=== PATIENT | female | born 1960 | race Caucasian/White ===

== ENCOUNTER 2017-02-18 14:20 | Observation (INO) | payer OTHER, MEDICARE ==
[~2017-02-18] VITALS: Ht 170.2 cm; Wt 98.9 kg
[~2017-02-18 14:20] MED LIST: CALCIUM 600 MG1 EAC4 PO; IMODIUM2 M1 GT; LIPITOR20 MG PO; MACROBID 100 M100 MG PO; PRENATAL FORMU1 EAC5 PO; THERA-M CAPLET1 EACH PO; XARELTO20 MG PO; Z CLEOCIN IV; Z.0.ASACOL400 MG PO; Z.0.CELEXA20 MG PO; Z.0.CELLCEPT500 MG PO; Z.0.COUMADIN3 MG PO; Z.0.COUMADIN4 MG PO; Z.0.DEXILANT60 MG PO; Z.0.GLUMETZA500 MG PO; Z.0.KLOR-CON 1010 ME PO; Z.0.LASIX40 MG PO; Z.0.LISINOPRIL10 MG PO; Z.0.SYNTHROID25 MCG PO; Z.0.VITAMIN D1000 UN PO; [UNRECOGNIZED DRUG - MIXTURE] IV; [UNRECOGNIZED DRUG - OTHER] IV; [UNRECOGNIZED DRUG - OTHER] PO
[2017-02-18] MEDS ORDERED: SODIUM CHLORIDE 0.9% 500ML 500 ML IV STA (14:29)
[2017-02-18] MEDS ORDERED: ONDANSETRON HCL INJ 2 MG/ML VIAL IV STA (14:29)
[2017-02-18 15:50] LABS: BASOPHILS # (AUTO) 0.1 (0.0-0.1); BASOPHILS % 0.8 % (0.0-1.0); EOSINOPHILS # (AUTO) 0.8 (0.0-0.4); EOSINOPHILS % 5.7 % (0.0-6.0); HEMATOCRIT 25.9 % (34.2-44.1); INR 1.45; LYMPHOCYTES # (AUTO) 2.5 (1.0-3.2); LYMPHOCYTES % 17.8 % (18.0-39.1); MEAN CORPUSCULAR HEMOGLOBIN 29.4 pg (28-32); MEAN CORPUSCULAR HGB CONC 29.7 g/dL (31-35); MEAN CORPUSCULAR VOLUME 98.9 fL (81-99); MONOCYTES # (AUTO) 1.5 (0.2-0.8); MONOCYTES % 10.7 % (4.4-11.3); NEUTROPHILS # (AUTO) 8.6 (2.1-6.9); NEUTROPHILS % 61.4 % (38.7-80.0); PLATELET COUNT 569 x10e3/uL (140-360); PROTHROMBIN TIME 18.4 seconds (11.9-14.5); RED BLOOD COUNT 2.62 x10e6/uL (3.6-5.1); RED CELL DISTRIBUTION WIDTH 19.2 % (11.7-14.4)
[2017-02-18 15:51] LABS: PARTIAL THROMBOPLASTIN TIME 37.3 seconds (23.8-35.5)
[2017-02-18 15:54] LABS: HEMOGLOBIN 7.7 g/dL (12.0-16.0)
[2017-02-18 16:00] LABS: ALANINE AMINOTRANSFERASE 13 IU/L (0-55); ALBUMIN 3.4 g/dL (3.5-5.0); ALBUMIN/GLOBULIN RATIO 1.2 (0.8-2.0); ALKALINE PHOSPHATASE 60 IU/L (40-150); ANION GAP 14.5 mmol/L (8-16); BLOOD UREA NITROGEN 22 mg/dL (7-26); BUN/CREATININE RATIO 25 (6-25); CARBON DIOXIDE 22 mmol/L (22-29); CHLORIDE 106 mmol/L (98-107); CREATINE KINASE 40 IU/L (29-168); CREATININE, SERUM 0.87 mg/dL (0.57-1.11); EST GLOMERULAR FILTRATION RATE > 60 ML/MIN (60-); GLUCOSE 150 mg/dL (74-118); LIPASE 16 U/L (8-78); POTASSIUM 4.5 mmol/L (3.5-5.1); SODIUM 138 mmol/L (136-145)
[2017-02-18 16:16] LABS: B-TYPE NATRIURETIC PEPTIDE2 13.8 pg/mL (0-100)
[2017-02-18 16:20] LABS: TROPONIN I 0.004 ng/mL (0-0.300)
[2017-02-18] MEDS ORDERED: PANTOPRAZOLE 40 MG 10ML VIAL IV STA (16:30)
--- NOTE | 2017-02-18 16:41 | Diagnostic Imaging Report ---
PROCEDURE: A single AP view of the chest. COMPARISON: Patients [facility], , CHEST 2 VIEWS, 09/17/2011, 21:13. Patients [facility], , CHEST SINGLE (PORTABLE), 12/03/2016, 18:44. INDICATIONS: CHEST PAIN FINDINGS: Lines/tubes: None. Lungs: The lungs are well inflated and clear. There is no evidence of pneumonia or pulmonary edema. Pleura: There is no pleural effusion or pneumothorax. Stable elevation of the right hemidiaphragm. Heart and mediastinum: The heart and the mediastinum are unremarkable. Bones: No acute bony abnormality. IMPRESSION: 1. No acute cardiopulmonary abnormalities. Carmelo Gerber M.D. Dictated by: Carmelo Gerber M.D. on 02/18/2017 at 16:48 Electronically approved by: Carmelo Gerber M.D. on 02/18/2017 at 16:48
[2017-02-18] MEDS: OSELTAMIVIR PHOSPHATE 75 MG CAP PO SCH (17:28)
[2017-02-18] MEDS: SODIUM CHLORIDE 0.9% 1000ML 1,000 ML IV SCH ×2 (17:28→23:19)
[2017-02-18] MEDS: PANTOPRAZOLE 40 MG 10ML VIAL IV SCH (17:28)
[2017-02-18 17:42] LABS: BILIRUBIN,URINE NEGATIVE (NEGATIVE); CLARITY,URINE CLEAR (CLEAR); COLOR,URINE YELLOW (YELLOW); KETONES,URINE NEGATIVE (NEGATIVE); LEUKOCYTE ESTERASE ,URINE 1+ (NEGATIVE); NITRITE,URINE NEGATIVE (NEGATIVE); PROTEIN,URINE DIPSTICK NEGATIVE (NEGATIVE); URINE UROBILINOGEN 0.2 mg/dL (0.2 - 1)
[2017-02-18 18:36] LABS: BACTERIA,URINE MODERATE /HPF; EPITHELIAL CELLS,URINE FEW /LPF; WBC,URINE (MAN) >50 /HPF (0-5)
[2017-02-18 18:37] LABS: HYALINE CASTS 0-1 (0-1); MUCUS,URINE FEW (RARE)
--- NOTE | 2017-02-18 19:51 | History and Physical ---
This is a 57-year-old lady who comes in with tachycardia and unsteady gait. HISTORY OF PRESENT ILLNESS: This is a 57-year-old female with a history of hypertension, history of diabetes mellitus, and anemia, who was in her usual state of health until the morning when she woke up and went over to make some toast. She could not stand long enough to make the toast. She felt shaky and had a tachycardic episode. The patient came into the emergency room and was found to have symptomatic anemia and influenza B. 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 MEDICATIONS: That she takes at home are: 1. Atorvastatin 20 mg. 2. Vitamin D. 3. Citalopram 20 mg. 4. Dexilant 60 mg. 5. Lasix 40 mg. 6. Levothyroxine 25 mg. 7. Lisinopril 10 mg. 8. Mesalamine 400 mg for her ulcerative colitis. 9. Metformin 500 mg. 10. Multivitamin. 11. Macrobid. 12. Potassium chloride 10 mEq. 13. vitamins. 14. Atelvia for osteoporosis. 15. Xarelto for history of frequent CVAs. SURGICAL HISTORY: She had extensive work done on her right ankle and lower extremities for necrotizing fasciitis, cholecystectomy, and surgeries on her right foot multiple times. SOCIAL HISTORY: No ETOH. No IV drug abuse. Lives with her . REVIEW OF SYSTEMS: Negative for chest pain. Positive for shortness of breath on exertion. No nausea, vomiting or diarrhea. No constipation. Positive for some dysphagia. No headaches. No blurry vision. Positive for myalgia, which is very diffuse at this point in time. PHYSICAL EXAMINATION VITALS: 97.9, pulse 119, blood pressure 102/57. HEENT: Normocephalic and atraumatic. Pupils are reactive to light and accommodation. CV: S1 and S2. Tachy about 120. No murmurs. Regular rate and rhythm. LUNGS: Clear to auscultation bilaterally. ABDOMEN: Tender in the epigastrium, otherwise normal. EXTREMITIES: No clubbing. No cyanosis. No edema. The right side is wrapped up because of the superficial thrombophlebitis. LABORATORY VALUES: Initial white count was 14,000, hemoglobin 7.7, hematocrit 25.9. Chemistry: Sodium 138, potassium 4.5, glucose 150. Coags: PT of 18 and INR is 1.45. Urine rbcs 11-20, white cells 50. Serology showed positive flu B. ASSESSMENT 1. Anemia, symptomatic: Will go ahead and transfuse 1 unit. 2. Flu: Start on Tamiflu. 3. Will continue home medications. 4. The patient does have some bleeding diathesis. Will go ahead and have Dr. Vu probably scope with endoscopy, and see if there is any bleeding with questionable arteriovenous malformation. Will continue to monitor the patient. Fluids will be administered. Will continue giving Tamiflu. Further recommendations per clinical course. Job#: [id number] GREGG
--- NOTE | 2017-02-18 21:46 | Consultation ---
DATE OF CONSULTATION: February 18, 2017 This is a 57-year-old who has history of hypertension, history of diabetes, and history of anemia. Apparently, he had an EGD and colonoscopy on January 30 which showed evidence of AVMs in the stomach as well as in the colon and also colon polyp. She presented to the hospital because of problems with racing heart rate and also feeling dizzy. The patient was found to have anemia with hemoglobin down to 7.7. She apparently had some kind of black stool. He denies any abdominal pain along with this problem. Her PT was elevated to 18.4 with INR of 1.45. Her other medical problems are significant for history of anemia, history of hypertension, history of diabetes, history of thrombophlebitis, history of diabetes, history of AVMs. MEDICATION ON ADMISSION: 1. Atorvastatin 20 mg. 2. Vitamin D. 3. Citalopram 20 mg. 4. Dexilant 60 mg. 5. Lasix 40 mg. 6. Levothyroxine 25 mg. 7. Lisinopril 10 mg. 8. Mesalamine 400 mg for her ulcerative colitis. 9. Metformin 500 mg. 10. Multivitamin. 11. Macrobid. 12. Potassium chloride 10 mEq. 13. vitamins. 14. Atelvia for osteoporosis. 15. Xarelto for history of frequent CVAs. SOCIAL HISTORY: No alcohol use. FAMILY HISTORY: Noncontributory. REVIEW OF SYSTEMS: Denies any chest pain. Denies any shortness of breath. Denies any dysphagia or odynophagia. Denies any dysuria or hematuria. She has feeling of being somewhat dizzy. Denies any syncopal episodes. PHYSICAL EXAMINATION GENERAL: The patient is awake, alert, appears to be stable and not in any acute distress. VITAL SIGNS: Afebrile currently. HEENT: Normocephalic, atraumatic. Sclerae anicteric. NECK: Supple. HEART: Sounds regular. LUNGS: Clear. ABDOMEN: Soft. There is no distention at this point. Nontender. EXTREMITIES: No clubbing. LABORATORY DATA: Significant for PT of 18.4, INR 1.45, PTT 37.3. BUN of 22, creatinine 0.87. Hemoglobin 7.7. IMPRESSION 1. Gastrointestinal bleed with black stool. The patient has history of AVMs and currently is on anticoagulation. 2. History of anemia, less than before. 3. History of hypertension. 4. History of diabetes. RECOMMENDATIONS: Transfuse with packed red blood cells at this point. I will obtain nuclear medicine bleeding scan. Continue proton pump inhibitor at this point. Follow labs and clinically. Very likely bleeding has to do with AVMs and there is bleeding because the patient is on Xarelto. Job#: [id number] cc:MAXI AMAYA MD
[2017-02-18 23:18] LABS: EOSINOPHILS % (MANUAL) 5 % (0-7); LYMPHOCYTES % (MANUAL) 25 % (19-48); METAMYELOCYTES % (MANUAL) 2 % (0-0); MONOCYTES % (MANUAL) 8 % (3.4-9.0); NEUTROPHILS % (MANUAL) 60 % (40-74)
[2017-02-18 23:20] LABS: HYPOCHROMASIA SLIGHT; PLATELET ESTIMATE SLIGHTLY INCREASED; PLATELET MORPHOLOGY COMMENT FEW LARGE; RBC MORPHOLOGY COMMENT ABNORMAL
[2017-02-18 23:21] LABS: ANISOCYTOSIS MODERATE; POIKILOCYTOSIS SLIGHT
[2017-02-18 23:30] VITALS: BP 116/57
[2017-02-19] VITALS (7 sets, daily range): BP systolic 97–135; BP diastolic 52–75
[2017-02-19] MEDS ORDERED: SODIUM CHLORIDE 0.9% 250ML 250 ML ONE ×2 (00:51→08:11)
--- NOTE | 2017-02-19 02:02 | Discharge Summary ---
KWABENA BAILON (00:02) MAXI AMAYA MD Job#: [id number] CQ
[2017-02-19 07:13] LABS: HEMATOCRIT 19.5 % (34.2-44.1); HEMOGLOBIN 5.8 g/dL (12.0-16.0)
[2017-02-19 07:18] LABS: INR 1.06; PROTHROMBIN TIME 14.3 seconds (11.9-14.5)
[2017-02-19] MEDS: SODIUM CHLORIDE 0.9% 1000ML 1,000 ML IV SCH ×3 (08:23→22:38)
[2017-02-19] MEDS: OSELTAMIVIR PHOSPHATE 75 MG CAP PO SCH ×2 (09:00→17:22)
[2017-02-19] MEDS: PANTOPRAZOLE 40 MG 10ML VIAL IV SCH (09:00)
[2017-02-19] MEDS ORDERED: SODIUM CHLORIDE 0.9% 250ML 250 ML IV ONE (10:45)
--- NOTE | 2017-02-19 18:08 | Diagnostic Imaging Report ---
Tagged-RBC GI Bleed Study Clinical information: 57-year-old female with anemia and dark stools. Discussion: The patient's own red blood cells were labeled with 27 mCi of technetium-99m pertechnetate using the in vitro method (UltraTag). Dynamic images of the abdomen were obtained through 60 minutes. Distribution of tracer activity appears physiologic throughout the abdomen. No abnormal accumulation of tracer is seen within the gastrointestinal lumen. Impression: No scan evidence of active gastrointestinal bleeding at this time. Signed by: Dr. Chayito Thomas M.D. on 02/19/2017 6:04 PM
[2017-02-19 21:20] LABS: HEMATOCRIT 29.2 % (34.2-44.1); HEMOGLOBIN 9.1 g/dL (12.0-16.0)
[2017-02-19] MEDS ORDERED: TEMAZEPAM 15 MG CAP PO ONE (22:15)
[2017-02-20] VITALS: BP 131/60
--- NOTE | 2017-02-20 02:14 | Consultation ---
DATE OF CONSULTATION: February 19, 2017 HEMATOLOGY CONSULT This lady is well known to me. She was initially referred to me by Dr. Paez because of anemia. Multiple workup showed that there is no clear etiology of anemia, except perhaps GI bleeding. Patient was now admitted to [facility] at [facility] in [place]. She was scoped there, and I was not aware of the results. I asked the patient to see me in my office today, but she was admitted to [facility] here at [facility]. Hematology consult was requested again kindly by Dr. Paez. Patient appears to be comfortable, and blood is infusing. She had some lightheadedness. She had tachycardia earlier today. Dr. Vu of GI services has been consulted. She may have another EGD in the morning. PAST MEDICAL AND SURGICAL HISTORY: As per history and physical by Dr. Paez. PHYSICAL EXAMINATION GENERAL: Revealed a middle-aged, obese white woman in no acute distress. VITAL SIGNS: Stable. HEENT: Unremarkable. NECK: Supple. CHEST: Clear. ABDOMEN: Soft. EXTREMITIES: No cyanosis, clubbing or edema. ASSESSMENT AND PLAN: Recurrent anemia without clear etiology. I was planning to repeat bone marrow and send for cytogenetics. Will watch her for now, and when the patient is stabilized to be discharged, I will make arrangements to get the bone marrow and cytogenetics done. Thank you very much, Dr. Paez, for asking me to see Mrs. Zaidi. I will follow her with you. Job#: [id number] GREGG HART
[2017-02-20 04:00] VITALS: BP 114/57
[2017-02-20 06:55] LABS: BASOPHILS # (AUTO) 0.2 (0.0-0.1); BASOPHILS % 1.5 % (0.0-1.0); EOSINOPHILS # (AUTO) 1.1 (0.0-0.4); EOSINOPHILS % 11.4 % (0.0-6.0); HEMATOCRIT 28.8 % (34.2-44.1); HEMOGLOBIN 8.8 g/dL (12.0-16.0); LYMPHOCYTES # (AUTO) 2.1 (1.0-3.2); LYMPHOCYTES % 21.5 % (18.0-39.1); MEAN CORPUSCULAR HEMOGLOBIN 29.2 pg (28-32); MEAN CORPUSCULAR HGB CONC 30.6 g/dL (31-35); MEAN CORPUSCULAR VOLUME 95.7 fL (81-99); MONOCYTES # (AUTO) 1.3 (0.2-0.8); MONOCYTES % 13.3 % (4.4-11.3); NEUTROPHILS # (AUTO) 4.8 (2.1-6.9); NEUTROPHILS % 48.1 % (38.7-80.0); PLATELET COUNT 427 x10e3/uL (140-360); RED BLOOD COUNT 3.01 x10e6/uL (3.6-5.1); RED CELL DISTRIBUTION WIDTH 17.8 % (11.7-14.4)
[2017-02-20 07:43] VITALS: BP 122/59
[2017-02-20] MEDS: OSELTAMIVIR PHOSPHATE 75 MG CAP PO SCH ×2 (09:00→17:10)
[2017-02-20] MEDS: SODIUM CHLORIDE 0.9% 1000ML 1,000 ML IV SCH (09:14)
[2017-02-20] MEDS: PANTOPRAZOLE 40 MG 10ML VIAL IV SCH (09:14)
[2017-02-20 09:47] LABS: EOSINOPHILS % (MANUAL) 10 % (0-7); LYMPHOCYTES % (MANUAL) 24 % (19-48); METAMYELOCYTES % (MANUAL) 1 % (0-0); MONOCYTES % (MANUAL) 15 % (3.4-9.0); MYELOCYTES % (MANUAL) 1 % (0-0); NEUTROPHILS % (MANUAL) 47 % (40-74); NUCLEATED RED BLOOD CELLS 2
[2017-02-20 09:50] LABS: ANISOCYTOSIS SLIGHT; PLATELET ESTIMATE ADEQUATE; PLATELET MORPHOLOGY COMMENT NORMAL; POIKILOCYTOSIS SLIGHT; RBC MORPHOLOGY COMMENT NORMAL
[2017-02-20] MEDS ORDERED: MIDAZOLAM HCL 2 MG/2 ML VIAL ONE (11:15)
[2017-02-20] MEDS ORDERED: FENTANYL CITRATE/PF 100MCG/2 ML INJ ONE (11:15)
[2017-02-20 11:33] VITALS: BP 120/61
[2017-02-20 12:35] LABS: HEMATOCRIT 31.9 % (34.2-44.1); HEMOGLOBIN 9.7 g/dL (12.0-16.0)
[2017-02-20 15:45] VITALS: BP 132/67
[2017-02-20 18:54] LABS: HEMOGLOBIN 9.5 g/dL (12.0-16.0)
[2017-02-20 20:00] VITALS: BP 121/58
[2017-02-21] VITALS: BP 140/70
[2017-02-21 00:32] LABS: HEMATOCRIT 29.2 % (34.2-44.1); HEMOGLOBIN 8.9 g/dL (12.0-16.0)
[2017-02-21 04:00] VITALS: BP 136/65
[2017-02-21 07:06] LABS: BASOPHILS # (AUTO) 0.1 (0.0-0.1); BASOPHILS % 0.9 % (0.0-1.0); EOSINOPHILS # (AUTO) 1.2 (0.0-0.4); EOSINOPHILS % 9.9 % (0.0-6.0); HEMATOCRIT 29.6 % (34.2-44.1); HEMOGLOBIN 8.9 g/dL (12.0-16.0); LYMPHOCYTES # (AUTO) 1.9 (1.0-3.2); LYMPHOCYTES % 16.3 % (18.0-39.1); MEAN CORPUSCULAR HGB CONC 30.1 g/dL (31-35); MEAN CORPUSCULAR VOLUME 96.4 fL (81-99); MONOCYTES # (AUTO) 1.5 (0.2-0.8); MONOCYTES % 12.7 % (4.4-11.3); NEUTROPHILS # (AUTO) 6.7 (2.1-6.9); NEUTROPHILS % 57.9 % (38.7-80.0); PLATELET COUNT 420 x10e3/uL (140-360); RED BLOOD COUNT 3.07 x10e6/uL (3.6-5.1); RED CELL DISTRIBUTION WIDTH 18.2 % (11.7-14.4)
[2017-02-21 07:18] LABS: ANION GAP 12.8 mmol/L (8-16); BLOOD UREA NITROGEN 5 mg/dL (7-26); BUN/CREATININE RATIO 8 (6-25); CALCIUM 8.7 mg/dL (8.4-10.2); CARBON DIOXIDE 23 mmol/L (22-29); CHLORIDE 108 mmol/L (98-107); CREATININE, SERUM 0.63 mg/dL (0.57-1.11); EST GLOMERULAR FILTRATION RATE > 60 ML/MIN (60-); GLUCOSE 179 mg/dL (74-118); POTASSIUM 3.8 mmol/L (3.5-5.1); SODIUM 140 mmol/L (136-145)
[2017-02-21 07:58] VITALS: BP 119/57
[2017-02-21] MEDS: OSELTAMIVIR PHOSPHATE 75 MG CAP PO SCH (08:40)
[2017-02-21] MEDS: PANTOPRAZOLE 40 MG 10ML VIAL IV SCH (08:40)
[2017-02-21 10:32] LABS: ANISOCYTOSIS SLIGHT; EOSINOPHILS % (MANUAL) 16 % (0-7); LYMPHOCYTES % (MANUAL) 11 % (19-48); MONOCYTES % (MANUAL) 13 % (3.4-9.0); NEUTROPHILS % (MANUAL) 60 % (40-74)
[2017-02-21 10:33] LABS: HYPOCHROMASIA SLIGHT; PLATELET ESTIMATE SLIGHTLY INCREASED; PLATELET MORPHOLOGY COMMENT NORMAL; POIKILOCYTOSIS SLIGHT; RBC MORPHOLOGY COMMENT NORMAL
[2017-02-21] MEDS ORDERED: PROPOFOL IV EMULSION 10 MG/ML 20 ML VIAL ONE (19:00)
== END 2017-02-21 09:06 | disposition home or self-care (01) ==
LOC: ER 14:20 → ERHOLD 18:47 → IMCU 21:32
PROVIDERS: ADMIT Family Medicine; ATTEND Family Medicine
DX: K55.21 Angiodysplasia of colon with hemorrhage (principal); J09.X2 Influenza due to identified novel influenza A virus with other respiratory manifestations; I10 Essential (primary) hypertension; E11.9 Type 2 diabetes mellitus without complications; Z79.01 Long term (current) use of anticoagulants; K44.9 Diaphragmatic hernia without obstruction or gangrene; D50.0 Iron deficiency anemia secondary to blood loss (chronic); G44.1 Vascular headache, not elsewhere classified; K31.811 Angiodysplasia of stomach and duodenum with bleeding
CPT/HCPCS: 36430; 44366; P9016; P9017; 36415; 43270; 71010; 78278; 80048; 80053; 81001; 82550; 82553; 82948; 83605; 83690; 83880; 84443; 84484; 85014; 85018; 85025; 85610; 85730; 86850; 86870; 86880; 86900; 86905; 86920; 86922; 87086; 87400; 93005; 99001; 99284; A9512; G0378; J2250; J2405; J7030; J7040; J7050

== ENCOUNTER 2017-04-21 19:46 | Emergency (ER) | payer OTHER, MEDICARE ==
--- OUTSIDE RECORDS SUMMARY | 2017-04-21 19:49 | XMS REPORT | Clinical Summary ---
Author Author [facility] Organization [facility] Address Unknown Phone Unavailable Care Team Providers Care Speed Runner Name Role Phone Kumar Paez MD PCP Allergies No Known Allergies Current Medications Prescription Sig. Disp. Refills Start End Date Status Date aspirin (ECOTRIN) 81 MG Take 81 mg by mouth daily 01/23/20 Active enteric coated tablet with lunch. 17 atorvastatin (LIPITOR) 40 Take 40 mg by mouth 0 11/16/19 Active MG tablet nightly. 17 citalopram (CeleXA) 20 MG Take 20 mg by mouth daily 1 01/07/20 Active tablet with lunch. 17 cyanocobalamin 1,000 Inject 1,000 mcg into the 0 01/09/20 Active mcg/mL injection shoulder, thigh, or 17 buttocks once a week. esomeprazole (NexIUM) 40 Take 40 mg by mouth 2 01/19/20 Active MG capsule (two) times a day. Before 17 breakfast and bedtime. gemfibrozil (LOPID) 600 Take 600 mg by mouth 2 0 12/20/19 Active MG tablet (two) times a day. 17 glimepiride (AMARYL) 1 MG Take 1 mg by mouth daily 0 12/10/19 Active tablet with lunch. 17 TRESIBA FLEXTOUCH U-200 Inject 10 Units under the 0 12/17/19 Active 200 unit/mL (3 mL) skin nightly. 17 insulin pen metFORMIN XR Take 1,000 mg by mouth 0 01/14/20 Active (GLUCOPHAGE-XR) 500 mg 24 daily with dinner. 17 hr tablet levothyroxine (SYNTHROID, Take 50 mcg by mouth 0 12/15/19 Active LEVOXYL) 50 mcg tablet daily before breakfast. 17 lisinopril Take 10 mg by mouth daily 0 01/07/20 Active (PRINIVIL,ZESTRIL) 10 mg with lunch. 17 tablet metoclopramide (REGLAN) 5 Take 5 mg by mouth 3 01/23/20 Active MG tablet (three) times a day. 17 metoprolol succinate XL Take 25 mg by mouth 2 0 01/07/20 Active (TOPROL-XL) 25 mg 24 hr (two) times a day. 17 tablet risedronate 35 mg Take 35 mg by mouth once 01/16/20 Active tablet,delayed release a week. Every Friday 17 (DR/EC) MORNING XARELTO 20 mg tablet Take 20 mg by mouth daily 1 01/07/20 Active with dinner. 17 ONGLYZA 5 mg tablet Take 5 mg by mouth daily 0 12/17/19 Active with lunch. 17 liraglutide (VICTOZA) 0.6 Inject 0.6 mg under the Active mg/0.1 mL (18 mg/3 mL) skin every evening. pen injector sucralfate (CARAFATE) 100 Take 10 mL (1 g total) by 1200 mL 0 03/01/20 mg/mL suspension mouth 4 (four) times a 17 17 day before meals and nightly for 30 days. Active Problems Problem Noted Date Lower GI bleed 01/29/2017 Anemia 01/28/2017 Encounters Date Type Specialty Care Team Description 01/30/2017 Documentation General Internal Medicine Mary Jane Leigh MD 01/30/2017 Anesthesia Gastroenterology Bobo Pacheco Event 01/30/2017 Procedure Pass Gastroenterology 01/30/2017 Surgery Gastroenterology Tim Smith MD COLONOSCOPY 01/29/2017 [facility] General Surgery Elver Winston MD Lower GI bleed ( Primary - Encounter William Hairston, Dx); 01/30/2017 Anemia, unspecified type; Weakness 01/29/2017 Infusion Oncology Mary Jane Leigh MD No Show 01/29/2017 Orders Only General Internal Medicine Mary Jane Leigh MD 01/28/2017 Pre-Admit Pre-Admission Testing Mary Jane Leihg MD Anemia, unspecified type Testing (Primary Dx) Appointment after 04/20/2016 Social History Tobacco Use Types Packs/Day Years Used Date Former Smoker Cigarettes 0.5 10 Quit: 01/29/1987 Smokeless Tobacco: Never Used Alcohol Use Drinks/Week oz/Week Comments Yes rarely Sex Assigned at Date Recorded Not on file Last Filed Vital Signs Vital Sign Reading Time Taken Blood Pressure 117/59 01/30/2017 3:46 PM SUPPLY ANALYST Pulse 88 01/30/2017 3:46 PM SUPPLY ANALYST Temperature 36.4 C (97.6 F) 01/30/2017 3:46 PM SUPPLY ANALYST Respiratory Rate 16 01/30/2017 3:46 PM SUPPLY ANALYST Oxygen Saturation 95% 01/30/2017 3:46 PM SUPPLY ANALYST Inhaled Oxygen - - Concentration Weight 81.6 kg (180 lb) 01/29/2017 9:15 AM SUPPLY ANALYST Height 170.2 cm (5' 7") 01/29/2017 9:15 AM SUPPLY ANALYST Body Mass Index 28.19 01/29/2017 9:15 AM SUPPLY ANALYST Plan of Treatment Health Maintenance Due Date Last Done Comments PAP SMEAR 1983 COLONOSCOPY 01/14/2012 MAMMOGRAM 01/14/2012 INFLUENZA VACCINE 10/01/2016 Procedures Procedure Name Priority Date/Time Associated Diagnosis Comments ESOPHAGOGASTRODUODENOSCOP 01/30/2017 GI BLEED Y (EGD) 1:30 PM SUPPLY ANALYST COLONOSCOPY 01/30/2017 GI BLEED 1:30 PM SUPPLY ANALYST VT CRITICAL CARE, E/M Routine 01/29/2017 Results for this 30-74 MINUTES 1:51 PM SUPPLY ANALYST procedure are in the results section. after 04/20/2016 Results * Total iron binding capacity (01/30/2017 3:47 PM) Component Value Ref Range Iron level 71 37 - 145 ug/dL Iron binding capacity 335 200 - 400 ug/dL % Saturation 21.2 15.0 - 38.0 % Specimen Performing Laboratory Plasma specimen [facility] DEPARTMENT OF PATHOLOGY AND GENOMIC MEDICINE [address] [place] [address] * Vitamin B12 level (01/30/2017 3:47 PM) Component Value Ref Range Vitamin B12 1,033 (H) 211 - 946 pg/mL Comment: Significant overlap exists between normal and deficiency states. However, most patients with deficiencies will have Serum B12 <200 pg/mL. Specimen Performing Laboratory Serum [facility] DEPARTMENT OF PATHOLOGY AND GENOMIC MEDICINE [address] [place] [id number] * Surgical pathology request (01/30/2017 1:27 PM) Component Value Ref Range Surgical pathology report See link below for PDF Lab Report Result status This is Final Report to [id number] Specimen Performing Laboratory [facility] DEPARTMENT OF PATHOLOGY AND GENOMIC MEDICINE [address] [place] [address] [place] [id number] * Smear review (01/30/2017 12:51 PM) Only the most recent of 2 results within the time period is included. Component Value Ref Range Platelet slide review Violet adequate Anisocytosis Moderate Polychromasia FootnoteComment: occassional Specimen Performing Laboratory [facility] PATHOLOGY AND [address] [place] [id number] * CBC with platelet and differential (01/30/2017 12:51 PM) Only the most recent of 2 results within the time period is included. Component Value Ref Range WBC 10.19Comment: WBC was corrected for NRBCs 4.50 - 11.00 k/uL RBC 2.87 (L) 4.20 - 5.50 m/uL HGB 9.1 (L) 12.0 - 16.0 g/dL HCT 29.7 (L) 37.0 - 47.0 % MCV 103.5 (H) 82.0 - 100.0 fL MCH 31.7 27.0 - 34.0 pg MCHC 30.6 (L) 31.0 - 37.0 g/dL RDW - SD 94.6 (H) 37.0 - 55.0 fL MPV 9.2 8.8 - 13.2 fL Platelet count 389 150 - 400 k/uL Nucleated RBC 1.00 /100 WBC Neutrophils 57.3 39.0 - 69.0 % Lymphocytes 21.0 (L) 25.0 - 45.0 % Monocytes 14.6 (H) 0.0 - 10.0 % Eosinophils 1.4 0.0 - 5.0 % Basophils 0.8 0.0 - 1.0 % Immature granulocytes 4.9 (H)Comment: "Immature granulocytes" 0.0 - 1.0 % (promyelocytes, myelocytes, metamyelocytes) Specimen Performing Laboratory Blood [facility] DEPARTMENT OF PATHOLOGY AND GENOMIC [address] [place] [address] * POC glucose (01/30/2017 11:43 AM) Only the most recent of 4 results within the time period is included. Component Value Ref Range POC glucose 120 (H) 65 - 99 mg/dL Comment: Meter ID: [id number] [employer] Supervisor: Oriana Roth Specimen Performing Laboratory [facility] DEPARTMENT OF PATHOLOGY AND GENOMIC MEDICINE [address] [place] [address] [place] [id number] * Hemoglobin & hematocrit (01/30/2017 5:30 AM) Component Value Ref Range HGB 8.7 (L) 12.0 - 16.0 g/dL HCT 28.2 (L) 37.0 - 47.0 % Specimen Performing Laboratory Blood [facility] PATHOLOGY AND [address] [place] [address] * Transfuse RBC (01/29/2017 3:51 PM) Only the most recent of 3 results within the time period is included. * CRITICAL CARE (01/29/2017 1:51 PM) Narrative Elver Winston MD 01/29/20171:51 PM Critical Care Performed by: ELVER WINSTON Authorized by: ELVER WINSTON Critical care provider statement: Critical care time (minutes):33 Critical care time was exclusive of:Separately billable procedures and treating other patients Critical care was necessary to treat or prevent imminent or life-threatening deterioration of the following conditions:Shock (severe blood loss) Critical care was time spent personally by me on the following activities:Development of treatment plan with patient or surrogate, discussions with primary provider, evaluation of patient's response to treatment, examination of patient, obtaining history from patient or surrogate, re-evaluation of patient's condition, pulse oximetry, ordering and review of radiographic studies, ordering and review of laboratory studies, ordering and performing treatments and interventions, review of old charts and discussions with consultants Yazan 'yes' if you are taking over critical care for this patient from another provider.: no * Troponin (01/29/2017 1:46 PM) Only the most recent of 2 results within the time period is included. Component Value Ref Range Troponin <0.300 0.000 - 0.300 ng/mL Comment: 0.30 - 1.49 ng/ml May indicate increased risk of acute coronary syndrome. >=1.5 ng/ml Consistent with acute myocardial infarction. The diagnostic value of a single normal or non-diagnostic result is questionable. Serial samples at 2-6 hour intervals are required to rule out acute myocardial injury. Specimen Performing Laboratory Plasma specimen [facility] OF PATHOLOGY AND GENOMIC [address] [place] [address] * Estimated GFR (01/29/2017 9:45 AM) Component Value Ref Range GFR Non Af Amer 74 mL/min/1.73 m2 GFR Af Amer >90 mL/min/1.73 m2 Comment: Chronic kidney disease: <60 mL/min/1.73m2 Kidney failure: <15 mL/min/1.73m2 The estimated GFR is calculated from the IDMS-traceable Modification of Diet in Renal Disease Equation. The accuracy of the calculation is poor when the creatinine is normal. Calculated values >90 mL/min/1.73m2 are not reported. This equation has not been validated in children (<18 years), women, the elderly (>70 years), or ethnic groups other than Caucasians and Americans. Specimen Performing Laboratory Plasma specimen [facility] DEPARTMENT OF PATHOLOGY AND [place] [address] [place] [address] * Partial thromboplastin time, activated (01/29/2017 9:45 AM) Component Value Ref Range PTT 24.2 23.0 - 36.0 sec Comment: PTT therapeutic range for unfractionated heparin is 61.0-112.0 seconds which corresponds to Anti-Xa 0.3-0.7 U/ml. Specimen Performing Laboratory Blood [facility] DEPARTMENT OF PATHOLOGY AND [place] [facility] [address] [place] [address] [place] [address] * Prothrombin time with INR (01/29/2017 9:45 AM) Component Value Ref Range Prothrombin time 14.7 12.0 - 15.0 sec INR 1.1 Comment: The International Normalized Ratio (INR) is a therapeutic monitoring tool for patients who are stable on oral anticoagulant therapy. An INR of 2.0-3.0 is suggested for deep vein thrombosis/pulmonary embolism. Specimen Performing Laboratory Blood [facility] DEPARTMENT OF PATHOLOGY AND [place] [facility] [address] [place] [address] [place] [address] * B natriuretic peptide (01/29/2017 9:45 AM) Component Value Ref Range BNP 40 0 - 100 pg/mL Specimen Performing Laboratory Blood [facility] DEPARTMENT OF PATHOLOGY AND [place] [address] [place] [address] * Hepatic function panel (01/29/2017 9:45 AM) Component Value Ref Range Albumin 4.0 3.5 - 5.0 g/dL Total bilirubin 0.2 0.0 - 1.2 mg/dL Bilirubin direct <0.1 0.0 - 0.3 mg/dL Alkaline phosphatase 59 35 - 104 U/L Protein 6.3 6.3 - 8.3 g/dL Comment: [place] 4.6-7.0 g/dL 1 week 4.4-7.6 g/dL 7 months-1year 5.1-7.3 g/dL 1-2 years 5.6-7.5 g/dL >3 years 6.0-8.0 g/dL 18-150 6.3-8.3 g/dL ALT 14 5 - 50 U/L AST 18 10 - 35 U/L Specimen Performing Laboratory Plasma specimen [facility] DEPARTMENT OF PATHOLOGY AND [facility] MEDICINE [address] [place] [address] * Basic metabolic panel (01/29/2017 9:45 AM) Component Value Ref Range Sodium 136 135 - 148 mEq/L Potassium 4.1 3.5 - 5.0 mEq/L Chloride 101 98 - 112 mEq/L CO2 22 (L) 24 - 31 mEq/L Anion gap 13 7 - 15 mEq/L Comment: Starting from June , anion gap calculation no longer incorporates potassium. Please note the change. BUN 14 6 - 20 mg/dL Creatinine 0.8 0.5 - 0.9 mg/dL Glucose 183 (H) 65 - 99 mg/dL Calcium 9.1 8.3 - 10.2 mg/dL Specimen Performing Laboratory Plasma specimen [facility] PATHOLOGY AND [facility] [address] [place] [address] [place] [address] * ECG 12 lead (01/29/2017 9:26 AM) Component Value Ref Range Ventricular rate 96 Atrial rate 96 VT interval 136 QRSD interval 74 QT interval 330 QTC interval 416 P axis 1 261 QRS axis 1 38 T wave axis 78 EKG impression Unusual P axis and short VT, probable junctional tachycardia-Cannot rule out Anterior infarct , age undetermined-Abnormal ECG-In automated comparison with ECG of 11-SEP-2013 22:37,-Junctional rhythm has replaced Sinus rhythm- Specimen Performing Laboratory [facility] [address] [place] [address] * Donnelly antigen patient typing (01/28/2017 10:14 AM) Only the most recent of 2 results within the time period is included. Component Value Ref Range Sophia Antigen Patient NEGComment: UNIT ANTIGEN TESTING Typing Specimen Performing Laboratory [facility] DEPARTMENT OF PATHOLOGY AND GENOMIC MEDICINE [address] [place] [address] [place] [id number] * E antigen patient typing (01/28/2017 10:14 AM) Only the most recent of 2 results within the time period is included. Component Value Ref Range E Antigen Patient Typing NEGComment: UNIT ANTIGEN TESTING Specimen Performing Laboratory [facility] DEPARTMENT OF PATHOLOGY AND GENOMIC MEDICINE [address] [place] [address] [place] [id number] * Prepare RBC, 2 Units (01/28/2017 10:14 AM) Component Value Ref Range Product name Apheresis Red Cell AS3 #1 LR Unit number [id number] Product code [id number] Dispense status Transfused Blood expiration date 20170220 Blood type code 9500 Blood type O NEGATIVE Product name Red Blood Cells -1, Leukored Unit number [id number] Product code [id number] Dispense status Transfused Blood expiration date 20170216 Blood type code 9500 Blood type O NEGATIVE Specimen Performing Laboratory [facility] DEPARTMENT OF PATHOLOGY AND GENOMIC MEDICINE [address] [place] [address] [place] [id number] * Type and screen (01/28/2017 10:14 AM) Component Value Ref Range ABO grouping O Rh type NEG Antibody screen NEG Specimen Performing Laboratory Blood [facility] DEPARTMENT OF PATHOLOGY AND GENOMIC [address] [place] [id number] after 04/20/2016 Insurance Payer Benefit Subscriber ID Type Phone Address Plan / Group ASHLYN GOLDBERG xxxxxxxxxxx HMO HMO/POS
--- OUTSIDE RECORDS SUMMARY | 2017-04-21 19:49 | XMS REPORT ---
Author Author [facility] Address Unknown Phone Unavailable Care Team Providers Care Campground Caretaker Name Role Phone MAXI AMAYA Unavailable Unavailable Problems This patient has no known problems. Allergies, Adverse Reactions, Alerts This patient has no known allergies or adverse reactions. Medications This patient has no known medications. Results Test Description Test Time Test Comments Text Results Atomic Results Result Comments G I BLEED [place] [address] Patient Name: JOSE CARLOS DIXON MR #: [id number] : 1960 Age/Sex: 57/F Req #: [id number] Adm Physician: MAXI AMAYA MD Ordered by: SANDRA MAGALLON MD Report #: [id number] Location: [facility] Room/Bed: [place] [address] _ Procedure: [id number] NM/G I BLEED Exam Date: 02/19/17 Exam Time: 1400 REPORT STATUS: Signed Tagged-RBC GI Bleed Study Clinical information: 57-year-old female with anemia and dark stools. Discussion: The patient's own red blood cells were labeled with 27 mCi of technetium-99m pertechnetate using the in vitro method (UltraTag). Dynamic images of the abdomen were obtained through 60 minutes. Distribution of tracer activity appears physiologic throughout the abdomen. No abnormal accumulation of tracer is seen within the gastrointestinal lumen. Impression: No scan evidence of active gastrointestinal bleeding at this time. Signed by: Dr. Kennedi Thomas M.D. on 02/19/2017 6:04 PM Dictated By: KENNEDI THOMAS MD 03 COPY TO: SANDRA MAGALLON MD CHEST SINGLE (PORTABLE) [place] [address] Patient Name: JOSE CARLOS DIXON MR #: [id number] : 1960 Age/Sex: 57/F Req #: [id number] Adm Physician: MAXI AMAYA MD Ordered by: RENAE GOULD DIRECTOR UTILIZATION MANAGEMENT Report #: [id number] Location: [facility] Room/Bed: [place] [address] Procedure: [id number] DX/CHEST SINGLE (PORTABLE) Exam Date: 02/18/17 Exam Time: 1545 REPORT STATUS: Signed PROCEDURE: A single AP view of the chest. COMPARISON: [facility], , CHEST 2 VIEWS, 09/17/2011, 21:13. [facility], , CHEST SINGLE (PORTABLE), 12/03/2016, 18:44. INDICATIONS: CHEST PAIN FINDINGS: Lines/tubes: None. Lungs : The lungs are well inflated and clear. There is no evidence of pneumonia or pulmonary edema. Pleura: There is no pleural effusion or pneumothorax. Stable elevation of the right hemidiaphragm. Heart and mediastinum: The heart and the mediastinum are unremarkable. Bones: No acute bony abnormality. IMPRESSION: 1. No acute cardiopulmonary abnormalities. Car Gerber M.D. Dictated by: Car Gerber M.D. on 02/18/2017 at 16:48 Electronically approved by: Car Gerber M.D. on 02/18/2017 at 16:48 Dictated By: CAR GERBER MD 47 Transcribed By: WILBUR on 02/18/171647 COPY TO: RENAE GOULD NP SHARRI COMPLETE [place] [address] Patient Name : JOSE CARLOS DIXON MR #: [id number] : 1960 Age/Sex: 57/F Adm Physician : MAXI AMAYA MD Admit Date : 12/03/16 Location : [facility] Room/Bed : [place] [address] ____ REPORT: Cardiology Report DATE OF STUDY: December 06, 2016 TRANSESOPHAGEAL ECHOCARDIOGRAM DESCRIPTION OF PROCEDURE: After informed consent, patient was brought to the endoscopy suite. Her throat was sprayed with Cetacaine spray. She was anesthetized by the anesthesiologist. Transesophageal probe was passed without any difficulty and images were obtained in the usual fashion. Patient tolerated the procedure without any complications. REPORT: 1. Left ventricle; normal size and systolic function. 2. The overall estimated ejection fraction is about 60% to 65%. 3. Left atrium; normal size. 4. No spontaneous echo contrast or thrombus seen in the left atrium or left atrial appendage. 5. Right atrium; is of normal size. 6. Right ventricle; normal size. 7. Mitral valve; structurally normal intact valve excursion. Trivial mitral regurgitation is noted. No vegetation seen on mitral valve leaflets. 8. Aortic valve; thickened with adequate valvular excursion. No vegetation is seen on the aortic valve leaflets. No significant aortic regurgitation is noted. 9. Tricuspid valve; structurally normal, intact valve excursion. No vegetation in tricuspid valve leaflets. Trivial tricuspid regurgitation is noted. 10. Pulmonic valve; the view as seen appears to be normal intact valvular excursion. No vegetation is seen in the pulmonic valve leaflets. No significant pulmonic regurgitation is noted. 11. Aorta; no significant atherosclerotic plaquing at the aorta is noted. 12. No left or right shunt is seen on color flow and no right or left shunt is seen on contrast injection across the interatrial septum. 13. No pericardial effusion is noted. CONCLUSIONS: 1. Left ventricle normal size and systolic function. 2. The overall estimated ejection fraction is 60% to 65%. 3. No significant valvular regurgitant or stenotic lesions are noted. 4. No intracardiac thrombi or vegetation noted. 5. No left or right shunt is noted. Job#: [id number] Signature Date Dictated By: YAMILETH COURTNEY MD Transcribed By: SMEDS on 01/08/17 <Electronically signed by YAMILETH COURTNEY MD><<Signature on File>>01/14/17 0716 COPY TO: MRI BRAIN WO [place] [address] Patient Name: JOSE CARLOS DIXON MR #: [id number] : 1960 Age/Sex: 56/F Req #: [id number] Adm Physician: MAXI AMAYA MD Ordered by: DEVON IRWIN MD Report #: [id number] Location: [facility] Room/Bed: [place] [address] Procedure: [id number] MRI/MRI BRAIN WO Exam Date: 12/04/16 Exam Time: 1505 REPORT STATUS: Signed History: Dysphagia Comparison studies: Head CT and brain MRI on 12/10/2015, head CT on 12/03/2016 Technique: Sagittal T2; axial DWI, FLAIR, MPGR, T1, Coronal FLAIR. Intravenous contrast: None Findings: Scalp: Normal in signal . No masses . Bone marrow: Normal in signal intensity. Extra- axial: No masses or fluid collections. Brain sulci: Appropriate for age. Ventricles: Normal in size . No hydrocephalus . Parenchyma: A single T2 FLAIR hyperintense focus in the anterior vermis is nonspecific No masses, hemorrhage, acute or chronic cortical ischemic insults. Suprasellar region : No abnormalities. Craniocervical junction: No abnormalities. Patent foramen magnum. No Chiari one malformation. Vessels: Normal flow-voids in the arteries and sinuses. IMPRESSION: No intracranial abnormalities. No changes when compared to the previous studies which date back to 1915. Signed by: Dr. Ronen Macias M.D. on 12/04/2016 5:44 PM Dictated By: RONEN MACIAS MD, MD 43 Transcribed By: ESTELLE on 12/04/161743 COPY TO: DEVON IRWIN MD MRI BRAIN WO [place] [address] Patient Name: JOSE CARLOS DIXON MR #: [id number] : 1960 Age/Sex: 56/F Req #: [id number] Adm Physician: MAXI AMAYA MD Ordered by: DEVON IRWIN MD Report #: [id number] Location: [facility] Room/Bed: [place] [address] Procedure: [id number] MRI/MRI BRAIN WO Exam Date: Exam Time: REPORT STATUS: Signed History: Transient ischemic attack Comparison studies: CT head 12/03/2016 and MRI brain 2015 Technique: Sagittal T2; axial DWI, FLAIR, MPGR, T1, Coronal FLAIR. Intravenous contrast: None Findings: Scalp: Normal in signal . No masses . Bone marrow: Normal in signal intensity. Extra-axial: No masses, no fluid collections. Brain sulci: Appropriate for age. Ventricles: Normal in size . No hydrocephalus . Parenchyma: No abnormal signal intensities. No masses, hemorrhage, acute or chronic vascular insults. Suprasellar region: No abnormalities. Craniocervical junction: No abnormalities. Patent foramen magnum. No Chiari one malformation. Vessels : Loss of flow-void of the right sigmoid sinus. Normal flow-voids in the arteries and remaining sinuses. Mucosal thickening at the left mastoid air cells. IMPRESSION: 1. Loss of flow-void of the left sigmoid sinus, this could be related to slow flow or no flow, this finding was present in the previous MR of the brain, recommend further evaluation with contrast MRV. Associated inflammatory changes of the left mastoid air cells, new finding. 2. No acute infarct or intracranial hemorrhage Signed by: DR Dutch Verde M.D. on 12/05/2016 4:11 PM Dictated By: DUTCH ARMENDARIZ MD 10 Transcribed By: ESTELLE on 12/05/161610 COPY TO: DEVON IRWIN MD [facility] [place] [address] Patient Name: JOSE CARLOS DIXON MR #: [id number] : 1960 Age/Sex: 56/F Req #: [id number] Adm Physician: Ordered by: ANU KAPLAN MD Report #: [id number] Location: Room/Bed: Procedure: [id number] DX/CHEST SINGLE (PORTABLE) Exam Date: 12/03/16 Exam Time: 1850 REPORT STATUS: Signed PROCEDURE: A single AP view of the chest. COMPARISON: [facility], DX, CHEST SINGLE (PORTABLE), 12/30/2015, 10:30. INDICATIONS: POSSIBLE STROKE, AMS FINDINGS: Lines/tubes: None. Lungs: The lungs are well inflated and clear. There is no evidence of pneumonia or pulmonary edema. Pleura: There is no pleural effusion or pneumothorax. Heart and mediastinum: The heart and the mediastinum are unremarkable. Bones: No acute bony abnormality. IMPRESSION: 1. No acute cardiopulmonary abnormalities. Car Gerber M.D. Dictated by : Car Gerber M.D. on 12/03/2016 at 19:09 Electronically approved by: Car Gerebr M.D. on 12/03/2016 at 19:09 Dictated By: CAR GERBER MD 08 Transcribed By: WILBUR on 12/03/161908 COPY TO: ANU KAPLAN MD CT BRAIN WO [place] [address] Patient Name: JOSE CARLOS DIXON MR #: [id number] : 1960 Age/Sex: 56/F Req #: [id number] Adm Physician: Ordered by: ANU KAPLAN MD Report #: [id number] Location: ER Room/Bed: Procedure: [id number] CT/CT BRAIN WO Exam Date: 12/03/16 Exam Time: 1838 REPORT STATUS: Signed History: Aphasia. Comparison studies: MRI brain 12/30/2015 Technique: Axial images were obtained from the skull base to the vertex. Coronal and sagittal reconstructions obtained from the axial data. Findings: Scalp/skull: No abnormalities. No fractures, blastic or lytic lesions. Extra-axial spaces: No masses. No fluid collections. Brain sulci: Mildly prominent. Ventricles: Normal in size and configuration. No hydrocephalus. Parenchyma: No abnormal densities. No masses, hemorrhage, acute or chronic cortical vascular insults. Sellar/suprasellar region: No abnormalities Craniocervical junction: Patent foramen magnum. No Chiari one malformation. IMPRESSION: No acute abnormalities . Mild volume loss, more than expected for patient's age Signed by: DR Dutch Verde M.D. on 12/03/2016 7:03 PM Dictated By: DUTCH ARMENDARIZ MD 02 Transcribed By: ESTELLE on 12/03/161902 COPY TO: ANU KAPLAN MD
== END 2017-04-21 19:53 | disposition short-term general hospital (02) ==
LOC: ER 19:46
DX: R53.1 Weakness (principal)

== ENCOUNTER 2017-10-01 16:37 | Emergency (ER) | payer OTHER, MEDICARE ==
[~2017-10-01] VITALS: Ht 170.2 cm; Wt 98.9 kg
== END 2017-10-01 17:43 | disposition left against medical advice (07) ==
LOC: ER 16:37
DX: G62.9 Polyneuropathy, unspecified (principal)

== ENCOUNTER 2018-02-02 08:30 | Emergency (ER) | payer OTHER, MEDICARE ==
[~2018-02-02] VITALS: Ht 170.2 cm; Wt 81.6 kg
--- OUTSIDE RECORDS SUMMARY | 2018-02-02 08:33 | XMS REPORT | Clinical Summary ---
Author Author [facility] [employer] Organization [facility] Address Unknown Phone Unavailable Care Team Providers Care Pharmacy Operations Specialist Name Role Phone Kumar Paez MD PCP Allergies No Known Allergies Medications End Date Status Medication Sig Dispensed Refills Start Date Active aspirin (ECOTRIN) 81 MG Take 81 mg by 0 enteric coated tablet mouth daily 7 with lunch. Active atorvastatin (LIPITOR) 40 Take 40 mg by 0 MG tablet mouth 7 nightly. Active citalopram (CeleXA) 20 MG Take 20 mg by 1 tablet mouth daily 7 with lunch. Active cyanocobalamin 1,000 Inject 1,000 0 mcg/mL injection mcg into the 7 shoulder, thigh, or buttocks once a week. Active esomeprazole (NexIUM) 40 Take 40 mg by 0 MG capsule mouth 2 (two) 7 times a day. Before breakfast and bedtime. Active gemfibrozil (LOPID) 600 Take 600 mg 0 MG tablet by mouth 2 7 (two) times a day. Active glimepiride (AMARYL) 1 MG Take 1 mg by 0 tablet mouth daily 7 with lunch. Active TRESIBA FLEXTOUCH U-200 Inject 10 0 200 unit/mL (3 mL) Units under 7 insulin pen the skin nightly. Active metFORMIN XR Take 1,000 mg 0 (GLUCOPHAGE-XR) 500 mg 24 by mouth 7 hr tablet daily with dinner. Active levothyroxine (SYNTHROID, Take 50 mcg 0 LEVOXYL) 50 mcg tablet by mouth 7 daily before breakfast. Active lisinopril Take 10 mg by 0 (PRINIVIL,ZESTRIL) 10 mg mouth daily 7 tablet with lunch. Active metoclopramide (REGLAN) 5 Take 5 mg by 0 MG tablet mouth 3 7 (three) times a day. Active metoprolol succinate XL Take 25 mg by 0 (TOPROL-XL) 25 mg 24 hr mouth 2 (two) 7 tablet times a day. Active risedronate 35 mg Take 35 mg by 0 tablet,delayed release mouth once a 7 (DR/EC) week. Every Friday MORNING Active XARELTO 20 mg tablet Take 20 mg by 1 mouth daily 7 with dinner. Active ONGLYZA 5 mg tablet Take 5 mg by 0 mouth daily 7 with lunch. Active liraglutide (VICTOZA) 0.6 Inject 0.6 mg 0 mg/0.1 mL (18 mg/3 mL) under the pen injector skin every evening. 03/01/2017 sucralfate (CARAFATE) 100 Take 10 mL (1 1200 mL 0 mg/mL suspension g total) by 7 mouth 4 (four) times a day before meals and nightly for 30 days. Active Problems Problem Noted Date Lower GI bleed 01/29/2017 Anemia 01/28/2017 Social History Date Tobacco Use Types Packs/Day Years Used Quit: 01/29/1987 Former Smoker Cigarettes 0.5 10 Smokeless Tobacco: Never Used Alcohol Use Drinks/Week oz/Week Comments Yes rarely Sex Assigned at Date Recorded Not on file Industry Job Start Date Occupation Not on file Not on file Not on file Travel End Travel History Travel Start No recent travel history available. Last Filed Vital Signs Not on file Plan of Treatment Health Maintenance Due Date Last Done Comments MMR VACCINES (1 of - 1961 Standard series) VARICELLA VACCINES (1 of 1975 2 - 2-dose adolescent series) CERVICAL CANCER SCREENING 1983 BREAST CANCER SCREENING 01/14/2012 COLON CANCER SCREENING 01/14/2012 SHINGRIX VACCINE (1 of 2) 01/14/2012 INFLUENZA VACCINE 10/01/2017 HEPATITIS B VACCINES Aged Out No longer eligible based on patient's age to complete this topic IPV VACCINES Aged Out No longer eligible based on patient's age to complete this topic MENINGOCOCCAL VACCINE Aged Out No longer eligible based on patient's age to complete this topic Results Not on fileafter 02/01/2017 Insurance Payer Benefit Subscriber ID Type Phone Address Plan / Group ASHLYN GOLDBERG xxxxxxxxxxx HMO HMO/POS Advance Directives Patient has advance care planning documents, and code status on file. For more i nformation, please contact: Delio Fox [address] [place] [address] Date Inactivated Comments Code Status Date Activated 01/30/2017 8:36 PM Full Code 01/29/2017 5:41 PM Code Status decision reached by: Patient
--- OUTSIDE RECORDS SUMMARY | 2018-02-02 08:39 | XMS REPORT | Clinical Summary ---
Author Author [facility] Organization [facility] Address Unknown Phone Unavailable Care Team Providers Care Operations Manager Assistant Name Role Phone Kumar Paez MD PCP [...] more i nformation, please contact: Delio Fox [address] [place] [address] Date Inactivated Comments Code Status Date Activated 01/30/2017 8:36 PM Full Code 01/29/2017 5:41 PM Code Status decision reached by: Patient
[2018-02-02 09:15] LABS: BASOPHILS # (AUTO) 0.1 (0.0-0.1); BASOPHILS % 0.8 % (0.0-1.0); EOSINOPHILS # (AUTO) 0.3 (0.0-0.4); HEMATOCRIT 40.9 % (34.2-44.1); HEMOGLOBIN 12.1 g/dL (12.0-16.0); LYMPHOCYTES # (AUTO) 1.7 (1.0-3.2); MEAN CORPUSCULAR HEMOGLOBIN 26.3 pg (28-32); MEAN CORPUSCULAR HGB CONC 29.6 g/dL (31-35); MEAN CORPUSCULAR VOLUME 88.9 fL (81-99); MONOCYTES # (AUTO) 2.2 (0.2-0.8); MONOCYTES % 20.4 % (4.4-11.3); NEUTROPHILS # (AUTO) 6.3 (2.1-6.9); NEUTROPHILS % 58.6 % (38.7-80.0); PLATELET COUNT 455 x10e3/uL (140-360); RED CELL DISTRIBUTION WIDTH 18.3 % (11.7-14.4)
[2018-02-02 09:21] LABS: CLARITY,URINE SL CLOUDY (CLEAR); KETONES,URINE NEGATIVE (NEGATIVE); LEUKOCYTE ESTERASE ,URINE TRACE (NEGATIVE); NITRITE,URINE NEGATIVE (NEGATIVE); PROTEIN,URINE DIPSTICK 2+ (NEGATIVE); URINE UROBILINOGEN 0.2 mg/dL (0.2 - 1)
[2018-02-02 09:22] LABS: BILIRUBIN,URINE 1+ (NEGATIVE); COLOR,URINE AMBER (YELLOW)
[2018-02-02 09:28] LABS: EPITHELIAL CELLS,URINE FEW /LPF
[2018-02-02] MEDS ORDERED: METOCLOPRAMIDE HCL 10 MG/2ML VIAL IV ONE (09:30)
[2018-02-02] MEDS ORDERED: SODIUM CHLORIDE 0.9% 1000ML 1,000 ML IV SCH (09:30)
[2018-02-02 09:33] LABS: ALANINE AMINOTRANSFERASE 19 IU/L (0-55); ALBUMIN 3.4 g/dL (3.5-5.0); ALKALINE PHOSPHATASE 98 IU/L (40-150); AMYLASE 46 U/L (25-125); ANION GAP 15.6 mmol/L (8-16); BLOOD UREA NITROGEN 10 mg/dL (7-26); BUN/CREATININE RATIO 14 (6-25); CALCIUM 9.5 mg/dL (8.4-10.2); CARBON DIOXIDE 20 mmol/L (22-29); CHLORIDE 105 mmol/L (98-107); CREATINE KINASE 61 IU/L (29-168); CREATININE, SERUM 0.73 mg/dL (0.57-1.11); EST GLOMERULAR FILTRATION RATE > 60 ML/MIN (60-); GLUCOSE 172 mg/dL (74-118); LIPASE 180 U/L (8-78); POTASSIUM 3.6 mmol/L (3.5-5.1); SODIUM 137 mmol/L (136-145)
[2018-02-02 11:15] LABS: BAND NEUTROPHILS % (MANUAL) 1 %; EOSINOPHILS % (MANUAL) 6 % (0-7); HOWELL-JOLLY BODIES FEW; LYMPHOCYTES % (MANUAL) 14 % (19-48); MONOCYTES % (MANUAL) 19 % (3.4-9.0); NEUTROPHILS % (MANUAL) 58 % (40-74)
[2018-02-02 11:16] LABS: ANISOCYTOSIS SLIGHT; PLATELET ESTIMATE ADEQUATE; PLATELET MORPHOLOGY COMMENT NORMAL; RBC MORPHOLOGY COMMENT NORMAL
[2018-02-02 13:25] LABS: WBC,FECAL (FECAL LACTOFERRIN) POSITIVE (NEGATIVE)
[2018-02-02 14:18] LABS: C DIFFICILE TOXIN A&B AMP PROB **POSITIVE** (NEGATIVE)
[2018-02-02] MEDS: SODIUM CHLORIDE 0.9% 1000ML 1,000 ML IV SCH ×2 (16:04→16:05)
[2018-02-02] MEDS ORDERED: METRONIDAZOLE 500MG/NS 100ML 100 ML IV ONE (16:30)
[2018-02-02] MEDS ORDERED: METRONIDAZOLE 500 MG TAB PO ONE (17:00)
[2018-02-02 17:59] VITALS: BP 135/71
== END 2018-02-02 18:07 | disposition home or self-care (01) ==
LOC: ER 08:36
DX: A04.72 Enterocolitis due to Clostridium difficile, not specified as recurrent (principal); I10 Essential (primary) hypertension; E78.5 Hyperlipidemia, unspecified; E11.9 Type 2 diabetes mellitus without complications; Z79.84 Long term (current) use of oral hypoglycemic drugs; E03.9 Hypothyroidism, unspecified; K21.9 Gastro-esophageal reflux disease without esophagitis; Z86.73 Personal history of transient ischemic attack (TIA), and cerebral infarction without residual deficits
CPT/HCPCS: 36415; 80053; 81001; 82150; 82550; 82553; 83630; 83690; 84484; 85025; 87177; 87328; 87493; 93005; 99284; J2765; J7030

== ENCOUNTER 2018-07-27 18:45 | Inpatient (IN) | payer OTHER, MEDICARE ==
[~2018-07-27] VITALS: Ht 170.2 cm; Wt 83.9 kg
[~2018-07-27 18:45] MED LIST changes: -IMODIUM2 M1 GT; +IMODIUM2 M1 PO
--- OUTSIDE RECORDS SUMMARY | 2018-07-27 18:47 | XMS REPORT | Clinical Summary ---
Author Author [facility] Organization [facility] Address Unknown Phone Unavailable Care Team Providers Care Drupal Web Developer Name Role Phone Kumar Paez MD PCP [...] under the pen injector skin every evening. Active Problems Problem Noted Date Lower GI [...] Health Maintenance Due Date Last Done Comments BREAST CANCER SCREENING 01/14/2012 COLON CANCER SCREENING 01/14/2012 SHINGLES VACCINES (#1) 01/14/2012 INFLUENZA VACCINE 10/01/2018 Results Not on fileafter 07/26/2017 Insurance Type Payer Benefit Subscriber ID Effective Phone Address Plan / Dates Group HMO CIGNA CIGNA xxxxxxxxxxx [id number] HMO/POS resent Advance Directives Patient has advance care planning documents, and code status on file. For more i nformation, please contact: Delio Fox [address] [place] [address] Date Inactivated Comments Code Status Date Activated 01/30/2017 8:36 PM Full Code 01/29/2017 5:41 PM Code Status decision reached by: Patient
[2018-07-27] MEDS ORDERED: DEXTROSE 50% SYRINGE 50 ML IV STA (19:02)
[2018-07-27] MEDS: DEXTROSE 5%/0.45% SOD CHL 1,000 ML IV SCH (19:29)
[2018-07-27 19:39] LABS: BASOPHILS # (AUTO) 0.1 (0.0-0.1); EOSINOPHILS # (AUTO) 0.2 (0.0-0.4); EOSINOPHILS % 1.8 % (0.0-6.0); HEMATOCRIT 40.4 % (34.2-44.1); HEMOGLOBIN 12.5 g/dL (12.0-16.0); LYMPHOCYTES # (AUTO) 1.4 (1.0-3.2); LYMPHOCYTES % 17.2 % (18.0-39.1); MEAN CORPUSCULAR HEMOGLOBIN 28.5 pg (28-32); MEAN CORPUSCULAR HGB CONC 30.9 g/dL (31-35); MEAN CORPUSCULAR VOLUME 92.2 fL (81-99); MONOCYTES # (AUTO) 0.6 (0.2-0.8); MONOCYTES % 7.6 % (4.4-11.3); NEUTROPHILS # (AUTO) 5.8 (2.1-6.9); NEUTROPHILS % 71.4 % (38.7-80.0); PLATELET COUNT 382 x10e3/uL (140-360); RED BLOOD COUNT 4.38 x10e6/uL (3.6-5.1)
[2018-07-27 19:43] LABS: INR 1.09; PROTHROMBIN TIME 14.6 seconds (11.9-14.5)
[2018-07-27 19:44] LABS: PARTIAL THROMBOPLASTIN TIME 32.4 seconds (23.8-35.5)
[2018-07-27 19:53] LABS: ALANINE AMINOTRANSFERASE 20 IU/L (0-55); ALBUMIN 3.6 g/dL (3.5-5.0); ALBUMIN/GLOBULIN RATIO 1.2 (0.8-2.0); ALKALINE PHOSPHATASE 74 IU/L (40-150); ANION GAP 15.1 mmol/L (8-16); BLOOD UREA NITROGEN 10 mg/dL (7-26); BUN/CREATININE RATIO 12 (6-25); CALCIUM 9.4 mg/dL (8.4-10.2); CARBON DIOXIDE 19 mmol/L (22-29); CHLORIDE 105 mmol/L (98-107); CREATINE KINASE 53 IU/L (29-168); CREATININE, SERUM 0.83 mg/dL (0.57-1.11); EST GLOMERULAR FILTRATION RATE > 60 ML/MIN (60-); GLUCOSE 305 mg/dL (74-118); POTASSIUM 4.1 mmol/L (3.5-5.1); SODIUM 135 mmol/L (136-145)
--- NOTE | 2018-07-27 19:57 | Diagnostic Imaging Report ---
EXAMINATION: CHEST SINGLE (PORTABLE) COMPARISON: None available INDICATION: Hypotension, hypoglycemia, chest pain ^CHEST PAIN ^[id number] ^1927 ^Y DISCUSSION: Frontal view of the chest obtained at 1934 hours. HEART AND MEDIASTINUM: The heart is top normal in size LINES: None. LUNGS: Low lung volumes with prominence of pulmonary vasculature. Patchy right basilar airspace opacity. No interstitial edema. PLEURA: Blunting of the right lateral costophrenic angle. Left costophrenic and sharp. No pneumothorax BONES AND SOFT TISSUES: No focal osseous lesion. The soft tissues are normal. IMPRESSION: Low lung volumes with prominence of the pulmonary vasculature. Trace right pleural effusion and overlying airspace opacity suggestive of atelectasis. Please correlate for signs/symptoms of infection. Signed by: Dr. Oswaldo Strange MD on 07/27/2018 7:54 PM
[2018-07-27 20:16] LABS: BILIRUBIN,URINE NEGATIVE (NEGATIVE); CLARITY,URINE CLEAR (CLEAR); COLOR,URINE YELLOW (YELLOW); KETONES,URINE NEGATIVE (NEGATIVE); LEUKOCYTE ESTERASE ,URINE NEGATIVE (NEGATIVE); NITRITE,URINE NEGATIVE (NEGATIVE); PROTEIN,URINE DIPSTICK NEGATIVE (NEGATIVE); URINE UROBILINOGEN 0.2 mg/dL (0.2 - 1)
[2018-07-27 20:38] LABS: BACTERIA,URINE FEW /HPF; EPITHELIAL CELLS,URINE RARE /LPF; RENAL EPITHELIAL CELLS,URINE FEW
--- NOTE | 2018-07-27 21:18 | Diagnostic Imaging Report ---
CT chest pulmonary embolism protocol CPT code: 36546 INDICATION: Hypoxia, shortness of breath ^pe protocol ^[id number] ^2054 ^Y TECHNIQUE: Thin collimation axial images obtained through the level of the pulmonary arteries with additional imaging through the chest following the uneventful administration of 100 cc of low osmolar, nonionic intravenous contrast. Images reconstructed into coronal and sagittal MIPs for complete evaluation of the tortuous and overlapping pulmonary vascular structures and to reduce patient radiation dose. RADIATION DOSE: Total DLP: 521.4 mGy*cm Estimated effective dose: (DLP x 0.015 x size factor) mSv CTDIvol has been reviewed. It is below the limits set by the Radiation Protocol Committee (RPC). Dose reduction techniques used: Automated exposure control, adjustment of the mAs and/or kVp according to patient size, standardized low-dose protocol, and/or iterative reconstruction technique. COMPARISON: Chest x-ray 1934 hours. FINDINGS: Pulmonary artery: No filling defects are appreciated within the main, left, right, lobar or visualized segmental pulmonary arteries to suggest embolism. The main pulmonary artery measures 3.6 cm in diameter Aorta: The thoracic aorta is not aneurysmal. No evidence for dissection. Lymph nodes: No enlarged axillary, supraclavicular lymph nodes. Right paratracheal lymph node measures 8 mm. Subcarinal lymph node measures 11 mm in short axis. No enlarged hilar lymph nodes. Thyroid: Normal in size without mass in the visualized parenchyma. Mediastinum: Circumferential pericardial effusion measures 15 mm. The mid esophagus is patulous with dependently layering fluid. No hiatal hernia. Lungs: Right Lung: Subsegmental atelectasis in the anterior upper lobe and base of the middle and lower lobes. No discrete mass or infiltrate. Left Lung: No discrete mass or infiltrate. Airways: Unremarkable. Pleura: Posterior layering pleural effusions, measuring 2.4 cm on the right and 1.3 cm on the left. No pleural based mass. Mild eventration of the right diaphragm is stable. Abdomen: The gallbladder is absent. Small amount of perihepatic ascites. The liver appears prominent with several scattered low attenuating lesions, too small to characterize. The spleen is normal in size. There is diffuse fatty atrophy of the pancreas. There are calcifications in the adrenal glands. Visualized portions of the kidneys due to straight no hydronephrosis. A low attenuating lesion in the left kidney measures 10 mm and is suggestive of a cyst. Bones: No lytic or blastic lesions. Soft tissues: Unremarkable. IMPRESSION: 1. No evidence of pulmonary embolus. Enlarged pulmonary artery consistent with pulmonary artery hypertension. 2. Pericardial effusion and bilateral pleural effusions. 3. Patulous esophagus of uncertain etiology or significance. Please correlate with history of connective tissue disorder. 4. Prominent liver suggestive of hepatomegaly. Cirrhosis cannot be excluded. Signed by: Dr. Oswaldo Strange MD on 07/27/2018 9:15 PM
[2018-07-27] MEDS ORDERED: DEXTROSE 50% SYRINGE 50 ML IV PRN (21:45)
[2018-07-27] MEDS ORDERED: ONDANSETRON HCL INJ 2MG/ML 2ML 2 MG/ML VIAL IV PRN (21:45)
[2018-07-27] MEDS ORDERED: SODIUM CHLORIDE 0.9% 50ML 50 ML ONE (21:46)
[2018-07-27] MEDS ORDERED: IOPAMIDOL 370 MG/ML 200 ML INFUS..BTL INJ ONE (21:46)
--- OUTSIDE RECORDS SUMMARY | 2018-07-27 21:55 | XMS REPORT | Clinical Summary ---
Author Author [facility] Organization [facility] Address Unknown Phone Unavailable Care Team Providers Care Clutch Operator Name Role Phone Kumar Paez MD PCP [...] more i nformation, please contact: Delio Fox [address] [place] [address] Date Inactivated Comments Code Status Date Activated 01/30/2017 8:36 PM Full Code 01/29/2017 5:41 PM Code Status decision reached by: Patient
[2018-07-27] MEDS ORDERED: METOPROLOL SUCC25 MG PO (22:02)
[2018-07-27] MEDS ORDERED: METFORMIN HCL500 M1 PO (22:03)
[2018-07-27] MEDS ORDERED: TRESIBA SQ (22:06)
[2018-07-27] MEDS ORDERED: GLIMEPIRIDE2 MG PO (22:06)
[2018-07-27] MEDS ORDERED: PANTOPRAZOLE SO40 MG PO (22:06)
[2018-07-27] MEDS ORDERED: PLAVIX75 MG PO (22:06)
[2018-07-27] MEDS ORDERED: LOPID600 MG PO (22:10)
[2018-07-27] MEDS ORDERED: COLESTIPOL HCL1 G1 PO (22:10)
[2018-07-27 22:42] VITALS: BP 131/66
[2018-07-27 23:30] VITALS: BP 131/66
[2018-07-28 04:01] LABS: BASOPHILS # (AUTO) 0.1 (0.0-0.1); BASOPHILS % 0.6 % (0.0-1.0); EOSINOPHILS # (AUTO) 0.3 (0.0-0.4); EOSINOPHILS % 2.8 % (0.0-6.0); HEMATOCRIT 34.1 % (34.2-44.1); HEMOGLOBIN 10.8 g/dL (12.0-16.0); LYMPHOCYTES # (AUTO) 1.9 (1.0-3.2); LYMPHOCYTES % 18.9 % (18.0-39.1); MEAN CORPUSCULAR HGB CONC 31.7 g/dL (31-35); MEAN CORPUSCULAR VOLUME 91.4 fL (81-99); MONOCYTES # (AUTO) 1.1 (0.2-0.8); MONOCYTES % 10.6 % (4.4-11.3); NEUTROPHILS # (AUTO) 6.8 (2.1-6.9); NEUTROPHILS % 66.5 % (38.7-80.0); PLATELET COUNT 364 x10e3/uL (140-360); RED BLOOD COUNT 3.73 x10e6/uL (3.6-5.1); RED CELL DISTRIBUTION WIDTH 15.8 % (11.7-14.4)
[2018-07-28 04:23] LABS: ALANINE AMINOTRANSFERASE 17 IU/L (0-55); ALBUMIN 3.4 g/dL (3.5-5.0); ALBUMIN/GLOBULIN RATIO 1.4 (0.8-2.0); ALKALINE PHOSPHATASE 62 IU/L (40-150); ANION GAP 9.7 mmol/L (8-16); BLOOD UREA NITROGEN 10 mg/dL (7-26); BUN/CREATININE RATIO 13 (6-25); CALCIUM 9.6 mg/dL (8.4-10.2); CARBON DIOXIDE 26 mmol/L (22-29); CHLORIDE 106 mmol/L (98-107); CREATININE, SERUM 0.75 mg/dL (0.57-1.11); EST GLOMERULAR FILTRATION RATE > 60 ML/MIN (60-); GLUCOSE 79 mg/dL (74-118); POTASSIUM 3.7 mmol/L (3.5-5.1); SODIUM 138 mmol/L (136-145)
[2018-07-28 04:30] LABS: CREATINE KINASE MB 1.6 ng/mL (0-5.0)
[2018-07-28] MEDS: DEXTROSE 5%/0.45% SOD CHL 1,000 ML IV SCH ×2 (05:15→15:15)
--- NOTE | 2018-07-28 06:10 | NUR ---
DR. AMAYA DOING ROUNDS. NEW ORDER RCV FOR LABS AND TO CONTINUE HOME MEDS EXCEPT FOR TRESIBA, METFORMIN AND GLIMEPIRIDE.
[2018-07-28] MEDS ORDERED: FUROSEMIDE 40 MG TAB PO SCH (06:15)
[2018-07-28] MEDS ORDERED: FUROSEMIDE 40 MG TAB PO PRN ×2 (06:45→11:45)
[2018-07-28] MEDS: LEVOTHYROXINE SODIUM 25 MCG TABLET PO SCH (07:30)
[2018-07-28] MEDS: INSULIN REGULAR, HUMAN 100 UNIT/1 ML 3ML VIAL SQ SCH ×4 (07:30→21:16)
[2018-07-28 07:46] VITALS: BP 113/65
--- NOTE | 2018-07-28 07:58 | NUR ---
Received patient this morning, a/ox3, in bed, using O2 at 2 L, c/o some SOB with exertion, BNP elevated d/t pericardial effusion, BLE edema +2, necrotizing fascitis to right foot and leg, denies any pains, D-dimers elevated but chest CT negative for PE. Call light within reach and will monitor.
[2018-07-28] MEDS: COLESTIPOL HCL 1 G TAB PO SCH (09:00)
[2018-07-28] MEDS: LOPERAMIDE HCL 2 MG CAP PO SCH (09:00)
[2018-07-28] MEDS ORDERED: ATORVASTATIN 20 MG TAB PO SCH (09:00)
[2018-07-28] MEDS: CLOPIDOGREL BISULFATE 75 MG TAB PO SCH (09:13)
[2018-07-28] MEDS: CITALOPRAM HYDROBROMIDE 20 MG TAB PO SCH (09:13)
[2018-07-28] MEDS: PANTOPRAZOLE SOD 40 MG TABEC PO SCH (09:14)
[2018-07-28] MEDS: CHOLECALCIFEROL 1,000 UNIT TAB PO SCH (09:14)
[2018-07-28] MEDS: METOPROLOL SUCCINATE 25 MG TAB XL PO SCH (09:14)
[2018-07-28] MEDS: GEMFIBROZIL 600 MG TAB PO SCH (09:15)
--- NOTE | 2018-07-28 11:20 | NUR ---
Another call to Dr. Teixeira's office for consult related to pericardial effusion that was entered yesterday and will send consult out again per customs and border protection officer.
--- NOTE | 2018-07-28 11:22 | NUR ---
Called Dr. Fragoso's office to make sure consult yesterday was received and spoke with resident medical officer. Consult was for dyspnea. Dr. Jacob is covering today
--- NOTE | 2018-07-28 11:22 | History and Physical ---
REASON FOR ADMISSION: The patient is a 58-year-old female, who comes in with shortness of breath and also worsening blood sugars. HISTORY OF PRESENT ILLNESS: Ms. Esperanza Zaidi was seen in the office about 2 weeks ago with shortness of breath. Chest x-ray at that time was normal. The patient continued to have shortness of breath and later on a CT scan was ordered, which was denied by the insurance. The patient then went on continuing shortness of breath. Yesterday, the patient's blood sugar dropped. She was feeling sick and increased shortness of breath. The patient was brought to the emergency room, was found to have a pericardial effusion and dyspnea on exertion continues. PAST MEDICAL HISTORY: History of hyperlipidemia, history of chronic TIAs, history of hypertension, history of hyperlipidemia, history of hypothyroidism, history of diabetes mellitus, history of recent reflux esophagitis, history of necrotizing fasciitis in the past. PAST SURGICAL HISTORY: The patient also had a surgical history of cholecystectomy and bone marrow biopsy by Dr. Alaniz. The patient also has a history of anemia of chronic disease and also iron deficiency with recurrent iron infusions. MEDICATIONS: She takes at home: 1. Atorvastatin 80 mg daily. 2. Cholecalciferol 1000 International Units daily. 3. Citalopram 20 mg daily. 4. Clopidogrel 75 mg daily. 5. Colestipol 1 g daily. 6. Lasix 40 mg p.r.n. 7. Gemfibrozil 600 mg daily. 8. Glimepiride 2 mg daily. 9. Levothyroxine 25 mcg daily. 10. Metformin 500 mg daily. 11. Pantoprazole 40 mg daily. 12. Tresiba 60 units subcutaneously. REVIEW OF SYSTEMS: Negative for chest pain. Positive for shortness of breath and on exertion. The patient also has palpitations. Positive for diaphoresis yesterday with hyperglycemia. No diplopia. No blurry vision. Positive for generalized weakness and also positive for history of chronic fatigue. ALLERGIES: NO KNOWN ALLERGIES. SOCIAL HISTORY: No EtOH. No IV drug abuse and no history of smoking either. FAMILY HISTORY: Positive for diabetes in father and positive for hypertension in mother. PHYSICAL EXAMINATION: VITAL SIGNS: Temperature is 97.8, pulse of 92, respirations of 18, blood pressure is 131/66, pulse oximetry of 99% on 2 L of nasal cannula. HEENT: Normocephalic, atraumatic. Pupils are reactive to light and accommodation. CVS: S1, S2, distant. Regular rate and rhythm. ABDOMEN: Nontender, nondistended. EXTREMITIES: Positive for left lower extremity swelling. INTEGUMENTARY: Increased erythema noted throughout the skin. The patient also has multiple small petechiae is present. LABORATORY VALUES: White count is 8.16, hemoglobin of 12.5, hematocrit of 40.4, platelet count is 382. Coags; PT 14.6, INR 1.09. Chemistry shows sodium of 138, potassium of 4.1, BUN of 10, creatinine 0.83, glucose of 379. ALT, AST within normal limits. Troponins have been trended negative. BNP was 389. IMAGING STUDIES: Chest x-ray shows low lung volumes with prominence of pulmonary vasculature. Trace right pleural effusion and overlying airspace opacities suggestive of atelectasis. The patient's CT of the chest shows no evidence of pulmonary embolism, enlarged pulmonary artery consistent with pulmonary artery hypertension, pericardial effusion and bilateral pleural effusions. Patulous esophagus of uncertain etiology and prominent liver suggestive of hepatomegaly. ASSESSMENT: 1. Acute dyspnea. 2. Acute on chronic respiratory failure, the patient is on oxygen. 3. Pericardial effusion, etiology unknown at this time. Probably, depending on the echo, we will need a pericardial window and/or steroids. 4. History of diabetes mellitus, hyperglycemia. Hold back on insulin, glimepiride. The patient is on D50. We can discontinue that. 5. Hyperlipidemia. 6. History of chronic transient ischemic attacks. Continue on Plavix. PLAN: 1. Do a complete echocardiogram. 2. Possible pericardial window. 3. We will go and check her inflammatory panels including sedimentation rate, CRP, rheumatoid panel, and also lupus anticoagulant. 4. The patient has thrombocytosis 382. We will continue to monitor the patient's values. A consult with Dr. Jerod Fragoso, her Pulmonology will be done and also a consult with Dr. Shields her diesel dinkey engineer will be done. Further recommendation per course. 5. Pleural fusion probably secondary to pericardial effusion. We will continue monitoring her. We will continue with labs as mentioned above. Kumar Paez MD ASJ/MODL /[id number]
[2018-07-28 11:57] VITALS: BP 130/61
--- NOTE | 2018-07-28 11:58 | NUR ---
Rounds by Dr. Cholo Denton and orders in place
[2018-07-28] MEDS ORDERED: ONDANSETRON HCL 4 MG ORAL DISINTEGRATING TAB PO PRN (12:00)
[2018-07-28 12:49] LABS: CREATINE KINASE MB 2.7 ng/mL (0-5.0)
--- NOTE | 2018-07-28 13:39 | Consultation ---
DATE OF CONSULTATION: Cardiology Consultation REASON FOR CONSULTATION: Shortness of breath. HISTORY OF PRESENT ILLNESS: This is a 58-year-old woman with a history of transient ischemic attack, obesity, hyperlipidemia, psoriasis, diabetes, who presented to the emergency department with shortness of breath. She states that over the last couple of days to weeks she has developed dyspnea on exertion, however, it can occur also at rest, associated with some lower extremity swelling. She denies any chest pain or typical angina. She specifically denies cough, wheezing, congestion, or sputum production. She did have a little mild body aches. No fever, chills. Upon arrival here, she was noted to have pleural effusion on chest x-ray and a CT of the chest showed pleural and pericardial effusions. REVIEW OF SYSTEMS: A 12-point review of system was conducted, is negative otherwise above in the HPI. PAST MEDICAL HISTORY: As stated above in the HPI. PAST SURGICAL HISTORY: Necrotizing fasciitis debridement FAMILY HISTORY: No premature coronary artery disease or sudden cardiac . SOCIAL HISTORY: No illicit drug, alcohol, or tobacco use. ALLERGIES: NO KNOWN DRUG ALLERGIES. MEDICATIONS: See medications reconciliation form. PHYSICAL EXAMINATION: VITAL SIGNS: Temperature is 96.8, heart rate is 84, respirations are 18, blood pressure is 115/65, ox saturation is 96% on 2 L nasal cannula. GENERAL: Well appearing, well built, no apparent distress. Alert and orient x3. HEAD: Normocephalic, atraumatic. EYES: Extraocular muscles intact. Conjunctiva is clear. NECK: No JVD. No bruits. CARDIOVASCULAR: She has regular rate and rhythm. No murmurs. LUNGS: Clear. Mildly diminished breath sounds at bases. ABDOMEN: Soft, nontender, nondistended. EXTREMITIES: Trace edema. Vascular 2+ pulses. SKIN: Warm, dry and intact. NEUROLOGIC: No focal deficits noted. Cranial nerves grossly intact. PSYCHIATRIC: Normal mood and affect. LABORATORY DATA: Echocardiogram showed a small to moderate fibrinous pericardial effusion with no evidence of cardiac tamponade and a normal left ventricular systolic function. IMPRESSION: 1. Pericardial effusion. 2. Pleural effusion. 3. Psoriasis. 4. Elevated ESR. 5. Thrombocytosis. 6. Hypertension. 7. Hyperlipidemia. 8. Diabetes mellitus. 9. Obesity. RECOMMENDATIONS: The patient's echocardiogram showed a small to moderate fibrinous pericardial effusion. This is likely inflammatory and/or infectious due to a viral illness. There is no evidence of tamponade or hemodynamic compromise. Inflammatory values have been sent and thus far has only resulted in a thrombocytosis and elevated ESR. May consider rheumatology evaluation. I will increase Lasix to 40 b.i.d. The patient likely will need to be started on nonsteroidal inflammatory drugs rather than steroids due to the fact that steroids cause recurrent pleural pericardial effusions. We will continue to monitor clinically. Cholo Denton DO BM/MODL /[id number]
[2018-07-28 13:46] VITALS: BP 130/61
--- NOTE | 2018-07-28 14:25 | NUR ---
Visit made by the Spiritual Care Department Pastoral Visitor, Yari Cline. PV provided pastoral presence, prayer, hospitality, and supportive listening. Pastoral Visitor informed pt/family of the scope of Lesson Instructor Services and availability. BORIS COVINGTON [employer] Spiritual Care Department O: [phone] Pager: [phone] ([phone] number calling from)
--- NOTE | 2018-07-28 16:26 | NUR ---
Patient alert and responsive, VSS, remains with steady blood sugars, no hypoglycemic event noted. VSS and continuous on O2 2L NC, some SOB on exertion, will monitor.
[2018-07-28 16:52] VITALS: BP 130/63
--- NOTE | 2018-07-28 19:04 | NUR ---
DR. JASON HUBBARD DOING ROUNDS COVERING FOR DR. FARRELL. NEW ORDER RCV TO CHANGE LASIX PRN TO SCHEDULED.
--- NOTE | 2018-07-28 19:05 | NUR ---
Rounds by Dr. Jacob, pulmonology and saw patient. Orders for Lasix 40 mg BID IV.
[2018-07-28 20:27] VITALS: BP 141/75
[2018-07-28] MEDS: ATORVASTATIN 40 MG TAB PO SCH (21:00)
[2018-07-28] MEDS: FUROSEMIDE 40 MG TAB PO SCH (21:00)
[2018-07-29] VITALS (8 sets, daily range): BP systolic 101–129; BP diastolic 56–68
[2018-07-29] MEDS: DEXTROSE 5%/0.45% SOD CHL 1,000 ML IV SCH (01:15)
--- NOTE | 2018-07-29 03:26 | Consultation ---
DATE OF CONSULTATION: Inpatient Consultation Note REASON FOR CONSULTATION: Acute shortness of breath. HISTORY OF PRESENT ILLNESS: The patient is a very pleasant 58-year-old, morbidly obese female, who follows up with my colleague, Dr. Jerod Fragoso in the office. She has been having shortness of breath that has been ongoing for 2-4 weeks. At that point, she was seen by Dr. Fragoso. The CT was ordered but that was denied. She states that her appetite has been decreasing and actually presented to the ER with hypoglycemia, was found to have pericardial effusion. She does have psoriatic arthritis, for which she follows with Rheumatology. She denies any fevers or chills. She recently took a trip to [place] in a car, has no history of DVT; however, ultrasound done here demonstrated evidence of a DVT. PAST MEDICAL HISTORY: History of TIAs, hypertension, hyperlipidemia, hypothyroidism, diabetes mellitus, history of esophagitis, necrotizing fasciitis, DVT, psoriatic arthritis. PAST SURGICAL HISTORY: She has cholecystectomy and has a bone marrow biopsy done. HOME MEDICATIONS: 1. Atorvastatin. 2. Cholecalciferol. 3. Citalopram. 4. Clopidogrel. 5. Lasix 40 mg p.r.n. 6. Gemfibrozil. 7. Levothyroxine. 8. Metformin. REVIEW OF SYSTEMS: Positive for shortness of breath, negative for chest pain, negative for chest tightness, negative for syncope, positive for hypoxemia. ALLERGIES: NO KNOWN ALLERGIES. SOCIAL HISTORY: No alcohol use. No IV drug abuse. FAMILY HISTORY: Positive for diabetes mellitus in father and hypertension in mother. PHYSICAL EXAMINATION: VITAL SIGNS: Temperature 97.8, pulse is 92, respirations 18, blood pressure 130/66, pulse ox is 99%. GENERAL: Morbidly obese, middle-aged female in bed. Does not appear in significant distress. HEENT: Anicteric sclerae. Oral mucosa is moist. NECK: Supple. CVS: S1 and S2 heard. RESPIRATORY: Symmetrical expansion. ABDOMEN: Soft. She is protuberant. EXTREMITIES: Has no cyanosis. No clubbing. No edema. NEURO: Alert and oriented x3. IMAGING DATA: Chest x-ray shows evidence of trace pleural effusion, overlying airspace opacities, also no evidence of PE is noted. IMPRESSION: 1. Shortness of breath, likely related to pulmonary edema. 2. Pericardial effusion. 3. Diabetes mellitus. 4. Morbid obesity. PLAN: The patient presented with hypoglycemia, I think she should rather be kept on insulin than pure oral hypoglycemic agents. She is doing much stable, not in significant distress, on home O2, plan is to proceed with diuretics. still, I would continue to follow along with suspicion for infection. I would avoid antibiotics. Thank you for involving us in the care of your patient. Dunia Gutiérrez MD MFS/MODL /[id number]
--- NOTE | 2018-07-29 05:57 | NUR ---
DR. AMAYA DOING ROUNDS. ORDERED TO DC IV FLUIDS
--- NOTE | 2018-07-29 07:00 | NUR ---
bedside rounds complete report received by overnight houseperson, no distress noted updated on poc voiced understanding, o2@ 2l nc, r ac 20g no ss of infiltration noted, no other co voiced denies pain call light in reach will continue ot monitor
--- NOTE | 2018-07-29 07:16 | Progress Note ---
DATE: SUBJECTIVE: The patient is here for acute pericardial effusion, pleural effusion, and also with history of anemia. The patient also has shortness of breath and dyspnea on exertion. Currently, continues to have symptoms. IV Lasix has been started per Cardiology. OBJECTIVE: VITAL SIGNS: Temperature is 97.6, pulse of 109, respirations of 20, blood pressure is 126/57, pulse oximetry of 94%. HEENT: Normocephalic and atraumatic. CVS: S1 and S2 distant. ABDOMEN: Nontender and nondistended. LUNGS: Positive for crackles in both lung bases. ABDOMEN: Nontender and nondistended. EXTREMITIES: Positive for edema. LABORATORY VALUES: None done today. Glucoses have been running in the 160s, 130s. Echocardiogram shows 50% to 55%. Pericardial effusion present. ASSESSMENT: 1. Acute pericardial effusion and acute pulmonary effusion. Plan is to continue with IV Lasix. In's and out's will be monitored. The patient's DVT has been negative for blood clots or venous thrombosis. 2. History of anemia. Monitor CBCs daily. Continue on Plavix. 3. History of transient ischemic attack. Continue Plavix. 4. Hypoglycemia. I will stay off the oral hypoglycemics and continue with insulin. PLAN: Plan is to continue monitoring the patient. Further recommendation per clinical course and also nonsteroidal anti-inflammatories and steroids will be avoided in view of her iron deficiency anemia and also and in view of her worsening of pericardial effusion. MD VALERIE Anand/MODL /[id number]
[2018-07-29] MEDS: LEVOTHYROXINE SODIUM 25 MCG TABLET PO SCH (07:30)
[2018-07-29] MEDS: INSULIN REGULAR, HUMAN 100 UNIT/1 ML 3ML VIAL SQ SCH ×4 (07:30→20:43)
[2018-07-29 07:42] LABS: BASOPHILS # (AUTO) 0.1 (0.0-0.1); BASOPHILS % 0.9 % (0.0-1.0); EOSINOPHILS # (AUTO) 0.4 (0.0-0.4); EOSINOPHILS % 3.8 % (0.0-6.0); HEMATOCRIT 34.8 % (34.2-44.1); LYMPHOCYTES # (AUTO) 1.6 (1.0-3.2); LYMPHOCYTES % 16.8 % (18.0-39.1); MEAN CORPUSCULAR HEMOGLOBIN 28.8 pg (28-32); MEAN CORPUSCULAR HGB CONC 31.6 g/dL (31-35); MEAN CORPUSCULAR VOLUME 91.1 fL (81-99); MONOCYTES # (AUTO) 1.2 (0.2-0.8); NEUTROPHILS % 64.6 % (38.7-80.0); PLATELET COUNT 357 x10e3/uL (140-360); RED BLOOD COUNT 3.82 x10e6/uL (3.6-5.1); RED CELL DISTRIBUTION WIDTH 15.9 % (11.7-14.4)
[2018-07-29 08:05] LABS: ANION GAP 12.6 mmol/L (8-16); BLOOD UREA NITROGEN 12 mg/dL (7-26); BUN/CREATININE RATIO 16 (6-25); CALCIUM 9.7 mg/dL (8.4-10.2); CARBON DIOXIDE 27 mmol/L (22-29); CHLORIDE 100 mmol/L (98-107); CREATININE, SERUM 0.75 mg/dL (0.57-1.11); EST GLOMERULAR FILTRATION RATE > 60 ML/MIN (60-); GLUCOSE 134 mg/dL (74-118); POTASSIUM 3.6 mmol/L (3.5-5.1); SODIUM 136 mmol/L (136-145)
[2018-07-29] MEDS: LOPERAMIDE HCL 2 MG CAP PO SCH (08:27)
[2018-07-29] MEDS: COLESTIPOL HCL 1 G TAB PO SCH (08:30)
[2018-07-29] MEDS: PANTOPRAZOLE SOD 40 MG TABEC PO SCH (08:39)
[2018-07-29] MEDS: CHOLECALCIFEROL 1,000 UNIT TAB PO SCH (08:40)
[2018-07-29] MEDS: METOPROLOL SUCCINATE 25 MG TAB XL PO SCH (08:40)
[2018-07-29] MEDS: GEMFIBROZIL 600 MG TAB PO SCH (08:40)
[2018-07-29] MEDS: CLOPIDOGREL BISULFATE 75 MG TAB PO SCH (08:40)
[2018-07-29] MEDS: FUROSEMIDE 40 MG TAB PO SCH (08:40)
[2018-07-29] MEDS: CITALOPRAM HYDROBROMIDE 20 MG TAB PO SCH (08:40)
[2018-07-29] MEDS ORDERED: FUROSEMIDE INJ 10 MG/ML 4 ML VIAL IV SCH (09:00)
--- NOTE | 2018-07-29 13:29 | Progress Note ---
DATE: Cardiology Progress Note SUBJECTIVE: The patient reports mild shortness of breath that has persisted with no improvement. No chest pain. OBJECTIVE: VITAL SIGNS: Temperature is 97.5, heart rate is 88, respirations are 16, blood pressure is 106/56, and oxygen saturation is 98% on 2 L nasal cannula. GENERAL: Well-appearing obese, in no apparent distress. CARDIOVASCULAR: Regular rate and rhythm. Normal S1 and S2. No rubs. LUNGS: Diminished breath sounds at bases. ABDOMEN: Soft, nontender, and nondistended. EXTREMITIES: No edema. CARDIOVASCULAR MEDICATIONS: Reviewed. LABORATORY DATA: Creatinine 0.75 and potassium 3.6. Hemoglobin 11. TELEMETRY: Monitoring revealed normal sinus rhythm. IMPRESSION: 1. Pericardial effusion. 2. Pleural effusion. 3. Psoriasis. 4. Thrombocytosis. 5. Elevated ESR. 6. Hypertension. 7. Hyperlipidemia. 8. Diabetes mellitus. 9. Obesity. RECOMMENDATIONS: The patient is hemodynamically stable. We will change Lasix to intravenous dosing. She has no evidence of tamponade or cardiac compromise at this point in time. Inflammatory lab work has been sent off and pending results. Given her anemia, we will elect not to give nonsteroidal medications at this point in time. We will continue to monitor clinically. Once the patient is stable for discharge, we will repeat a limited 2D echocardiogram to assess effusion size. Cholo Denton DO BM/MODL /[id number]
--- NOTE | 2018-07-29 19:00 | NUR ---
RECEIVED PATIENT IN BEDSIDE REPORT. PATIENT A&OX3. O2 ON AT 2L VIA NC. R FA AND R WRIST 20G IVS NOTED TO BE ASYMPTOMATIC. NO PAIN REPORTED. NO S&S OF DISTRESS NOTED. BED LOCKED IN LOWEST POSITION, SIDE RAILS UP X3, CALL LIGHT IN REACH.
[2018-07-29] MEDS: ATORVASTATIN 40 MG TAB PO SCH (20:42)
[2018-07-29] MEDS: FUROSEMIDE INJ 10 MG/ML 4 ML VIAL IV SCH (20:42)
--- NOTE | 2018-07-29 21:30 | NUR ---
R AC 20G IV REPORTED TO BE BURNING A LITTLE DURING FLUSH. NO REDNESS NOTED, BUT SWELLING FELT. REMOVED CATHETER, CATHETER TIP INTACT, PRESSURE DRESSING APPLIED. R WRIST 20G FLUSHED, ASYMPTOMATIC, INTACT, AND PATENT.
--- NOTE | 2018-07-29 22:15 | NUR ---
REMOVED PATIENT'S O2 AT 2029 PER MD HUBBARD. O2 SAT AT THAT TIME WAS 95%. HAS BEEN 90% AND ABOVE SINCE THEN. 91% UPON AMBULATION AT 2200. 96% AT 2215 WHILE RESTING IN BED.
--- NOTE | 2018-07-29 23:41 | Progress Note ---
DATE: Inpatient Progress Note HISTORY OF PRESENT ILLNESS: She has been on Lasix overnight and has responded very well, now getting IV Lasix, she states she feels somewhat better. She has never been on oxygen before. Her hypoglycemia is better. CURRENT MEDICATIONS: Include insulin, metoprolol, clopidogrel bisulfate, cholecalciferol, levothyroxine, loperamide, and furosemide. LABORATORY DATA: WBC is 9.9, hemoglobin is 11.0, platelets 357. Sodium 136, potassium 3.6, chloride is 100, CO2 is 27, anion gap is 12. Cultures have been unrevealing. PHYSICAL EXAMINATION: VITAL SIGNS: Temperature is 97.5, heart rate is 88, respirations 16, and blood pressure 106/56. GENERAL: Reveals middle-aged, obese-appearing female in bed. Does not appear in significant distress. HEENT: Anicteric sclerae. Oral mucosa is moist. NECK: Supple. CVS: S1 and S2 heard. RESPIRATORY: Symmetrical expansion. ABDOMEN: Soft. She is protuberant. EXTREMITIES: Has no cyanosis. No clubbing. No edema. NEURO: Alert and oriented x3. IMPRESSION: 1. Pericardial effusion, not in tamponade. 2. Pleural effusion, right-sided. 3. Psoriasis. 4. Hypertension. 5. Diabetes mellitus. 6. Obesity. PLAN: The patient is hemodynamically stable, leave on diuretics, reviewed Cardiology recommendations as there is no evidence of any tamponade. No interventions planned for her pericardial effusions, from Pulmonary standpoint, I will let them to wean her off oxygen, I agree that she need to be continued on aggressive diuresis following her renal function and this can be continued at home, disposition when she is weaned off oxygen. Thank you for involving us in the care of your patient. Dunia Gutiérrez MD MFS/MODL /[id number]
[2018-07-30] VITALS (9 sets, daily range): BP systolic 99–154; BP diastolic 52–69
--- NOTE | 2018-07-30 04:48 | Progress Note ---
DATE: 07/29/2018 SUBJECTIVE: The patient is a 58-year-old female, who comes in with pericardial effusion, shortness of breath. The patient is currently on IV Lasix 40 mg twice a day. The patient has pericardial effusion on echocardiogram, has been seen by both Pulmonary and Cardiology. IV Lasix has been ordered. The patient's echocardiogram showed DICTATION ENDS HERE MD VALERIE Anand/FERNANDO /[id number]
--- NOTE | 2018-07-30 07:00 | NUR ---
BEDSIDE ROUNDS COMPLETE NO DISTRESS NOTED, PT RECEIVED IN STABLE CONDITION,UPDATED ON POC VOICED UNDERSTANDING, DENIES PAIN AT THIS TIME,CALL LIGHT IN REACH WILL CONTINUE TO MONITOR
[2018-07-30] MEDS: INSULIN REGULAR, HUMAN 100 UNIT/1 ML 3ML VIAL SQ SCH ×4 (07:30→21:05)
[2018-07-30] MEDS: CITALOPRAM HYDROBROMIDE 20 MG TAB PO SCH (08:20)
[2018-07-30] MEDS: LEVOTHYROXINE SODIUM 25 MCG TABLET PO SCH (08:20)
[2018-07-30] MEDS: CLOPIDOGREL BISULFATE 75 MG TAB PO SCH (08:20)
[2018-07-30] MEDS: PANTOPRAZOLE SOD 40 MG TABEC PO SCH (08:20)
[2018-07-30] MEDS: METOPROLOL SUCCINATE 25 MG TAB XL PO SCH (08:20)
[2018-07-30] MEDS: GEMFIBROZIL 600 MG TAB PO SCH (08:20)
[2018-07-30] MEDS: FUROSEMIDE INJ 10 MG/ML 4 ML VIAL IV SCH ×2 (08:20→21:05)
[2018-07-30] MEDS: CHOLECALCIFEROL 1,000 UNIT TAB PO SCH (09:00)
[2018-07-30] MEDS: COLESTIPOL HCL 1 G TAB PO SCH (09:00)
[2018-07-30] MEDS: LOPERAMIDE HCL 2 MG CAP PO SCH (09:00)
--- NOTE | 2018-07-30 09:50 | NUR ---
AMBULATED PT DOWN BIRCH PER INSTRUCTED BY , SHORT OF BREATH NOTED UPON EXERTION O2 SATS 87%, HR 126, PT INFORMED NURSE SHE WAS TIRED AND WOULD LIKE TO SIT DOWN, PT ASSISTED BACK TO RM SAT IN CHAIR INSTRUCTED TO TAKE DEEP BREATHS, O2 SATS 91%, HR 98, ,SPOKE WITH DR AMAYA RE:SOB, O2 SATS, AND PTS BNP, MD INFORMED NURSE TO CONTINUE CURRENT CARE WITH IV LASIX. WILL CONTINUE TO MONITOR
--- NOTE | 2018-07-30 09:54 | Progress Note ---
DATE: SUBJECTIVE: The patient is admitted for pleural effusion, pericardial effusion, shortness of breath, and history of anemia. Currently, the patient is asymptomatic. IV Lasix is ongoing. The patient has diuresed well. Shortness of breath is better. No chest pain. No nausea or vomiting. No rectal bleeding. MEDICATIONS: The patient on insulin sliding scale, Lasix 40 mg twice a day IV, atorvastatin 80 mg, metoprolol 25 mg twice a day, gemfibrozil 600 mg twice a day, clopidogrel 75 mg daily, citalopram 40 mg, pantoprazole 40 mg daily, levothyroxine 25 mg, colestipol 1 g and the patient is also getting Zofran as needed. OBJECTIVE: VITAL SIGNS: Temperature is 97.4, pulse of 92, respirations of 18, blood pressure is 112/52, pulse oximetry of 94%. HEENT: Normocephalic, atraumatic. No pallor present. CVS: S1, S2 normal. Regular rate and rhythm. Distant heart sounds. LUNGS: Decreased air entry into lung bases. Positive some few crackles. ABDOMEN: Nontender, nondistended. EXTREMITIES: No clubbing. No cyanosis. Positive for trace edema. The patient has multiple deformities in the right lower extremity secondary to history of infection in the past. LABORATORY VALUES: Today's white count is 9.9, hemoglobin 11.0, hematocrit of 34.8, platelet count is 357. ESR was 28. Immunological panel also pending. SSA antibody, SSB antibody, cuellar, anti-dsDNA and thyroxine peroxidase and rheumatoid factor are all pending. ASSESSMENT: 1. Pleural effusion, probably secondary to rheumatological reason with a history of scleroderma, pending antibodies. 2. Pericardial effusion, same. 3. History of anemia. We will continue to monitor the patient. NSAIDs have been avoided and also steroid have been avoided at this time secondary to the pleural effusion and pericardial effusion. 4. Hypertension. Continue with antihypertensive medication. 5. Diabetes mellitus, well controlled at this time. The patient also came with hypoglycemia, which is resolved at this time. Physical therapy to walk the patient. If the patient is able to walk and has no shortness of breath and dyspnea on exertion, can be discharged home on 40 mg twice a day of Lasix. Further recommendation as an outpatient, we will follow up with her antibody screen as an outpatient. We will see the patient back in about a week and follow up with her. MD VALERIE Anand/MODL /[id number]
--- NOTE | 2018-07-30 14:15 | Progress Note ---
DATE: Cardiology Progress Note SUBJECTIVE: The patient is feeling better today. Reports improved shortness of breath. OBJECTIVE: VITAL SIGNS: Temperature is 98.1, heart rate is 88, respirations are 18, blood pressure is 124/65, oxygen saturation is 95% on room air. GENERAL: Well appearing, in no apparent distress. CARDIOVASCULAR: Regular rate and rhythm. No murmurs. No rubs. PULMONARY: Mildly decreased breath sounds at bases. ABDOMEN: Soft, nontender, nondistended. EXTREMITIES: No edema. CARDIOVASCULAR MEDICATIONS: Reviewed. LABORATORY DATA: Reviewed. IMPRESSION: 1. Pericardial effusion. 2. Pleural effusion. 3. Psoriasis. 4. Thrombocytosis. 5. Hypertension. 6. Hyperlipidemia. 7. Diabetes mellitus. 8. Obesity. RECOMMENDATIONS: The patient has remained hemodynamically stable and has diuresed well. Her symptoms have improved. Inflammatory workup has been sent off and pending results. Can switch to p.o. Lasix b.i.d. The patient is stable for discharge at this point in time and can follow up in our clinic for repeat echocardiogram. Cholo Denton DO BM/MODL /[id number]
--- NOTE | 2018-07-30 19:00 | NUR ---
RECEIVED PATIENT IN BEDSIDE REPORT. A&OX3. O2 @ 2L VIA NC. NO S&S OF DISTRESS NOTED. R WRIST 20G IV ASYMPTOMATIC, INTACT, AND PATENT. BED LOCKED IN LOWEST POSITION, SIDE RAILS UP X2, CALL LIGHT IN REACH.
[2018-07-30] MEDS: ATORVASTATIN 40 MG TAB PO SCH (21:05)
[2018-07-31 00:10] VITALS: BP 88/51
--- NOTE | 2018-07-31 04:15 | NUR ---
PATIENT'S 4AM VITALS SHOW BP OF 90/53. CHECKED BP MANUALLY, 98/58. PATIENT ASYMPTOMATIC. WILL CONTINUE TO MONITOR.
[2018-07-31 04:29] VITALS: BP 90/53
--- NOTE | 2018-07-31 07:03 | Progress Note ---
DATE: SUBJECTIVE: This is a patient who came in with pleural effusion, pericardial effusion and also shortness of breath. The patient was supposed to be sent home yesterday with BNP was elevated and the patient also felt short of breath on exertion. The patient is standing at 93% on 2 L of oxygen and continues to have hypoxia when oxygen is not available. MEDICATIONS: Atorvastatin, clopidogrel, insulin, levothyroxine, loperamide as needed, metoprolol, and pantoprazole. PHYSICAL EXAMINATION: VITAL SIGNS: Temperature is 96.2, pulse of 82, respirations of 20, blood pressure is 90/53, pulse oximetry of 93% on 2 L of oxygen. HEENT: Normocephalic, atraumatic. Pupils are reactive to light and accommodation. CVS: S1, S2 distant. Regular rate and rhythm. ABDOMEN: Nontender and nondistended. EXTREMITIES: No clubbing, no cyanosis, no edema. LABORATORY VALUES: From yesterday hemoglobin of 11 and 34.8. Chemistries are pending today. Immunology, Anca titers are negative. LETICIA was positive. Pires antibodies were negative. Anti-DISEASE CONTROL INSPECTOR and scleroderma was negative. Rheumatoid factor is 10.2. ASSESSMENT: 1. Pericardial effusion. 2. Pleural effusion. 3. History of thrombocytosis. 4. Hyperglycemic episode with history of diabetes mellitus, obesity, hypertension, hyperlipidemia, and also history of scleroderma/psoriasis. PLAN: Do a home O2 evaluation for diagnosis of acute hypoxia. The patient can be discharged home today on Lasix 40 mg twice a day and also home O2 if needed. For further recommendation, look into plan. The patient can be discharged today with home O2 if needed. MD VALERIE Anand/MODL /[id number]
--- NOTE | 2018-07-31 07:05 | NUR ---
PT RESTING IN BED AA0X3. PT IS ON RA IN NO S/S OF DISTRESS DENIES PAIN. PT LUNG SOUNDS ARE CLEAR PT HAS A RIGHT WRIST 20 G SL. PATENT AND DRY PT IS ON TELE RUNNING SR WILL CONTINUE TO MONITOR PT CLOSELY SIDE RAILX2, BED WHEELS LOCKED ,CALL LIGHT IS WITHIN EASY REACH, INSTRUCTED TO CALL FOR ASSISTANCE IF NEEDED
[2018-07-31 07:08] LABS: ANION GAP 16.3 mmol/L (8-16); BLOOD UREA NITROGEN 21 mg/dL (7-26); BUN/CREATININE RATIO 24 (6-25); CALCIUM 9.5 mg/dL (8.4-10.2); CARBON DIOXIDE 31 mmol/L (22-29); CHLORIDE 94 mmol/L (98-107); CREATININE, SERUM 0.89 mg/dL (0.57-1.11); EST GLOMERULAR FILTRATION RATE > 60 ML/MIN (60-); GLUCOSE 139 mg/dL (74-118); POTASSIUM 3.3 mmol/L (3.5-5.1); SODIUM 138 mmol/L (136-145)
[2018-07-31 08:38] VITALS: BP 105/56
[2018-07-31 08:47] VITALS: BP 105/56
[2018-07-31] MEDS: FUROSEMIDE INJ 10 MG/ML 4 ML VIAL IV SCH (08:49)
[2018-07-31] MEDS: COLESTIPOL HCL 1 G TAB PO SCH (08:49)
[2018-07-31] MEDS: LEVOTHYROXINE SODIUM 25 MCG TABLET PO SCH (08:49)
[2018-07-31] MEDS: CITALOPRAM HYDROBROMIDE 20 MG TAB PO SCH (08:49)
[2018-07-31] MEDS: INSULIN REGULAR, HUMAN 100 UNIT/1 ML 3ML VIAL SQ SCH ×2 (08:50→11:35)
[2018-07-31] MEDS: PANTOPRAZOLE SOD 40 MG TABEC PO SCH (08:50)
[2018-07-31] MEDS: CLOPIDOGREL BISULFATE 75 MG TAB PO SCH (08:50)
[2018-07-31] MEDS: LOPERAMIDE HCL 2 MG CAP PO SCH (08:50)
[2018-07-31] MEDS: CHOLECALCIFEROL 1,000 UNIT TAB PO SCH (08:50)
[2018-07-31] MEDS: METOPROLOL SUCCINATE 25 MG TAB XL PO SCH (09:00)
[2018-07-31] MEDS ORDERED: CHOLECALCIFEROL 1,000 UNIT TAB PO SCH (09:00)
[2018-07-31] MEDS ORDERED: LOPERAMIDE HCL 2 MG CAP PO PRN (09:00)
[2018-07-31] MEDS: GEMFIBROZIL 600 MG TAB PO SCH (09:03)
[2018-07-31] MEDS ORDERED: POTASSIUM CHLORIDE 20 MEQ TAB CR PO STA (09:33)
--- NOTE | 2018-07-31 10:00 | NUR ---
ORDERS TO REPLACE POTASSIUM OF 3.3 GIVEN BY MD AMAYA
--- NOTE | 2018-07-31 10:10 | NUR ---
REPORT GIVEN TO ARELIS IS MED [facility] 3. PT IS TRANSFERRING TO ROOM 287
--- NOTE | 2018-07-31 10:22 | NUR ---
RECEIVED PATIENT TO ROOM 287 IN STABLE CONDITION. NO ACUTE DISTRESS NOTED. ORIENTED TO ROOM AND POLICIES. CALL LIGHT WITHIN REACH. BED IN THE LOWEST POSITION.
[2018-07-31 11:26] VITALS: BP 122/67
--- NOTE | 2018-07-31 12:30 | NUR ---
PT TRANSFERED FROM MED [facility]G ONE TODAY HOME 02 EVAL SHOWS SATS OF 86% ON EXERTION ON ROOM AIR QUALIFIES FOR HOME 02 CHOICE LETTER SIGNED FOR [facility]O [phone] COPY OF KRISH LETTER TO PT AND ORIGINAL IN PT'S CHART CALLED AND NOTIFIED ASTRID OF REFERRAL [phone] FAXED CLINICAL TO [phone]; CONFIRMATION REC'D ASTRID HERE TO DELIVER PORTABLE TANKS TO PT FOR DISCHARGE
[2018-07-31] MEDS ORDERED: FUROSEMIDE40 MG PO (14:31)
--- NOTE | 2018-07-31 15:24 | NUR ---
RECEIVED DC ORDER FROM MD. PATIENT IS IN STABLE CONDITION. IV LINE TO RIGHT WRIST DCD WITH TIP INTACT, PRESSURE APPLIED TO SITE, NO BLEEDING NOTED. DISCHARGE TEACHING PROVIDED, PATIENT VERBALIZED UNDERSTANDING. PATIENT'S O2 SET UP BY CASE MANAGEMENT, TANKS TAKEN WITH PATIENT. PATIENT ACCOMPANIED TO PRIVATE AUTO VIA WHEELCHAIR BY STAFF.
[2018-08-01] MEDS ORDERED: LEVOTHYROXINE SODIUM 25 MCG TABLET PO SCH (06:00)
[2018-08-03] MEDS ORDERED: CHOLECALCIFEROL 1,000 UNIT TAB PO SCH (09:02)
== END 2018-07-31 15:24 | disposition home or self-care (01) | DRG 314 ==
LOC: ER 18:45 → ERHOLD 21:36 → MED/SURG 22:43 → MED/SURG3 07-31 10:15
PROVIDERS: ADMIT Family Medicine; ATTEND Family Medicine
DX: I31.3 Pericardial effusion (noninflammatory) (principal); J96.20 Acute and chronic respiratory failure, unspecified whether with hypoxia or hypercapnia; J90 Pleural effusion, not elsewhere classified; E78.5 Hyperlipidemia, unspecified; Z86.73 Personal history of transient ischemic attack (TIA), and cerebral infarction without residual deficits; Z86.718 Personal history of other venous thrombosis and embolism; Z79.01 Long term (current) use of anticoagulants; L40.50 Arthropathic psoriasis, unspecified; E66.01 Morbid (severe) obesity due to excess calories; Z68.29 Body mass index [BMI] 29.0-29.9, adult; D47.3 Essential (hemorrhagic) thrombocythemia; D64.9 Anemia, unspecified; D50.9 Iron deficiency anemia, unspecified; M34.9 Systemic sclerosis, unspecified
CPT/HCPCS: 36415; 71045; 71260; 80048; 80053; 81001; 82550; 82553; 82948; 83516; 83880; 84484; 85025; 85379; 85610; 85651; 85730; 86021; 86140; 86160; 86200; 86225; 86235; 86255; 86256; 86376; 86431; 93005; 93306; 93970; 96372; 99284; J1940; J7799; Q9967

== ENCOUNTER 2018-09-21 14:40 | Emergency (ER) | payer OTHER, MEDICARE ==
[~2018-09-21] VITALS: Ht 170.2 cm; Wt 83.9 kg
[~2018-09-21 14:40] MED LIST changes: +COLESTIPOL HCL1 G1 PO; +FUROSEMIDE40 MG PO; +GLIMEPIRIDE2 MG PO; +LOPID600 MG PO; +METFORMIN HCL500 M1 PO; +METOPROLOL SUCC25 MG PO; +PANTOPRAZOLE SO40 MG PO; +PLAVIX75 MG PO; +TRESIBA SQ
[2018-09-21] MEDS ORDERED: ASPIRIN 81 MG CHEW TAB PO ONE (15:45)
--- NOTE | 2018-09-21 16:40 | Diagnostic Imaging Report ---
EXAMINATION: CHEST SINGLE (NOT PORTABLE) INDICATION: Shortness of breath COMPARISON: Chest CT of 07/27/2018, chest radiograph of 07/27/2018 and 02/18/2017 FINDINGS: TUBES and LINES: None. LUNGS: The lungs are moderately inflated. Mild patchy opacity at the right lung base. PLEURA: Small right pleural effusion. No left pleural effusion. No pneumothorax. HEART AND MEDIASTINUM: The cardiomediastinal silhouette is normal in size and contour. Atherosclerotic calcifications of the thoracic aorta. BONES AND SOFT TISSUES: No acute fracture or dislocation. UPPER ABDOMEN: No free air under the diaphragm. IMPRESSION: Patchy opacity at the right lung base, most likely subsegmental atelectasis. Small right pleural effusion. Signed by: Toma Woods MD on 09/21/2018 4:36 PM
--- NOTE | 2018-09-21 17:44 | NUR ---
PATIENT BROUGHT BACK TO TRIAGE. EVALUATED BY DR. CHANDLER
[2018-09-21 17:48] LABS: BASOPHILS # (AUTO) 0.1 (0.0-0.1); BASOPHILS % 0.6 % (0.0-1.0); EOSINOPHILS # (AUTO) 0.3 (0.0-0.4); EOSINOPHILS % 2.2 % (0.0-6.0); HEMATOCRIT 33.7 % (34.2-44.1); HEMOGLOBIN 10.2 g/dL (12.0-16.0); LYMPHOCYTES # (AUTO) 1.9 (1.0-3.2); LYMPHOCYTES % 13.5 % (18.0-39.1); MEAN CORPUSCULAR HEMOGLOBIN 26.7 pg (28-32); MEAN CORPUSCULAR HGB CONC 30.3 g/dL (31-35); MEAN CORPUSCULAR VOLUME 88.2 fL (81-99); MONOCYTES # (AUTO) 1.3 (0.2-0.8); MONOCYTES % 9.4 % (4.4-11.3); NEUTROPHILS # (AUTO) 10.1 (2.1-6.9); NEUTROPHILS % 72.9 % (38.7-80.0); PLATELET COUNT 388 x10e3/uL (140-360); RED BLOOD COUNT 3.82 x10e6/uL (3.6-5.1); RED CELL DISTRIBUTION WIDTH 18.4 % (11.7-14.4)
[2018-09-21] MEDS ORDERED: METHYLPREDNISOLONE SOD SUCC 125 MG/2ML VIAL IV NR (18:00)
[2018-09-21] MEDS ORDERED: IPRATROPIUM BROMIDE 0.02% 2.5 ML NEB NEB NR (18:00)
[2018-09-21 18:05] LABS: ALANINE AMINOTRANSFERASE 31 IU/L (0-55); ALBUMIN 3.8 g/dL (3.5-5.0); ALBUMIN/GLOBULIN RATIO 1.2 (0.8-2.0); ALKALINE PHOSPHATASE 89 IU/L (40-150); BLOOD UREA NITROGEN 10 mg/dL (7-26); BUN/CREATININE RATIO 14 (6-25); CALCIUM 9.9 mg/dL (8.4-10.2); CARBON DIOXIDE 24 mmol/L (22-29); CHLORIDE 102 mmol/L (98-107); CREATINE KINASE 108 IU/L (29-168); CREATININE, SERUM 0.73 mg/dL (0.57-1.11); EST GLOMERULAR FILTRATION RATE > 60 ML/MIN (60-); GLUCOSE 164 mg/dL (74-118); SODIUM 139 mmol/L (136-145)
[2018-09-21] MEDS ORDERED: METHYLPREDNISOLONE SOD SUCC 125 MG/2ML VIAL ONE (21:59)
[2018-09-21] MEDS ORDERED: ALBUTEROL/IPRATROPIUM 3 ML NEB ONE (22:09)
[2018-09-21] MEDS ORDERED: ALBUTEROL/IPRATROPIUM 3 ML NEB NEB ONE (22:30)
[2018-09-21] MEDS ORDERED: PREDNISONE20 MG PO (23:46)
[2018-09-22 00:10] VITALS: BP 135/113
[2018-11-23] MEDS ORDERED: REGLAN5 MG PO (10:21)
[2018-11-23] MEDS ORDERED: ALLOPURINOL300 MG PO (10:21)
== END 2018-09-22 00:11 | disposition home or self-care (01) ==
LOC: ER 14:40
DX: R06.09 Other forms of dyspnea (principal); J44.9 Chronic obstructive pulmonary disease, unspecified; Z87.891 Personal history of nicotine dependence
CPT/HCPCS: 36415; 71045; 80053; 82550; 82553; 83880; 84484; 85025; 93005; 94640; 96374; 99284; J2930

== ENCOUNTER 2019-01-15 22:53 | Inpatient (IN) | payer OTHER, MEDICARE ==
[~2019-01-15] VITALS: Ht 170.2 cm; Wt 83.0 kg
[~2019-01-15 22:53] MED LIST changes: +ALLOPURINOL300 MG PO; +PREDNISONE20 MG PO; +REGLAN5 MG PO
[2019-01-15] MEDS ORDERED: ALBUTEROL/IPRATROPIUM 3 ML NEB NEB ONE (23:15)
[2019-01-15 23:32] LABS: BASOPHILS # (AUTO) 0.1 (0.0-0.1); BASOPHILS % 0.5 % (0.0-1.0); EOSINOPHILS # (AUTO) 0.3 (0.0-0.4); EOSINOPHILS % 2.5 % (0.0-6.0); LYMPHOCYTES # (AUTO) 1.7 (1.0-3.2); LYMPHOCYTES % 16.3 % (18.0-39.1); MEAN CORPUSCULAR HEMOGLOBIN 19.6 pg (28-32); MEAN CORPUSCULAR HGB CONC 25.8 g/dL (31-35); MEAN CORPUSCULAR VOLUME 75.9 fL (81-99); MONOCYTES # (AUTO) 1.1 (0.2-0.8); MONOCYTES % 10.5 % (4.4-11.3); NEUTROPHILS # (AUTO) 7.4 (2.1-6.9); NEUTROPHILS % 69.4 % (38.7-80.0); PLATELET COUNT 356 x10e3/uL (140-360); RED BLOOD COUNT 2.91 x10e6/uL (3.6-5.1); RED CELL DISTRIBUTION WIDTH 20.7 % (11.7-14.4)
[2019-01-15 23:33] LABS: HEMATOCRIT 22.1 % (34.2-44.1); HEMOGLOBIN 5.7 g/dL (12.0-16.0)
[2019-01-15 23:39] LABS: BILIRUBIN,URINE NEGATIVE (NEGATIVE); CLARITY,URINE CLEAR (CLEAR); COLOR,URINE YELLOW (YELLOW); KETONES,URINE NEGATIVE (NEGATIVE); LEUKOCYTE ESTERASE ,URINE SMALL (NEGATIVE); NITRITE,URINE NEGATIVE (NEGATIVE); PROTEIN,URINE DIPSTICK NEGATIVE (NEGATIVE); URINE UROBILINOGEN 0.2 mg/dL (0.2 - 1)
[2019-01-15 23:51] LABS: ALBUMIN 3.5 g/dL (3.5-5.0); ALBUMIN/GLOBULIN RATIO 1.4 (0.8-2.0); ANION GAP 16.1 mmol/L (8-16); CALCIUM 9.4 mg/dL (8.4-10.2); CREATININE, SERUM 1.14 mg/dL (0.57-1.11); POTASSIUM 4.1 mmol/L (3.5-5.1)
[2019-01-16] VITALS (9 sets, daily range): BP systolic 107–133; BP diastolic 53–72
--- NOTE | 2019-01-16 00:01 | Diagnostic Imaging Report ---
CT BRAIN WO HISTORY: Fall COMPARISON: Head CT 11/25/2018 TECHNIQUE: Noncontrast axial scans were obtained from skull base to the vertex. Coronal and sagittal reconstructions obtained from the axial data. One or more of the following dose reduction techniques were used: Automated exposure control, adjustment of the mA and/or kV according to patient size, and/or utilization of iterative reconstruction technique. DISCUSSION: Scalp/Skull: Unremarkable. Brain sulci: Mildly prominent. Ventricles: Mild compensatory dilatation. Extra-axial spaces: No masses or fluid collections. Parenchyma: Mild carotid siphon calcifications are present. No mass, hemorrhage, or large vascular territory acute infarct. Dural sinuses: No abnormal densities. Sellar/Suprasellar region: Intact. Skull base: Intact. Incidental findings: Bilateral mastoid effusions are present. There is minimal mucosal thickening in the bilateral maxillary sinuses. Trace fluid layers in the right sphenoid sinus. IMPRESSION: 1. No acute intracranial abnormalities. 2. Mild generalized cerebral volume loss. Signed by: Dr. Vahid Burkett M.D. on 01/15/2019 11:58 PM
--- NOTE | 2019-01-16 00:08 | Diagnostic Imaging Report ---
CT CERVICAL SPINE WO HISTORY: Fall COMPARISON: Concurrent head CT TECHNIQUE: CT of the cervical spine without contrast. Sagittal and coronal reformations were created. One or more of the following dose reduction techniques were used: Automated exposure control, adjustment of the mA and/or kV according to patient size, and/or utilization of iterative reconstruction technique. FINDINGS: Mild bone demineralization limits evaluation. Cervical lordosis is slightly straightened. There is no scoliosis or subluxation. No definite acute fracture or compression deformity is seen. The craniocervical junction is intact. No gross spinal canal masses are seen. The paravertebral and paraspinal soft tissues are unremarkable. Mild multilevel spondylotic changes are most prominent at C5-C6. Mild atlantoaxial arthrosis is present as well. There is at least mild to moderate canal stenosis at C4-C5 and C5-C6 due to posterior disc osteophyte complexes. Mild to moderate right and moderate left foraminal stenoses at C5-C6 are due to uncovertebral and facet arthrosis. Mild mosaic attenuation in the upper lungs is nonspecific. Mild to moderate bilateral carotid bulb calcified plaque is present. IMPRESSION: 1. No acute osseous abnormalities. 2. Mild multilevel spondylosis, most prominent at C5-C6. 3. At least mild to moderate degenerative canal stenoses at C4-C5 and C5-C6. 4. Mild to moderate right and moderate left degenerative foraminal stenoses at C5-C6. Signed by: Dr. Vahid Burkett M.D. on 01/16/2019 12:05 AM
[2019-01-16 00:10] LABS: CREATINE KINASE 33 IU/L (29-168)
[2019-01-16 00:21] LABS: BACTERIA,URINE FEW /HPF; EPITHELIAL CELLS,URINE MODERATE /LPF; RBC,URINE 0-5 /HPF (0-5); RENAL EPITHELIAL CELLS,URINE FEW; WBC,URINE (MAN) >50 /HPF (0-5)
--- NOTE | 2019-01-16 00:57 | Diagnostic Imaging Report ---
EXAMINATION: CHEST SINGLE (PORTABLE) COMPARISON: Chest x-ray 09/21/2018 INDICATION: ^SOB ^[id number] ^0030 ^Y DISCUSSION: Frontal view of the chest obtained at 0037 hours. HEART AND MEDIASTINUM: Stable cardiomegaly. LINES: Loop recorder device lies over the left ventricle. LUNGS: Mild hyperinflation is stable. Stable eventration of the right diaphragm. Mild central vascular congestion. No interstitial edema. No confluent infiltrates PLEURA: Blunting of the right lateral costophrenic angle is stable. Left lateral costophrenic angle is sharp BONES AND SOFT TISSUES: No focal osseous lesion. The soft tissues are normal. IMPRESSION: 1. Cardiomegaly and mild pulmonary vascular congestion. 2. Pulmonary hyperinflation suggestive of small airways disease. 3. Stable eventration of the right diaphragm and blunting of the right lateral costophrenic angle, either pleural effusion or pleural thickening. Signed by: Dr. Oswaldo Strange MD on 01/16/2019 12:53 AM
[2019-01-16] MEDS ORDERED: SODIUM CHLORIDE 0.9% 250ML 250 ML IV ONE (01:15)
[2019-01-16] MEDS ORDERED: DEXTROSE 50% SYRINGE 50 ML IV PRN (01:30)
[2019-01-16] MEDS ORDERED: SODIUM CHLORIDE FLUSH 10 ML SYR INJ PRN (01:30)
[2019-01-16] MEDS ORDERED: ATORVASTATIN CA10 MG PO (01:38)
[2019-01-16] MEDS ORDERED: VITAMIN D250000 UNIT PO (01:38)
[2019-01-16] MEDS ORDERED: ALLOPURINOL100 MG PO (01:38)
[2019-01-16] MEDS: ONDANSETRON HCL INJ 2MG/ML 2ML 2 MG/ML VIAL IV PRN (02:36)
[2019-01-16] MEDS: MORPHINE SULFATE 2 MG/ML SYR 1ML IV PRN ×4 (02:36→17:05)
--- NOTE | 2019-01-16 02:52 | NUR ---
PT ARRIVED ON THE UNIT VIA STRETCHER AT 0252. PT IS A&OX3. RESPIRATION IS EVEN AND UNLABORED, NO DISTRESS NOTED. PT ORIENTED TO THE ROOM, BED IN LOWEST POSITION, LOCKED, BED ALARM ON, AND CALL LIGHT WITHIN REACH. ADMISSION AND HEAD TO TOE ASSESSMENT COMPLETE. WILL CONTINUE TO MONITOR.
[2019-01-16] MEDS: ALBUTEROL/IPRATROPIUM 3 ML NEB NEB SCH ×6 (03:00→23:35)
[2019-01-16 07:20] LABS: HEMATOCRIT 23.8 % (34.2-44.1)
--- NOTE | 2019-01-16 07:20 | NUR ---
PATIENT IN BED RESTING WITH HEAD OF BED ELEVATED, NO DISTRESS NOTED. O2 IN PLACE VIA N/C. BED IN LOWER POSITION, CALL LIGHT AT REACH.
[2019-01-16 07:44] LABS: % IRON SATURATION 3 % (15-50); IRON 12 ug/dL (50-170); TOTAL IRON BINDING CAPACITY 468 ug/dL (261-478); TRANSFERRIN 334 mg/dL (180-382)
[2019-01-16] MEDS: FAMOTIDINE 20 MG TAB PO SCH ×2 (08:10→16:30)
[2019-01-16] MEDS: CITALOPRAM HYDROBROMIDE 20 MG TAB PO SCH (08:54)
[2019-01-16] MEDS: FUROSEMIDE 40 MG TAB PO SCH ×2 (08:54→17:17)
[2019-01-16] MEDS: GEMFIBROZIL 600 MG TAB PO SCH ×2 (08:54→17:17)
[2019-01-16] MEDS: ALLOPURINOL 100 MG TAB PO SCH (08:55)
[2019-01-16] MEDS: METOPROLOL SUCCINATE 25 MG TAB XL PO SCH (08:55)
[2019-01-16] MEDS: METOCLOPRAMIDE HCL 10 MG TAB PO SCH (08:55)
[2019-01-16] MEDS: LEVOTHYROXINE SODIUM 25 MCG TABLET PO SCH (08:55)
[2019-01-16] MEDS ORDERED: METOCLOPRAMIDE HCL 10 MG PO SCH ×2 (09:00)
[2019-01-16] MEDS: IRON SUCROSE 100 MG in SODIUM CHLORIDE 0.9% 100 ML 100 ML IV SCH (09:30)
--- NOTE | 2019-01-16 09:52 | NUR ---
PT DID NOT WANT TO PARTICIPATE IN DPA AT PRESENT, HEARD ASKING FOR PAIN MEDS
--- NOTE | 2019-01-16 10:50 | NUR ---
PATIENT HAS AN ORDER FOR BLOOD TRANSFUSION. CALL RECEIVED FROM LAB STATING THAT WE ARE WAITING FOR THE BLOOD BANK TO DELIVER IT.
[2019-01-16 12:15] LABS: HEMATOCRIT 25.4 % (34.2-44.1)
[2019-01-16 12:18] LABS: HEMOGLOBIN 6.3 g/dL (12.0-16.0)
--- NOTE | 2019-01-16 12:28 | NUR ---
HISTORY OF PRESENT ILLNESS: 59 yo patient with complex past medical history with recent cardiac stents on ASA and Plavix presents with fatigue, SOB and blood in the stool. The patient was found to be anemic on ER evaluation and reports history of 7-10 days of intermittent blood in stools. The patient has history of small Bowel avm's and reports she is up to date on colonoscopy but does not recall her last evaluation. Follows with Lisbeth. REVIEW OF SYSTEMS: 12 ROS completed with patient and pertinent positives PAST MEDICAL HISTORY: Hypertension, hyperlipidemia, diabetes mellitus type 2, coronary artery disease, gastroesophageal reflux disease, multiple prior transient ischemic attacks. COPD PAST SURGICAL HISTORY: Cardiac catheterization with stent placement on November, cholecystectomy in 2002, surgery for necrotizing fasciitis x2, right ankle fusion. FAMILY HISTORY: Hypertension. As mentioned in the history of present illness, Ms. Zaidi's daughter does have a history of severe headaches. SOCIAL HISTORY: Ms. Zaidi is . She is not employed. The patient does not report current or prior tobacco, alcohol, or recreational drug use. HOME MEDICATIONS: Reviewed. Please see the list of home medications available in the electronic medical record. HOSPITAL MEDICATIONS: Reviewed. Please see the list of hospital medications available in the electronic medical record. ALLERGIES: NO KNOWN DRUG ALLERGIES. PHYSICAL EXAMINATION: VITAL SIGNS: blood pressure 100/58 mmHg, pulse 101 beats per minute, respiratory rate 20 breaths per minute, and oxygen saturation 99% on 3 L by nasal cannula. GENERAL: The patient is awake and alert. Normal body habitus. HEENT: Normocephalic, atraumatic. Moist mucous membranes. NECK: Supple. No appreciable thyromegaly. No appreciable carotid bruits. CARDIOVASCULAR: S1, S2. Regular rate and rhythm. RESPIRATORY: Clear to auscultation bilaterally. No wheezes, rhonchi, or rales. ABD: Soft NT/ND + BS EXTREMITIES: The skin is warm and dry. No clubbing, cyanosis, or edema. The posterior tibial and dorsalis pedis pulses are 2+ and symmetric. SKIN: No rashes or lesions. NEUROLOGIC: Extraocular movements intact. Strength is within normal limits. LABORATORY DATA: Reviewed DIAGNOSTIC STUDIES: No relevant studies Enteroscopy in 2017 - positive for AVM's in small bowel ASSESSMENT AND PLAN: Ms. Zaidi is a 58-year-old with anemia Anemia - Suspect Gi source given history of small bowel AVM's. The patient will need enteroscopy and will tentatively plan for friday assuming that the patient has appropriate cardiac clearance. The patient had recent stent placement which will complicate treatment modalities endoscopically. No acute evidence of hemorrhage. Patient willing to proceed with procedure when cleared.
--- NOTE | 2019-01-16 12:57 | History and Physical ---
HISTORY OF PRESENT ILLNESS: The patient is a 59-year-old lady with a history of diabetes mellitus, hypertension, COPD, and hyperlipidemia, who was in usual state of health until 2 days prior to admission, the patient had a fall and hit her head on the posterior part on the [place]. The patient did not have any symptoms at that time, had lost her balance, but this morning, she woke up and had a blood sugar of 38 and headache that was intractable and crescendo in nature. The patient came in the emergency room, was found to have a hemoglobin of 5.7, and also was found to have iron deficiency anemia and also continue with hypoglycemia. The patient admitted for the same. PAST MEDICAL HISTORY: History of hypertension, history of diabetes mellitus, history of multiple TIAs, history of coronary artery disease, history of COPD, history of reflux esophagitis, history of hyperlipidemia, history of DVT in the past with pulmonary embolism, and history of necrotizing fasciitis in the past. The patient also is O2-dependent. PAST SURGICAL HISTORY: History of surgery in the right lower extremity secondary to necrotizing fasciitis, cholecystectomy, and recent history of implanted loop monitor by Dr. Teixeira. MEDICATIONS: Include allopurinol 100 mg daily, atorvastatin 10 mg daily, citalopram 20 mg daily, Clopidogrel 75 mg daily, ergocalciferol 50,000 units once a week, furosemide 40 mg twice a day, glimepiride 2 mg daily, levothyroxine 25 mcg daily, metformin 500 mg ER 2 two tablets a day, metoclopramide 10 mg daily, pantoprazole 40 mg daily, and Tresiba 70 units subcutaneously daily. The patient used to take warfarin, but at this time she does not take any. FAMILY HISTORY: Hypertension in father and mother. REVIEW OF SYSTEMS: Negative for chest pain. Positive for shortness of breath, O2-dependent. No nausea, vomiting, or diarrhea. No constipation. No rectal bleeding. No hematochezia. No hematemesis. Positive for shortness of breath on exertion. No diplopia. No blurry vision. Positive for headaches also. ALLERGIES: THE PATIENT HAS NO COATED DRUG ALLERGIES. PHYSICAL EXAMINATION: VITAL SIGNS: Temperature is 98.8, pulse of 100, respirations of 19, blood pressure is 118/72, and pulse oximetry of 100% on 4 L of oxygen. HEENT: Normocephalic and atraumatic. Pallor is noted. CVS: S1 and S2, tachy. ABDOMEN: Nontender and nondistended. EXTREMITIES: No clubbing. No cyanosis. Positive for edema. Left-sided skin changes secondary to partial surgery from necrotizing fasciitis. LABORATORY VALUES: The patient's sodium is 138, potassium 4.1, BUN of 19, and creatinine of 1.14. ALT and AST normal. Hematology; white count is 10.58, hemoglobin of 5.7, hematocrit of 22.1, and platelet count is 356. Urine essentially negative except for few epithelial cells. IMAGING STUDIES: Cervical CT shows C5-C6 cervical stenosis. CT of the brain with contrast showed no intracranial abnormalities and mild generalized cerebral volume loss. Chest x-ray shows cardiomegaly and pulmonary vascular congestion, pulmonary hyperinflation suggestive of small airway disease, stable diaphragmatic hernia. No pleural effusions noted. ASSESSMENT: 1. Ms. Esperanza Zaidi is a 59-year-old female with history of chronic obstructive pulmonary disease. 2. Iron deficiency anemia. 3. Questionable blood loss anemia. 4. Hypertension. 5. Hyperlipidemia. 6. Diabetes mellitus with hypoglycemic events. 7. Obesity. PLAN: Continue with O2 at this time. The patient is going to have 2 units of PRBCs. We will also give her Venofer for iron deficiency anemia. Check her iron levels and also monitor her thyroid profile. Continue with antihypertensives. Hold back on insulin at this time and just do a sliding scale. Further recommendation per clinical course. We will continue to monitor the patient. The patient also suffered a hematoma of the lower posterior side of the head. We will continue watching brain. No subdural hematoma was noted. Further recommendation per clinical course. We will continue to monitor the patient and do a post transfusion H and H after [address] Vu for possible GI bleed. MD VALERIE Anand/GREYSONL /[id number]
--- NOTE | 2019-01-16 16:45 | NUR ---
PATIENT ASSISTED TO THE RESTROOM AND BACK TO BED. BED IN LOWER POSITION, CALL LIGHT AT REACH. BLOOD STILL NOT READY DUE TO POSITIVE ANTIBODIES.
--- NOTE | 2019-01-16 18:10 | NUR ---
CALL RECEIVED FROM LAB STATING THAT PATIENT'S BLOOD WAS READY. UPON LAUNDRY OPERATOR FINISHING BLOOD BANK NUMBER ON THE SHEET DID NOT MATCH WITH THE ONE ON THE ARM BAND. BARREL STRAIGHTENER NOTIFIED. VERIFICATION IN PROGRESS.
--- NOTE | 2019-01-16 19:10 | NUR ---
Bed side shift report taken from morning Prakash in the bed.stable condition.
[2019-01-16 19:49] LABS: HEMATOCRIT 23.7 % (34.2-44.1)
[2019-01-16 20:43] LABS: HEMOGLOBIN 5.9 g/dL (12.0-16.0)
[2019-01-16] MEDS: ATORVASTATIN 10 MG TAB PO SCH (21:00)
--- NOTE | 2019-01-16 21:15 | NUR ---
V/s checked.stable condition.no resp.distress.First unit blood started after verified with another Rn.bed locked and in lowest position.phone and call light within reach.instructed to call for assistance as needed.keep monitor the pt.
--- NOTE | 2019-01-16 23:46 | NUR ---
Assisted to use rest room.voided.back to bed safely.blood infusing.stable condition.
[2019-01-17] VITALS (8 sets, daily range): BP systolic 109–128; BP diastolic 57–73
--- NOTE | 2019-01-17 00:10 | NUR ---
Infusing blood.so did not draw blood for H&H.
--- NOTE | 2019-01-17 00:30 | NUR ---
First unit of blood completed.tolerated well.
[2019-01-17] MEDS: FUROSEMIDE INJ 10 MG/ML 2 ML VIAL IV SCH ×2 (00:40→05:59)
--- NOTE | 2019-01-17 00:45 | NUR ---
Post transfusion medication Inj.Lasix 20 mg iv given.
[2019-01-17] MEDS: MORPHINE SULFATE 2 MG/ML SYR 1ML IV PRN ×4 (00:56→23:18)
[2019-01-17] MEDS: ONDANSETRON HCL INJ 2MG/ML 2ML 2 MG/ML VIAL IV PRN ×3 (00:56→23:17)
--- NOTE | 2019-01-17 02:30 | NUR ---
SECOND UNIT OF BLOOD STATRED AFTER VERIFY WITH ANOTHER RN.V/S STABLE.
[2019-01-17] MEDS: ALBUTEROL/IPRATROPIUM 3 ML NEB NEB SCH ×6 (03:00→23:45)
--- NOTE | 2019-01-17 05:00 | NUR ---
Receiving blood.so lab work not done.informed the lab to draw the blood after 7.30 am.
--- NOTE | 2019-01-17 05:50 | NUR ---
Blood transfusion completed.no transfusion reaction noted.v/s stable.tolerated well.Inj.lasix 20 mg iv given.keep monitor the pt.
--- NOTE | 2019-01-17 07:06 | NUR ---
Bed side shift report given to the oncoming Rn.stable condition.
[2019-01-17] MEDS: IRON SUCROSE 100 MG in SODIUM CHLORIDE 0.9% 100 ML 100 ML IV SCH (07:15)
--- NOTE | 2019-01-17 07:24 | NUR ---
Received patient this morning, a/ox3, in bed and completed 2 units of PRBC last night, consult to Dr. Vu and has been notified per outgoing nurse.
[2019-01-17] MEDS: FAMOTIDINE 20 MG TAB PO SCH ×2 (07:30→17:44)
[2019-01-17] MEDS: LEVOTHYROXINE SODIUM 25 MCG TABLET PO SCH (07:30)
[2019-01-17 07:47] LABS: BASOPHILS # (AUTO) 0.1 (0.0-0.1); BASOPHILS % 0.9 % (0.0-1.0); EOSINOPHILS # (AUTO) 0.3 (0.0-0.4); EOSINOPHILS % 2.6 % (0.0-6.0); HEMATOCRIT 32.5 % (34.2-44.1); LYMPHOCYTES # (AUTO) 1.4 (1.0-3.2); LYMPHOCYTES % 13.4 % (18.0-39.1); MEAN CORPUSCULAR HEMOGLOBIN 22.1 pg (28-32); MEAN CORPUSCULAR HGB CONC 27.7 g/dL (31-35); MEAN CORPUSCULAR VOLUME 79.7 fL (81-99); MONOCYTES # (AUTO) 1.2 (0.2-0.8); MONOCYTES % 11.4 % (4.4-11.3); NEUTROPHILS # (AUTO) 7.5 (2.1-6.9); NEUTROPHILS % 70.8 % (38.7-80.0); PLATELET COUNT 350 x10e3/uL (140-360); RED BLOOD COUNT 4.08 x10e6/uL (3.6-5.1); RED CELL DISTRIBUTION WIDTH 19.5 % (11.7-14.4)
[2019-01-17 08:03] LABS: ANION GAP 19.2 mmol/L (8-16); CALCIUM 9.7 mg/dL (8.4-10.2); CREATININE, SERUM 0.96 mg/dL (0.57-1.11); POTASSIUM 3.2 mmol/L (3.5-5.1)
[2019-01-17] MEDS: CITALOPRAM HYDROBROMIDE 20 MG TAB PO SCH (08:19)
[2019-01-17] MEDS: ALLOPURINOL 100 MG TAB PO SCH (08:19)
[2019-01-17] MEDS: GEMFIBROZIL 600 MG TAB PO SCH ×2 (08:19→17:44)
[2019-01-17] MEDS: PANTOPRAZOLE 40 MG 10ML VIAL IV SCH (08:19)
[2019-01-17] MEDS: METOCLOPRAMIDE HCL 10 MG TAB PO SCH (08:19)
[2019-01-17] MEDS: FUROSEMIDE 40 MG TAB PO SCH ×2 (08:19→17:44)
[2019-01-17] MEDS: METOPROLOL SUCCINATE 25 MG TAB XL PO SCH (08:20)
--- NOTE | 2019-01-17 09:07 | NUR ---
Orders per Dr. Paez to replace 60 KCL po
[2019-01-17] MEDS ORDERED: POTASSIUM CHLORIDE 20 MEQ TAB CR PO NR ×2 (09:15)
--- NOTE | 2019-01-17 09:36 | Progress Note ---
DATE: SUBJECTIVE: This is a 59-year-old lady who comes in with symptomatic anemia. The patient has received 2 units of PRBCs, had antibodies in there. The patient's iron was also found to be low, currently on iron replacement. The patient is feeling better. Complains of some shortness of breath. Albuterol and Atrovent have been given to the patient at this time. MEDICATIONS: The patient is currently is on Lasix 20 mg IV, status post transfusion, atorvastatin 10 mg, gemfibrozil 600 mg, furosemide 40 mg, famotidine 20 mg, metoclopramide 10 mg as needed, metoprolol 50 mg daily, levothyroxine 75 mg, allopurinol 100 mg, citalopram 40 mg, and also pantoprazole 40 mg IV. OBJECTIVE: VITAL SIGNS: Temperature is 97.6, pulse of 96, respirations of 18, blood pressure is 127/73, and pulse oximetry of 97%. She is on 3 L of O2. HEENT: Normocephalic and atraumatic. Pupils are reactive to light and accommodation. CVS: S1 and S2, tachy. ABDOMEN: Nontender, nondistended. EXTREMITIES: No clubbing, no cyanosis, no edema. Signs of surgical excision done on the right leg. LABORATORY VALUES: Posttransfusion H and H are pending. Chemistry shows sodium of 138 and potassium of 4.1. Her iron was 12, TIBC of 468%, saturation is 3, and transferrin is 334. Troponins have trended to be negative. ASSESSMENT: A 59-year-old lady with, 1. Chronic obstructive pulmonary disease exacerbation continue with steroids and also continue with albuterol treatment. 2. Iron deficiency anemia. Continue with replacement and also posttransfusion hypertension, hyperlipidemia, and diabetes. Continue with current medications. Further recommendation on clinical course. A consult with Dr. Carrillo will be done for replacement of iron as an outpatient. MD MIGUEL AnandJ/MODL /[id number]
--- NOTE | 2019-01-17 10:02 | NUR ---
Patient c/o sweating, checked BP 121/79, P94, O2Sats 99% 4L NC, blood sugar 184, no resp distress, possibly response to morphine given about 30 minutes ago, will monitor.
[2019-01-17 12:16] LABS: HEMATOCRIT 31.8 % (34.2-44.1); HEMOGLOBIN 8.9 g/dL (12.0-16.0)
--- NOTE | 2019-01-17 15:45 | NUR ---
Visit made by the Spiritual Care Department Pastoral Visitor, Wilfredo Gutierrez. PV provided pastoral presence, hospitality, and supportive listening. Pastoral Visitor informed pt/family of the scope of [employer] and availability. BORIS COVINGTON Beta Tester Spiritual Care Department O: [phone] Pager: [phone] ([phone] number calling from)
--- NOTE | 2019-01-17 16:02 | NUR ---
Patient with swelling on her cheeks, hematology and attending aware, will monitor, no airway edema, no bronchospasms, no laryngeal edema, no resp distress, continues on chronic oxygen use, pains managed, tolerated iron infusions, OOB and ambulated to bathroom, call light within reach, will monitor.
--- NOTE | 2019-01-17 19:00 | NUR ---
Bed side shift report taken from morning Areli in the bed.stable condition.
[2019-01-17 19:55] LABS: HEMATOCRIT 31.4 % (34.2-44.1); HEMOGLOBIN 8.9 g/dL (12.0-16.0)
[2019-01-17] MEDS: ATORVASTATIN 10 MG TAB PO SCH (21:18)
--- NOTE | 2019-01-17 22:40 | NUR ---
Assessment done.ambulatory with stand by assistance.voided.on o2 4l nasal cannula.bed locked and in lowest position.phone and call light within reach.instructed to call for assistance as needed.
[2019-01-17 23:50] LABS: BASOPHILS # (AUTO) 0.1 (0.0-0.1); BASOPHILS % 0.5 % (0.0-1.0); EOSINOPHILS # (AUTO) 0.5 (0.0-0.4); HEMATOCRIT 31.6 % (34.2-44.1); HEMOGLOBIN 8.7 g/dL (12.0-16.0); LYMPHOCYTES # (AUTO) 1.3 (1.0-3.2); LYMPHOCYTES % 10.3 % (18.0-39.1); MEAN CORPUSCULAR HEMOGLOBIN 21.8 pg (28-32); MEAN CORPUSCULAR HGB CONC 27.5 g/dL (31-35); MONOCYTES # (AUTO) 1.5 (0.2-0.8); MONOCYTES % 11.7 % (4.4-11.3); NEUTROPHILS # (AUTO) 9.1 (2.1-6.9); NEUTROPHILS % 72.6 % (38.7-80.0); PLATELET COUNT 388 x10e3/uL (140-360); RED CELL DISTRIBUTION WIDTH 20.2 % (11.7-14.4)
[2019-01-18] VITALS (8 sets, daily range): BP systolic 99–134; BP diastolic 64–70
--- NOTE | 2019-01-18 00:08 | NUR ---
Blood sheeba with Jam and sent to the lab.pt tolerated well.
[2019-01-18] MEDS: ALBUTEROL/IPRATROPIUM 3 ML NEB NEB SCH ×6 (03:00→23:00)
--- NOTE | 2019-01-18 04:17 | NUR ---
Confused at times.bed alarm on.keep monitor the pt.
--- NOTE | 2019-01-18 05:00 | NUR ---
REFUSED SCD AND YELLOW SOCKS.
[2019-01-18 05:47] LABS: BASOPHILS # (AUTO) 0.1 (0.0-0.1); BASOPHILS % 0.5 % (0.0-1.0); EOSINOPHILS # (AUTO) 0.5 (0.0-0.4); EOSINOPHILS % 4.3 % (0.0-6.0); HEMATOCRIT 30.2 % (34.2-44.1); HEMOGLOBIN 8.4 g/dL (12.0-16.0); LYMPHOCYTES # (AUTO) 1.3 (1.0-3.2); LYMPHOCYTES % 10.4 % (18.0-39.1); MEAN CORPUSCULAR HGB CONC 27.8 g/dL (31-35); MEAN CORPUSCULAR VOLUME 79.3 fL (81-99); MONOCYTES # (AUTO) 1.3 (0.2-0.8); MONOCYTES % 10.4 % (4.4-11.3); NEUTROPHILS # (AUTO) 8.8 (2.1-6.9); NEUTROPHILS % 73.6 % (38.7-80.0); PLATELET COUNT 349 x10e3/uL (140-360); RED BLOOD COUNT 3.81 x10e6/uL (3.6-5.1); RED CELL DISTRIBUTION WIDTH 20.8 % (11.7-14.4)
[2019-01-18] MEDS: ONDANSETRON HCL INJ 2MG/ML 2ML 2 MG/ML VIAL IV PRN (05:59)
[2019-01-18] MEDS: MORPHINE SULFATE 2 MG/ML SYR 1ML IV PRN (06:00)
[2019-01-18 06:05] LABS: ANION GAP 17.1 mmol/L (8-16); CALCIUM 9.4 mg/dL (8.4-10.2); CREATININE, SERUM 1.06 mg/dL (0.57-1.11); POTASSIUM 3.1 mmol/L (3.5-5.1)
--- NOTE | 2019-01-18 06:55 | NUR ---
Bed side shift report given to the oncoming rn.stable condition.
--- NOTE | 2019-01-18 06:56 | NUR ---
walking rounds completed with night auditor rn; pt in stable condition, will continue to monitor.
--- NOTE | 2019-01-18 07:28 | Progress Note ---
DATE: SUBJECTIVE: The patient is a 59-year-old female, who comes in with symptomatic anemia, tachycardia, and dyspnea. The patient is currently confused probably secondary to morphine, which we will discontinue. The patient also had episodes of hyperglycemia, which is under better control. Currently, no hematochezia and no hematemesis noted. The patient is here to be seen by GI. OBJECTIVE: VITAL SIGNS: Temperature is 96.9, pulse of 98, respirations of 18, blood pressure is 111/67, and pulse oximetry of 96 on O2 at 3 liters. HEENT: Normocephalic, atraumatic. Pupils are reactive to light and accommodation. CVS: S1 and S2 normal. Regular rate and rhythm. ABDOMEN: Nontender, nondistended. EXTREMITIES: No clubbing, no cyanosis, no edema. LABORATORY VALUES: White count is 12,000, hemoglobin of 8.4, hematocrit of 30.2. The patient has iron deficiency. Chemistry; sodium 139, potassium is 3.1. Urine is normal. MEDICATIONS: At this time, morphine sulfate, it should be discontinued; Zofran 4; atorvastatin 10; famotidine 20; gemfibrozil 600; furosemide 40 twice a day; metoprolol 50 twice a day; Reglan 10 mg daily; citalopram 40; allopurinol 100; pantoprazole 40; levothyroxine 75; albuterol and Atrovent treatments. ASSESSMENT: 1. Chronic obstructive pulmonary disorder with exacerbation. Continue with steroids and albuterol and Atrovent treatment. 2. Iron-deficiency anemia status post transfusion. The patient's hemoglobin is better. 3. Delirium secondary to morphine. We will discontinue that. PLAN: Continue with iron infusion, GI consult is awaiting, cut down the Solu-Medrol, and continue with O2 replenishing. The patient is O2 dependent. Further recommendation per clinical course. We will continue to monitor the patient and we will change morphine to hydrocodone and replace potassium today. MD VALERIE Anand/MODL /[id number]
[2019-01-18] MEDS ORDERED: POTASSIUM CHLORIDE 20 MEQ TAB CR PO ONE (08:00)
[2019-01-18] MEDS: IRON SUCROSE 100 MG in SODIUM CHLORIDE 0.9% 100 ML 100 ML IV SCH (09:09)
[2019-01-18] MEDS: FAMOTIDINE 20 MG TAB PO SCH ×2 (09:25→18:32)
[2019-01-18] MEDS: CITALOPRAM HYDROBROMIDE 20 MG TAB PO SCH (09:27)
[2019-01-18] MEDS: METOCLOPRAMIDE HCL 10 MG TAB PO SCH (09:28)
[2019-01-18] MEDS: GEMFIBROZIL 600 MG TAB PO SCH ×2 (09:28→18:32)
[2019-01-18] MEDS: FUROSEMIDE 40 MG TAB PO SCH ×2 (09:28→18:32)
[2019-01-18] MEDS: LEVOTHYROXINE SODIUM 25 MCG TABLET PO SCH (09:30)
[2019-01-18] MEDS: ALLOPURINOL 100 MG TAB PO SCH (09:31)
[2019-01-18] MEDS: METOPROLOL SUCCINATE 25 MG TAB XL PO SCH (09:31)
[2019-01-18] MEDS: PANTOPRAZOLE 40 MG 10ML VIAL IV SCH (09:35)
[2019-01-18] MEDS: HYDROCODONE/APAP 5MG-325MG TAB PO PRN ×2 (12:30→23:01)
--- NOTE | 2019-01-18 19:20 | NUR ---
Received patient awake in bed, with O2 support at 3L/NC, not in distress, family member at bedside. Call light within easy reach, advised to call for assistance anytime when needed. Bed alarm on, will continue to monitor
[2019-01-18] MEDS: ATORVASTATIN 10 MG TAB PO SCH (21:06)
[2019-01-19] VITALS (9 sets, daily range): BP systolic 101–112; BP diastolic 57–82
[2019-01-19] MEDS: ALBUTEROL/IPRATROPIUM 3 ML NEB NEB SCH ×6 (03:00→23:45)
[2019-01-19] MEDS: LEVOTHYROXINE SODIUM 75 MCG TAB PO SCH (05:00)
[2019-01-19 05:33] LABS: BASOPHILS # (AUTO) 0.1 (0.0-0.1); BASOPHILS % 0.5 % (0.0-1.0); EOSINOPHILS # (AUTO) 0.6 (0.0-0.4); HEMATOCRIT 31.3 % (34.2-44.1); HEMOGLOBIN 8.6 g/dL (12.0-16.0); LYMPHOCYTES # (AUTO) 1.1 (1.0-3.2); LYMPHOCYTES % 12.1 % (18.0-39.1); MEAN CORPUSCULAR HEMOGLOBIN 22.2 pg (28-32); MEAN CORPUSCULAR HGB CONC 27.5 g/dL (31-35); MEAN CORPUSCULAR VOLUME 80.7 fL (81-99); MONOCYTES # (AUTO) 1.1 (0.2-0.8); MONOCYTES % 12.2 % (4.4-11.3); NEUTROPHILS # (AUTO) 6.3 (2.1-6.9); NEUTROPHILS % 67.9 % (38.7-80.0); PLATELET COUNT 382 x10e3/uL (140-360); RED BLOOD COUNT 3.88 x10e6/uL (3.6-5.1); RED CELL DISTRIBUTION WIDTH 21.9 % (11.7-14.4)
[2019-01-19 05:54] LABS: ANION GAP 15.3 mmol/L (8-16); CALCIUM 9.1 mg/dL (8.4-10.2); CREATININE, SERUM 1.1 mg/dL (0.57-1.11); POTASSIUM 3.3 mmol/L (3.5-5.1)
--- NOTE | 2019-01-19 06:34 | NUR ---
walking rounds done with RN, call light within easy reach.
--- NOTE | 2019-01-19 06:40 | NUR ---
DR AMAYA MADE MORNING ROUNDS AND INQUIRED WHETHER DR. VARGHESE (GI) HAS SEEN THE PATIENT. INFORMED DR AMAYA THAT DR MAGALLON WAS CONSULTED ON 01/16/19 AND HE REQUESTED THAT THE CONSULT BE CHANGED TO DR. VARGHESE, ORDER WAS PUT IN
--- NOTE | 2019-01-19 06:44 | NUR ---
received am report and rounds done. pt is alert resting in bed, no s/s of distress. call light within reach and instructed pt to call nurse for help
[2019-01-19] MEDS: FUROSEMIDE 40 MG TAB PO SCH ×2 (08:14→18:13)
[2019-01-19] MEDS: CITALOPRAM HYDROBROMIDE 20 MG TAB PO SCH (08:14)
[2019-01-19] MEDS: METOPROLOL SUCCINATE 50 MG TAB XL PO SCH (08:15)
[2019-01-19] MEDS: METOCLOPRAMIDE HCL 10 MG TAB PO SCH (08:15)
[2019-01-19] MEDS: GEMFIBROZIL 600 MG TAB PO SCH ×2 (08:15→18:13)
[2019-01-19] MEDS: ALLOPURINOL 100 MG TAB PO SCH (08:16)
[2019-01-19] MEDS: FAMOTIDINE 20 MG TAB PO SCH ×2 (08:16→18:13)
--- NOTE | 2019-01-19 10:07 | Progress Note ---
DATE: SUBJECTIVE: The patient is a 59-year-old lady with history of acute bleed, status post iron infusions and transfusion. The patient has not been seen by Gastroenterology yet. The patient continues to be confused. No chest pain. No shortness of breath. She is on clear liquid diet and tolerating a clear liquid diet. OBJECTIVE: VITAL SIGNS: Temperature is 96.8, pulse of 78, respirations of 18, blood pressure is 101/58, pulse oximetry of 97%. HEENT: Normocephalic and atraumatic. Pupils are reactive to light and accommodation. CVS: S1 and S2 normal. Regular rate and rhythm. LUNGS: Decreased air entry. Positive for wheezing. ABDOMEN: Nontender, nondistended. EXTREMITIES: No clubbing, no cyanosis, no edema. LABORATORY VALUES: Hemoglobin is 8.6, hematocrit is 31.3, white count is 9.21, platelet count is 382. Chemistry shows sodium of 140, potassium of 3.8, BUN of 15, and creatinine of 1.10. Urine normal. MICROBIOLOGY: None. MEDICATIONS: She is on levothyroxine, hydrocodone as needed, atorvastatin, famotidine, gemfibrozil, furosemide, pantoprazole, allopurinol, Reglan, citalopram, and metoprolol. ASSESSMENT: 1. Chronic obstructive pulmonary disease with exacerbation. The patient will be back on the steroid. 2. GI consult on wait. 3. Iron deficiency anemia. The patient is on Venofer at this time. Continue with that. 4. Delirium secondary to the pain medication. We will discontinue pain medication and also replace potassium today. Physical therapy to evaluate the patient for rehabilitation and continue to monitor the patient. Further recommendation per clinical course. MD MIGUEL AnandJ/MODL /[id number]
--- NOTE | 2019-01-19 10:22 | Diagnostic Imaging Report ---
Chest, PA and lateral. History: COPD. Comparison: 01/16/2019, CT of the chest dated 07/27/2018. Impression: The heart is mildly enlarged. The aorta demonstrates atherosclerotic calcifications. Cardiac event recorder projects over the left chest. Bibasilar atelectasis is present. There is no focal consolidation, sizable pleural effusion, or pneumothorax. Right basilar pleural thickening is present and unchanged. No acute osseous abnormalities. Signed by: Dagoberto Khalil MD on 01/19/2019 10:19 AM
[2019-01-19] MEDS: PANTOPRAZOLE 40 MG 10ML VIAL IV SCH (10:30)
[2019-01-19] MEDS: METHYLPREDNISOLONE SOD SUCC 40 MG/ML VIAL 1ML IV SCH ×2 (10:30→20:10)
[2019-01-19] MEDS: IRON SUCROSE 100 MG in SODIUM CHLORIDE 0.9% 100 ML 100 ML IV SCH (10:30)
[2019-01-19 12:42] LABS: HYPOCHROMASIA MODERATE; RBC MORPHOLOGY COMMENT ABNORMAL
--- NOTE | 2019-01-19 12:55 | NUR ---
Nutrition Screen Note RD Recommendation for Physician: - Recommend adding 1800 ADA to diet - Replace low lytes as needed Plan of Care: RD following, monitoring for tolerance and adequacy Nutrition reason for involvement: MD Consult- DM diet education Primary Diagnose(s):contusion of the head s/p fall, anemia, dyspnea PMH: COPD, HLD, cholecystectomy, DM, HTN, CAD, TIAs, necrotizing fasciitis Ht: 67 in Wt: 183.19 lb BMI: 28.7 kg/m2 IBW: [address] Assessment: (01/19) 59 YOF admitted for contusion of the head s/p fall, anemia, and dyspnea. Pt seen today per MD consult for diet education. Pt reports good appetite and po intake. No reported wt loss or GI distress. Pt reports she tries to "avoid sweets" and checks her BG regularly at home. Pt receptive to diet education- educated on CHO sources, serving sizes, and discussed meal planning. All questions and concerns addressed at time of visit. Chart reviewed. Labs and meds reviewed. Will continue to monitor. Current Diet: GI Soft Malnutrition Evaluation (01/19/19) The patient does not meet criteria for a specified degree of malnutrition at this time. Will re-evaluate at follow-up as appropriate. Diet Education Needs Assessment: Diet education indicated, pt receptive- proved 01/19. Learner(s): pt Barriers: none Cultural/Language Modifications: none Readiness: ready Method: handouts, discussion Topics:DM2 nutrition therapy, label reading Understanding/Compliance: good Diet tolerance: tolerating po Nutrition Care Level: low Signed: Julieta Gomez RD, LD, [facility]
[2019-01-19] MEDS: HYDROCODONE/APAP 5MG-325MG TAB PO PRN (18:13)
[2019-01-19] MEDS: ATORVASTATIN 10 MG TAB PO SCH (20:10)
--- NOTE | 2019-01-19 20:10 | NUR ---
PATIENT IN STABLE CONDITION, CURRENTLY GOING THROUGH BREATHING TREATMENT. FAMILY MEMBER AT BEDSIDE AND PATIENT VOICES NO PAIN AT THIS TIME. BED IS IN LOWEST POSITION, SIDE RAILS ARE UP, CALL LIGHT WITHIN EASY REACH, WILL CONTINUE TO MONITOR.
[2019-01-19] MEDS ORDERED: INSULIN REGULAR, HUMAN 100 UNIT/1 ML 3ML VIAL SQ SCH (21:00)
--- NOTE | 2019-01-19 21:00 | NUR ---
SPOKE WITH DR. AMAYA REGARDING THE PATIENT'S ELEVATED BLOOD SUGAR. HE ORDERED TO START SLIDING SCALE AND DISCONTINUE STEROIDS.
[2019-01-19] MEDS: INSULIN REGULAR, HUMAN 100 UNIT/1 ML 3ML VIAL SQ SCH (21:30)
[2019-01-19] MEDS ORDERED: DEXTROSE 50% SYRINGE 50 ML IV PRN (21:45)
[2019-01-20] VITALS (7 sets, daily range): BP systolic 109–135; BP diastolic 57–67
--- NOTE | 2019-01-20 01:51 | Consultation ---
DATE OF CONSULTATION: Inpatient Consultation Note REASON FOR CONSULTATION: Chronic hypoxemic failure. HISTORY OF PRESENT ILLNESS: The patient is a 59-year-old with history of diabetes mellitus, hypertension, chronic hypoxemic failure, hyperlipidemia, and pulmonary hypertension. Has had a right heart catheterization performed last year was found to have elevated right-sided pressures. She was actually started on . She has been on it for a while without any significant improvement, still continues to get dyspneic on exertion, she has been presumed to have rheumatological related pulmonary hypertension. She only smoke for 7 months as diagnosis of COPD is unlikely. She tells me she has been very short of air with minimal exertion. She end up having a fall at home. By that time, she lost her balance, she was found to be hypoglycemia glucose of 38 and also was found to have a hemoglobin of 5.8. She was found to have iron deficiency anemia, was transfused with PRBC. PAST MEDICAL HISTORY: Significant for hypertension, history of diabetes of mellitus, history of multiple TIAs, coronary artery disease, chronic hypoxemic failure, esophagitis, history of DVT, pulmonary embolism, history of necrotizing fasciitis. PAST SURGICAL HISTORY: History of right lower extremity surgery and cardiac catheterization. MEDICATIONS: Allopurinol, atorvastatin, Clopidogrel, ergocalciferol, furosemide, glimepiride, levothyroxine, metformin, and pantoprazole. FAMILY HISTORY: Hypertension in mother and father. REVIEW OF SYSTEMS: Negative for chest pain. Negative for syncope. Positive for fall. Positive for chronic hypoxemia, positive for GI bleed. ALLERGIES: THE PATIENT HAS NO DRUG ALLERGIES. PHYSICAL EXAMINATION: VITAL SIGNS: Temperature is 97.5, blood pressure is 112/82, respirations of 20, blood pressure is 118/72, and SpO2 is 99%. Weight is 183. GENERAL: Morbidly obese female in bed. Does not appear in significant distress. HEENT: Anicteric sclerae. Oral mucosa is moist. NECK: Supple. She does have some cushingoid features, though she does not take chronic prednisone. CVS: S1 and S2. RESPIRATORY: Symmetrical expansion ABDOMEN: Soft. Bowel sounds present. EXTREMITIES: No cyanosis. No clubbing. No edema. NEURO: Alert and oriented x3. LABORATORY DATA: Sodium 140, chloride is 99, BUN is 15, potassium is 3.2, CO2 is 29. Hemoglobin is 8.6, hematocrit is 31. Total bilirubin is 0.4. IMPRESSION: 1. Chronic hypoxemic failure. 2. Pulmonary hypertension. 3. Acute blood loss anemia. 4. Obesity. 5. History of deep vein thrombosis. 6. Possible gastrointestinal bleed. PLAN: The patient is plan for endoscopy, EGD, as well as colonoscopy, the patient does not really have COPD. She had a very short duration of smoking it is unlikely. She has likely pulmonary hypertension, which is presumed to be from rheumatological disease either group or group 3, in this case, I was recommend minimizing sedations or both the procedures, she can tent to become more hypoxemic with this sedation and remains at moderate risk for procedures. I have explained this to her. She does understand, she has not had any further drop in hemoglobin since she presented here. Thank you for involving us in the care of your patient. MD JEN Pham/FERNANDO /[id number]
[2019-01-20] MEDS: ALBUTEROL/IPRATROPIUM 3 ML NEB NEB SCH ×5 (03:00→20:08)
[2019-01-20] MEDS: LEVOTHYROXINE SODIUM 75 MCG TAB PO SCH (06:21)
--- NOTE | 2019-01-20 07:00 | NUR ---
RECEIVED AM REPORT AND ROUNDS DONE. PT IS ALERT RESTING IN BED, NO S/S OF DISTRESS. CALL LIGHT WITHIN REACH AND INSTRUCTED PT TO CALL NURSE FOR HELP.
[2019-01-20] MEDS: INSULIN REGULAR, HUMAN 100 UNIT/1 ML 3ML VIAL SQ SCH ×4 (07:50→20:30)
[2019-01-20] MEDS: CITALOPRAM HYDROBROMIDE 20 MG TAB PO SCH (08:04)
[2019-01-20] MEDS: PANTOPRAZOLE 40 MG 10ML VIAL IV SCH (08:04)
[2019-01-20] MEDS: IRON SUCROSE 100 MG in SODIUM CHLORIDE 0.9% 100 ML 100 ML IV SCH (08:04)
[2019-01-20] MEDS: FUROSEMIDE 40 MG TAB PO SCH ×2 (08:04→17:32)
[2019-01-20] MEDS: FAMOTIDINE 20 MG TAB PO SCH ×2 (08:04→17:32)
[2019-01-20] MEDS: ALLOPURINOL 100 MG TAB PO SCH (08:05)
[2019-01-20] MEDS: METOPROLOL SUCCINATE 50 MG TAB XL PO SCH (08:05)
[2019-01-20] MEDS: GEMFIBROZIL 600 MG TAB PO SCH ×2 (08:05→17:32)
[2019-01-20] MEDS: METOCLOPRAMIDE HCL 10 MG TAB PO SCH (08:05)
--- NOTE | 2019-01-20 10:08 | Progress Note ---
DATE: SUBJECTIVE: The patient is here for COPD exacerbation, pulmonary hypertension, possible GI bleed, and history of fall with hematoma to the occiput. Currently, the patient is still short of breath, confusion is noticed. We have taken off the hydrocodone yesterday. The patient is doing better without narcotics. MEDICATIONS: She is on are: 1. Albuterol. 2. Allopurinol. 3. Atorvastatin. 4. Citalopram. 5. Famotidine. 6. Furosemide. 7. Gemfibrozil. 8. Hydrocodone 5/325 mg every 8 hours. 9. Iron sucrose. 10. Insulin. 11. Metoclopramide. 12. Pantoprazole. The patient has been seen by GI and also by Pulmonary yesterday. OBJECTIVE: VITAL SIGNS: Temperature is 96.3, pulse of 98, respirations of 22, blood pressure is 125/58, and pulse oximetry of 96% on 3 liters of oxygen. HEENT: Normocephalic and atraumatic. Pupils are reactive. CVS: S1 and S2 distant. Regular rate and rhythm. ABDOMEN: Tender in the epigastrium. LUNGS: Decreased air entry throughout all anderson. EXTREMITIES: No clubbing and no cyanosis. Positive for edema. LABORATORY VALUES: White count is 9.2, hemoglobin of 8.6, hematocrit of 31.3, neutrophil count 67.9. Chemistries; sodium 140, potassium 3.3, BUN of 15, and creatinine of 1.10. Urine is negative. IMAGING: Chest x-ray done yesterday shows: 1. Aortic calcification. 2. . No focal consolidation, pleural effusion, or pneumothorax. pleural thickening is present and unchanged. MICROBIOLOGY: No data and the patient has received 2 units of PRBCs. ASSESSMENT: A 59-year-old lady with: 1. Pulmonary hypertension. 2. Chronic obstructive pulmonary disease. 3. Gastrointestinal bleed, possibly arteriovenous malformation. 4. Diabetes mellitus. 5. Hyperlipidemia. 6. History of necrotizing fascitis. 7. History of insulin dependency and finding of aortic calcification. PLAN: We have discussed the case with Dr. Vu and Pulmonary. The patient needs an enteroscopy, but as per Pulmonology, the patient cannot be put on deep sedation. We will discuss the case with both of the consultants and decide on further recommendation. Thus, for now, continue with iron replacement and physical therapy and also ambulate the patient. Further recommendation per clinical course. GI prophylaxis and DVT prophylaxis on board. MD VALERIE Anand/MODL /[id number]
[2019-01-20] MEDS: HYDROCODONE/APAP 5MG-325MG TAB PO PRN (13:59)
[2019-01-20] MEDS ORDERED: ONDANSETRON HCL 4 MG ORAL DISINTEGRATING TAB PO PRN (17:00)
[2019-01-20] MEDS: ATORVASTATIN 10 MG TAB PO SCH (20:30)
--- NOTE | 2019-01-20 20:30 | NUR ---
PATIENT IN STABLE CONDITION, SHOWS NO SIGNS OF RESPIRATORY DISTRESS. NEW IV ACCESS ON RIGHT HAND AND PATIENT VOICES NO PAIN AT THIS TIME. BED IS IN LOWEST POSITION, SIDE RAILS ARE UP, CALL LIGHT WITHIN EASY REACH, WILL CONTINUE TO MONITOR.
--- NOTE | 2019-01-20 22:31 | Progress Note ---
DATE: SUBJECTIVE: The patient was seen and evaluated today. She is getting iron transfusion, her last hemoglobin was 9. This was done on the . She did not have any bleed, GI is following her, discussed with her primary attending. She had tadalafil in the past and this has been stopped. She also had been on Eliquis for recurrent DVTs and this was also stopped. She is REVIEW OF SYSTEMS: As noted above. No syncope, no chest pain or palpitations, negative for any active GI bleed. A 14-point review of system is otherwise negative. PHYSICAL EXAMINATION: VITAL SIGNS: Temperature is 96.0, pulse is 91, respirations 18, blood pressure is 119/58. GENERAL: Obese elderly female in bed. Does not appear in significant distress. HEENT: Anicteric sclerae. Oral mucosa is moist. NECK: Supple. CVS: S1 and S2. RESPIRATORY: Symmetrical expansion. Clear to auscultation. ABDOMEN: Soft. Bowel sounds present. EXTREMITIES: No cyanosis. No clubbing. NEURO: Alert and oriented x3. LABORATORY DATA: Mostly her labs have been reviewed. Her blood glucose is around 200 and she will be started on sliding scale. His cultures have been negative. IMPRESSION: 1. Pulmonary hypertension. 2. Morbid obesity. 3. Possible sleep apnea. 4. Obesity. 5. History of DVT. 6. Possibility of bleed. 7. Acute blood loss anemia. PLAN: The patient is getting iron transfusion. She is not having any active GI bleed. She is followed by GI and planned for enteroscopy for small bowel in lieu for workup for AVMs. I discussed the case with Dr. Paez as well as discussed with the patient. With the pulmonary hypertension this patient remains on moderate to high risk. We will continue to follow her. Thank you for involving us in the care of your patient. MD JEN Pham/MODL /[id number]
[2019-01-21] VITALS (8 sets, daily range): BP systolic 106–131; BP diastolic 56–65
[2019-01-21] MEDS: HYDROCODONE/APAP 5MG-325MG TAB PO PRN ×3 (00:25→20:15)
[2019-01-21] MEDS: ALBUTEROL/IPRATROPIUM 3 ML NEB NEB SCH ×7 (01:06→23:07)
[2019-01-21] MEDS: LEVOTHYROXINE SODIUM 75 MCG TAB PO SCH (06:50)
[2019-01-21] MEDS: INSULIN REGULAR, HUMAN 100 UNIT/1 ML 3ML VIAL SQ SCH ×4 (07:30→20:15)
[2019-01-21] MEDS: IRON SUCROSE 100 MG in SODIUM CHLORIDE 0.9% 100 ML 100 ML IV SCH (08:00)
[2019-01-21] MEDS ORDERED: IRON DEXTRAN INJ 500 MG in SODIUM CHLORIDE 0.9% 500ML 500 ML IV PRN (09:30)
[2019-01-21 09:53] LABS: BASOPHILS # (AUTO) 0.1 (0.0-0.1); BASOPHILS % 0.7 % (0.0-1.0); EOSINOPHILS # (AUTO) 0.4 (0.0-0.4); HEMATOCRIT 31.4 % (34.2-44.1); HEMOGLOBIN 8.5 g/dL (12.0-16.0); LYMPHOCYTES # (AUTO) 1.8 (1.0-3.2); LYMPHOCYTES % 19.5 % (18.0-39.1); MEAN CORPUSCULAR HEMOGLOBIN 22.7 pg (28-32); MEAN CORPUSCULAR HGB CONC 27.1 g/dL (31-35); MONOCYTES # (AUTO) 1.4 (0.2-0.8); MONOCYTES % 15.7 % (4.4-11.3); NEUTROPHILS # (AUTO) 5.3 (2.1-6.9); NEUTROPHILS % 59.1 % (38.7-80.0); PLATELET COUNT 444 x10e3/uL (140-360); RED BLOOD COUNT 3.74 x10e6/uL (3.6-5.1); RED CELL DISTRIBUTION WIDTH 24.7 % (11.7-14.4)
[2019-01-21] MEDS: METOPROLOL SUCCINATE 50 MG TAB XL PO SCH (10:00)
[2019-01-21] MEDS: PANTOPRAZOLE 40 MG 10ML VIAL IV SCH (10:00)
[2019-01-21] MEDS: FAMOTIDINE 20 MG TAB PO SCH ×2 (10:00→17:00)
[2019-01-21] MEDS: GEMFIBROZIL 600 MG TAB PO SCH ×2 (10:00→17:00)
[2019-01-21] MEDS: ALLOPURINOL 100 MG TAB PO SCH (10:00)
[2019-01-21] MEDS: METOCLOPRAMIDE HCL 10 MG TAB PO SCH (10:00)
[2019-01-21] MEDS: FUROSEMIDE 40 MG TAB PO SCH ×2 (10:00→17:00)
[2019-01-21] MEDS: CITALOPRAM HYDROBROMIDE 20 MG TAB PO SCH (10:00)
--- NOTE | 2019-01-21 10:00 | Progress Note ---
DATE: SUBJECTIVE: A 59-year-old lady with a history of TIA, anemia, and history of AVMs, admitted to the hospital for anemia, status post 2 units of PRBCs. The patient has been seen by GI and also by Pulmonary for pulmonary hypertension. The patient continues to be short of breath, O2 dependent. A possible antrostomy is entertained, but has been deemed higher risk for surgeries and/or procedures. The patient is still weak, very unstable on her gait. Physical therapy is working with her. OBJECTIVE: VITAL SIGNS: Temperature 96.1, respirations of 20, blood pressure is 122/58, and pulse oximetry of 94%. HEENT: Normocephalic and atraumatic. Pupils are reactive to light and accommodation. CVS: S1 and S2 normal. Regular rate and rhythm. LUNGS: Decreased air entry in all anderson. ABDOMEN: Tender in the epigastrium. EXTREMITIES: No clubbing. No cyanosis. Positive for trace edema. LABORATORY DATA: Laboratory values none done today. Hemoglobin has been stable at 8.6 and 31.3. Chemistries show blood sugars in 140s to 270s. Microbiology, none. The patient is O-negative blood. ASSESSMENT: A 59-year-old lady with a history of, 1. Pulmonary hypertension with hypoxia and O2 dependency. 2. Possible AVMs leading on to blood loss anemia. 3. Iron deficiency anemia. 4. Hyperkalemia. 5. Diabetes mellitus. 6. Obesity. 7. Possible sleep apnea. PLAN: Continue to monitor the patient. We will discuss with both Pulmonary and GI evaluation. Plan will be to continue to try to do antrostomy. If this is not possible, LTAC evaluation will be done because of the patient's debility and inability to walk a long distances and need of antibiotic and also need of continuous monitoring of hemoglobin and hematocrit. MD VALERIE Anand/GREYSONL /[id number]
[2019-01-21] MEDS ORDERED: DIPHENHYDRAMINE HCL INJ 25 MG in SODIUM CHLORIDE 0.9% 50ML 50 ML IV ONE (10:30)
[2019-01-21] MEDS ORDERED: FAMOTIDINE INJ 20 MG in SODIUM CHLORIDE 0.9% 50ML 50 ML IV ONE (10:30)
[2019-01-21] MEDS ORDERED: DEXAMETHASONE PHOS 10MG INJ 20 MG in SODIUM CHLORIDE 0.9% 50ML 50 ML IV ONE (11:00)
[2019-01-21] MEDS ORDERED: IRON DEXTRAN INJ 50 MG in SODIUM CHLORIDE 0.9% 100 ML IV ONE (11:30)
[2019-01-21] MEDS: ATORVASTATIN 10 MG TAB PO SCH (20:15)
--- NOTE | 2019-01-21 20:15 | NUR ---
PATIENT IN STABLE CONDITION, NO SIGNS OF RESPIRATORY DISTRESS NOTED. PATIENT VOICES PAIN AT A LEVEL OF 7 AND WAS MEDICATED ORDERED . BED IS IN LOWEST POSITION, SIDE RAILS ARE UP, CALL LIGHT WITHIN EASY REACH, WILL CONTINUE TO MONITOR.
--- NOTE | 2019-01-21 22:14 | Progress Note ---
DATE: SUBJECTIVE: The patient was seen and evaluated today. She and her are at the bedside. Her hemoglobin in the past few days has been stable at around 8. She did require transfusion initially. Again, I spoke at length with the patient and her and the is frustrated that she could not get an endoscopy done, I spoken with RN, GI has wanted to defer the endoscopy. I have explained that her hemoglobin has been stable. She had a multiple EGDs and colonoscopies in the past per the . Lab work as mentioned earlier was reviewed. REVIEW OF SYSTEMS: Negative for any kyler bleeding. Positive for shortness of breath. Negative for chest pain. Negative for chest palpitations. No nausea. No vomiting. No syncope. No diarrhea. A 14-point review of system is otherwise negative. MEDICATIONS: Reviewed per chart. OBJECTIVE: VITAL SIGNS: She is afebrile. Temperature 96.9, pulse is 79, blood pressure is 131/65, respirator rate is 18, and SPO2 is 97% on 4 L. GENERAL: Obese, elderly female, in bed. Does not appear in significant distress. HEENT: Anicteric sclerae. Oral mucosa is moist. NECK: Supple. CVS: S1 and S2. RESPIRATORY: Symmetrical expansion. Clear to auscultation. ABDOMEN: Soft. She is protuberant. EXTREMITIES: Has no cyanosis. No clubbing. No edema. NEURO: Alert and oriented x3. PSYCH: Normal mood and affect. LABORATORY DATA: Hemoglobin is 8.5, platelets 444. ALT 16, AST 15, sodium is 140, potassium is 3.3, BUN is 15, creatinine is 1.10. IMPRESSION: 1. Acute blood loss anemia. 2. Possible arteriovenous malformations related to gastrointestinal bleed. 3. Pulmonary hypertension. 4. Chronic hypoxemic failure. 5. Rule out chronic obstructive pulmonary disease. 6. Obesity. 7. Possible sleep apnea. 8. Pulmonary hypertension, idiopathic. PLAN: The patient is currently seen and evaluated today. Her respiratory status is fair. We will not do any further intervention from the respiratory standpoint. This can be worked up as an outpatient. She follows up with my colleague, Dr. Jerod Fragoso in the office. Hemodynamically she is stable. She has had no further active bleeding noted. Denies having any blood in stools. Hemoglobin is stable. GI is deferred. Endoscopy for now. She will be followed up for her iron studies and infusions if needed. From pulmonary standpoint, no aggressive interventions planned. I am okay to discharge. Dunia Gutiérrez MD MFS/MODL /[id number]
[2019-01-22] VITALS: BP 105/51
[2019-01-22] MEDS: ALBUTEROL/IPRATROPIUM 3 ML NEB NEB SCH ×2 (02:37→07:00)
[2019-01-22 04:00] VITALS: BP 99/56
[2019-01-22 05:53] LABS: BASOPHILS # (AUTO) 0.1 (0.0-0.1); BASOPHILS % 0.8 % (0.0-1.0); EOSINOPHILS # (AUTO) 0.6 (0.0-0.4); EOSINOPHILS % 6.5 % (0.0-6.0); HEMATOCRIT 34.8 % (34.2-44.1); HEMOGLOBIN 9.3 g/dL (12.0-16.0); LYMPHOCYTES # (AUTO) 1.4 (1.0-3.2); LYMPHOCYTES % 15.1 % (18.0-39.1); MEAN CORPUSCULAR HEMOGLOBIN 22.9 pg (28-32); MEAN CORPUSCULAR HGB CONC 26.7 g/dL (31-35); MEAN CORPUSCULAR VOLUME 85.7 fL (81-99); MONOCYTES # (AUTO) 1.2 (0.2-0.8); MONOCYTES % 13.7 % (4.4-11.3); NEUTROPHILS # (AUTO) 5.7 (2.1-6.9); NEUTROPHILS % 62.7 % (38.7-80.0); PLATELET COUNT 455 x10e3/uL (140-360); RED BLOOD COUNT 4.06 x10e6/uL (3.6-5.1); RED CELL DISTRIBUTION WIDTH 25.2 % (11.7-14.4)
[2019-01-22 06:16] LABS: ANION GAP 16.2 mmol/L (8-16); BLOOD UREA NITROGEN 15 mg/dL (7-26); BUN/CREATININE RATIO 18 (6-25); CALCIUM 9.3 mg/dL (8.4-10.2); CARBON DIOXIDE 35 mmol/L (22-29); CHLORIDE 96 mmol/L (98-107); CREATININE, SERUM 0.85 mg/dL (0.57-1.11); EST GLOMERULAR FILTRATION RATE > 60 ML/MIN (60-); GLUCOSE 115 mg/dL (74-118); POTASSIUM 3.2 mmol/L (3.5-5.1); SODIUM 144 mmol/L (136-145)
[2019-01-22] MEDS: LEVOTHYROXINE SODIUM 75 MCG TAB PO SCH (06:35)
[2019-01-22] MEDS: INSULIN REGULAR, HUMAN 100 UNIT/1 ML 3ML VIAL SQ SCH (07:30)
[2019-01-22 08:02] VITALS: BP 123/63
--- NOTE | 2019-01-22 08:06 | Progress Note ---
DATE: SUBJECTIVE: The patient is a 59-year-old lady, coming in with symptomatic GI bleed. The patient is known to have AVMs and has been having GI bleeds for a long time. The patient is currently stable, however, very weak and very debilitated. The patient is depressed and is asking for antidepressant. Currently, she was not able to walk long distance, will need physical therapy and rehabilitation for the patient. She will be discharged to her home. Currently afebrile. OBJECTIVE: VITAL SIGNS : Temperature 97.0, pulse of 80, respirations of 18, blood pressure is 99/56. HEENT: Normocephalic, atraumatic. Pupils are reactive. CVS: S1 and S2 normal. On nasal cannula in the nares. ABDOMEN: Nontender, nondistended. LUNGS: Decreased air entry. EXTREMITIES: No clubbing, no cyanosis, no edema. LABORATORY VALUES: Her white count is 9.01, hemoglobin has gone up to 9.3, hematocrit of 34.8. Chemistry shows sodium of 144, potassium of 3.2, BUN of 15, creatinine 0.85, glucoses have been running in the 140s. MICROBIOLOGY: None done. Status post 2 units of PRBCs. IMAGING STUDIES: No imaging done since the last one on 01/19. ASSESSMENT: A 59-year-old with: 1. Pulmonary hypertension with hypoxia and O2 dependency. 2. Possible arteriovenous malformations leading to blood loss anemia. 3. Iron deficiency anemia. 4. Chronic hypokalemia. 5. Diabetes mellitus. 6. Obesity. 7. Sleep apnea. 8. Hypertension, who currently hypotensive. PLAN: 1. We did discuss the case with Dr. Vu at this point in time with Pulmonary consult. The patient is high risk for any enterostomy, so we will hold off because anemia is stable for AVMs. 2. Continue with iron replacement. 3. Hypokalemia. We will go ahead and replace potassium in lieu of her constant Lasix intake. 4. For diabetes, continue with insulin sliding scale. 5. For the patient's debility, she will need a LTAC consult and/or a SNF consult depending on availability and need. Further recommendation per clinical course. We will continue to monitor the patient's. Medications of the patient has been reviewed. MD VALERIE Anand/MODL /[id number]
[2019-01-22] MEDS ORDERED: VENLAFAXINE HCL 37.5 MG TAB PO SCH (09:00)
[2019-01-22] MEDS: FAMOTIDINE 20 MG TAB PO SCH (09:26)
[2019-01-22] MEDS: PANTOPRAZOLE 40 MG 10ML VIAL IV SCH (09:26)
[2019-01-22] MEDS: IRON SUCROSE 100 MG in SODIUM CHLORIDE 0.9% 100 ML 100 ML IV SCH (09:26)
[2019-01-22] MEDS: CITALOPRAM HYDROBROMIDE 20 MG TAB PO SCH (09:26)
[2019-01-22] MEDS: METOCLOPRAMIDE HCL 10 MG TAB PO SCH (09:27)
[2019-01-22] MEDS: GEMFIBROZIL 600 MG TAB PO SCH (09:27)
[2019-01-22] MEDS: FUROSEMIDE 40 MG TAB PO SCH (09:27)
[2019-01-22] MEDS: METOPROLOL SUCCINATE 50 MG TAB XL PO SCH (09:27)
[2019-01-22] MEDS: ALLOPURINOL 100 MG TAB PO SCH (09:28)
[2019-01-22] MEDS ORDERED: POTASSIUM CHLORIDE 20 MEQ TAB CR PO SCH (09:30)
[2019-01-22] MEDS: HYDROCODONE/APAP 5MG-325MG TAB PO PRN (10:27)
--- NOTE | 2019-01-22 10:38 | NUR ---
CALL TO DR. AMAYA REGARDING LTAC ORDER. DISCUSSED PT NOT MEETING LTAC CRITERIA; NO ABX AND WALKING 220FT. DISCUSSED SNF ANOTHER OPTION. PT STILL DOES NOT MEET SNF CRITERIA. AGREED TO HOME W HOME HEALTH. CM MET W THE PT AT THE BEDSIDE. PT WAS UP W ASSIST TO BR. EXPLAINED CRITERIA FOR LTAC AND SNF. PT STATES SHE WOULD LIKE TO GO HOME TODAY. STATES SHE HAS BEEN READY TO RETURN HOME. DISCUSSED BENEFIT OF HOME HEALTH. STATES SHE REALLY NEEDS HELP W LEARNING MORE ABOUT HER COPD SO SHE CAN MANAGE IT BETTER. STATES SHE ALSO COULD USE SOME PT FOR STRENGTHENING. CHOICE WAS PROVIDED TO PT. STATES SHE WOULD LIKE TO USE A HH AGENCY IN NETWORK W HER INSURANCE AND COULD TEACH HER TO MANAGE HER COPD. CHOICE LETTER WAS SIGNED. PT CHOSE [facility] FIRST, THEN [facility] IF THEY DO NOT ACCEPT HER INSURANCE. PT CALLED HER DTR TO BRING HER O2 FORM HOME TO TRANSPORT HOME. NOTIFIED ANNALISA THAKUR.
--- NOTE | 2019-01-22 11:40 | NUR ---
Pt discharged home at this time. Pt and family verbalized understanding of all discharged instructions and follow up appt. 0 s/s of acute distress noted at time of discharge.
[2019-01-22 11:56] VITALS: BP 115/70
--- NOTE | 2019-01-22 12:47 | NUR ---
HOME HEALTH REFERRAL FAXED TO [facility] @ OFF: [phone] / FAX: [phone]
--- NOTE | 2019-01-22 15:46 | NUR ---
CALL RECEIVED FROM [facility] STATING THEY ARE NOT IN NETWORK W PT'S INSURANCE. REFERRAL FAXED TO [facility] @ OFF: [phone] / FAX: [phone]
--- NOTE | 2019-01-22 19:01 | Progress Note ---
DATE: SUBJECTIVE: The patient was seen and evaluated. She has had hemoglobin checked today, which was around 9.3 as I spoke with RN at bedside . She has been planned to go LTAC versus halfway facility, otherwise she is hemodynamically stable. CURRENT MEDICATIONS: Have been reviewed per chart. PHYSICAL EXAMINATION: VITAL SIGNS: Stable. Hemodynamically stable. Her oxygen requirements around 3 liters, which she uses at home. GENERAL: Reveals obese, elderly female, in bed, does not appear in significant distress. HEENT: Anicteric sclerae. Oral mucosa is moist. NECK: Supple. CVS: S1, S2. RESPIRATORY: Symmetrical expansion. Clear to auscultation. ABDOMEN: Soft. Bowel sounds present. EXTREMITIES: Has no cyanosis. No clubbing. NEURO: Alert and oriented x3. IMPRESSION: 1. Chronic hypoxemic failure. 2. Obesity. 3. Gastrointestinal bleed, possibly secondary to arteriovenous malformation. 4. Pulmonary hypertension, idiopathic. 5. Blood loss anemia, status post transfusion. PLAN: 1. The patient is being relatively stable, is back to her baseline. She was deemed a high-risk category for EGD and colonoscopy. 2. GI has deferred the procedure for now. We will follow her on a regular basis. Dunia Gutiérrez MD MFS/MODL /[id number]
== END 2019-01-22 12:26 | disposition home health service (06) | DRG 314 ==
LOC: ER 22:53 → ERHOLD 01-16 01:18 → MED/SURG3 01-16 02:59 → OBSVTOIN 01-17 07:44
PROVIDERS: ADMIT Family Medicine; ATTEND Family Medicine
PROC: 30233N1 Transfusion of Nonautologous Red Blood Cells into Peripheral Vein, Percutaneous Approach (ICD-10-PCS; principal; 2019-01-16)
DX: I27.23 Pulmonary hypertension due to lung diseases and hypoxia (principal); K55.21 Angiodysplasia of colon with hemorrhage; J96.11 Chronic respiratory failure with hypoxia; D62 Acute posthemorrhagic anemia; J44.1 Chronic obstructive pulmonary disease with (acute) exacerbation; E78.5 Hyperlipidemia, unspecified; E87.6 Hypokalemia; I10 Essential (primary) hypertension; E11.65 Type 2 diabetes mellitus with hyperglycemia; G47.30 Sleep apnea, unspecified; E11.649 Type 2 diabetes mellitus with hypoglycemia without coma; T40.2X5A Adverse effect of other opioids, initial encounter; Y92.230 Patient room in hospital as the place of occurrence of the external cause; R53.81 Other malaise; S00.93XA Contusion of unspecified part of head, initial encounter; W01.198A Fall on same level from slipping, tripping and stumbling with subsequent striking against other object, initial encounter; Y93.9 Activity, unspecified; Z99.81 Dependence on supplemental oxygen; Y92.009 Unspecified place in unspecified non-institutional (private) residence as the place of occurrence of the external cause; Z87.891 Personal history of nicotine dependence; Z82.49 Family history of ischemic heart disease and other diseases of the circulatory system; Z86.711 Personal history of pulmonary embolism; Z86.718 Personal history of other venous thrombosis and embolism; Z79.84 Long term (current) use of oral hypoglycemic drugs; Z79.02 Long term (current) use of antithrombotics/antiplatelets; Z95.5 Presence of coronary angioplasty implant and graft; Z86.73 Personal history of transient ischemic attack (TIA), and cerebral infarction without residual deficits; E66.9 Obesity, unspecified; Z68.29 Body mass index [BMI] 29.0-29.9, adult; K21.9 Gastro-esophageal reflux disease without esophagitis; E03.9 Hypothyroidism, unspecified; E77.8 Other disorders of glycoprotein metabolism; R41.0 Disorientation, unspecified; T40.2X5D Adverse effect of other opioids, subsequent encounter; D50.9 Iron deficiency anemia, unspecified
CPT/HCPCS: 36415; 70450; 71045; 71046; 72125; 80048; 80053; 81001; 82550; 82553; 82948; 83540; 84466; 84484; 85014; 85018; 85025; 86850; 86870; 86880; 86900; 86905; 86922; 93005; 94640; 99001; 99284; G0378; J1100; J1200; J1750; J1756; J1817; J1940; J2270; J2405; J2920; J7050; P9016

== ENCOUNTER 2019-08-27 17:45 | Inpatient (IN) | payer OTHER ==
[~2019-08-27] VITALS: Ht 170.2 cm; Wt 80.9 kg
[~2019-08-27 17:45] MED LIST changes: +ALLOPURINOL100 MG PO; +ATORVASTATIN CA10 MG PO; +VITAMIN D250000 UNIT PO
--- NOTE | 2019-08-27 18:16 | NUR ---
DR. WIN IN TO SEE THE PATEINT
[2019-08-27] MEDS ORDERED: SODIUM CHLORIDE 0.9% 1000ML 1,000 ML IV STA (18:20)
[2019-08-27] MEDS ORDERED: METHYLPREDNISOLONE SOD SUCC 125 MG/2ML VIAL IV ONE (18:30)
[2019-08-27] MEDS ORDERED: ALBUTEROL SULFATE HFA 8GM INHALATION AEROSOL INH PRN (18:30)
--- NOTE | 2019-08-27 18:50 | Emergency Department Note ---
History of Present Illnes History of Present Illness Chief Complaint: Respiratory History of Present Illness This is a 59 year old female here for progressively worsening shortne ss of breath over the past 3 days. states was sent to have an outpatient xray by Dr Rodriguez. Also states that she was exposed 5 d ago to someone who tested positive for COVID19 Historian: Patient Arrival Mode: Car Manager Change Required: No Onset (how long ago): week(s) (progressive x 2 weeks) Radiation: Reports non-radiation Severity: moderate Onset quality: gradual Timing of current episode: intermittent Progression: waxing and waning Chronicity: recurrent Context: Reports recent illness Relieving factors: none Exacerbating factors: movement Associated symptoms: Reports denies other symptoms Treatments prior to arrival: none (BEATRIZ WIN MD) Past Medical/Family History Physician Review I have reviewed the patient's past medical and family history. Any updates have been documented here. (BEATRIZ WIN MD) Past Medical History Recent Fever: No Clinical Suspicion of Infectio: No New/Unexplained Change in Ment: No Past Medical History: COPD Other Medical History: 3L oxygen nc home Past Surgical History: None Other Surgery: RIGHT ANKLE FUSION NECROTIZING FASCIITIS X2 CARDIAC CATH WITH HEART MONITOR LEFT CHEST (BEATRIZ WIN MD) Social History Smoking Cessation: Former smoker Counseling Performed: No Alcohol Use: None Any Illegal Drug Use: No TB Exposure/Symptoms: No Physically hurt or threatened: No (BEATRIZ WIN MD) Family History Family history of heart diseas: Yes (BEATRIZ WIN MD) Other Last Tetanus: UTD Any Pre-Existing Lines (PICC,: No (BEATRIZ WIN MD) Review of Systems Review of Systems Constitutional: Reports no symptoms EENTM: Reports no symptoms Cardiovascular: Reports no symptoms Respiratory: Reports dyspnea, Reports dyspnea on exertion; Denies cough Gastrointestinal: Reports no symptoms Genitourinary: Reports no symptoms Musculoskeletal: Reports no symptoms Integumentary: Reports no symptoms Neurological: Reports no symptoms Psychological: Reports no symptoms Endocrine: Reports no symptoms Hematological/Lymphatic: Reports no symptoms (BEATRIZ WIN MD) Physical Exam Related Data Allergies: Coded Allergies: No Known Allergies (Unverified , 09/21/18) Triage Vital Signs Vital Signs Date Time Temp Pulse Resp B/P (MAP) Pulse Ox O2 Delivery O2 Flow Rate FiO2 08/27/19 18:00 98.4 89 22 112/65 100 Vital signs reviewed: Yes (BEATRIZ WIN MD) Physical Exam CONSTITUTIONAL Constitutional: Present well-developed, Present well-nourished HENT HENT: Present normocephalic, Present atraumatic, Present oropharynx clear/ moist, Present nose normal HENT L/R: Present left ext ear normal, Present right ext ear normal EYES Eyes: Reports PERRL, Reports conjunctivae normal NECK Neck: Present ROM normal PULMONARY Pulmonary: Present other (decreased BS's throughout with mild exp wheezes); Absent respiratory distress CARDIOVASCULAR Cardiovascular: Present regular rhythm, Present heart sounds normal, Present capillary refill normal, Present normal rate GASTROINTESTINAL Abdominal: Present soft, Present nontender, Present bowel sounds normal GENITOURINARY Genitourinary: Present exam deferred SKIN Skin: Present warm, Present dry MUSCULOSKELETAL Musculoskeletal: Present ROM normal NEUROLOGICAL Neurological: Present alert, Present oriented x 3, Present no gross motor or sensory deficits PSYCHOLOGICAL Psychological: Present mood/affect normal, Present judgement normal (BEATRIZ WIN MD) Results Laboratory Lab results reviewed: Yes Laboratory comments Laboratory Tests Test 08/27/19 18:55 08/27/19 18:47 White Blood Count 13.27 x10e3/uL (4.8-10.8) Red Blood Count 4.03 x10e6/uL (3.6-5.1) Hemoglobin 10.8 g/dL (12.0-16.0) Hematocrit 37.6 % (34.2-44.1) Mean Corpuscular Volume 93.3 fL (81-99) Mean Corpuscular Hemoglobin 26.8 pg (28-32) Mean Corpuscular Hemoglobin Concent 28.7 g/dL (31-35) Red Cell Distribution Width 20.2 % (11.7-14.4) Platelet Count 328 x10e3/uL (140-360) Neutrophils (%) (Auto) 75.6 % (38.7-80.0) Lymphocytes (%) (Auto) 9.9 % (18.0-39.1) Monocytes (%) (Auto) 9.3 % (4.4-11.3) Eosinophils (%) (Auto) 2.4 % (0.0-6.0) Basophils (%) (Auto) 0.8 % (0.0-1.0) Neutrophils # (Auto) 10.0 (2.1-6.9) Lymphocytes # (Auto) 1.3 (1.0-3.2) Monocytes # (Auto) 1.2 (0.2-0.8) Eosinophils # (Auto) 0.3 (0.0-0.4) Basophils # (Auto) 0.1 (0.0-0.1) Absolute Immature Granulocyte (auto 0.27 x10e3/uL (0-0.1) Prothrombin Time 14.5 seconds (11.9-14.5) Prothromb Time International Ratio 1.06 Activated Partial Thromboplast Time 28.0 seconds (23.8-35.5) Sodium Level 141 mmol/L (136-145) Potassium Level 3.1 mmol/L (3.5-5.1) Chloride Level 100 mmol/L (98-107) Carbon Dioxide Level 27 mmol/L (22-29) Anion Gap 17.1 mmol/L (8-16) Blood Urea Nitrogen 13 mg/dL (7-26) Creatinine 0.84 mg/dL (0.57-1.11) Estimat Glomerular Filtration Rate > 60 ML/MIN (60-) BUN/Creatinine Ratio 15 (6-25) Glucose Level 179 mg/dL (74-118) Calcium Level 9.5 mg/dL (8.4-10.2) Total Bilirubin 0.7 mg/dL (0.2-1.2) Aspartate Amino Transf (AST/SGOT) 19 IU/L (5-34) Alanine Aminotransferase (ALT/SGPT) 17 IU/L (0-55) Alkaline Phosphatase 113 IU/L (40-150) Creatine Kinase 53 IU/L (29-168) Creatine Kinase MB 0.60 ng/mL (0-5.0) Troponin I 0.016 ng/mL (0-0.300) B-Type Natriuretic Peptide 204.9 pg/mL (0-100) Total Protein 6.9 g/dL (6.5-8.1) Albumin 4.0 g/dL (3.5-5.0) Globulin 2.9 g/dL (2.3-3.5) Albumin/Globulin Ratio 1.4 (0.8-2.0) (SUMAN CHANDLER, DO) Imaging Imaging results reviewed: Yes Impressions IMPRESSION: Moderate cardiomegaly and pulmonary edema. (SUMAN CHANDLER DO) Procedures 12 Lead ECG Interpretation ECG Interpretation : ECG: ECG 1 Prior ECG tracings: reviewed QRS axis: right Conduction: complete RBBB T wave inversion: aVR, V1 Clinical Impression: abnormal ECG (SUMAN CHANDLER DO) Assessment & Plan Medical Decision Making MDM check CBC, CHEM, CARDIACS, ECG, CXR, BNP, COVID SWAB - R/O PNEUMONIA, COPD EXAC, STEMI/NSTEMI, CHF, COVID19 (BEATRIZ WIN MD) MDM Sign obtained from Dr. Win to follow-up chest x-ray and reevaluate patient at bedside. 59-year-old female arrives the ED with complaints of worsening shortness of breath. Chest x-ray consistent with pulmonary edema. Patient's BMP was not markedly elevated, however, given patient's chest x-ray findings and clinical complaints of shortness of breath-Patient admitted for CHF exacerbation. Dr. Chavez informed, further consults including cardiology to be done by primary admitting team. (SUMAN CHANDLER DO) Reassessment [facility] (BEATRIZ WIN MD) Assessment & Plan Final Impression: (1) CHF exacerbation (SUMAN CHANDLER DO) Depart Disposition: ADMITTED Last Vital Signs Date Time Temp Pulse Resp B/P (MAP) Pulse Ox O2 Delivery O2 Flow Rate FiO2 08/27/19 18:21 99.0 82 98 08/27/19 18:00 22 (BEATRIZ WIN MD) Home Meds Reported Medications Diltiazem Hcl (DILT-XR) 180 Mg Cap.er.deg, 180 MG 08/27/19 Ergocalciferol (Vitamin D2) (VITAMIN D2) 50,000 Unit Capsule, 39909 UNIT PO .qweek 01/16/19 Atorvastatin Calcium (ATORVASTATIN CALCIUM) 10 Mg Tablet, 10 MG PO 2100, #30 TAB 01/16/19 Allopurinol (ALLOPURINOL) 100 Mg Tablet, 100 MG PO DAILY, #30 TAB 01/16/19 Metoclopramide Hcl (REGLAN) 5 Mg Tablet, 10 MG PO DAILY 11/23/18 Furosemide (FUROSEMIDE) 40 Mg Tablet, 40 MG PO BID, #30 TAB 07/31/18 Gemfibrozil (LOPID) 600 Mg Tablet, 600 MG PO BID, TAB 07/27/18 [Tresiba] No Conflict Check, 70 UNITS SQ DAILY 07/27/18 Pantoprazole Sodium* (PROTONIX) 40 Mg Tablet.dr, 40 MG PO DAILY, TAB 07/27/18 Glimepiride (GLIMEPIRIDE) 2 Mg Tablet, 2 MG PO DAILY, TAB 07/27/18 Metformin Hcl (METFORMIN HCL ER) 500 Mg Tab.er.24h, 500 MG PO DAILY 07/27/18 Metoprolol Succinate (METOPROLOL SUCCINATE) 25 Mg Tab.er.24h, 50 MG PO DAILY 07/27/18 Citalopram Hydrobromide (Celexa) 20 Mg Tablet, 40 MG PO DAILY 09/17/11 Levothyroxine Sodium (Synthroid) 25 Mcg Tablet, 75 MCG PO DAILY 09/17/11 Discontinued Reported Medications Clopidogrel Bisulfate* (PLAVIX) 75 Mg Tablet, 75 MG PO DAILY, #30 TAB 07/27/18 Medications in the ED Sodium Chloride 1,000 ml @ 0 mls/hr Q0M STAT IV ; Start 08/27/19 at 18:20; Stop 08/27/19 at 18:24; Status DC Albuterol 2 PUFFS RQ4H PRN INH SHORTNESS OF BREATH; Start 08/27/19 at 18:30; Stop 09/26/19 at 18:29 Methylprednisolone Sodium Succinate 125 mg ONCE ONCE IV ; Start 08/27/19 at 18:30; Stop 08/27/19 at 18:31; Status DC (BEATRIZ WIN MD) BEATRIZ WIN MD Aug 27, 2019 18:50 SUMAN CHANDLER DO Aug 27, 2019 21:08
--- NOTE | 2019-08-27 19:00 | NUR ---
3 unsuccessful attempts at iv start;monorail charger operator notiifed
[2019-08-27 19:24] LABS: BASOPHILS # (AUTO) 0.1 (0.0-0.1); BASOPHILS % 0.8 % (0.0-1.0); EOSINOPHILS # (AUTO) 0.3 (0.0-0.4); EOSINOPHILS % 2.4 % (0.0-6.0); HEMATOCRIT 37.6 % (34.2-44.1); HEMOGLOBIN 10.8 g/dL (12.0-16.0); LYMPHOCYTES # (AUTO) 1.3 (1.0-3.2); LYMPHOCYTES % 9.9 % (18.0-39.1); MEAN CORPUSCULAR HEMOGLOBIN 26.8 pg (28-32); MEAN CORPUSCULAR HGB CONC 28.7 g/dL (31-35); MEAN CORPUSCULAR VOLUME 93.3 fL (81-99); MONOCYTES # (AUTO) 1.2 (0.2-0.8); MONOCYTES % 9.3 % (4.4-11.3); NEUTROPHILS % 75.6 % (38.7-80.0); PLATELET COUNT 328 x10e3/uL (140-360); RED BLOOD COUNT 4.03 x10e6/uL (3.6-5.1); RED CELL DISTRIBUTION WIDTH 20.2 % (11.7-14.4)
[2019-08-27 19:34] LABS: INR 1.06; PROTHROMBIN TIME 14.5 seconds (11.9-14.5)
[2019-08-27 19:55] LABS: ALANINE AMINOTRANSFERASE 17 IU/L (0-55); ALBUMIN/GLOBULIN RATIO 1.4 (0.8-2.0); ALKALINE PHOSPHATASE 113 IU/L (40-150); ANION GAP 17.1 mmol/L (8-16); BLOOD UREA NITROGEN 13 mg/dL (7-26); BUN/CREATININE RATIO 15 (6-25); CALCIUM 9.5 mg/dL (8.4-10.2); CARBON DIOXIDE 27 mmol/L (22-29); CHLORIDE 100 mmol/L (98-107); CREATINE KINASE 53 IU/L (29-168); CREATININE, SERUM 0.84 mg/dL (0.57-1.11); EST GLOMERULAR FILTRATION RATE > 60 ML/MIN (60-); GLUCOSE 179 mg/dL (74-118); POTASSIUM 3.1 mmol/L (3.5-5.1); SODIUM 141 mmol/L (136-145)
--- NOTE | 2019-08-27 20:50 | Diagnostic Imaging Report ---
EXAMINATION: CHEST SINGLE (PORTABLE) INDICATION: Shortness of breath COMPARISON: Chest x-ray dated 01/19/2019 FINDINGS: AP view TUBES and LINES: Loop recorder noted. LUNGS/PLEURA: Lungs are well inflated. There are bilateral interstitial opacities, consistent with pulmonary edema.. There is no pleural effusion or pneumothorax. HEART AND MEDIASTINUM: Cardiac size is moderately enlarged, unchanged. BONES AND SOFT TISSUES: No acute osseous lesion. Soft tissues are unremarkable. UPPER ABDOMEN: No free air under the diaphragm. IMPRESSION: Moderate cardiomegaly and pulmonary edema. Signed by: Alejo Doshi MD on 08/27/2019 8:47 PM
[2019-08-27] MEDS ORDERED: POTASSIUM CHLORIDE 20 MEQ TAB CR PO STA (21:12)
[2019-08-27] MEDS ORDERED: DILT-XR180 MG (21:44)
[2019-08-27 22:18] VITALS: BP 129/58
[2019-08-28] VITALS (8 sets, daily range): BP systolic 98–131; BP diastolic 58–78
--- NOTE | 2019-08-28 05:18 | History and Physical ---
REASON FOR ADMISSION: CHF exacerbation. HISTORY OF PRESENT ILLNESS: The patient is a 59-year-old lady, who started feeling shortness of breath, cough and fluid overloaded for few days prior to admission. When she came in, she was noticed to look like CHF exacerbation, so she has been admitted for further evaluation and treatment. PAST MEDICAL HISTORY: Significant for diabetes, hypertension, hyperlipidemia, hypothyroidism. MEDICATIONS: See MAR. ALLERGIES: NONE. SOCIAL HISTORY: Nonsmoker and nondrinker. FAMILY HISTORY: Hypertension. PHYSICAL EXAMINATION: VITAL SIGNS: Temperature 98.0, pulse 82, blood pressure 131/62, saturations 94% on nasal cannula. GENERAL: She is no apparent distress, lying in bed supine with no respiratory distress. LUNGS: Clear to auscultation bilaterally. NECK: Supple. No lymphadenopathy. No JVD. CARDIOVASCULAR: Regular rate and rhythm. ABDOMEN: Good bowel sounds. Soft, nontender. EXTREMITIES: No clubbing or cyanosis. NEUROLOGIC: Nonfocal. ASSESSMENT/PLAN: 1. Congestive heart failure exacerbation. We will do some diuretics. Check an echo and consult her Cardiology. 2. Hypokalemia. We will recheck and replace if necessary. 3. Leukocytosis. Continue to monitor. 4. Diabetes. Continue with current care and monitoring. 5. Hypothyroidism. Continue with her medication. 6. Hyperlipidemia. Continue with her medication. Please see hospital chart for full details. MD DARRELL Martino/FERNANDO /[id number]
--- NOTE | 2019-08-28 06:29 | NUR ---
LEFT MESSAGE FOR DR MAK REGARDING CONSULT, DR MCKINNEY WASTE MANAGEMENT RECYCLING TECHNICIAN, AWAITING CALL BACK.
[2019-08-28 06:48] LABS: BASOPHILS % 0.3 % (0.0-1.0); EOSINOPHILS % 0.1 % (0.0-6.0); HEMATOCRIT 32.7 % (34.2-44.1); HEMOGLOBIN 9.5 g/dL (12.0-16.0); LYMPHOCYTES # (AUTO) 0.4 (1.0-3.2); LYMPHOCYTES % 5.6 % (18.0-39.1); MEAN CORPUSCULAR HEMOGLOBIN 28.4 pg (28-32); MEAN CORPUSCULAR HGB CONC 29.1 g/dL (31-35); MEAN CORPUSCULAR VOLUME 97.9 fL (81-99); MONOCYTES # (AUTO) 0.1 (0.2-0.8); NEUTROPHILS # (AUTO) 6.5 (2.1-6.9); NEUTROPHILS % 91.2 % (38.7-80.0); PLATELET COUNT 269 x10e3/uL (140-360); RED BLOOD COUNT 3.34 x10e6/uL (3.6-5.1); RED CELL DISTRIBUTION WIDTH 20.7 % (11.7-14.4)
--- NOTE | 2019-08-28 07:00 | NUR ---
BEDSIDE SHIFT REPORT RECEIVED FROM SALES REPRESENTATIVE LIVESTOCK RN. PT DENIES NEEDS AT THIS TIME.
[2019-08-28 07:10] LABS: ALBUMIN 3.4 g/dL (3.5-5.0); ALBUMIN/GLOBULIN RATIO 1.3 (0.8-2.0); ANION GAP 13.9 mmol/L (8-16); CALCIUM 8.3 mg/dL (8.4-10.2); POTASSIUM 3.9 mmol/L (3.5-5.1)
[2019-08-28] MEDS ORDERED: MAGNESIUM SULFATE 2GM/50ML 50 ML IV ONE (08:30)
[2019-08-28] MEDS ORDERED: DEXTROSE 50% SYRINGE 50 ML IV PRN (08:30)
[2019-08-28] MEDS: INSULIN LISPRO 100 UNIT/1 ML 3ML VIAL SQ SCH ×3 (09:25→20:57)
[2019-08-28] MEDS: CITALOPRAM HYDROBROMIDE 20 MG TAB PO SCH (09:33)
[2019-08-28] MEDS: METFORMIN HCL 500 MG TAB CR PO SCH (09:33)
[2019-08-28] MEDS: GLIMEPIRIDE 2 MG TAB PO SCH (09:33)
[2019-08-28] MEDS: GEMFIBROZIL 600 MG TAB PO SCH ×2 (09:33→17:01)
[2019-08-28] MEDS: ALLOPURINOL 100 MG TAB PO SCH (09:34)
[2019-08-28] MEDS: PANTOPRAZOLE SOD 40 MG TABEC PO SCH (09:34)
[2019-08-28] MEDS: METOPROLOL SUCCINATE 25 MG TAB XL PO SCH (09:34)
[2019-08-28] MEDS: LEVOTHYROXINE SODIUM 25 MCG TABLET PO SCH (09:34)
[2019-08-28] MEDS: METOCLOPRAMIDE HCL 10 MG TAB PO SCH (09:34)
--- NOTE | 2019-08-28 11:44 | Consultation ---
DATE OF CONSULTATION: Cardiology Consultation REQUESTING PHYSICIAN: Dr. Johnnie Chavez. REASON FOR CONSULTATION: CHF exacerbation. HISTORY OF PRESENT ILLNESS: Ms. Zaidi is a 59-year-old female, who is well known to our practice and was recently seen in our clinic approximately 2 weeks ago after recent heart left heart catheterization. She reports that she sought urgent medical services due to worsening shortness of breath. She reports for the last 2 weeks, she has noticed that she is unable to tolerate most activities in the house without feeling ever winded and very short of breath. She reports that she uses oxygen at home consistently and has been utilizing 3 L per nasal cannula even during this period of worsening shortness of breath. Of note, the patient had LAD stent placed in November of 2018 with recent re-evaluation of the stent, which was noted to be patent in July of 2019. Right heart catheterization in November of 2018 with pulmonary pressures 90/31 and mean gradient of 54. At the present time, the patient denies any chest pain, palpitation, fever, chills, edema, orthopnea, or PND. She does endorse shortness of breath that is worse with exertion, weakness, and fatigue. PAST MEDICAL HISTORY: Includes pulmonary hypertension, COPD, hypertension, hyperlipidemia, and hypothyroidism. PHYSICAL EXAMINATION: VITAL SIGNS: Temperature 98.1, pulse 75, respiratory rate 20, blood pressure 124/78, and oxygen saturation 93% on 3 L nasal cannula. GENERAL: Alert and oriented x3. Resting comfortably in bed. Does not appear to be in any acute distress. LUNGS: Diminished breath sounds throughout. No wheezing. No rhonchi or crackles. CARDIOVASCULAR: Regular rate and rhythm. Normal S1 and S2. ABDOMEN: Soft and nontender. EXTREMITIES: Lower extremity, no edema. CARDIOVASCULAR MEDICATIONS: Metoprolol 50 mg p.o. daily, atorvastatin 10 mg p.o. at bedtime, and Lopid 600 mg p.o. b.i.d. LABORATORY DATA: WBC 7.16, hemoglobin 9.5, hematocrit 32.7, and platelets 269. Sodium 136, potassium 3.9, BUN 16, creatinine 1.0, glucose 418, and magnesium 1.0. BNP 204. Chest x-ray from yesterday with moderate cardiomegaly and pulmonary edema. IMPRESSION: 1. Pulmonary hypertension. 2. Chronic obstructive pulmonary disease. 3. Coronary artery disease, status post LAD stent in November of 2018. 4. Hypertension. 5. Hyperlipidemia. 6. Diabetes mellitus. 7. Pulmonary edema. RECOMMENDATIONS: Repeat echocardiogram. Continue the above-listed medications. DAPT contraindicated due to the patient's history of AVMs and chronic issues with melena. Denies any bleeding at the present time. Continue home medications. Maintain on telemetry at all time. Gentle diuresis. Replace electrolytes. We will continue to monitor this patient very closely and medications will be adjusted this morning. Thank you, Dr. Chavez, for this consultation. Dictated by Shavonne Tomas NP MD TEZ MalloyV/FERNANDO /[id number]
--- NOTE | 2019-08-28 14:54 | NUR ---
Nutrition Screen Note RD Recommendation for Physician: -Continue current diet as ordered Plan of Care: RD following, monitoring for tolerance and adequacy Nutrition reason for involvement: Diagnosis - CHF Primary Diagnose(s): CHF exacerbation PMH: diabetes, HTN, HLD, hypothyroid Ht: 67 in Wt:174 lb BMI: 27.3 kg/m2 IBW:[address] Assessment: (08/28/19) Chart reviewed. Labs and meds reviewed. Pt is a 59 year old female admitted with CHF exacerbation. Pt reports she usually eats most of her meals, but only ate 3 bites of breakfast this morning since she did not like the food. No weight loss reported and pt mentioned she usually weighs 174 lbs. No N/V/D/C or chewing/swallowing issues. Will continue to monitor Current Diet: 1800 ADA/cardiac Malnutrition Evaluation (08/28/19) The patient does not meet criteria for a specified degree of malnutrition at this time. Will re-evaluate at follow-up as appropriate. Diet Education Needs Assessment: Pt declined the need for diet education at time of visit Nutrition Care Level: low Signed: Lamar Acsota, RD, LD
[2019-08-28] MEDS: LORAZEPAM INJ 2 MG/ML VIAL IV PRN ×2 (17:13→23:59)
--- NOTE | 2019-08-28 20:30 | NUR ---
Verify lipitor order with Dr. Chavez. New orders received. Patient refused bed alarm.
[2019-08-28] MEDS: ATORVASTATIN 20 MG TAB PO SCH (20:49)
[2019-08-28] MEDS ORDERED: ATORVASTATIN 10 MG TAB PO SCH ×2 (21:00)
[2019-08-29] VITALS (8 sets, daily range): BP systolic 115–144; BP diastolic 60–98
[2019-08-29 06:00] LABS: BASOPHILS % 0.2 % (0.0-1.0); HEMATOCRIT 33.3 % (34.2-44.1); HEMOGLOBIN 9.5 g/dL (12.0-16.0); LYMPHOCYTES # (AUTO) 0.9 (1.0-3.2); LYMPHOCYTES % 5.7 % (18.0-39.1); MEAN CORPUSCULAR HEMOGLOBIN 26.9 pg (28-32); MEAN CORPUSCULAR HGB CONC 28.5 g/dL (31-35); MEAN CORPUSCULAR VOLUME 94.3 fL (81-99); MONOCYTES % 6.1 % (4.4-11.3); NEUTROPHILS # (AUTO) 13.9 (2.1-6.9); NEUTROPHILS % 86.6 % (38.7-80.0); PLATELET COUNT 364 x10e3/uL (140-360); RED BLOOD COUNT 3.53 x10e6/uL (3.6-5.1); RED CELL DISTRIBUTION WIDTH 19.9 % (11.7-14.4)
[2019-08-29 06:21] LABS: ALANINE AMINOTRANSFERASE 25 IU/L (0-55); ALBUMIN 3.7 g/dL (3.5-5.0); ALBUMIN/GLOBULIN RATIO 1.3 (0.8-2.0); ALKALINE PHOSPHATASE 98 IU/L (40-150); ANION GAP 13.9 mmol/L (8-16); BLOOD UREA NITROGEN 15 mg/dL (7-26); BUN/CREATININE RATIO 18 (6-25); CALCIUM 9.2 mg/dL (8.4-10.2); CARBON DIOXIDE 26 mmol/L (22-29); CHLORIDE 102 mmol/L (98-107); CREATININE, SERUM 0.84 mg/dL (0.57-1.11); EST GLOMERULAR FILTRATION RATE > 60 ML/MIN (60-); GLUCOSE 208 mg/dL (74-118); MAGNESIUM 1.5 MG/DL (1.3-2.1); POTASSIUM 3.9 mmol/L (3.5-5.1); SODIUM 138 mmol/L (136-145)
--- NOTE | 2019-08-29 07:00 | NUR ---
BEDSIDE SHIFT REPORT RECEIVED FROM LINK TRAINER MECHANIC RN. PT DENIES NEEDS AT THIS TIME.
[2019-08-29] MEDS: INSULIN LISPRO 100 UNIT/1 ML 3ML VIAL SQ SCH ×4 (08:11→20:32)
[2019-08-29] MEDS: METFORMIN HCL 500 MG TAB CR PO SCH (08:15)
[2019-08-29] MEDS: METOCLOPRAMIDE HCL 10 MG TAB PO SCH (08:15)
[2019-08-29] MEDS: FUROSEMIDE INJ 10 MG/ML 2 ML VIAL IV SCH ×2 (08:15→16:43)
[2019-08-29] MEDS: GEMFIBROZIL 600 MG TAB PO SCH ×2 (08:15→16:43)
[2019-08-29] MEDS: CITALOPRAM HYDROBROMIDE 20 MG TAB PO SCH (08:15)
[2019-08-29] MEDS: GLIMEPIRIDE 2 MG TAB PO SCH (08:15)
[2019-08-29] MEDS: PANTOPRAZOLE SOD 40 MG TABEC PO SCH (08:15)
[2019-08-29] MEDS: MAGNESIUM OXIDE 400 MG TAB PO SCH (08:15)
[2019-08-29] MEDS: ALLOPURINOL 100 MG TAB PO SCH (08:16)
[2019-08-29] MEDS: LEVOTHYROXINE SODIUM 25 MCG TABLET PO SCH (08:16)
[2019-08-29] MEDS: METOPROLOL SUCCINATE 25 MG TAB XL PO SCH (08:16)
[2019-08-29] MEDS ORDERED: FUROSEMIDE 40 MG TAB PO SCH (09:00)
--- NOTE | 2019-08-29 10:11 | NUR ---
Day 2 obs. Requested plan. Awaiting reply.
[2019-08-29] MEDS: LORAZEPAM INJ 2 MG/ML VIAL IV PRN ×2 (11:04→21:46)
[2019-08-29] MEDS: ATORVASTATIN 20 MG TAB PO SCH (20:14)
[2019-08-30 00:48] VITALS: BP 123/68
[2019-08-30 04:00] VITALS: BP 136/89
[2019-08-30] MEDS: LEVOTHYROXINE SODIUM 75 MCG TAB PO SCH (05:34)
[2019-08-30] MEDS: INSULIN LISPRO 100 UNIT/1 ML 3ML VIAL SQ SCH ×4 (07:30→21:00)
[2019-08-30 07:35] LABS: BASOPHILS # (AUTO) 0.1 (0.0-0.1); BASOPHILS % 0.9 % (0.0-1.0); EOSINOPHILS # (AUTO) 0.1 (0.0-0.4); EOSINOPHILS % 1.1 % (0.0-6.0); HEMATOCRIT 35.8 % (34.2-44.1); HEMOGLOBIN 10.2 g/dL (12.0-16.0); LYMPHOCYTES # (AUTO) 2.2 (1.0-3.2); LYMPHOCYTES % 18.8 % (18.0-39.1); MEAN CORPUSCULAR HGB CONC 28.5 g/dL (31-35); MEAN CORPUSCULAR VOLUME 94.7 fL (81-99); MONOCYTES # (AUTO) 1.4 (0.2-0.8); MONOCYTES % 11.7 % (4.4-11.3); NEUTROPHILS # (AUTO) 7.4 (2.1-6.9); NEUTROPHILS % 63.9 % (38.7-80.0); PLATELET COUNT 323 x10e3/uL (140-360); RED BLOOD COUNT 3.78 x10e6/uL (3.6-5.1); RED CELL DISTRIBUTION WIDTH 19.7 % (11.7-14.4)
[2019-08-30 07:48] VITALS: BP 129/75
[2019-08-30] MEDS: METFORMIN HCL 500 MG TAB CR PO SCH (08:30)
--- NOTE | 2019-08-30 08:31 | Progress Note ---
DATE: SUBJECTIVE: The patient is a 59-year-old female, who came in with acute shortness of breath. The patient's echocardiogram was done which showed preserved ejection fraction. The patient has pulmonary hypertension and has been seen by Pulmonology in the past, currently have not seen her yet. An echocardiogram showed pericardial effusion, no respiratory variations, mild AI, mild TR and EF of 60% to 65% with calcified [id number] calcified aortic valves. The patient is still short of breath. OBJECTIVE: VITAL SIGNS: Temperature 98.3, pulse of 84, respirations of 18, blood pressure is 136/89, 98% pulse oximetry. HEENT: Normocephalic, atraumatic. Pupils are reactive. The patient is on O2. CVS: S1 and S2 distant. Decreased air entry into lung anderson. ABDOMEN: Nontender, nondistended. EXTREMITIES: No clubbing, no cyanosis, no edema. LABORATORY VALUES: [place] [address] yesterday, hemoglobin of 9.5, hematocrit of 33.3. Chemistries; glucose 208, sodium 138. Coags are normal. Serology coronavirus is not detected. ASSESSMENT: Ms. Esperanza Zaidi with: 1. Pulmonary hypertension. 2. Acute shortness of breath hypoxia with a history of chronic obstructive pulmonary disease. 3. History of coronary artery disease. 4. Hypertension. 5. Diabetes mellitus, uncontrolled. 6. Pulmonary edema. PLAN: Echo with preserved EF. We will continue with current treatment. The patient to continue home medication, O2 supplementation and diuresis for pericardial effusion. We will continue to monitor the patient's lung volumes. Further recommendation per clinical course. Hyperkalemia, resolved and hypothyroidism, continue on medications. For further information, look into the chart. The patient also has leukocytosis, currently on no antibiotics. We will start on a broad-spectrum antibiotics. MD MIGUEL AnandJ/MODL /[id number]
[2019-08-30 08:48] LABS: HYPOCHROMASIA SLIGHT; PLATELET ESTIMATE ADEQUATE; PLATELET MORPHOLOGY COMMENT NORMAL; RBC MORPHOLOGY COMMENT NORMAL
[2019-08-30] MEDS: PANTOPRAZOLE SOD 40 MG TABEC PO SCH (09:27)
[2019-08-30] MEDS: METOCLOPRAMIDE HCL 10 MG TAB PO SCH (09:27)
[2019-08-30] MEDS: GLIMEPIRIDE 2 MG TAB PO SCH (09:27)
[2019-08-30] MEDS: MAGNESIUM OXIDE 400 MG TAB PO SCH (09:27)
[2019-08-30] MEDS: METOPROLOL SUCCINATE 25 MG TAB XL PO SCH (09:28)
[2019-08-30] MEDS: GEMFIBROZIL 600 MG TAB PO SCH ×2 (09:28→17:07)
[2019-08-30] MEDS: ALLOPURINOL 100 MG TAB PO SCH (09:28)
[2019-08-30] MEDS: CITALOPRAM HYDROBROMIDE 20 MG TAB PO SCH (09:29)
[2019-08-30] MEDS: FUROSEMIDE INJ 10 MG/ML 2 ML VIAL IV SCH ×2 (09:30→17:06)
--- NOTE | 2019-08-30 09:57 | Progress Note ---
DATE: 08/29/2019 Cardiology Progress Note SUBJECTIVE: The patient reports shortness of breath slightly improved. She reports feeling much better after treatment of anxiety with Ativan yesterday. Denies any chest pain or palpitations. OBJECTIVE: VITAL SIGNS: Temperature 98.4, pulse 80, respiratory rate 24, blood pressure 144/87, oxygen saturation 99% on 4 L nasal cannula. GENERAL: Alert and oriented x3. Resting comfortably in bed. Does not appear to be in any acute distress. LUNGS: Diminished breath sounds throughout. No wheezing. No rhonchi or crackles. CARDIOVASCULAR: Regular rate and rhythm. Normal S1, S2. No murmurs, no gallops. ABDOMEN: Soft, nontender. LOWER EXTREMITY: No edema. CARDIOVASCULAR MEDICATIONS: Metoprolol succinate 50 mg p.o. daily, furosemide 20 mg IV b.i.d., magnesium oxide 400 mg p.o. daily, Lopid 600 mg p.o. b.i.d., atorvastatin 20 mg p.o. at bedtime. LABORATORY DATA: WBC 16.04, hemoglobin 9.5, hematocrit 33.3, and platelets 364. Sodium 138, potassium 3.9, BUN 15, creatinine 0.84, glucose 208. CARDIOVASCULAR MEDICATION: Metoprolol 25 mg p.o. b.i.d., furosemide 20 mg IV b.i.d., and aspirin 81 mg p.o. daily. ASSESSMENT: 1. Pulmonary hypertension. 2. Chronic obstructive pulmonary disease. 3. Coronary artery disease, status post LAD stent in November 2018. 4. Hypertension. 5. Hyperlipidemia. 6. Diabetes mellitus. 7. Pulmonary edema. 8. Anxiety. 9. Arteriovenous malformations with history of recurrent melena and anemia. ASSESSMENT: RECOMMENDATIONS: Continue the above listed cardiac medications. Continue IV Lasix and monitor respiratory status. Maintain on telemetry at all time. Replete electrolytes as needed. We will continue to monitor this patient very closely. I have personally reviewed telemetry which revealed normal sinus rhythm with bundle branch block. Dictated by Shavonne Tomas NP MD TEZ MalloyV/FERNANDO /[id number]
[2019-08-30 11:21] VITALS: BP 135/83
[2019-08-30] MEDS: LEVOFLOXACIN 250MG/D5W 50ML 50 ML IV SCH (11:26)
[2019-08-30] MEDS ORDERED: SODIUM CHLORIDE 0.9% 250ML 250 ML ONE ×2 (11:36→11:47)
--- NOTE | 2019-08-30 12:25 | NUR ---
Pt. expressed no spiritual or emotional concerns at this time. Packer Inspector provided hospitality and information on how to reach s3b multi sensor operator, if needed. No need to follow at this time. BORIS COVINGTON Packer Inspector Spiritual Care Department O: [phone]
[2019-08-30 15:24] VITALS: BP 109/74
[2019-08-30] MEDS: LORAZEPAM INJ 2 MG/ML VIAL IV PRN (17:15)
--- NOTE | 2019-08-30 18:55 | Progress Note ---
DATE: 08/30/2019 Cardiology Progress Note. SUBJECTIVE: The patient denies chest pain or shortness of breath. OBJECTIVE: VITAL SIGNS: Temperature 97.6 degrees, pulse 82, respiratory rate 19, blood pressure 135/82, and oxygen saturation 100% on 3 L nasal cannula. GENERAL: Awake, alert, in no acute distress. LUNGS: Clear to auscultation bilaterally. No wheeze or crackles. CARDIOVASCULAR: Normal rate. Regular rhythm. No murmur. Normal S1 and S2. ABDOMEN: Soft and nontender. EXTREMITIES: No edema. CARDIAC MEDICATIONS: 1. Furosemide 20 mg IV b.i.d. 2. Metoprolol succinate 50 mg p.o. daily. 3. Gemfibrozil 600 mg p.o. b.i.d. 4. Levothyroxine 75 mcg p.o. daily. 5. Atorvastatin 20 mg p.o. at bedtime. LABORATORY DATA: WBC 11.64, hemoglobin 10.2, hematocrit 35.8, platelets 323. TELEMETRY: Personally reviewed and interpreted, revealing sinus tachycardia. IMPRESSION: 1. Pulmonary hypertension. 2. Chronic obstructive pulmonary disease. 3. Coronary artery disease, status post LAD stent in November 2018. 4. Hypertension. 5. Hyperlipidemia. 6. Diabetes mellitus. 7. History of arteriovenous malformations. 8. with recurrent melena and anemia. 9. Anxiety. RECOMMENDATIONS: Continue current cardiac medications. Continue IV diuretics. Monitor volume status closely. Keep the patient on telemetry and replete electrolytes. Thank you for this consult. We will continue to follow. Pema Juares MD ABS/MODL /[id number]
--- NOTE | 2019-08-30 19:20 | NUR ---
BEDSIDE SHIFT REPORT GIVEN TO THE WRITING MANAGER RN. PT DENIED FURTHER NEEDS.
[2019-08-30 20:00] VITALS: BP 109/73
[2019-08-30] MEDS: ATORVASTATIN 20 MG TAB PO SCH (20:52)
[2019-08-31] VITALS (7 sets, daily range): BP systolic 99–119; BP diastolic 18–90
[2019-08-31] MEDS: LEVOTHYROXINE SODIUM 75 MCG TAB PO SCH (05:31)
[2019-08-31 05:52] LABS: BASOPHILS # (AUTO) 0.1 (0.0-0.1); BASOPHILS % 0.9 % (0.0-1.0); EOSINOPHILS # (AUTO) 0.2 (0.0-0.4); EOSINOPHILS % 1.9 % (0.0-6.0); HEMATOCRIT 36.7 % (34.2-44.1); HEMOGLOBIN 10.4 g/dL (12.0-16.0); LYMPHOCYTES # (AUTO) 1.7 (1.0-3.2); LYMPHOCYTES % 13.1 % (18.0-39.1); MEAN CORPUSCULAR HEMOGLOBIN 26.9 pg (28-32); MEAN CORPUSCULAR HGB CONC 28.3 g/dL (31-35); MEAN CORPUSCULAR VOLUME 95.1 fL (81-99); MONOCYTES # (AUTO) 1.6 (0.2-0.8); MONOCYTES % 12.9 % (4.4-11.3); NEUTROPHILS # (AUTO) 8.4 (2.1-6.9); NEUTROPHILS % 66.7 % (38.7-80.0); PLATELET COUNT 346 x10e3/uL (140-360); RED BLOOD COUNT 3.86 x10e6/uL (3.6-5.1); RED CELL DISTRIBUTION WIDTH 19.4 % (11.7-14.4)
[2019-08-31 06:23] LABS: ANION GAP 14.5 mmol/L (8-16); BLOOD UREA NITROGEN 16 mg/dL (7-26); BUN/CREATININE RATIO 20 (6-25); CALCIUM 9.3 mg/dL (8.4-10.2); CARBON DIOXIDE 28 mmol/L (22-29); CHLORIDE 99 mmol/L (98-107); CREATININE, SERUM 0.79 mg/dL (0.57-1.11); EST GLOMERULAR FILTRATION RATE > 60 ML/MIN (60-); GLUCOSE 135 mg/dL (74-118); POTASSIUM 3.5 mmol/L (3.5-5.1); SODIUM 138 mmol/L (136-145)
[2019-08-31] MEDS: INSULIN LISPRO 100 UNIT/1 ML 3ML VIAL SQ SCH ×4 (07:30→22:08)
--- NOTE | 2019-08-31 08:02 | Progress Note ---
DATE: SUBJECTIVE: The patient comes in with shortness of breath. Has a history of pulmonary hypertension. Today, the patient is feeling a little better. Continues to be on oxygen. The patient is on baseline oxygen for pulmonary hypertension and also chronic obstructive pulmonary disease. No chest pain noted. OBJECTIVE: VITAL SIGNS: Temperature is 97.9, pulse of 87, respirations of 18, blood pressure is 110/76, pulse oximetry of 100%. HEENT: Normocephalic and atraumatic. Pupils reactive to light and accommodation. CVS: S1 and S2 normal. LUNGS: Decreased air entry into all lung anderson. ABDOMEN: Nontender and nondistended. The patient has also some fluid in the lower extremities. LABORATORY VALUES: Today's white count is down to 12,000, hemoglobin 10.4, hematocrit 36.7. Chemistry; sodium 138, potassium 3.5, BUN of 16 and creatinine 0.79. ASSESSMENT: The patient with: 1. Hypoxia, O2 dependency. 2. Chronic obstructive pulmonary disease exacerbation. 3. Coronary artery disease. 4. History of hyperlipidemia. 5. History of uncontrolled diabetes mellitus. 6. History of chronic gastrointestinal bleed with arteriovenous malformations. 7. Anxiety. PLAN: Today, continue with current medication regimen. She is on levothyroxine, insulin, furosemide, Levaquin 250, pantoprazole, glimepiride, and metformin. White count is down. Leukocytosis is better. Plan physical therapy to stop the patient walking. Currently, the patient is in no DVT prophylaxis. We will add sequential compression and have physical therapy, walk the patient for noting oxygen stat. Further recommendation per clinical course. We will continue monitor the patient. MD VALERIE Anand/MODL /[id number]
[2019-08-31 08:12] LABS: ANISOCYTOSIS MODERATE; EOSINOPHILS % (MANUAL) 2 % (0-7); HYPOCHROMASIA SLIGHT; LYMPHOCYTES % (MANUAL) 16 % (19-48); MONOCYTES % (MANUAL) 12 % (3.4-9.0); MYELOCYTES % (MANUAL) 2 % (0-0); NEUTROPHILS % (MANUAL) 68 % (40-74)
[2019-08-31 08:13] LABS: POLYCHROMASIA FEW
[2019-08-31 08:14] LABS: OVALOCYTES FEW; PLATELET ESTIMATE ADEQUATE; PLATELET MORPHOLOGY COMMENT NORMAL; RBC MORPHOLOGY COMMENT ABNORMAL
[2019-08-31] MEDS: MAGNESIUM OXIDE 400 MG TAB PO SCH (08:42)
[2019-08-31] MEDS: GEMFIBROZIL 600 MG TAB PO SCH ×2 (08:42→16:32)
[2019-08-31] MEDS: GLIMEPIRIDE 2 MG TAB PO SCH (08:42)
[2019-08-31] MEDS: FUROSEMIDE INJ 10 MG/ML 2 ML VIAL IV SCH ×2 (08:42→16:32)
[2019-08-31] MEDS: CITALOPRAM HYDROBROMIDE 20 MG TAB PO SCH (08:42)
[2019-08-31] MEDS: METFORMIN HCL 500 MG TAB CR PO SCH (08:42)
[2019-08-31] MEDS: METOPROLOL SUCCINATE 25 MG TAB XL PO SCH (08:43)
[2019-08-31] MEDS: METOCLOPRAMIDE HCL 10 MG TAB PO SCH (08:43)
[2019-08-31] MEDS: PANTOPRAZOLE SOD 40 MG TABEC PO SCH (08:43)
[2019-08-31] MEDS: ALLOPURINOL 100 MG TAB PO SCH (08:43)
[2019-08-31] MEDS: LEVOFLOXACIN 250MG/D5W 50ML 50 ML IV SCH (08:47)
[2019-08-31] MEDS: LORAZEPAM INJ 2 MG/ML VIAL IV PRN ×2 (12:51→21:20)
--- NOTE | 2019-08-31 13:04 | Consultation ---
DATE OF CONSULTATION: Pulmonary consultation The patient of Dr. Chavez and Dr. Teixeira. HISTORY OF PRESENT ILLNESS: Charming, but unfortunate 59-year-old woman, has had COPD, apparently evaluated in the past by Dr. Fragoso. The patient has been ill for approximately 1-1/2 years. She smoked half a pack cigarettes for five years. She was exposed to weight loss medications in her youth, is uncertain which medicine. She has had a history of coronary artery disease, coronary stent, history of bleeding, presumably exacerbated by Plavix. ALLERGIES: NO KNOWN ALLERGIES. HOME MEDICATIONS: Have included metoprolol, vitamin D, Lasix, allopurinol, Lipitor, Lopid, Amaryl, Levoxyl, metformin, Reglan, Protonix, and diltiazem. PAST SURGICAL HISTORY: She has had gallbladder surgery. She has extensive surgery on her leg. Apparently, an ankle surgery was complicated by necrotizing fasciitis. She has been over a year in hospital with multiple flaps and grafts before she eventually recovered. SOCIAL HISTORY: She works in office. She is disabled. She is on home oxygen. Born in [place], [place]. PHYSICAL EXAMINATION: GENERAL: She is a well-developed white female, sitting on the commode, in no acute distress. HEAD: Normocephalic, atraumatic. EYES: Extraocular movements intact. LUNGS: Clear. HEART: Regular rhythm. ABDOMEN: Nontender. EXTREMITIES: There are multiple surgical scars. IMPRESSIONS: Pulmonary hypertension. Cardiac catheterization on 11/24/2013, revealed pulmonary artery pressure of 91/30 with a mean of 54, wedge of it was moderately elevated at 21, cardiac output at 3 L, cardiac index 1.6. Followup echocardiogram is pending. Would resume diltiazem if blood pressure will tolerate this, like to review the previous pulmonary function, apparently ordered by Dr. Rodriguez to evaluate the diagnosis of chronic obstructive pulmonary disease, consideration of referral to [facility], [facility]. Trial of diltiazem is indicated. The echocardiogram was done, but could not find a report at this time. Recommended V/Q lung scan to rule out micro emboli. Thank you for this kind referral. MD JACKIE Erazo/MODL /[id number]
--- NOTE | 2019-08-31 19:00 | NUR ---
RECEIVED PATIENT IN BEDSIDE SHIFT REPORT. PATIENT RESTING IN BED AT THIS TIME. NO PAIN REPORTED. NO S&S OF DISTRESS NOTED. BED LOCKED IN LOWEST POSITION, SIDE RAILS UPX2, CALL LIGHT IN REACH.
--- NOTE | 2019-08-31 19:34 | Diagnostic Imaging Report ---
Perfusion Lung Scan NOTE: Lung ventilation studies with xenon are not being performed per the recommendation of the Society of Nuclear Medicine and Molecular Imaging. It is not possible to be certain that the ventilation system is adequately disinfected. Ventilation studies with Tc-99m DTPA particles is contraindicated because the delivery by nebulization generates too many water droplets from the patient's airway. Clinical Information: 59 F with CHF/COPD exacerbation; acute onset SOB. Comparison: Chest radiograph 08/27/2019 Discussion: Ventilation images were not obtained. See note above. Perfusion images of the lungs were obtained in multiple projections following intravenous administration of approximately 6 mCi of Tc-99m MAA. Distribution of tracer is minimally irregular throughout the lungs. There are no segmental perfusion defects of any size. The cardiomediastinal silhouette is unremarkable. Impression: 1. Scan findings represent a VERY LOW probability for acute pulmonary embolic disease based on the perfusion-only PIOPED II criteria. A ventilation scan would not alter the assigned probability in this patient. 2. Scan findings are compatible with diffuse parenchymal and/or obstructive lung disease. Signed by: Dr. Chayito Thomas M.D. on 08/31/2019 7:30 PM
--- NOTE | 2019-08-31 19:50 | NUR ---
report given to oncoming nurse, walking rounds complete.
--- NOTE | 2019-08-31 21:00 | NUR ---
PREVIOUSLY INFILTRATED R FA IV REMOVED AT THIS TIME. CATHETER TIP INTACT, PRESSURE DRESSING APPLIED. L HAND 24G IV ASYMPTOMATIC, INTACT, AND PATENT.
[2019-08-31] MEDS: ATORVASTATIN 20 MG TAB PO SCH (21:20)
[2019-09-01] VITALS (7 sets, daily range): BP systolic 103–124; BP diastolic 55–81
[2019-09-01] MEDS: LEVOTHYROXINE SODIUM 75 MCG TAB PO SCH (07:11)
[2019-09-01] MEDS: CITALOPRAM HYDROBROMIDE 20 MG TAB PO SCH (08:53)
[2019-09-01] MEDS: GLIMEPIRIDE 2 MG TAB PO SCH (08:53)
[2019-09-01] MEDS: PANTOPRAZOLE SOD 40 MG TABEC PO SCH (08:53)
[2019-09-01] MEDS: MAGNESIUM OXIDE 400 MG TAB PO SCH (08:53)
[2019-09-01] MEDS: METFORMIN HCL 500 MG TAB CR PO SCH (08:53)
[2019-09-01] MEDS: METOCLOPRAMIDE HCL 10 MG TAB PO SCH (08:53)
[2019-09-01] MEDS: FUROSEMIDE INJ 10 MG/ML 2 ML VIAL IV SCH ×2 (08:53→17:00)
[2019-09-01] MEDS: ALLOPURINOL 100 MG TAB PO SCH (08:54)
[2019-09-01] MEDS: METOPROLOL SUCCINATE 25 MG TAB XL PO SCH (08:54)
[2019-09-01] MEDS ORDERED: DILTIAZEM HCL ER 120 MG CAP PO SCH (09:00)
[2019-09-01] MEDS: GEMFIBROZIL 600 MG TAB PO SCH ×2 (09:06→17:00)
--- NOTE | 2019-09-01 09:08 | Progress Note ---
DATE: SUBJECTIVE: The patient came in with acute shortness of breath. Had a history of pulmonary hypertension. Had a V/Q scan yesterday, low probability for pulmonary embolism. The patient is currently feeling a little bit better using 2 L of oxygen comfortably. OBJECTIVE: VITAL SIGNS: Temperature is 98.4, pulse of 92, respirations of 20, blood pressure is 124/72, and pulse oximetry of 100%. HEENT: Normocephalic and atraumatic. The patient is obese, O2 by nasal cannula. CVS: S1 and S2 distant. LUNGS: Decreased air entry into all lung anderson. Few inspiratory wheezes. ABDOMEN: Nontender and nondistended. EXTREMITIES: No clubbing, no cyanosis, no edema. IMAGING: V/Q scan as noted above, showed low probability and a finding of diffuse parenchymal obstructive lung disease. LABORATORY VALUES: White count is 12.64, hemoglobin of 10.4, hematocrit of 36.7, and neutrophil count is normal. Chemistries; sodium yesterday was 135, potassium 3.5, and glucose of 135. MICROBIOLOGY: Blood cultures are negative. ASSESSMENT: Ms. Dyan Mata with. 1. Pulmonary hypertension. 2. Acute on chronic hypoxia. 3. Hyperlipidemia. 4. Uncontrolled diabetes mellitus. 5. GI bleed with history of atriovenous malformation. 6. Anxiety. PLAN: Continue current regimen. Discharge planning if okay with Pulmonary. Outpatient followup and continue with all current medication. Further recommendation per clinical course. MD VALERIE Anand/MODL /[id number]
[2019-09-01] MEDS: LORAZEPAM INJ 2 MG/ML VIAL IV PRN ×2 (09:28→15:36)
[2019-09-01] MEDS: INSULIN LISPRO 100 UNIT/1 ML 3ML VIAL SQ SCH ×3 (10:28→16:30)
[2019-09-01] MEDS: LEVOFLOXACIN 250MG/D5W 50ML 50 ML IV SCH (10:38)
--- NOTE | 2019-09-01 15:26 | NUR ---
The pt's iv is again infiltrated and she requets no restart. Will call the for orders. Order received from Dr Paez to dc the pt. if okay with Dr. Chowdary.
--- NOTE | 2019-09-01 15:34 | NUR ---
Call placed to Dr. Chowdary for discharge orders and the staff will page the to me.
--- NOTE | 2019-09-01 18:22 | NUR ---
The pt. has been discharged home in stable condition and was advised to follow up with PCP and [facility] as directed. She has no prescriptions and advised to continue med list from home.
[2019-09-20] MEDS ORDERED: ASPIRIN81 MG PO (15:16)
[2019-09-20] MEDS ORDERED: CALCITONIN (15:16)
--- OUTSIDE RECORDS SUMMARY | 2019-10-01 02:04 | XMS REPORT | Clinical Summary ---
Author Author [facility] Organization [facility] Address Unknown Phone Unavailable Care Team Providers Care Yarn Wrapper Name Role Phone Kumar Paez MD PCP Allergies No Known Allergies Medications End Date Status Medication Sig Dispensed Refills Start Date Active aspirin (ECOTRIN) 81 MG Take 81 mg by 0 enteric coated tablet mouth daily 7 with lunch. Active atorvastatin (LIPITOR) 40 Take 40 mg by 0 11/01 5/201 MG tablet mouth 7 nightly. Active citalopram (CeleXA) 20 MG Take 20 mg by 1 tablet mouth daily 7 with lunch. Active cyanocobalamin 1,000 Inject 1,000 0 mcg/mL injection mcg into the 7 shoulder, thigh, or buttocks once a week. Active esomeprazole (NexIUM) 40 Take 40 mg by 0 01/18 /201 MG capsule mouth 2 (two) 7 times a day. Before breakfast and bedtime. Active gemfibrozil (LOPID) 600 Take 600 mg 0 201 MG tablet by mouth 2 7 (two) times a day. Active glimepiride (AMARYL) 1 MG Take 1 mg by 0 / tablet mouth daily 7 with lunch. Active TRESIBA FLEXTOUCH U-200 Inject 10 0 200 unit/mL (3 mL) Units under 7 insulin pen the skin nightly. Active metFORMIN XR Take 1,000 mg 0 (GLUCOPHAGE-XR) 500 mg 24 by mouth 7 hr tablet daily with dinner. Active levothyroxine (SYNTHROID, Take 50 mcg 0 12/01 LEVOXYL) 50 mcg tablet by mouth 7 daily before breakfast. Active lisinopril Take 10 mg by 0 (PRINIVIL,ZESTRIL) 10 mg mouth daily 7 tablet with lunch. Active metoclopramide (REGLAN) 5 Take 5 mg by 0 01/02 MG tablet mouth 3 7 (three) times [...] Lower GI bleed 01/29/2017 Anemia 01/28/2017 Encounters Care Team Description Date Type Specialty Erich Golden MA Chronic obstructive pulmonary disease, u nspecified COPD type (HCC) (Primary Dx); Pulmonary hypertension (HCC) 09/29/2019 Orders Only Pulmonology 09/29/2019 Travel Erich Golden MA 09/28/2019 Telephone Pulmonology after 08/26/2018 Social History Date Tobacco Use Types Packs/Day Years Used Quit: 01/29/1987 Former Smoker Cigarettes 0.5 10 Smokeless Tobacco: Never Used Drinks/Week oz/Week Comments Alcohol Use rarely Yes Sex Assigned at Date Recorded Not on file Industry Job Start Date Occupation Not on file Not on file Not on file Travel End Travel History Travel Start No recent travel history available. Date Recorded COVID-19 Exposure Response 09/29/2019 10:54 AM CDT In the last month, have you been in contact with No / Unsure someone who was confirmed or suspected to have Coronavirus / COVID-19? Last Filed Vital Signs Not on file Plan of Treatment Care Team Description Date Type Specialty Chase Carrion MD [address] [place] [id number] 10/05/2019 Telemedicine Pulmonology Health Maintenance Due Date Last Done Comments CERVICAL CANCER SCREENING 1983 BREAST CANCER SCREENING 01/14/2012 COLONOSCOPY SCREENING 01/14/2012 SHINGLES VACCINES (#1) 01/14/2012 INFLUENZA VACCINE 10/02/2019 Results Not on fileafter 08/26/2018 Insurance Type Payer Benefit Subscriber ID Effective Phone Address Plan / Dates Group HMO CIGNA CIGNA OPEN xxxxxxxxxxx 2015-P ACCESS/NET resent WORK Advance Directives For more information, please contact: [phone] Patient [employer] Explanation Type Date Recorded Advance Directives, 01/29/2017 9:51 AM 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
--- OUTSIDE RECORDS SUMMARY | 2019-10-01 02:05 | XMS REPORT | Continuity of Care Document ---
Author Author [facility] t Organization [facility] Address [address] [place] [address] Phone Unavailable Care Team Providers Care Flame Hardening Machine Setter Name Role Phone Thong AMAYA MD PCP Erich Golden MA Attphys Unavailable Ilana SINGH Attphys Unavailable Thong AMAYA Attphys Unavailable KHADAR MCKINNEY Attphys Unavailable Dori WIN Attphys Unavailable Ernesto RAZO Attphys Unavailable Thong AMAYA Admphys Unavailable KHADAR MCKINNEY Admphys Unavailable Payers Payer Name Policy Type Policy Number Effective Date Expiration Date S stephon WILLA OPEN ACCESS/NETWORKxxxxxxxxxxx2015-PresentO xxxxxxxxxxx 2015 00:00:00 Deilo Mendoza o [id number] 2015 00:00:00 [facility] Medicare A & B [id number] [facility] Medicare A Only [id number] 2007 00:00:00 [facility] Problems Condition Name Condition Details Condition Category Status Onset Date Resolution Date Last Treatment Date Treating Clinician Comments Source Lower GI bleed Lower GI bleed Disease Active 2017-01-29 00:00:00 Delio Fox Anemia Anemia Disease Active 2017-01-28 00:00:00 Kebede Scientologist Transient cerebral ischemia TIA (transient ischemic attack) Problem Active [facility] Tachycardia Tachycardia Problem Active [facility] Dyspnea Dyspnea Problem Active [facility] Hypoglycemia Hypoglycemia Problem Active [facility] Pericardial effusion Pericardial effusion Problem Active [facility] Pleural effusion Pleural effusion Problem Active [facility] Contusion of head Contusion of head Problem Active [facility] Occult blood in stools Occult blood in stools Problem Active [facility] Allergies, Adverse Reactions, Alerts Allergy Name Allergy Type Status Severity Reaction(s) Onset Date Inacti ve Date Treating Clinician Comments Source No Known Allergies DA Active U 2014-07-12 00:00:00 [facility] Social History Social Habit Start Date Stop Date Quantity Comments Source Sex Assigned At Bobbi merlos Scientologist Exposure to SARS-CoV-2 (event) Not sure Delio Fox Cigarettes smoked current (pack per day) - Reported 00:00:00 2017-01-31 00:00:00 Delio Fox Cigarette pack-years 2017-01-31 00:00:00 2017-01-31 00:00:00 Delio Fox Alcohol intake 2017-01-31 00:00:00 2017-01-31 00:00:00 Current drinker of alcohol (finding) Delio Fox Alcohol Comment 2017-01-29 00:00:00 2017-01-29 00:00:00 rarely Delio Fox History of tobacco use 1987-01-29 00:00:00 Current smoker Delio Fox Smoking Status Start Date Stop Date Source Former smoker 2017-01-31 00:00:00 2017-01-31 00:00:00 Delio Fox Medications Ordered Medication Name Filled Medication Name Start Date Stop Da te Current Medication? Ordering Clinician Indication Dosage Frequency Signature (SIG) Comments Components Source Prednisone 20 Mg Tab, 40 Mg Oral Prednisone 20 Mg Tab, 40 Mg Oral 2018-09-21 00:00:00 2018-11-23 00:00:00 No Chuy Montoya Do 40 Daily [facility] liraglutide (VICTOZA) 0.6 mg/0.1 mL (18 mg/3 mL) pen injecto r 2017-01-30 16:36:52 Yes .6mg QD Inject 0.6 mg under the skin every evening. Delio Fox aspirin (ECOTRIN) 81 MG enteric coated tablet 2017-01-22 00:00:0 0 Yes 81mg QD Take 81 mg by mouth daily with lunch. Delio Fox metoclopramide (REGLAN) 5 MG tablet 2017-01-22 00:00:00 Yes 5mg [id number] Take 5 mg by mouth 3 (three) times a day. Delio Fox esomeprazole (NexIUM) 40 MG capsule 2017-01-18 00:00:00 Yes 40mg Q.5D Take 40 mg by mouth 2 (two) times a day. Before breakfast and bedtime. Delio Fox risedronate 35 mg tablet,delayed release (DR/EC) 2017-01-15 00:00:00 Yes 35mg Q7D Take 35 mg by mouth once a week. Every Friday Otto EDWIN Delio Fox metFORMIN XR (GLUCOPHAGE-XR) 500 mg 24 hr tablet 2017 00:00:00 Yes 1000mg QD Take 1,000 mg by mouth daily with dinner. Delio Fox cyanocobalamin 1,000 mcg/mL injection 2017-01-08 00:00:00 Yes 1000ug Q7D Inject 1,000 mcg into the shoulder, thigh, or buttocks once a we ek. Delio Fox citalopram (CeleXA) 20 MG tablet 2017-01-06 00:00:00 Yes 20mg QD Take 20 mg by mouth daily with lunch. Delio lópez lisinopril (PRINIVIL,ZESTRIL) 10 mg tablet 2017-01-06 00:00:00 Yes 10mg QD Take 10 mg by mouth daily with lunch. Delio Fox metoprolol succinate XL (TOPROL-XL) 25 mg 24 hr tablet 2017-01-06 00:00:00 Yes 25mg Q.5D Take 25 mg by mouth 2 (two) times a day. Delio Fox XARELTO 20 mg tablet 2017-01-06 00:00:00 Yes 20mg QD Take 20 mg by mouth daily with dinner. Delio Fox gemfibrozil (LOPID) 600 MG tablet 2016-12-19 00:00:00 Yes 600mg Q.5D Take 600 mg by mouth 2 (two) times a day. Delio Fox TRESIBA FLEXTOUCH U-200 200 unit/mL (3 mL) insulin pen 2016-12-16 00:00:00 Yes 10U QD Inject 10 Units under the skin nightly. Delio Fox ONGLYZA 5 mg tablet 2016-12-16 00:00:00 Yes 5mg QD Take 5 mg by mouth daily with lunch. Delio Fox levothyroxine (SYNTHROID, LEVOXYL) 50 mcg tablet 2016-12-14 00:00:00 Yes 50ug QD Take 50 mcg by mouth daily before breakfast. Delio Fox glimepiride (AMARYL) 1 MG tablet 2016-12-09 00:00:00 Yes 1mg QD Take 1 mg by mouth daily with lunch. Delio lópez atorvastatin (LIPITOR) 40 MG tablet 2016-11-15 00:00:00 Yes 40mg QD Take 40 mg by mouth nightly. Delio hutchinson Allopurinol 100 Mg Tablet Allopurinol 100 Mg Tablet Yes 100 Daily [facility] Atorvastatin Calcium 10 Mg Tablet Atorvastatin Calcium 10 Mg Tablet Yes 10 Today At 9:00PM [facility] Citalopram Hydrobromide (Celexa) 20 Mg Tablet Citalopr am Hydrobromide (Celexa) 20 Mg Tablet Yes 40 Daily [facility] Clopidogrel Bisulfate (Plavix) 75 Mg Tablet Clopidogre l Bisulfate (Plavix) 75 Mg Tablet Yes 75 Daily [facility] Ergocalciferol (Vitamin D2) (Vitamin D2) 50,000 Unit C apsule Ergocalciferol (Vitamin D2) (Vitamin D2) 50,000 Unit Capsule Yes 5000 0 .qweek [facility] Furosemide 40 Mg Tablet Furosemide 40 Mg Tablet Yes 40 Twice A Day [facility] Gemfibrozil (Lopid) 600 Mg Tablet Gemfibrozil (Lopid) 600 Mg Tablet Yes 600 Twice A Day [facility] Glimepiride 2 Mg Tablet Glimepiride 2 Mg Tablet Yes 2 Daily [facility] Levothyroxine Sodium (Synthroid) 25 Mcg Tablet Levothy roxine Sodium (Synthroid) 25 Mcg Tablet Yes 75 Daily [facility] Metformin Hcl (Metformin Hcl Er) 500 Mg Tab.er.24h Met formin Hcl (Metformin Hcl Er) 500 Mg Tab.er.24h Yes 500 Daily [facility] Metoclopramide Hcl (Reglan) 5 Mg Tablet Metoclopramide Hcl ( Reglan) 5 Mg Tablet Yes 10 Daily [facility] Metoprolol Succinate 25 Mg Tab.er.24h Metoprolol Succinate 25 Mg Ta b.er.24h Yes 50 Daily [facility] Pantoprazole Sodium (Protonix) 40 Mg Tablet. Pantopr azole Sodium (Protonix) 40 Mg Tablet. Yes 40 Daily [facility] Tresiba Tresiba Yes 70 Daily [facility] Allopurinol 300 Mg Tablet, Unknown Dose Oral Allopuri nol 300 Mg Tablet, Unknown Dose Oral 2019-01-16 00:00:00 No Daily [facility] Atorvastatin Calcium (Lipitor) 20 Mg Tablet, 80 Mg Ora l Atorvastatin Calcium (Lipitor) 20 Mg Tablet, 80 Mg Oral 2019-01-16 00:00:00 No 8 0 Daily [facility] Cholecalciferol (Vitamin D) 1,000 Unit Tablet, 1000 Un it Oral Cholecalciferol (Vitamin D) 1,000 Unit Tablet, 1000 Unit Oral 2019-01-16 00:00:00 No 1000 Daily [facility] Colestipol Hcl 1 Gm Tablet, 1 Gm Oral Colestipol Hcl 1 Gm Tablet , 1 Gm Oral 2018-11-23 00:00:00 No 1 Daily [facility] Loperamide Hcl (Imodium) 2 Mg Cap, 2 Mg Oral Loperamid e Hcl (Imodium) 2 Mg Cap, 2 Mg Oral 2018-11-23 00:00:00 No 2 Daily [facility] Vits #93/Iron Fum/Fa ( Formula Tablet ) 1 Each Tablet, Mg Oral Vits #93/Iron Fum/Fa ( Formula Tablet) 1 Each Tablet, Mg Oral 2018-11-23 00:00:00 No Daily [facility] Furosemide (Lasix) 40 Mg Tablet, 40 Mg Oral Furosemide (Lasix) 40 Mg Tablet, 40 Mg Oral 2018-07-31 00:00:00 No 40 As Needed [facility] Calc/D3/Mag/Zn/Brine Plant Operator/Danny/[place] (Calcium 6 00 Mg + Vit D Tab) 1 Each Tablet, Oral Calc/D3/Mag/Zn/Brine Plant Operator/Danny/[place] (Calcium 6 00 Mg + Vit D Tab) 1 Each Tablet, Oral 2018-07-27 00:00:00 No Three Times A Day [facility] Dexlansoprazole (Dexilant) 60 Mg Cap., 60 Mg Oral Dexlansoprazole (Dexilant) 60 Mg Cap., 60 Mg Oral 2018-07-27 00:00:00 No 60 Daily [facility] Lisinopril 10 Mg Tablet, 10 Mg Oral Lisinopril 10 Mg Tablet, 10 Mg Oral 2018-07-27 00:00:00 No 10 Daily [facility] Mesalamine (Asacol) 400 Mg Tablet., 400 Mg Oral Choi lazara (Asacol) 400 Mg Tablet., 400 Mg Oral 2018-07-27 00:00:00 No 400 T wice A Day [facility] Metformin Hcl (Glumetza) 500 Mg [id number], 500 Mg Ora l Metformin Hcl (Glumetza) 500 Mg Lsfcqhu18y, 500 Mg Oral 2018-07-27 00:00:00 No 5 00 Twice A Day [facility] Multivit,Ther Iron,Ca,Fa & Min (Thera-M Caplet) 1 Each Tablet, 1 Tab Oral Multivit,Ther Iron,Ca,Fa & Min (Thera-M Caplet) 1 Each Tablet, 1 Tab Oral 2018-07-27 00:00:00 No 1 Daily [facility] Potassium Chloride (Klor-Con 10) 10 Meq Tablet.sa, 10 Meq Oral Potassium Chloride (Klor-Con 10) 10 Meq Tablet.sa, 10 Meq Oral 2018-07-27 00: 00:00 No 10 As Needed [facility] Mycophenolate Mofetil (Cellcept) 500 Mg Tablet, 500 Mg Oral Mycophenolate Mofetil (Cellcept) 500 Mg Tablet, 500 Mg Oral 2017-02-21 00:00:00 No 500 Daily [facility] Nitrofurantoin Monohyd/M-Cryst (Macrobid 100 Mg Capsule) 100 Mg Capsule, 100 Mg Oral Nitrofurantoin Monohyd/M-Cryst (Macrobid 100 Mg Capsule) 100 Mg Capsule, 100 Mg Oral 2017-02-21 00:00:00 No 100 Twice A Day [facility] Risedronate Sodium (Atelvia) 35 Mg Tablet., 35 Mg Or al Risedronate Sodium (Atelvia) 35 Mg Tablet., 35 Mg Oral 2017-02-21 00:00:00 No 35 Week [facility] Rivaroxaban (Xarelto) 20 Mg Tablet, 20 Mg Oral Rivarox aban (Xarelto) 20 Mg Tablet, 20 Mg Oral 2017-02-21 00:00:00 No 20 Daily [facility] Cefepime Hcl/D5w (Cefepime-Dextrose 1 Gm /50 Ml) 1 Gm/50 Ml Piggyback, 1 Gm Intraven Cefepime Hcl/D5w (Cefepime-Dextrose 1 Gm /50 Ml) 1 Gm/50 Ml Piggyback, 1 Gm Intraven 2015-12-30 00:00:00 No 1 Every 12 Bobbi rs [facility] Clindamycin Hcl/Dextrose (Cleocin 900 Mg -Q5z-Etojqz) 900 Mg/50 Ml Piggyback, 900 Mg Intraven Clindamycin Hcl/Dextrose (Cleocin 900 Mg -D5p-Zzsbfh) 900 Mg/50 Ml Piggyback, 900 Mg Intraven 2015-12-30 00:00:00 No 900 Every 8 Hours [facility] Vancomycin Hcl 1 Gm Vial, 1 Gm Intraven Vancomycin Hcl 1 Gm Vial, 1 Gm Intraven 2015-12-30 00:00:00 No 1 Daily [facility] Warfarin Sodium (Coumadin) 3 Mg Tablet, 3 Mg Oral Warf siria Sodium (Coumadin) 3 Mg Tablet, 3 Mg Oral 2015-12-30 00:00:00 No 3 Fri Thru Friday [facility] Warfarin Sodium (Coumadin) 4 Mg Tablet, 4 Mg Oral Warf siria Sodium (Coumadin) 4 Mg Tablet, 4 Mg Oral 2015-12-30 00:00:00 No 4 Sat And Friday [facility] Procedures Procedure Date / Time Performed Performing Clinician [facility] e X-ray of chest, two views 2019-01-19 00:00:00 MAXI AAMYA CH I [facility] Computed tomography of brain without radiopaque contrast 201 11-11-14 00:00:00 DEVON IRWIN [facility] Computed tomography of cervical spine without contrast 01-15 00:00:00 DEVON IRWIN [facility] Computed tomography of brain without radiopaque contrast 201 11-09-24 00:00:00 GORDO BOSE [facility] X-ray of chest, single view 2018-09-21 00:00:00 BEATRIZ WIN [facility] Computed tomography of chest with contrast 2018-07-27 00:00: 00 DEVON IRWIN [facility] Plan of Care Planned Activity Planned Date Details Comments Source Future Scheduled Test 2019-10-02 00:00:00 INFLUENZA VACCINE [code = INFLUENZA VACCINE] [facility] Scheduled Test 2012-01-14 00:00:00 BREAST CANCER SCRE ENING [code = BREAST CANCER SCREENING] [facility] Future Scheduled Test 2012-01-14 00:00:00 COLONOSCOPY SCREEN ING [code = COLONOSCOPY SCREENING] [facility] Scheduled Test 2012-01-14 00:00:00 SHINGLES VACCINES (#1) [code = SHINGLES VACCINES (#1)] [facility] Scheduled Test 1983 00:00:00 Screening for giovanny gnant neoplasm of cervix (procedure) [code = 611308756] [facility] Encounters Start Date/Time End Date/Time Encounter Type Admission Type Attendi [facility] Care Department Encounter ID Source 2019-01-17 07:44:00 2019-01-22 12:26:00 Discharged Inpatient 1 MAXI AMAYA [facility] [id number] [facility] 2018-11-24 17:01:00 2018-11-26 10:29:00 Discharged Inpatient (obs) 3 KHADAR MCKINNEY [facility] [id number] [facility] 2018-09-21 14:40:00 2018-09-22 00:11:00 Departed Emergency Room 1 BEATRIZ WIN [facility] [id number] [facility] 2018-07-27 21:36:00 2018-07-31 15:24:00 Discharged Inpatient 1 MATHEW RAZO [facility] [id number] [facility] 2018-02-02 08:36:00 2018-02-02 18:07:00 Departed Emergency Room [facility] [id number] [facility] 2017-10-01 16:37:00 2017-10-01 17:43:00 Departed Emergency Room [facility] [id number] [facility] 2017-04-21 19:46:00 2017-04-21 19:53:00 Departed Emergency Room [facility] [id number] [facility] 2017-02-18 18:47:00 2017-02-21 09:06:00 Discharged Inpatient (obs) ER CINDY AMAYAAHAM [facility] [id number] [facility] 2016-12-03 20:19:00 2016-12-06 18:50:00 [facility] ([facility] [id number] [facility] Results Test Description Test Time Test Comments Results Result Comments Source CHEST 2 VIEWS 2019-09-22 14:51:00 [place] [address] Patient Name: JOSE CARLOS DIXON MR #: [id number] : 1960 Age/Sex: 59/F Req #: [id number] Adm Physician: Ordered by: MAGY SINGH MD Report #: [id number] Location: OR Room/Bed: Procedure: [id number] DX/CHEST 2 VIEWS Exam Date: 09/22/19 Exam Time: 1400 REPORT STATUS: Signed EXAMINATION: CHEST 2 VIEWS INDICATION: Pre-operative COMPARISON: Chest radiograph of 08/27/2019 FINDINGS: LINES/TUBES:Left chest loop recorder device. LUNGS:The lungs are well-inflated. No focal consolidation or pulmonary edema. P LEURA:No pleural effusion or pneumothorax. MEDIASTINUM:The cardiomediastinal silhouette appears normal in size and shape. Atherosclerotic calcifications of the thoracic aorta. BONES/SOFT TISSUES:No acute osseous injury. ABDOMEN:No free air under the diaphragm. IMPRESSION: No focal pneumonia or pulmonary edema. Signed by: Germán Cramer MD on 09/22/2019 2:52 PM Dictated By: GERMÁN CRAMER MD 51 Transcribed By: ESTELLE on 09/22/191451 COPY TO: MAGY SINGH MD VQ SCAN PERFUSION ONLY 2019-08-31 19:26:00 [place] [address] Patient Name: JOSE CARLOS DIXON MR #: [id number] : 1960 Age/Sex: 59/F Req #: [id number] Adm Physician: MAXI AMAYA MD Ordered by: MAXI AMAYA MD Report #: [id number] Location: MED/SURG2 Room/Bed: [facility] Procedure: [id number] NM/VQ SCAN PERFUSION ONLY Exam Date: Exam Time: REPORT STATUS: Signed Perfusion Lung Scan NOTE: Lung ventilation studies with xenon are not being performed per the recommendation of the Society of Nuclear Medicine and Molecular Imaging. It is not possible to be certain that the ventilation system is adequately disinfected. Ventila tion studies with Tc-99m DTPA particles is contraindicated because the delivery by nebulization generates too many water droplets from the patient's airway. Clinical Information: 59 F with CHF/COPD exacerbation; acute onset SOB. Comparison: Chest radiograph 08/27/2019 Discussion: Ventilation images were not obtained. See note above. Perfusion images of the lungs were obtained in multiple projections following intravenous administration of approximately 6 mCi of Tc-99m MAA. Distribution of tracer is minimally irregular throughout the lungs. There are no segmental perfusion defects of any size. The cardiomediastinal silhouette is unremarkable. Impression: 1. Scan findings represent a VERY LOW probability for acute pulmonary embolic disease based on the perfusion-only PIOPED II criteria. A ventilation scan would not alter the assigned probability in this patient. 2. Scan findings are compatible with diffuse parenchymal and/or obstructive lung disease. Signed by: Dr. Chayito Thomas M.D. on 08/31/2019 7:30 PM Dictated By: CHAYITO THOMAS MD 29 Transcribed By: ESTELLE on 08/31/191929 COPY TO: MAXI AMAYA MD CHEST SINGLE (PORTABLE) 2019-08-27 20:46:00 [place] [address] Patient Name: JOSE CARLOS DIXON MR #: [id number] : 1960 Age/Sex: 59/F Req #: [id number] Adm Physician: Ordered by: BEATRIZ WIN MD Report #: [id number] Location: ER Room/Bed: Procedure: [id number] DX/CHEST SINGLE (PORTABLE) Exam Date: 08/27/19 Exam Time: 1944 REPORT STATUS: Signed EXAMINATION: CHEST SINGLE (PORTABLE) INDICATION: Shortness of breath COMPARISON: Chest x-ray dated 01/19/2019 FINDINGS: AP view TUBES and LINES: Loop recorder noted. LUNGS/PLEURA: Lungs are well inflate d. There are bilateral interstitial opacities, consistent with pulmonary edema.. There is no pleural effusion or pneumothorax. HEART AND MEDIASTINUM: Cardiac size is moderately enlarged, unchanged. BONES AND SOFT TISSUES: No acute osseous lesion. Soft tissues are unremarkable. UPPER ABDOMEN: No free air under the diaphragm. IMPRESSION: Moderate cardiomegaly and pulmonary edema. Signed by: Alejo Hammond MD on 08/27/2019 8:47 PM Dictated By: ALEJO HAMMOND MD 46 Transcribed By: ESTELLE on 08/27/192046 COPY TO: BEATRIZ WIN MD [facility] 2019-07-16 16:42:00 RUN DATE: 07/16/19 [facility] PAGE 1 RUN TIME: 1642 Specimen Inquiry RUN USER: INTERFACE PATIENT: JOSE CARLOS DIXON LOC: [facility] U #: [id number] AGE/SX: 59/F ROOM: RE07/14/19REG DR: Darron Bob MD : [birth year] BED: DIS: STATUS: [facility] TLOC: SPEC #: [id number] RECD: 07/14/19 STATUS: NOA RE #: [id number] CORIN: 07/14/19- [facility] DR: Darron Bob MD ENTERED: 07/14/19 SP TYPE: STOMACH OTHR DR: Self Referred Maxi Amaya MDORDERED: GROSS COPIES TO: Self Referred Darron Bob MD [address] [facility] [place] [address] Maxi Amaya MD [address] [facility] [address] [place] [address] PROCEDURES: GROSS (07/15/19-1146) TISSUES: 1. DUODENUM, NOS - BX 2. ANTRUM - BX CLINICAL HISTORY COLLECTION DATE: 07/14/19 ANEMIA, GI BLEED, CHRONIC MELENA, REQUEST FOR HELICOBACTER PYLORI ON ANTRUM BIOPSY FINAL DIAGNOSIS Antrum, biopsy: REACTIVE GASTROPATHY NO INTESTINAL METAPLASIA SEEN NEGATIVE FOR MALIGNANCY Duodenum, biopsy: SMALL INTESTINAL MUCOSA, NO PATHOLOGIC ALTERATION DMW/sm D [id number] CONTINUED ON NEXT PAGE RUN DATE: 07/16/19 [place] [employer] [facility] PAGE 2 RUN TIME: 1642 Specimen Inquiry RUN USER: INTERFACE SPEC #: [id number] PATIENT: JOSE CARLOS DIXON #[id number] (Continued) MACROSCOPIC The first specimen is received in formalin, labeled with the patient's name, and identified as "antrum", and consists of light pink biopsy tissue measuring 0.25 cm, submitted as (1). The second specimen is received in formalin, labeled with the patient's name, and identified as "duodenum", and consists of pink biopsy tissue measuring 0.25 cm, submitted as (2). GROSS PERFORMED AT [facility] [address] [place] [address] (p)[phone] MICROSCOPIC All of the stains, including any controls performed, stain appropriately. MICROSCOPIC PERFORMED AT [facility] [address] [place] [address] (p)[phone] PERFORMING SITE Diagnosis performed at: [facility], [address] [place] [address] Signed SIGNATURE ON FILE Leonrada Zhang MD 07/16/19 1642 END OF REPORT GLUBED 2019-07-14 09:30:00 Test Item GLUBED (test code = GLUBED) 71 mg/dL 74-106 L Performed by certified low pressure boiler operator at [facility] Novel Coronavirus 2019 [id number] 16:00:00* Test Item Value Reference Range Interpretation Comments Novel Coronavirus 2019 Inhouse (test code = COVNONPUI) Negative Negative Testing Criteria: Preprocedure ScreeningComments: 07/14/19Novel Coronavirus 2019 [id number] 15:59:00* Test Item Value Reference Range Interpretation Comments Novel Coronavirus 2019 Inhouse (test code = COVNONPUI) Negative Negative Testing Criteria: Preprocedure ScreeningComments: 07/14/19CBC W/AUTO DIFF 2019-07-09 18:19:00* Test Item Value Reference Range Interpretation Comments WHITE BLOOD CELL (test code = WBC) 11.0 K/mm3 4.5-12.5 N RED BLOOD CELL (test code = RBC) 3.55 mill/mm3 3.7-5.2 L HEMOGLOBIN (test code = HGB) 9.8 gram/dL 11.5-15.5 L HEMATOCRIT (test code = HCT) 35.4 % 36.0-46.0 L MEAN CELL VOLUME (test code = MCV) 99.7 fL 80-98 H MEAN CELL HGB (test code = MCH) 27.6 picogram 27.0-33.0 N MEAN CELL HGB CONCETRATION (test code = MCHC) 27.7 gram/dL 33.0-36. 0 L RED CELL DISTRIBUTION WIDTH (test code = RDW) 20.6 % 11.6-16. 2 H RED CELL DISTRIBUTION WIDTH SD (test code = RDW-SD) 74.4 fL 37 .0-51.0 H PLATELET COUNT (test code = PLT) 338 K/mm3 150-450 N MEAN PLATELET VOLUME (test code = MPV) 10.3 fL 6.7-11.0 N NEUTROPHIL % (test code = NT%) 71.9 % 39.0-69.0 H IMMATURE GRANULOCYTE % (test code = IG%) 1.9 % 0.0-5.0 N LYMPHOCYTE % (test code = LY%) 13.2 % 25.0-55.0 L MONOCYTE % (test code = MO%) 10.6 % 0.0-10.0 H EOSINOPHIL % (test code = EO%) 1.9 % 0.0-5.0 N BASOPHIL % (test code = BA%) 0.5 % 0.0-1.0 N NUCLEATED RBC % (test code = NRBC%) 0.0 % 0-0 N NEUTROPHIL # (test code = NT#) 7.91 K/mm3 1.8-7.7 H IMMATURE GRANULOCYTE # (test code = IG#) 0.21 x10 3/uL 0-0.03 H LYMPHOCYTE # (test code = LY#) 1.45 K/mm3 1.0-5.0 N MONOCYTE # (test code = MO#) 1.17 K/mm3 0-0.8 H EOSINOPHIL # (test code = EO#) 0.21 K/mm3 0.0-0.5 N BASOPHIL # (test code = BA#) 0.06 K/mm3 0.0-0.2 N NUCLEATED RBC # (test code = NRBC#) 0.00 K/mm3 0.0-0.1 N MANUAL DIFF REQUIRED (test code = MDIFF) NO, ONLY SCAN NEEDED DIFFERENTIAL [id number] 18:19:00* Test Item Value Reference Range Interpretation Comments STAIN ACCEPTABILITY (test code = STN ACCEPTABLE) STAIN ACCEPTABLE POLYCHROMASIA (test code = POLC) 2+ ANISOCYTOSIS (test code = ANISO) 1+ MACROCYTOSIS (test code = MACR) 1+ PLATELET ESTIMATE (test code = PLTEST) ADEQUATE PLATELET MORPHOLOGY (test code = PLTMORPH) NORMAL CBC W/AUTO [id number] 17:33:00* Test Item Value Reference Range Interpretation Comments WHITE BLOOD CELL (test code = WBC) 11.0 K/mm3 4.5-12.5 N RED BLOOD CELL (test code = RBC) 3.55 mill/mm3 3.7-5.2 L HEMOGLOBIN (test code = HGB) 9.8 gram/dL 11.5-15.5 L HEMATOCRIT (test code = HCT) 35.4 % 36.0-46.0 L MEAN CELL VOLUME (test code = MCV) 99.7 fL 80-98 H MEAN CELL HGB (test code = MCH) 27.6 picogram 27.0-33.0 N MEAN CELL HGB CONCETRATION (test code = MCHC) 27.7 gram/dL 33.0-36. 0 L RED CELL DISTRIBUTION WIDTH (test code = RDW) 20.6 % 11.6-16. 2 H RED CELL DISTRIBUTION WIDTH SD (test code = RDW-SD) 74.4 fL 37 .0-51.0 H PLATELET COUNT (test code = PLT) 338 K/mm3 150-450 N MEAN PLATELET VOLUME (test code = MPV) 10.3 fL 6.7-11.0 N NEUTROPHIL % (test code = NT%) 71.9 % 39.0-69.0 H IMMATURE GRANULOCYTE % (test code = IG%) 1.9 % 0.0-5.0 N LYMPHOCYTE % (test code = LY%) 13.2 % 25.0-55.0 L MONOCYTE % (test code = MO%) 10.6 % 0.0-10.0 H EOSINOPHIL % (test code = EO%) 1.9 % 0.0-5.0 N BASOPHIL % (test code = BA%) 0.5 % 0.0-1.0 N NUCLEATED RBC % (test code = NRBC%) 0.0 % 0-0 N NEUTROPHIL # (test code = NT#) 7.91 K/mm3 1.8-7.7 H IMMATURE GRANULOCYTE # (test code = IG#) 0.21 x10 3/uL 0-0.03 H LYMPHOCYTE # (test code = LY#) 1.45 K/mm3 1.0-5.0 N MONOCYTE # (test code = MO#) 1.17 K/mm3 0-0.8 H EOSINOPHIL # (test code = EO#) 0.21 K/mm3 0.0-0.5 N BASOPHIL # (test code = BA#) 0.06 K/mm3 0.0-0.2 N NUCLEATED RBC # (test code = NRBC#) 0.00 K/mm3 0.0-0.1 N MANUAL DIFF REQUIRED (test code = MDIFF) NO, ONLY SCAN NEEDED DIFFERENTIAL [id number] 17:33:00* Test Item Value Reference Range Interpretation Comments STAIN ACCEPTABILITY (test code = STN ACCEPTABLE) CABOT RINGS (test code = CAB) MORPHOLOGY COMMENT (test code = MOC) PLATELET ESTIMATE (test code = PLTEST) PLATELET MORPHOLOGY (test code = PLTMORPH) CBC W/AUTO [id number] 17:33:00* Test Item Value Reference Range Interpretation Comments WHITE BLOOD CELL (test code = WBC) 11.0 K/mm3 4.5-12.5 N RED BLOOD CELL (test code = RBC) 3.55 mill/mm3 3.7-5.2 L HEMOGLOBIN (test code = HGB) 9.8 gram/dL 11.5-15.5 L HEMATOCRIT (test code = HCT) 35.4 % 36.0-46.0 L MEAN CELL VOLUME (test code = MCV) 99.7 fL 80-98 H MEAN CELL HGB (test code = MCH) 27.6 picogram 27.0-33.0 N MEAN CELL HGB CONCETRATION (test code = MCHC) 27.7 gram/dL 33.0-36. 0 L RED CELL DISTRIBUTION WIDTH (test code = RDW) 20.6 % 11.6-16. 2 H RED CELL DISTRIBUTION WIDTH SD (test code = RDW-SD) 74.4 fL 37 .0-51.0 H PLATELET COUNT (test code = PLT) 338 K/mm3 150-450 N MEAN PLATELET VOLUME (test code = MPV) 10.3 fL 6.7-11.0 N NEUTROPHIL % (test code = NT%) 71.9 % 39.0-69.0 H IMMATURE GRANULOCYTE % (test code = IG%) 1.9 % 0.0-5.0 N LYMPHOCYTE % (test code = LY%) 13.2 % 25.0-55.0 L MONOCYTE % (test code = MO%) 10.6 % 0.0-10.0 H EOSINOPHIL % (test code = EO%) 1.9 % 0.0-5.0 N BASOPHIL % (test code = BA%) 0.5 % 0.0-1.0 N NUCLEATED RBC % (test code = NRBC%) 0.0 % 0-0 N NEUTROPHIL # (test code = NT#) 7.91 K/mm3 1.8-7.7 H IMMATURE GRANULOCYTE # (test code = IG#) 0.21 x10 3/uL 0-0.03 H LYMPHOCYTE # (test code = LY#) 1.45 K/mm3 1.0-5.0 N MONOCYTE # (test code = MO#) 1.17 K/mm3 0-0.8 H EOSINOPHIL # (test code = EO#) 0.21 K/mm3 0.0-0.5 N BASOPHIL # (test code = BA#) 0.06 K/mm3 0.0-0.2 N NUCLEATED RBC # (test code = NRBC#) 0.00 K/mm3 0.0-0.1 N MANUAL DIFF REQUIRED (test code = MDIFF) NO, ONLY SCAN NEEDED DIFFERENTIAL [id number] 17:33:00* Test Item Value Reference Range Interpretation Comments STAIN ACCEPTABILITY (test code = STN ACCEPTABLE) CABOT RINGS (test code = CAB) MORPHOLOGY COMMENT (test code = MOC) PLATELET ESTIMATE (test code = PLTEST) PLATELET MORPHOLOGY (test code = PLTMORPH) CBC W/AUTO [id number] 17:33:00* Test Item Value Reference Range Interpretation Comments WHITE BLOOD CELL (test code = WBC) 11.0 K/mm3 4.5-12.5 N RED BLOOD CELL (test code = RBC) 3.55 mill/mm3 3.7-5.2 L HEMOGLOBIN (test code = HGB) 9.8 gram/dL 11.5-15.5 L HEMATOCRIT (test code = HCT) 35.4 % 36.0-46.0 L MEAN CELL VOLUME (test code = MCV) 99.7 fL 80-98 H MEAN CELL HGB (test code = MCH) 27.6 picogram 27.0-33.0 N MEAN CELL HGB CONCETRATION (test code = MCHC) 27.7 gram/dL 33.0-36. 0 L RED CELL DISTRIBUTION WIDTH (test code = RDW) 20.6 % 11.6-16. 2 H RED CELL DISTRIBUTION WIDTH SD (test code = RDW-SD) 74.4 fL 37 .0-51.0 H PLATELET COUNT (test code = PLT) 338 K/mm3 150-450 N MEAN PLATELET VOLUME (test code = MPV) 10.3 fL 6.7-11.0 N NEUTROPHIL % (test code = NT%) 71.9 % 39.0-69.0 H IMMATURE GRANULOCYTE % (test code = IG%) 1.9 % 0.0-5.0 N LYMPHOCYTE % (test code = LY%) 13.2 % 25.0-55.0 L MONOCYTE % (test code = MO%) 10.6 % 0.0-10.0 H EOSINOPHIL % (test code = EO%) 1.9 % 0.0-5.0 N BASOPHIL % (test code = BA%) 0.5 % 0.0-1.0 N NUCLEATED RBC % (test code = NRBC%) 0.0 % 0-0 N NEUTROPHIL # (test code = NT#) 7.91 K/mm3 1.8-7.7 H IMMATURE GRANULOCYTE # (test code = IG#) 0.21 x10 3/uL 0-0.03 H LYMPHOCYTE # (test code = LY#) 1.45 K/mm3 1.0-5.0 N MONOCYTE # (test code = MO#) 1.17 K/mm3 0-0.8 H EOSINOPHIL # (test code = EO#) 0.21 K/mm3 0.0-0.5 N BASOPHIL # (test code = BA#) 0.06 K/mm3 0.0-0.2 N NUCLEATED RBC # (test code = NRBC#) 0.00 K/mm3 0.0-0.1 N MANUAL DIFF REQUIRED (test code = MDIFF) NO, ONLY SCAN NEEDED DIFFERENTIAL [id number] 17:33:00* Test Item Value Reference Range Interpretation Comments STAIN ACCEPTABILITY (test code = STN ACCEPTABLE) MORPHOLOGY COMMENT (test code = MOC) PLATELET ESTIMATE (test code = PLTEST) PLATELET MORPHOLOGY (test code = PLTMORPH) CBC W/AUTO [id number] 17:33:00* Test Item Value Reference Range Interpretation Comments WHITE BLOOD CELL (test code = WBC) 11.0 K/mm3 4.5-12.5 N RED BLOOD CELL (test code = RBC) 3.55 mill/mm3 3.7-5.2 L HEMOGLOBIN (test code = HGB) 9.8 gram/dL 11.5-15.5 L HEMATOCRIT (test code = HCT) 35.4 % 36.0-46.0 L MEAN CELL VOLUME (test code = MCV) 99.7 fL 80-98 H MEAN CELL HGB (test code = MCH) 27.6 picogram 27.0-33.0 N MEAN CELL HGB CONCETRATION (test code = MCHC) 27.7 gram/dL 33.0-36. 0 L RED CELL DISTRIBUTION WIDTH (test code = RDW) 20.6 % 11.6-16. 2 H RED CELL DISTRIBUTION WIDTH SD (test code = RDW-SD) 74.4 fL 37 .0-51.0 H PLATELET COUNT (test code = PLT) 338 K/mm3 150-450 N MEAN PLATELET VOLUME (test code = MPV) 10.3 fL 6.7-11.0 N NEUTROPHIL % (test code = NT%) 71.9 % 39.0-69.0 H IMMATURE GRANULOCYTE % (test code = IG%) 1.9 % 0.0-5.0 N LYMPHOCYTE % (test code = LY%) 13.2 % 25.0-55.0 L MONOCYTE % (test code = MO%) 10.6 % 0.0-10.0 H EOSINOPHIL % (test code = EO%) 1.9 % 0.0-5.0 N BASOPHIL % (test code = BA%) 0.5 % 0.0-1.0 N NUCLEATED RBC % (test code = NRBC%) 0.0 % 0-0 N NEUTROPHIL # (test code = NT#) 7.91 K/mm3 1.8-7.7 H IMMATURE GRANULOCYTE # (test code = IG#) 0.21 x10 3/uL 0-0.03 H LYMPHOCYTE # (test code = LY#) 1.45 K/mm3 1.0-5.0 N MONOCYTE # (test code = MO#) 1.17 K/mm3 0-0.8 H EOSINOPHIL # (test code = EO#) 0.21 K/mm3 0.0-0.5 N BASOPHIL # (test code = BA#) 0.06 K/mm3 0.0-0.2 N NUCLEATED RBC # (test code = NRBC#) 0.00 K/mm3 0.0-0.1 N MANUAL DIFF REQUIRED (test code = MDIFF) NO, ONLY SCAN NEEDED DIFFERENTIAL [id number] 17:33:00* Test Item Value Reference Range Interpretation Comments STAIN ACCEPTABILITY (test code = STN ACCEPTABLE) CABOT RINGS (test code = CAB) MORPHOLOGY COMMENT (test code = MOC) PLATELET ESTIMATE (test code = PLTEST) PLATELET MORPHOLOGY (test code = PLTMORPH) BASIC METABOLIC [id number] 17:27:00* Test Item Value Reference Range Interpretation Comments SODIUM (test code = NA) 141 mmol/L 136-145 N POTASSIUM (test code = K) 3.9 mmol/L 3.5-5.1 N CHLORIDE (test code = CL) 109.0 mmol/L 98-107 H CARBON DIOXIDE (test code = CO2) 28.0 mmol/L 21-32 N ANION GAP (test code = GAP) 7.9 10-20 L GLUCOSE (test code = GLU) 111 mg/dL 74-106 H BLOOD UREA NITROGEN (test code = BUN) 11 mg/dL 7-18 N GLOMERULAR FILTRATION RATE (test code = GFR) > 60 mL/min >=60 Estimated GFR by using Modified MDRD formula.Chronic kidney disease is defined as either kidney damageor GFR <60 mL/min/1.73 m2 for >3 months. CREATININE (test code = CREAT) 0.70 mg/dL 0.55-1.02 N Note change in reference range due to change in reagent. BUN/CREATININE RATIO (test code = BUN/CREA) 15.7 10-20 N CALCIUM (test code = CA) 8.7 mg/dL 8.5-10.1 N BASIC METABOLIC [id number] 17:23:00* Test Item Value Reference Range Interpretation Comments SODIUM (test code = NA) 141 mmol/L 136-145 N POTASSIUM (test code = K) 3.9 mmol/L 3.5-5.1 N CHLORIDE (test code = CL) 109.0 mmol/L 98-107 H CARBON DIOXIDE (test code = CO2) mmol/L 21-32 ANION GAP (test code = GAP) 10-20 GLUCOSE (test code = GLU) mg/dL 74-106 BLOOD UREA NITROGEN (test code = BUN) mg/dL 7-18 GLOMERULAR FILTRATION RATE (test code = GFR) mL/min >=60 CREATININE (test code = CREAT) mg/dL 0.55-1.02 BUN/CREATININE RATIO (test code = BUN/CREA) 10-20 CALCIUM (test code = CA) mg/dL 8.5-10.1 CBC W/MANUAL [id number] 18:08:00* Test Item Value Reference Range Interpretation Comments WHITE BLOOD CELL (test code = WBC) 11.25 x10 3/uL 4.5-11.0 H RED BLOOD CELL (test code = RBC) 3.41 x10 6/uL 3.54-5.02 L HEMOGLOBIN (test code = HGB) 10.5 g/dL 11.0-15.0 L HEMATOCRIT (test code = HCT) 35.5 % 33.0-45.0 N MEAN CELL VOLUME (test code = MCV) 104.1 fL 81.0-99.0 H MEAN CELL HGB (test code = MCH) 30.8 pg 27.0-33.0 N MEAN CELL HGB CONCETRATION (test code = MCHC) 29.6 g/dL 33.0-37. 0 L RED CELL DISTRIBUTION WIDTH CV (test code = RDW) 20.3 % 11.5- 14.5 H RED CELL DISTRIBUTION WIDTH SD (test code = RDW-SD) 73.2 fL 37 .0-54.0 H PLATELET COUNT (test code = PLT) 351 x10 3/uL 150-400 N MEAN PLATELET VOLUME (test code = MPV) 10.0 fL 7.0-9.0 H SEGMENTED NEUTROPHILS (test code = SEG) 84.5 % 37-69 H LYMPHOCYTE (test code = LYMPH) 7.3 % 23-55 L MONOCYTE (test code = MON) 6.4 % 0-10 N EOSINOPHIL (test code = EOS) 1.8 % 0.0-4.0 N POLYCHROMASIA (test code = POLC) 3+ ANISOCYTOSIS (test code = ANISO) 1+ MACROCYTOSIS (test code = MACR) 1+ PLATELET ESTIMATE (test code = PLTEST) Adequate THOUSAND ADEQUATE CBC W/MANUAL [id number] 16:57:00* Test Item Value Reference Range Interpretation Comments WHITE BLOOD CELL (test code = WBC) 11.25 x10 3/uL 4.5-11.0 H RED BLOOD CELL (test code = RBC) 3.41 x10 6/uL 3.54-5.02 L HEMOGLOBIN (test code = HGB) 10.5 g/dL 11.0-15.0 L HEMATOCRIT (test code = HCT) 35.5 % 33.0-45.0 N MEAN CELL VOLUME (test code = MCV) 104.1 fL 81.0-99.0 H MEAN CELL HGB (test code = MCH) 30.8 pg 27.0-33.0 N MEAN CELL HGB CONCETRATION (test code = MCHC) 29.6 g/dL 33.0-37. 0 L RED CELL DISTRIBUTION WIDTH CV (test code = RDW) 20.3 % 11.5- 14.5 H RED CELL DISTRIBUTION WIDTH SD (test code = RDW-SD) 73.2 fL 37 .0-54.0 H PLATELET COUNT (test code = PLT) 351 x10 3/uL 150-400 N MEAN PLATELET VOLUME (test code = MPV) 10.0 fL 7.0-9.0 H ANISOCYTOSIS (test code = ANISO) PLATELET ESTIMATE (test code = PLTEST) THOUSAND ADEQUATE CBC W/AUTO [id number] 18:18:00* Test Item Value Reference Range Interpretation Comments WHITE BLOOD CELL (test code = WBC) 17.38 x10 3/uL 4.5-11.0 H RED BLOOD CELL (test code = RBC) 2.72 x10 6/uL 3.54-5.02 L HEMOGLOBIN (test code = HGB) 8.1 g/dL 11.0-15.0 L HEMATOCRIT (test code = HCT) 29.9 % 33.0-45.0 L MEAN CELL VOLUME (test code = MCV) 109.9 fL 81.0-99.0 H MEAN CELL HGB (test code = MCH) 29.8 pg 27.0-33.0 N MEAN CELL HGB CONCETRATION (test code = MCHC) 27.1 g/dL 33.0-37. 0 L RED CELL DISTRIBUTION WIDTH CV (test code = RDW) 21.3 % 11.5- 14.5 H RED CELL DISTRIBUTION WIDTH SD (test code = RDW-SD) 85.0 fL 37 .0-54.0 H PLATELET COUNT (test code = PLT) 439 x10 3/uL 150-400 H MEAN PLATELET VOLUME (test code = MPV) 9.9 fL 7.0-9.0 H NEUTROPHIL % (test code = NT%) 78.2 % 56.0-77.0 H IMMATURE GRANULOCYTE % (test code = IG%) 2.7 % 0.0-2.0 H LYMPHOCYTE % (test code = LY%) 8.9 % 14.0-32.0 L MONOCYTE % (test code = MO%) 9.2 % 4.8-9.0 H EOSINOPHIL % (test code = EO%) 0.3 % 0.3-3.7 N BASOPHIL % (test code = BA%) 0.7 % 0.0-2.0 N NUCLEATED RBC % (test code = NRBC%) 0.3 % 0-0 H NEUTROPHIL # (test code = NT#) 13.58 x10 3/uL 2.0-7.6 H IMMATURE GRANULOCYTE # (test code = IG#) 0.47 x10 3/uL 0.00-0.03 H LYMPHOCYTE # (test code = LY#) 1.54 x10 3/uL 1.0-3.8 N MONOCYTE # (test code = MO#) 1.60 x10 3/uL 0.1-0.8 H EOSINOPHIL # (test code = EO#) 0.06 x10 3/uL 0.0-0.2 N BASOPHIL # (test code = BA#) 0.13 x10 3/uL 0.0-0.2 N NUCLEATED RBC # (test code = NRBC#) 0.06 x10 3/uL 0.0-0.1 N MANUAL DIFF REQUIRED (test code = MDIFF) NO FAX:[phone]:[phone] [id number] 18:18:00* Test Item Value Reference Range Interpretation Comments POLYCHROMASIA (test code = POLC) 2+ HYPOCHROMIA (test code = HYPO) 1+ ANISOCYTOSIS (test code = ANISO) 2+ MICROCYTOSIS (test code = MICR) 1+ MACROCYTOSIS (test code = MACR) 1+ FAX:[phone]:[phone] W/AUTO [id number] 17:08:00* Test Item Value Reference Range Interpretation Comments WHITE BLOOD CELL (test code = WBC) 17.38 x10 3/uL 4.5-11.0 H RED BLOOD CELL (test code = RBC) 2.72 x10 6/uL 3.54-5.02 L HEMOGLOBIN (test code = HGB) 8.1 g/dL 11.0-15.0 L HEMATOCRIT (test code = HCT) 29.9 % 33.0-45.0 L MEAN CELL VOLUME (test code = MCV) 109.9 fL 81.0-99.0 H MEAN CELL HGB (test code = MCH) 29.8 pg 27.0-33.0 N MEAN CELL HGB CONCETRATION (test code = MCHC) 27.1 g/dL 33.0-37. 0 L RED CELL DISTRIBUTION WIDTH CV (test code = RDW) 21.3 % 11.5- 14.5 H RED CELL DISTRIBUTION WIDTH SD (test code = RDW-SD) 85.0 fL 37 .0-54.0 H PLATELET COUNT (test code = PLT) 439 x10 3/uL 150-400 H MEAN PLATELET VOLUME (test code = MPV) 9.9 fL 7.0-9.0 H NEUTROPHIL % (test code = NT%) 78.2 % 56.0-77.0 H IMMATURE GRANULOCYTE % (test code = IG%) 2.7 % 0.0-2.0 H LYMPHOCYTE % (test code = LY%) 8.9 % 14.0-32.0 L MONOCYTE % (test code = MO%) 9.2 % 4.8-9.0 H EOSINOPHIL % (test code = EO%) 0.3 % 0.3-3.7 N BASOPHIL % (test code = BA%) 0.7 % 0.0-2.0 N NUCLEATED RBC % (test code = NRBC%) 0.3 % 0-0 H NEUTROPHIL # (test code = NT#) 13.58 x10 3/uL 2.0-7.6 H IMMATURE GRANULOCYTE # (test code = IG#) 0.47 x10 3/uL 0.00-0.03 H LYMPHOCYTE # (test code = LY#) 1.54 x10 3/uL 1.0-3.8 N MONOCYTE # (test code = MO#) 1.60 x10 3/uL 0.1-0.8 H EOSINOPHIL # (test code = EO#) 0.06 x10 3/uL 0.0-0.2 N BASOPHIL # (test code = BA#) 0.13 x10 3/uL 0.0-0.2 N NUCLEATED RBC # (test code = NRBC#) 0.06 x10 3/uL 0.0-0.1 N MANUAL DIFF REQUIRED (test code = MDIFF) NO FAX:[phone]:[phone] [id number] 17:08:00* Test Item Value Reference Range Interpretation Comments ANISOCYTOSIS (test code = ANISO) FAX:[phone]:[phone] W/AUTO [id number] 17:08:00* Test Item Value Reference Range Interpretation Comments WHITE BLOOD CELL (test code = WBC) 17.38 x10 3/uL 4.5-11.0 H RED BLOOD CELL (test code = RBC) 2.72 x10 6/uL 3.54-5.02 L HEMOGLOBIN (test code = HGB) 8.1 g/dL 11.0-15.0 L HEMATOCRIT (test code = HCT) 29.9 % 33.0-45.0 L MEAN CELL VOLUME (test code = MCV) 109.9 fL 81.0-99.0 H MEAN CELL HGB (test code = MCH) 29.8 pg 27.0-33.0 N MEAN CELL HGB CONCETRATION (test code = MCHC) 27.1 g/dL 33.0-37. 0 L RED CELL DISTRIBUTION WIDTH CV (test code = RDW) 21.3 % 11.5- 14.5 H RED CELL DISTRIBUTION WIDTH SD (test code = RDW-SD) 85.0 fL 37 .0-54.0 H PLATELET COUNT (test code = PLT) 439 x10 3/uL 150-400 H MEAN PLATELET VOLUME (test code = MPV) 9.9 fL 7.0-9.0 H NEUTROPHIL % (test code = NT%) 78.2 % 56.0-77.0 H IMMATURE GRANULOCYTE % (test code = IG%) 2.7 % 0.0-2.0 H LYMPHOCYTE % (test code = LY%) 8.9 % 14.0-32.0 L MONOCYTE % (test code = MO%) 9.2 % 4.8-9.0 H EOSINOPHIL % (test code = EO%) 0.3 % 0.3-3.7 N BASOPHIL % (test code = BA%) 0.7 % 0.0-2.0 N NUCLEATED RBC % (test code = NRBC%) 0.3 % 0-0 H NEUTROPHIL # (test code = NT#) 13.58 x10 3/uL 2.0-7.6 H IMMATURE GRANULOCYTE # (test code = IG#) 0.47 x10 3/uL 0.00-0.03 H LYMPHOCYTE # (test code = LY#) 1.54 x10 3/uL 1.0-3.8 N MONOCYTE # (test code = MO#) 1.60 x10 3/uL 0.1-0.8 H EOSINOPHIL # (test code = EO#) 0.06 x10 3/uL 0.0-0.2 N BASOPHIL # (test code = BA#) 0.13 x10 3/uL 0.0-0.2 N NUCLEATED RBC # (test code = NRBC#) 0.06 x10 3/uL 0.0-0.1 N MANUAL DIFF REQUIRED (test code = MDIFF) NO FAX:[phone]:[phone] 17:08:00* Test Item Value Reference Range Interpretation Comments ANISOCYTOSIS (test code = ANISO) FAX:[phone]:[phone] [id number] 12:07:00* Test Item Value Reference Range Interpretation Comments Bedside Glucose (test code = 64245-3) 152 70-120 H Meter ID: [id number] [facility] Centerodium Level 2019-01-22 06:18:00* Test Item Value Reference Range Interpretation Comments Sodium Level (test code = 2951-2) 144 136-145 [facility] [id number] 06:18:00* Test Item Value Reference Range Interpretation Comments Potassium Level (test code = 2823-3) 3.2 3.5-5.1 L [facility] HospitalChloride [id number] 06:18:00* Test Item Value Reference Range Interpretation Comments Chloride Level (test code = 2075-0) 96 98-107 L [facility] HospitalCarbon Dioxide [id number] 06:18:00* Test Item Value Reference Range Interpretation Comments Carbon Dioxide Level (test code = 2028-9) 35 22-29 H [facility] HospitalAnion [id number] 06:18:00* Test Item Value Reference Range Interpretation Comments Anion Gap (test code = 29452-4) 16.2 8-16 H [facility] HospitalBlood Urea [id number] 06:18:00* Test Item Value Reference Range Interpretation Comments Blood Urea Nitrogen (test code = 3094-0) 15 7-26 [facility] HospitalCreatinine2019-11-22 06:18:00* Test Item Value Reference Range Interpretation Comments Creatinine (test code = 2160-0) 0.85 0.57-1.11 [facility] HospitalBUN/Creatinine [id number] 06:18:00* Test Item Value Reference Range Interpretation Comments BUN/Creatinine Ratio (test code = 3097-3) 18 6-25 [facility] HospitalEstimat Glomerular Filtration Rate 2019-01-22 06:18:00* Test Item Value Reference Range Interpretation Comments Estimat Glomerular Filtration Rate (test code = 683393250) > 60 >60 Ranges were taken from the National Kidney Disease Education Program and the [facility] literature.Reference ranges:60 or greater: Kldrql09-78 ( for 3 consecutive months): Chronic kidney disease 15 or less: Kidney failureMethodist Specialty and Transplant HospitalGlucose [id number] 06:18:00* Test Item Value Reference Range Interpretation Comments Glucose Level (test code = QED2197) 115 74-118 [facility] HospitalCalcium [id number] 06:18:00* Test Item Value Reference Range Interpretation Comments Calcium Level (test code = 61003-2) 9.3 8.4-10.2 [facility] HospitalWhite Blood [id number] 06:00:00* Test Item Value Reference Range Interpretation Comments White Blood Count (test code = 6690-2) 9.01 4.8-10.8 [facility] HospitalRed Blood [id number] 06:00:00* Test Item Value Reference Range Interpretation Comments Red Blood Count (test code = 789-8) 4.06 3.6-5.1 [facility] HospitalHemoglobin2019-11-22 06:00:00* Test Item Value Reference Range Interpretation Comments Hemoglobin (test code = 76531-7) 9.3 12.0-16.0 L [facility] HospitalHematocrit2019-11-22 06:00:00* Test Item Value Reference Range Interpretation Comments Hematocrit (test code = 4544-3) 34.8 34.2-44.1 [facility] HospitalMean Corpuscular [id number] 06:00:00* Test Item Value Reference Range Interpretation Comments Mean Corpuscular Volume (test code = 787-2) 85.7 81-99 [facility] HospitalMean Corpuscular Snhzoakisl1709-96-65 06:00:00* Test Item Value Reference Range Interpretation Comments Mean Corpuscular Hemoglobin (test code = 785-6) 22.9 28-32 L [facility]Mean Corpuscular Hemoglobin Concent 2019-01-22 06:00:00* Test Item Value Reference Range Interpretation Comments Mean Corpuscular Hemoglobin Concent (test code = 786-4) 26.7 31-35 L [facility] HospitalRed Cell Distribution [id number] 06:00:00* Test Item Value Reference Range Interpretation Comments Red Cell Distribution Width (test code = 91283-3) 25.2 11.7 -14.4 H [facility] HospitalPlatelet [id number] 06:00:00* Test Item Value Reference Range Interpretation Comments Platelet Count (test code = 777-3) 455 140-360 H [facility] HospitalNeutrophils (%) (Auto)2019-01-22 06:00:00 * Test Item Value Reference Range Interpretation Comments Neutrophils (%) (Auto) (test code = 53138-6) 62.7 38.7-80.0 [facility] HospitalLymphocytes (%) (Auto)2019-01-22 06:00:00 * Test Item Value Reference Range Interpretation Comments Lymphocytes (%) (Auto) (test code = 736-9) 15.1 18.0-39.1 L [facility] HospitalMonocytes (%) (Auto)2019-01-22 06:00:00* Test Item Value Reference Range Interpretation Comments Monocytes (%) (Auto) (test code = 5905-5) 13.7 4.4-11.3 H [facility] HospitalEosinophils (%) (Auto)2019-01-22 06:00:00 * Test Item Value Reference Range Interpretation Comments Eosinophils (%) (Auto) (test code = 713-8) 6.5 0.0-6.0 H [facility] HospitalBasophils (%) (Auto)2019-01-22 06:00:00* Test Item Value Reference Range Interpretation Comments Basophils (%) (Auto) (test code = 706-2) 0.8 0.0-1.0 [facility] HospitalIM GRANULOCYTES %2019-01-22 06:00:00* Test Item Value Reference Range Interpretation Comments IM GRANULOCYTES % (test code = IM GRANULOCYTES %) 1.2 0.0- 1.0 H [facility] HospitalNeutrophils # (Auto)2019-01-22 06:00:00* Test Item Value Reference Range Interpretation Comments Neutrophils # (Auto) (test code = 751-8) 5.7 2.1-6.9 [facility] HospitalLymphocytes # (Auto)2019-01-22 06:00:00* Test Item Value Reference Range Interpretation Comments Lymphocytes # (Auto) (test code = 12286-1) 1.4 1.0-3.2 [facility] HospitalMonocytes # (Auto)2019-01-22 06:00:00* Test Item Value Reference Range Interpretation Comments Monocytes # (Auto) (test code = 742-7) 1.2 0.2-0.8 H [facility] HospitalEosinophils # (Auto)2019-01-22 06:00:00* Test Item Value Reference Range Interpretation Comments Eosinophils # (Auto) (test code = 711-2) 0.6 0.0-0.4 H [facility] HospitalBasophils # (Auto)2019-01-22 06:00:00* Test Item Value Reference Range Interpretation Comments Basophils # (Auto) (test code = 704-7) 0.1 0.0-0.1 [facility] HospitalAbsolute Immature Granulocyte (auto 2019-01-22 06:00:00* Test Item Value Reference Range Interpretation Comments Absolute Immature Granulocyte (auto (genoveva t code = Absolute Immature Granulocyte (auto) 0.11 0-0.1 H [facility] HospitalHypochromasia2019-11-19 12:42:00* Test Item Value Reference Range Interpretation Comments Hypochromasia (test code = 728-6) MODERATE [facility] HospitalRed Cell Morphology Stwqmor3669-09-05 12:42:00* Test Item Value Reference Range Interpretation Comments Red Cell Morphology Comment (test code = 6742-1) ABNORMAL [facility] HospitalCHEST 2 [id number] 10:12:00 [place] [id number] Patient Name: JOSE CARLOS DIXON MR #: [id number] : 1960 Age/Sex: 59/F Req #: [id number] Adm Physician: MAXI AMAYA MD Ordered by: MAXI AMAYA MD Report #: [id number] Location: MED/SURG3 Room/Bed: [facility] Procedure: [id number] D X/CHEST 2 VIEWS Exam Date: 01/19/19 Exam Time: 0945 REPORT STATUS: Signed Chest, PA and lateral. History: COPD. Comparison: 01/16/2019, CT of the chest da alondra 07/27/2018. Impression: The heart is mildly enlarged. The aorta demons trates atherosclerotic calcifications. Cardiac event recorder projects over th e left chest. Bibasilar atelectasis is present. There is no focal consolidatio n, sizable pleural effusion, or pneumothorax. Right basilar pleural thickening is present and unchanged. No acute osseous abnormalities. Signed by: Gerald Reyes MD on 01/19/2019 10:19 AM Dictated By: SADIA REYES MD [id number] Transcribed By: ESTELLE on 01/19/19 1019 COPY TO: MAXI AMAYA MD Iron Level 2019-01-16 07:52:00* Test Item Value Reference Range Interpretation Comments Iron Level (test code = 2498-4) 12 50-170 L [facility] HospitalTotal Iron Binding Yxkpquht4749-95-45 07:52:00* Test Item Value Reference Range Interpretation Comments Total Iron Binding Capacity (test code = 2500-7) 468 261-4 78 [facility] HospitalPercent Iron Otwyalkteb4329-82-17 07:52:00* Test Item Value Reference Range Interpretation Comments Percent Iron Saturation (test code = 2502-3) 3 15-50 L [facility] HospitalTransferrin2019-11-16 07:52:00* Test Item Value Reference Range Interpretation Comments Transferrin (test code = 3034-6) 334 180-382 [facility] HospitalCHEST SINGLE (PORTABLE)2019-01-16 00:51:00 [place] [address] Patient Name: JOSE CARLOS DIXON MR #: [id number] : 1960 Age/Sex: 59/F Req #: [id number] Adm Physician: Ordered by: DEVON IRWIN MD Report #: [id number] Location: ER Room/Bed: Procedure: 04 DX/CHEST SINGLE (PORTABLE) Exam Date: 01/16/19 Ex am Time: 0030 REPORT STATUS: Signed EXAMINATION: CHEST SINGLE (PORTABLE) COMPARISON: Chest x-ray 2018 INDICATION: SOB [id number] 0030 Y DISCUSSION: Fro ntal view of the chest obtained at 0037 hours. HEART AND MEDIASTINUM: Stab le cardiomegaly. LINES: Loop recorder device lies over the left ventricl e. LUNGS: Mild hyperinflation is stable. Stable eventration of the right diaphragm. Mild central vascular congestion. No interstitial edema. No conflu ent infiltrates PLEURA: Blunting of the right lateral costophrenic angle i s stable. Left lateral costophrenic angle is sharp BONES AND SOFT TISSUES : No focal osseous lesion. The soft tissues are normal. IMPRESSION: 1. Cardiomegaly and mild pulmonary vascular congestion. 2. Pulmonary hyperin flation suggestive of small airways disease. 3. Stable eventration of the rig ht diaphragm and blunting of the right lateral costophrenic angle, either pleu ral effusion or pleural thickening. Signed by: Dr. Oswaldo Bradshaw MD on 01/16/2019 12:53 AM Dictated By: OSWALDO BRADSHAW MD Electronically Si gned By: OSWALDO BRADSHAW MD on 01/16/1950 Transcribed By: ESTELLE on 01/16 COPY TO: DEVON IRWIN MD Urine UFY1547-11-03 00:22:00* Test Item Value Reference Range Interpretation Comments Urine WBC (test code = 5821-4) >50 0-5 H [facility] HospitalUrine [id number] 00:22:00* Test Item Value Reference Range Interpretation Comments Urine RBC (test code = 33951-6) 0-5 0-5 [facility] Rysbrorr8428-35-69 00:22:00* Test Item Value Reference Range Interpretation Comments Urine Bacteria (test code = 23335-0) FEW NONE [facility] Epithelial Wuqee0872-65-88 00:22:00 * Test Item Value Reference Range Interpretation Comments Urine Epithelial Cells (test code = 99648-3) MODERATE NONE [facility] Renal Epithelial Wwtlr3820-75-37 00:22:00* Test Item Value Reference Range Interpretation Comments Urine Renal Epithelial Cells (test code = 76999-1) FEW NON E H [facility] HospitalCreatine Jzmdgy9755-40-74 00:16:00* Test Item Value Reference Range Interpretation Comments Creatine Kinase (test code = 2157-6) 33 29-168 [facility] HospitalCT CERVICAL SPINE [id number] 23:58:00 [facility] [address] [address] Patient Name: JOSE CARLOS DIXON MR #: [id number] : 1960 Age/Sex: 59/F Req #: [id number] Adm Physician: Ordered by: DEVON IRWIN MD Report #: [id number] Location: ER Room/Bed: Procedure: [address]/CT CERVICAL SPINE WO Exam Date: 01/16/19 Exam Time: 2331 REPORT STATUS: Signed CT CERVICAL SPINE WO HISTORY: Fall COMPARISON: Concurrent head CT TECHNIQUE: CT of the cervical spine without contrast. Sagittal and coronal reformations were created. One or more of the following dose reduction techn iques were used: Automated exposure control, adjustment of the mA and/or kV ac cording to patient size, and/or utilization of iterative reconstruction techni que. FINDINGS: Mild bone demineralization limits evaluation. Cervical lordosis is slightly straightened. There is no scoliosis or subluxation. No definite acute fracture or compression deformity is seen. The craniocervical junction is intact. No gross spinal canal masses are seen. The paraverte bral and paraspinal soft tissues are unremarkable. Mild multilevel spondyl otic changes are most prominent at C5-C6. 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 There is at least mild to moderate canal stenosis at C4-C5 and C5- C6 due to posterior disc osteophyte complexes. Mild to moderate right and mode rate left foraminal stenoses at C5-C6 are due to uncovertebral and facet arthr osis. Mild mosaic attenuation in the upper lungs is nonspecific. Mild to mo derate bilateral carotid bulb calcified plaque is present. IMPRESSION: 1. No acute osseous abnormalities. 2. Mild multilevel spondylosis, most pr ominent at C5-C6. 3. At least mild to moderate degenerative canal stenoses at C4-C5 and C5-C6. 4. Mild to moderate right and moderate left degenerative fo raminal stenoses at C5-C6. Signed by: Dr. Vahid Burkett M.D. on 019 12:05 AM Dictated By: VAHID BURKETT MD Transcribed By: ESTELLE on 01/16/19 0005 COPY TO: DEVON IRWIN MD Urine Eqame3868-11-47 23:57:00* Test Item Value Reference Range Interpretation Comments Urine Color (test code = 5778-6) YELLOW YELLOW [facility] HospitalUrine Njpjwlp5930-42-73 23:57:00* Test Item Value Reference Range Interpretation Comments Urine Clarity (test code = 34884-1) CLEAR CLEAR [facility] HospitalU[facility] Specific Derrgoy9727-81-25 23:57:00 * Test Item Value Reference Range Interpretation Comments Urine Specific Wilber (test code = 5811-5) 1.010 1.010-1.02 5 [facility] HospitalUrine [id number] 23:57:00* Test Item Value Reference Range Interpretation Comments Urine pH (test code = 98927-0) 6 5-7 [facility] Leukocyte Wkpypoaa3385-38-94 23:57:00* Test Item Value Reference Range Interpretation Comments Urine Leukocyte Esterase (test code = 00870-2) SMALL NEGATIV E [facility] HospitalUrine Nuyjqdj6323-52-64 23:57:00* Test Item Value Reference Range Interpretation Comments Urine Nitrite (test code = 13000-2) NEGATIVE NEGATIVE [facility] HospitalUrine Lnwllqz1397-33-95 23:57:00* Test Item Value Reference Range Interpretation Comments Urine Protein (test code = 61765-5) NEGATIVE NEGATIVE [facility] HospitalU[facility] Glucose (UA)2019-01-15 23:57:00* Test Item Value Reference Range Interpretation Comments Urine Glucose (UA) (test code = 52304-3) NEGATIVE NEGATIVE [facility] HospitalUrine Lfxzrif0382-89-38 23:57:00* Test Item Value Reference Range Interpretation Comments Urine Ketones (test code = 75633-7) NEGATIVE NEGATIVE [facility] HospitalUrine Xwlixyceebwa9116-50-30 23:57:00* Test Item Value Reference Range Interpretation Comments Urine Urobilinogen (test code = 53510-0) 0.2 0.2-1 [facility] HospitalUrine Vpzyxxcun7550-42-86 23:57:00* Test Item Value Reference Range Interpretation Comments Urine Bilirubin (test code = 1977-8) NEGATIVE NEGATIVE [facility] HospitalUrine Ajmae1931-30-31 23:57:00* Test Item Value Reference Range Interpretation Comments Urine Blood (test code = 76491-0) NEGATIVE NEGATIVE [facility] HospitalTotal Bxmvlmkay3288-24-71 23:56:00* Test Item Value Reference Range Interpretation Comments Total Bilirubin (test code = 1974-2) 0.4 0.2-1.2 [facility] HospitalAspartate Amino Transf (AST/SGOT) 2019-01-15 23:56:00* Test Item Value Reference Range Interpretation Comments Aspartate Amino Transf (AST/SGOT) (test code = Aspartate Amino Transf (AST/SGOT)) 16 5-34 [facility] HospitalAlanine Aminotransferase (ALT/SGPT) 2019-01-15 23:56:00* Test Item Value Reference Range Interpretation Comments Alanine Aminotransferase (ALT/SGPT) (test code = 1742-6) 15 0-55 [facility] HospitalTotal Mfufrky5310-42-98 23:56:00* Test Item Value Reference Range Interpretation Comments Total Protein (test code = 2885-2) 6.0 6.5-8.1 L [facility] HospitalAlbumin2019-11-15 23:56:00* Test Item Value Reference Range Interpretation Comments Albumin (test code = 1751-7) 3.5 3.5-5.0 [facility] HospitalGlobulin2019-11-15 23:56:00* Test Item Value Reference Range Interpretation Comments Globulin (test code = 01682-6) 2.5 2.3-3.5 [facility] HospitalAlbumin/Globulin Bgfdw9821-45-40 23:56:00 * Test Item Value Reference Range Interpretation Comments Albumin/Globulin Ratio (test code = 1759-0) 1.4 0.8-2.0 [facility] HospitalAlkaline Icgjouvlzoj1870-11-38 23:56:00* Test Item Value Reference Range Interpretation Comments Alkaline Phosphatase (test code = 6768-6) 73 40-150 [facility] HospitalCreatine Kinase [id number] 23:56:00* Test Item Value Reference Range Interpretation Comments Creatine Kinase MB (test code = 94855-2) 1.10 0-4.3 [facility] HospitalTroponin [id number] 23:56:00* Test Item Value Reference Range Interpretation Comments Troponin I (test code = 34164-7) < 0.05 0.0-0.40 [facility] HospitalCT BRAIN [id number] 23:54:00 [facility] [address] [place] [address] Patient Name: JOSE CARLOS DIXON MR #: [id number] : 1960 Age/Sex: 59[id number] Req #: [id number] Adm Physician: Ordered by: DEVON IRWIN MD Report #: [id number] Location: ER Room/Bed: Procedure: CT/CT BRAIN WO Exam Date: Exam Time: REPORT STATUS: Signed CT BRAIN WO HIS TORY: Fall COMPARISON: Head CT 11/25/2018 TECHNIQUE: Noncontrast ax ial scans were obtained from skull base to the vertex. Coronal and sagittal r econstructions obtained from the axial data. One or more of the following dos e reduction techniques were used: Automated exposure control, adjustment of th e mA and/or kV according to patient size, and/or utilization of iterative alli nstruction technique. DISCUSSION: Scalp/Skull: Unremarkable. Brain s ulci: Mildly prominent. Ventricles: Mild compensatory dilatation. Extra-axia l spaces: No masses or fluid collections. Parenchyma: Mild carotid siphon calcifications are present. No mass, hemorrhage, or large vascular terr itory acute infarct. Dural sinuses: No abnormal densities. Sellar/Supras ellar region: Intact. Skull base: Intact. Incidental findings: Bilateral mas toid effusions are present. There is minimal mucosal thickening in the bilater al maxillary sinuses. Trace fluid layers in the right sphenoid sinus. IMP RESSION: 1. No acute intracranial abnormalities. 2. Mild generalized ce rebral volume loss. Signed by: Dr. Vahid Burkett M.D. on 01/15/2019 11:58 PM Dictated By: VAHID BURKETT MD [id number] Transcribed By: ESTELLE on 01/15/19 8559 COPY TO: DEVON IRWIN MD CT BRAIN [id number] 15:52:00 [place] [address] Patient Name: JOSE CARLOS DIXON MR #: [id number] : 1960 Age/Sex: 58/F Req #: [id number] Adm Physician: KHADAR MCKINNEY MD Ordered by: GORDO BOSE M.D. Report #: [id number] Location: ICU Room/Bed: ICU [facility] Procedure: CT/CT BRAIN WO Exam Date: 11/25/18 Exam Time: 152 8 REPORT STATUS: Signed Exam: He ad CT without contrast History: Possible CVA Comparison studies: Brain MRI s of 12/04/2016 and in 12/29/2018 Technique: Axial images were obtained fr om the skull base to the vertex. Coronal and sagittal images reconstructed fro m the axial data. Dose modulation, iterative reconstruction, and/or weight ba sed adjustment of the mA/kV was utilized to reduce the radiation dose to as lo w as reasonably achievable. Radiation dose: Total DLP: 921 mGy*cm. Estimated effective dose: DLP x 0.015 Intravenous contrast: None Findi ngs: Scalp: No abnormalities. Bones: No fractures, blastic or lytic lesio ns. Brain sulci: Appropriate for age. Ventricles: Normal in size and conf iguration. No hydrocephalus. Extra-axial spaces: No masses, no fluid collectio n. Parenchyma: No abnormal densities. No masses, acute hemorrhage, a cute or chronic vascular insults. Sellar/suprasellar region: No abnormaliti es. Craniocervical junction: Patent foramen magnum. No Chiari one malformation . Incidental findings: Bilateral mastoid opacification has increased on the left and is new on the right compared to the prior brain MRI of 12/04/2016. Unchanged small right maxillary sinus polyp or retention cyst. IMPRES HERLINDA: 1. No intracranial abnormalities. 2. Nonspecific bilateral masto id opacification. Signed by: Dr. Angel Love M.D. on 11/25/2018 3:58 PM Dictated By: ANGEL LOVE MD 59 Transcribed By: ESTELLE on 11/25/181557 COPY TO: GORDO BOSE MD Bedside Fhlofjg7986-30-30 22:52:00* Test Item Value Reference Range Interpretation Comments Bedside Glucose (test code = 11941-1) 189 70-120 H Meter ID: [id number] Specialty and Transplant HospitalTotal Bilirubin 2018-11-24 21:40:00* Test Item Value Reference Range Interpretation Comments Total Bilirubin (test code = 1975-2) 0.9 0.2-1.2 [facility] HospitalDirect Dkaajduru4799-52-42 21:40:00* Test Item Value Reference Range Interpretation Comments Direct Bilirubin (test code = 17088-3) 0.4 0.0-0.5 [facility] HospitalAspartate Amino Transf (AST/SGOT) 2018-11-24 21:40:00* Test Item Value Reference Range Interpretation Comments Aspartate Amino Transf (AST/SGOT) (test code = Aspartate Amino Transf (AST/SGOT)) 45 5-34 H [facility] HospitalAlanine Aminotransferase (ALT/SGPT) 2018-11-24 21:40:00* Test Item Value Reference Range Interpretation Comments Alanine Aminotransferase (ALT/SGPT) (test code = 1742-6) 18 0-55 [facility] HospitalTotal Hguvscu4963-04-74 21:40:00* Test Item Value Reference Range Interpretation Comments Total Protein (test code = 2885-2) 6.2 6.5-8.1 L [facility] HospitalAlbumin2019-09-24 21:40:00* Test Item Value Reference Range Interpretation Comments Albumin (test code = 1751-7) 3.2 3.5-5.0 L [facility] HospitalAlkaline Kqhryxgzisz1849-62-70 21:40:00* Test Item Value Reference Range Interpretation Comments Alkaline Phosphatase (test code = 6768-6) 82 40-150 [facility] HospitalDirect Yhgmauwcd3416-27-29 21:40:00* Test Item Value Reference Range Interpretation Comments Direct Bilirubin (test code = 83600-4) 0.4 0.0-0.5 [facility] HospitalDifferential Total Cells Counted 2018-11-23 12:28:00* Test Item Value Reference Range Interpretation Comments Differential Total Cells Counted (test code = Differen tial Total Cells Counted) 100 [facility] HospitalNeutrophils % (Manual)2018-11-23 12:28:00 * Test Item Value Reference Range Interpretation Comments Neutrophils % (Manual) (test code = 59457-6) 53 40-74 [facility] HospitalLymphocytes % (Manual)2018-11-23 12:28:00 * Test Item Value Reference Range Interpretation Comments Lymphocytes % (Manual) (test code = 737-7) 17 19-48 L [facility] HospitalMonocytes % (Manual)2018-11-23 12:28:00* Test Item Value Reference Range Interpretation Comments Monocytes % (Manual) (test code = 744-3) 18 3.4-9.0 H [facility] HospitalEosinophils % (Manual)2018-11-23 12:28:00 * Test Item Value Reference Range Interpretation Comments Eosinophils % (Manual) (test code = 714-6) 8 0-7 H [facility] HospitalReactive Likxkvwedxl3202-96-31 12:28:00* Test Item Value Reference Range Interpretation Comments Reactive Lymphocytes (test code = 36752-8) 4 [facility] HospitalPlatelet Fjqvvgsb1839-44-04 12:28:00* Test Item Value Reference Range Interpretation Comments Platelet Estimate (test code = 23066-6) MODERATELY INCREASED [facility] HospitalPlatelet Morphology Rnggfyt9204-47-60 12:28:00* Test Item Value Reference Range Interpretation Comments Platelet Morphology Comment (test code = 74755-4) NORMAL [facility] HospitalPolychromasia2019-09-23 12:28:00* Test Item Value Reference Range Interpretation Comments Polychromasia (test code = 75661-1) FEW [facility] HospitalPoikilocytosis2019-09-23 12:28:00* Test Item Value Reference Range Interpretation Comments Poikilocytosis (test code = 779-9) SLIGHT [facility] HospitalAnisocytosis2019-09-23 12:28:00* Test Item Value Reference Range Interpretation Comments Anisocytosis (test code = 702-1) SLIGHT [facility] HospitalRed Cell Morphology Eeyyfky1765-06-36 12:28:00* Test Item Value Reference Range Interpretation Comments Red Cell Morphology Comment (test code = 6742-1) ABNORMAL [facility] HospitalDifferential Total Cells Counted 2018-11-23 12:28:00* Test Item Value Reference Range Interpretation Comments Differential Total Cells Counted (test code = Differen tial Total Cells Counted) 100 [facility] HospitalNeutrophils % (Manual)2018-11-23 12:28:00 * Test Item Value Reference Range Interpretation Comments Neutrophils % (Manual) (test code = 56509-2) 53 40-74 [facility] HospitalLymphocytes % (Manual)2018-11-23 12:28:00 * Test Item Value Reference Range Interpretation Comments Lymphocytes % (Manual) (test code = 737-7) 17 19-48 L [facility] HospitalMonocytes % (Manual)2018-11-23 12:28:00* Test Item Value Reference Range Interpretation Comments Monocytes % (Manual) (test code = 744-3) 18 3.4-9.0 H [facility] HospitalEosinophils % (Manual)2018-11-23 12:28:00 * Test Item Value Reference Range Interpretation Comments Eosinophils % (Manual) (test code = 714-6) 8 0-7 H [facility] HospitalReactive Yeudzdqbwlw4405-67-27 12:28:00* Test Item Value Reference Range Interpretation Comments Reactive Lymphocytes (test code = 72987-8) 4 [facility] HospitalPlatelet Loaqxxao0640-96-71 12:28:00* Test Item Value Reference Range Interpretation Comments Platelet Estimate (test code = 80546-6) MODERATELY INCREASED [facility] HospitalPlatelet Morphology Ramcnao7234-12-17 12:28:00* Test Item Value Reference Range Interpretation Comments Platelet Morphology Comment (test code = 55555-7) NORMAL [facility] HospitalPolychromasia2019-09-23 12:28:00* Test Item Value Reference Range Interpretation Comments Polychromasia (test code = 91076-3) FEW [facility] HospitalPoikilocytosis2019-09-23 12:28:00* Test Item Value Reference Range Interpretation Comments Poikilocytosis (test code = 779-9) SLIGHT [facility] HospitalAnisocytosis2019-09-23 12:28:00* Test Item Value Reference Range Interpretation Comments Anisocytosis (test code = 702-1) [facility]IGHT [facility] Pxvcn6521-84-59 11:16:00* Test Item Value Reference Range Interpretation Comments Sodium Level (test code = 2951-2) 139 136-145 [facility] HospitalPotassium Czkpo0823-43-58 11:16:00* Test Item Value Reference Range Interpretation Comments Potassium Level (test code = 2823-3) 3.8 3.5-5.1 [facility] HospitalChloride Qphxj3118-66-28 11:16:00* Test Item Value Reference Range Interpretation Comments Chloride Level (test code = 2075-0) 96 98-107 L [facility] HospitalCarbon Dioxide Bishj6082-81-28 11:16:00* Test Item Value Reference Range Interpretation Comments Carbon Dioxide Level (test code = 2028-9) 33 22-29 H [facility] HospitalAnion Rtm4016-67-41 11:16:00* Test Item Value Reference Range Interpretation Comments Anion Gap (test code = 58263-9) 13.8 8-16 [facility] HospitalBlood Urea Zlmknncs1624-04-85 11:16:00* Test Item Value Reference Range Interpretation Comments Blood Urea Nitrogen (test code = 3094-0) 9 - [facility] HospitalCreatinine2019-09-23 11:16:00* Test Item Value Reference Range Interpretation Comments Creatinine (test code = 2160-0) 0.81 0.57-1.11 [facility] HospitalBUN/Creatinine Sstbv1957-62-88 11:16:00* Test Item Value Reference Range Interpretation Comments BUN/Creatinine Ratio (test code = 3097-3) 11 08-25 [facility] HospitalEstimat Glomerular Filtration Rate 2018-11-23 11:16:00* Test Item Value Reference Range Interpretation Comments Estimat Glomerular Filtration Rate (test code = 537761869) > 60 >60 Ranges were taken from the National Kidney Disease Education Program and the [facility] [employer] literature.Reference ranges:60 or greater: Xartdt83-93 ( for 3 consecutive months): Chronic kidney disease 15 or less: Kidney failureMethodist Specialty and Transplant HospitalGlucose Zqsno2719-16-69 11:16:00* Test Item Value Reference Range Interpretation Comments Glucose Level (test code = VUV9973) 180 74-118 H [facility] HospitalCalcium Fjpmx5830-57-01 11:16:00* Test Item Value Reference Range Interpretation Comments Calcium Level (test code = 15546-7) 9.4 8.4-10.2 [facility] HospitalGlobulin2019-09-23 11:16:00* Test Item Value Reference Range Interpretation Comments Globulin (test code = 04120-0) 3.3 2.3-3.5 [facility] HospitalAlbumin/Globulin Yscwi0699-24-27 11:16:00 * Test Item Value Reference Range Interpretation Comments Albumin/Globulin Ratio (test code = 1759-0) 1.1 0.8-2.0 [facility] HospitalWhite Blood Yiyqh4576-31-83 11:06:00* Test Item Value Reference Range Interpretation Comments White Blood Count (test code = 6690-2) 14.50 4.8-10.8 H [facility] HospitalRed Blood Mylkp8449-76-74 11:06:00* Test Item Value Reference Range Interpretation Comments Red Blood Count (test code = 789-8) 4.10 3.6-5.1 [facility] HospitalHemoglobin2019-09-23 11:06:00* Test Item Value Reference Range Interpretation Comments Hemoglobin (test code = 16433-0) 10.3 12.0-16.0 L [facility] HospitalHematocrit2019-09-23 11:06:00* Test Item Value Reference Range Interpretation Comments Hematocrit (test code = 4544-3) 34.3 34.2-44.1 [facility] HospitalMean Corpuscular Wluvvm3907-47-27 11:06:00* Test Item Value Reference Range Interpretation Comments Mean Corpuscular Volume (test code = 787-2) 83.7 81-99 [facility] HospitalMean Corpuscular Chbhdlhafu7491-62-85 11:06:00* Test Item Value Reference Range Interpretation Comments Mean Corpuscular Hemoglobin (test code = 785-6) 25.1 28-32 L [facility] Transplant HospitalMean Corpuscular Hemoglobin Concent 2018-11-23 11:06:00* Test Item Value Reference Range Interpretation Comments Mean Corpuscular Hemoglobin Concent (test code = 786-4) 30.0 31-35 L [facility] HospitalRed Cell Distribution Nqbvt5719-09-92 11:06:00* Test Item Value Reference Range Interpretation Comments Red Cell Distribution Width (test code = 91014-6) 20.0 11.7 -14.4 H [facility] HospitalPlatelet Dwlgm4380-95-51 11:06:00* Test Item Value Reference Range Interpretation Comments Platelet Count (test code = 777-3) 426 140-360 H [facility] HospitalNeutrophils (%) (Auto)2018-11-23 11:06:00 * Test Item Value Reference Range Interpretation Comments Neutrophils (%) (Auto) (test code = 39390-1) 63.6 38.7-80.0 [facility] HospitalLymphocytes (%) (Auto)2018-11-23 11:06:00 * Test Item Value Reference Range Interpretation Comments Lymphocytes (%) (Auto) (test code = 736-9) 15.2 18.0-39.1 L [facility] HospitalMonocytes (%) (Auto)2018-11-23 11:06:00* Test Item Value Reference Range Interpretation Comments Monocytes (%) (Auto) (test code = 5905-5) 12.2 4.4-11.3 H [facility] HospitalEosinophils (%) (Auto)2018-11-23 11:06:00 * Test Item Value Reference Range Interpretation Comments Eosinophils (%) (Auto) (test code = 713-8) 7.6 0.0-6.0 H [facility] HospitalBasophils (%) (Auto)2018-11-23 11:06:00* Test Item Value Reference Range Interpretation Comments Basophils (%) (Auto) (test code = 706-2) 0.6 0.0-1.0 [facility] HospitalIM GRANULOCYTES %2018-11-23 11:06:00* Test Item Value Reference Range Interpretation Comments IM GRANULOCYTES % (test code = IM GRANULOCYTES %) 0.8 0.0- 1.0 [facility] HospitalNeutrophils # (Auto)2018-11-23 11:06:00* Test Item Value Reference Range Interpretation Comments Neutrophils # (Auto) (test code = 751-8) 9.2 2.1-6.9 H [facility] HospitalLymphocytes # (Auto)2018-11-23 11:06:00* Test Item Value Reference Range Interpretation Comments Lymphocytes # (Auto) (test code = 94016-3) 2.2 1.0-3.2 [facility] HospitalMonocytes # (Auto)2018-11-23 11:06:00* Test Item Value Reference Range Interpretation Comments Monocytes # (Auto) (test code = 742-7) 1.8 0.2-0.8 H [facility] HospitalEosinophils # (Auto)2018-11-23 11:06:00* Test Item Value Reference Range Interpretation Comments Eosinophils # (Auto) (test code = 711-2) 1.1 0.0-0.4 H [facility] HospitalBasophils # (Auto)2018-11-23 11:06:00* Test Item Value Reference Range Interpretation Comments Basophils # (Auto) (test code = 704-7) 0.1 0.0-0.1 [facility] HospitalAbsolute Immature Granulocyte (auto 2018-11-23 11:06:00* Test Item Value Reference Range Interpretation Comments Absolute Immature Granulocyte (auto (genoveva t code = Absolute Immature Granulocyte (auto) 0.11 0-0.1 H [facility] HospitalB-Type Natriuretic Sihmsma4460-87-52 20:08:00* Test Item Value Reference Range Interpretation Comments B-Type Natriuretic Peptide (test code = 97154-2) 191.3 0-100 H [facility] HospitalB-Type Natriuretic Dqavgfx3438-84-51 20:08:00* Test Item Value Reference Range Interpretation Comments B-Type Natriuretic Peptide (test code = 82318-0) 191.3 0-100 H [facility] HospitalB-Type Natriuretic Gtsnofw6232-79-88 20:08:00* Test Item Value Reference Range Interpretation Comments B-Type Natriuretic Peptide (test code = 26411-1) 191.3 0-100 H [facility] HospitalCreatine Kinase [id number] 18:14:00* Test Item Value Reference Range Interpretation Comments Creatine Kinase MB (test code = 95461-7) 1.80 0-5.0 [facility] HospitalTroponin J1855-23-52 18:14:00* Test Item Value Reference Range Interpretation Comments Troponin I (test code = EQV0851) < 0.001 0-0.300 [facility] HospitalCreatine Kinase BY9474-84-04 18:14:00* Test Item Value Reference Range Interpretation Comments Creatine Kinase MB (test code = 13041-6) 1.80 0-5.0 [facility] HospitalTrDesiree Ville [address]P2519-44-58 18:14:00* Test Item Value Reference Range Interpretation Comments Troponin I (test code = UJY1334) < 0.001 0-0.300 [facility]odium Fvdle0130-57-64 18:09:00* Test Item Value Reference Range Interpretation Comments Sodium Level (test code = 2951-2) 139 136-145 [facility] HospitalPotassium Qnnat4341-13-60 18:09:00* Test Item Value Reference Range Interpretation Comments Potassium Level (test code = 2823-3) 4.0 3.5-5.1 [facility] HospitalChloride Yekjp5534-85-07 18:09:00* Test Item Value Reference Range Interpretation Comments Chloride Level (test code = 2075-0) 102 98-107 [facility] HospitalCarbon Dioxide Fxjik9335-66-33 18:09:00* Test Item Value Reference Range Interpretation Comments Carbon Dioxide Level (test code = 2028-9) 24 22-29 [facility] HospitalAnion Wyi9530-42-06 18:09:00* Test Item Value Reference Range Interpretation Comments Anion Gap (test code = 21159-1) 17.0 8-16 H [facility] HospitalBlood Urea Yvvjsqnv3779-97-37 18:09:00* Test Item Value Reference Range Interpretation Comments Blood Urea Nitrogen (test code = 3094-0) 10 7-26 [facility] HospitalCreatinine2019-07-22 18:09:00* Test Item Value Reference Range Interpretation Comments Creatinine (test code = 2160-0) 0.73 0.57-1.11 [facility] HospitalBUN/Creatinine Llxfj1026-09-27 18:09:00* Test Item Value Reference Range Interpretation Comments BUN/Creatinine Ratio (test code = 3097-3) 14 6-25 [facility] HospitalEstimat Glomerular Filtration Rate 2018-09-21 18:09:00* Test Item Value Reference Range Interpretation Comments Estimat Glomerular Filtration Rate (test code = 954935042) > 60 >60 Ranges were taken from the National Kidney Disease Education Program and the [facility] Kidney Foundation literature.Reference ranges:60 or greater: Kotntx51-17 ( for 3 consecutive months): Chronic kidney disease 15 or less: Kidney failureMethodist Specialty and Transplant HospitalGlucose Ozpyp8799-44-04 18:09:00* Test Item Value Reference Range Interpretation Comments Glucose Level (test code = WCE8696) 164 74-118 H [facility] HospitalCalcium Hnvjz7940-51-22 18:09:00* Test Item Value Reference Range Interpretation Comments Calcium Level (test code = 82905-2) 9.9 8.4-10.2 [facility] HospitalTotal Wzodzkdsk7985-79-43 18:09:00* Test Item Value Reference Range Interpretation Comments Total Bilirubin (test code = 1975-2) 0.7 0.2-1.2 [facility] HospitalAspartate Amino Transf (AST/SGOT) 2018-09-21 18:09:00* Test Item Value Reference Range Interpretation Comments Aspartate Amino Transf (AST/SGOT) (test code = Aspartate Amino Transf (AST/SGOT)) 44 5-34 H [facility] HospitalAlanine Aminotransferase (ALT/SGPT) 2018-09-21 18:09:00* Test Item Value Reference Range Interpretation Comments Alanine Aminotransferase (ALT/SGPT) (test code = 1742-6) 31 0-55 [facility] HospitalTotal Dzhsvcr4268-78-85 18:09:00* Test Item Value Reference Range Interpretation Comments Total Protein (test code = 2885-2) 7.1 6.5-8.1 [facility] HospitalAlbumin2019-07-22 18:09:00* Test Item Value Reference Range Interpretation Comments Albumin (test code = 1751-7) 3.8 3.5-5.0 [facility] HospitalGlobulin2019-07-22 18:09:00* Test Item Value Reference Range Interpretation Comments Globulin (test code = 78266-8) 3.3 2.3-3.5 [facility] HospitalAlbumin/Globulin Cfdiq8351-05-58 18:09:00 * Test Item Value Reference Range Interpretation Comments Albumin/Globulin Ratio (test code = 1759-0) 1.2 0.8-2.0 [facility] HospitalAlkaline Mdbmmifpwhc5933-38-47 18:09:00* Test Item Value Reference Range Interpretation Comments Alkaline Phosphatase (test code = 6768-6) 89 40-150 [facility] HospitalCreatine Nuiuou0757-15-52 18:09:00* Test Item Value Reference Range Interpretation Comments Creatine Kinase (test code = 2157-6) 108 29-168 [facility] HospitalCreatine Auhroz5510-31-63 18:09:00* Test Item Value Reference Range Interpretation Comments Creatine Kinase (test code = 2157-6) 108 29-168 [facility] HospitalWhite Blood Qxkgb3125-91-60 17:54:00* Test Item Value Reference Range Interpretation Comments White Blood Count (test code = 6690-2) 13.87 4.8-10.8 H [facility] HospitalRed Blood Atvre8256-21-05 17:54:00* Test Item Value Reference Range Interpretation Comments Red Blood Count (test code = 789-8) 3.82 3.6-5.1 [facility] HospitalHemoglobin2019-07-22 17:54:00* Test Item Value Reference Range Interpretation Comments Hemoglobin (test code = 11893-0) 10.2 12.0-16.0 L [facility] HospitalHematocrit2019-07-22 17:54:00* Test Item Value Reference Range Interpretation Comments Hematocrit (test code = 4544-3) 33.7 34.2-44.1 L [facility] HospitalMean Corpuscular Zuhiim2214-20-89 17:54:00* Test Item Value Reference Range Interpretation Comments Mean Corpuscular Volume (test code = 787-2) 88.2 81-99 [facility] HospitalMean Corpuscular Sqsbqozyvk6327-03-94 17:54:00* Test Item Value Reference Range Interpretation Comments Mean Corpuscular Hemoglobin (test code = 785-6) 26.7 28-32 L [facility] HospitalMean Corpuscular Hemoglobin Concent 2018-09-21 17:54:00* Test Item Value Reference Range Interpretation Comments Mean Corpuscular Hemoglobin Concent (test code = 786-4) 30.3 31-35 L [facility] HospitalRed Cell Distribution Acsay9099-93-72 17:54:00* Test Item Value Reference Range Interpretation Comments Red Cell Distribution Width (test code = 02042-1) 18.4 11.7 -14.4 H [facility] HospitalPlatelet Nlmpi7961-32-81 17:54:00* Test Item Value Reference Range Interpretation Comments Platelet Count (test code = 777-3) 388 140-360 H [facility] HospitalNeutrophils (%) (Auto)2018-09-21 17:54:00 * Test Item Value Reference Range Interpretation Comments Neutrophils (%) (Auto) (test code = 40303-7) 72.9 38.7-80.0 [facility] HospitalLymphocytes (%) (Auto)2018-09-21 17:54:00 * Test Item Value Reference Range Interpretation Comments Lymphocytes (%) (Auto) (test code = 736-9) 13.5 18.0-39.1 L [facility] HospitalMonocytes (%) (Auto)2018-09-21 17:54:00* Test Item Value Reference Range Interpretation Comments Monocytes (%) (Auto) (test code = 5905-5) 9.4 4.4-11.3 [facility] HospitalEosinophils (%) (Auto)2018-09-21 17:54:00 * Test Item Value Reference Range Interpretation Comments Eosinophils (%) (Auto) (test code = 713-8) 2.2 0.0-6.0 [facility] HospitalBasophils (%) (Auto)2018-09-21 17:54:00* Test Item Value Reference Range Interpretation Comments Basophils (%) (Auto) (test code = 706-2) 0.6 0.0-1.0 [facility] HospitalIM GRANULOCYTES %2018-09-21 17:54:00* Test Item Value Reference Range Interpretation Comments IM GRANULOCYTES % (test code = IM GRANULOCYTES %) 1.4 0.0- 1.0 H [facility] HospitalNeutrophils # (Auto)2018-09-21 17:54:00* Test Item Value Reference Range Interpretation Comments Neutrophils # (Auto) (test code = 751-8) 10.1 2.1-6.9 H [facility] HospitalLymphocytes # (Auto)2018-09-21 17:54:00* Test Item Value Reference Range Interpretation Comments Lymphocytes # (Auto) (test code = 96656-7) 1.9 1.0-3.2 [facility] HospitalMonocytes # (Auto)2018-09-21 17:54:00* Test Item Value Reference Range Interpretation Comments Monocytes # (Auto) (test code = 742-7) 1.3 0.2-0.8 H [facility] HospitalEosinophils # (Auto)2018-09-21 17:54:00* Test Item Value Reference Range Interpretation Comments Eosinophils # (Auto) (test code = 711-2) 0.3 0.0-0.4 [facility] HospitalBasophils # (Auto)2018-09-21 17:54:00* Test Item Value Reference Range Interpretation Comments Basophils # (Auto) (test code = 704-7) 0.1 0.0-0.1 [facility] HospitalAbsolute Immature Granulocyte (auto 2018-09-21 17:54:00* Test Item Value Reference Range Interpretation Comments Absolute Immature Granulocyte (auto (genoveva t code = Absolute Immature Granulocyte (auto) 0.20 0-0.1 H [facility] HospitalCHEST SINGLE (NOT PORTABLE)2018-09-21 16:34:00 [place] [address] Patient Name: JOSE CARLOS DIXON MR #: [id number] : 1960 Age/Sex: 58/F Req #: [id number] Adm Physician: Ordered by: BEATRIZ WIN MD Report #: [id number] Location: ER Room/Bed: Procedure: [id number] DX/C HEST SINGLE (NOT PORTABLE) Exam Date: Exam Time: REPORT STATUS: Signed EXAMINATION: CHEST SINGLE (NOT PORTABLE) INDICATION: Shortness of breath COM PARISON: Chest CT of 07/27/2018, chest radiograph of 07/27/2018 and 02/18/2017 FINDINGS: TUBES and LINES: None. LUNGS: The lungs are moderately inflated. Mild patchy opacity at the right lung base. PLEURA: Small rig ht pleural effusion. No left pleural effusion. No pneumothorax. HEART AND MEDIASTINUM: The cardiomediastinal silhouette is normal in size and contour. Atherosclerotic calcifications of the thoracic aorta. BONES AND SOFT TISSUE S: No acute fracture or dislocation. UPPER ABDOMEN: No free air under the d iaphragm. IMPRESSION: Patchy opacity at the right lung base, most likely subsegmental atelectasis. Small right pleural effusion. Signed by: Matt Cramer MD on 09/21/2018 4:36 PM Dictated By: GERMÁN CRAMER MD 163 Transcribed By: ESTELLE on 09/21/18 1636 COPY TO: BEATRIZ WIN MD p-ANCA Aiybs9988-50-21 13:29:00* Test Item Value Reference Range Interpretation Comments p-ANCA Titer (test code = 89025-9) <1:20 Neg:<1:20 The presence of positive fluorescence exhibiting P-ANCA orC-ANCA patterns alone is not specific for the diagnosis ofWegener's Granulomatosis (WG) or microscopic polyangiitis.Decisions about treatment should not be based solely onANCA IFA re sults. The International ANCA Group Consensusrecommends follow up testing of po sitive sera with both IN-3 and MPO-ANCA enzyme immunoassays. As many as 5% serum samples are positive only by EIA. Ref. AM J Clin Jktvhf5243;111:507-513.[facility] Hospitalc-ANCA Tvfju8107-28-93 13:29:00* Test Item Value Reference Range Interpretation Comments c-ANCA Titer (test code = 88114-3) <1:20 Neg:<1:20 [facility] HospitalAtypical b-QFSQ9376-17TFJI6926-62-08 13:29:00* Test Item Value Reference Range Interpretation Comments Atypical p-ANCA (test code = 75355-7) <1:20 Neg:<1:20 The atypical pANCA pattern has been observed in asignificant percentage of patie nts with ulcerative colitis,primary sclerosing cholangitis and autoimmune hepati tis.Performed at: [facility] [place] [address]Xab Director: Kimmy Harry MD, Phone: [phone] Specialty and Transplant Hospitalp-ANCA Jfeng8736-60-24 13:29:00* Test Item Value Reference Range Interpretation Comments p-ANCA Titer (test code = 91013-1) <1:20 Neg:<1:20 The presence of positive fluorescence exhibiting P-ANCA orC-ANCA patterns alone is not specific for the diagnosis ofWegener's Granulomatosis (WG) or microscopic polyangiitis.Decisions about treatment should not be based solely onANCA IFA re sults. The International ANCA Group Consensusrecommends follow up testing of po sitive sera with both IN-3 and MPO-ANCA enzyme immunoassays. As many as 5% serum samples are positive only by EIA. Ref. AM J Clin Kmrjxd7779;111:507-513.[facility] Hospitalc-ANCA Mfsdq8376-14-84 13:29:00* Test Item Value Reference Range Interpretation Comments c-ANCA Titer (test code = 45805-7) <1:20 Neg:<1:20 [facility] HospitalAtypical a-TZFO6462-19KXED7894-76-98 13:29:00* Test Item Value Reference Range Interpretation Comments Atypical p-ANCA (test code = 60741-2) <1:20 Neg:<1:20 The atypical pANCA pattern has been observed in asignificant percentage of patie nts with ulcerative colitis,primary sclerosing cholangitis and autoimmune hepati tis.Performed at: [facility] [address] [id number] Director: Kimmy Harry MD, Phone: [phone] Specialty and Transplant Hospitalp-ANCA Uvwov6076-62-76 13:29:00* Test Item Value Reference Range Interpretation Comments p-ANCA Titer (test code = 77514-3) <1:20 Neg:<1:20 The presence of positive fluorescence exhibiting P-ANCA orC-ANCA patterns alone is not specific for the diagnosis ofWegener's Granulomatosis (WG) or microscopic polyangiitis.Decisions about treatment should not be based solely onANCA IFA re sults. The International ANCA Group Consensusrecommends follow up testing of po sitive sera with both IN-3 and MPO-ANCA enzyme immunoassays. As many as 5% serum samples are positive only by EIA. Ref. AM J Clin Cyjedw4536;111:507-513.[facility] Hospitalc-ANCA Bjlwx4339-18-69 13:29:00* Test Item Value Reference Range Interpretation Comments c-ANCA Titer (test code = 09598-6) <1:20 Neg:<1:20 [facility] HospitalAtypical s-KJLL4104-45ZZQD9710-58-38 13:29:00* Test Item Value Reference Range Interpretation Comments Atypical p-ANCA (test code = 33059-4) <1:20 Neg:<1:20 The atypical pANCA pattern has been observed in asignificant percentage of patie nts with ulcerative colitis,primary sclerosing cholangitis and autoimmune hepati tis.Performed at: [place] [address]Lab Director: Kimmy Harry MD, Phone: [phone] Spohn Hospital [facility]eville Fcoherq2464-31-09 14:24:00* Test Item Value Reference Range Interpretation Comments Bedside Glucose (test code = 80759-4) 226 70-120 H Meter ID: [id number] Hospital Glucose 2018-07-31 14:24:00* Test Item Value Reference Range Interpretation Comments Bedside Glucose (test code = 71832-3) 226 70-120 H Meter ID: [id number] Children's Hospital Houstonodium Level 2018-07-31 07:22:00* Test Item Value Reference Range Interpretation Comments Sodium Level (test code = 2951-2) 138 136-145 [facility] HospitalPotassium Mqkju0435-68-71 07:22:00* Test Item Value Reference Range Interpretation Comments Potassium Level (test code = 2823-3) 3.3 3.5-5.1 L [facility] HospitalChloride Ebolf5335-63-58 07:22:00* Test Item Value Reference Range Interpretation Comments Chloride Level (test code = 2075-0) 94 98-107 L [facility] HospitalCarbon Dioxide Bzhep6309-96-01 07:22:00* Test Item Value Reference Range Interpretation Comments Carbon Dioxide Level (test code = 2028-9) 31 22-29 H [facility] HospitalAnion Gqd4324-81-77 07:22:00* Test Item Value Reference Range Interpretation Comments Anion Gap (test code = 87986-0) 16.3 8-16 H [facility] HospitalBlood Urea Wwlcdfhu8776-60-71 07:22:00* Test Item Value Reference Range Interpretation Comments Blood Urea Nitrogen (test code = 3094-0) 21 7-26 [facility] HospitalCreatinine2019-05-31 07:22:00* Test Item Value Reference Range Interpretation Comments Creatinine (test code = 2160-0) 0.89 0.57-1.11 [facility] HospitalBUN/Creatinine Vlpsi8540-58-95 07:22:00* Test Item Value Reference Range Interpretation Comments BUN/Creatinine Ratio (test code = 3097-3) 24 6-25 [facility] HospitalEstimat Glomerular Filtration Rate 2018-07-31 07:22:00* Test Item Value Reference Range Interpretation Comments Estimat Glomerular Filtration Rate (test code = 845682150) > 60 >60 Ranges were taken from the National Kidney Disease Education Program and the [facility] Kidney Foundation literature.Reference ranges:60 or greater: Rlauhb09-26 ( for 3 consecutive months): Chronic kidney disease 15 or less: Kidney failureMethodist Specialty and Transplant HospitalGlucose Oajbs5984-82-78 07:22:00* Test Item Value Reference Range Interpretation Comments Glucose Level (test code = RWZ7552) 139 74-118 H [facility] HospitalCalcium Qmtqs5050-35-10 07:22:00* Test Item Value Reference Range Interpretation Comments Calcium Level (test code = 13953-2) 9.5 8.4-10.2 [facility] HospitalCyclic Citrullinated Peptide IgG Ab 2018-07-31 01:12:00* Test Item Value Reference Range Interpretation Comments Cyclic Citrullinated Peptide IgG Ab (test code = 81170-0) 4 0-19 Negative <20 Weak positive 20 - 39 Moderate positive 40 - 59 Strong positive >59Performed at: [facility] [id number] Director: Don Plascencia MD, Phone: [phone] at: Th[address] [id number] Director: Kimmy Harry MD, Phone: [phone] Memorial Hospital2019-05-31 01:12:00* Test Item Value Reference Range Interpretation Comments Rheumatoid Factor (test code = 78726-4) 10.2 0.0-13.9 [facility] Citrullinated Peptide IgG Ab 2018-07-31 01:12:00* Test Item Value Reference Range Interpretation Comments Cyclic Citrullinated Peptide IgG Ab (test code = 40465-3) 4 0-19 Negative <20 Weak positive 20 - 39 Moderate positive 40 - 59 Strong positive >59Performed at: [facility] [address] [id number] Director: Don Plascencia MD, Phone: [phone] at: [address] [id number] Director: Kimmy Harry MD, Phone: [phone] Memorial Hospital2019-05-31 01:12:00* Test Item Value Reference Range Interpretation Comments Rheumatoid Factor (test code = 59668-5) 10.2 0.0-13.9 [facility] Citrullinated Peptide IgG Ab 2018-07-31 01:12:00* Test Item Value Reference Range Interpretation Comments Cyclic Citrullinated Peptide IgG Ab (test code = 20191-7) 4 0-19 Negative <20 Weak positive 20 - 39 Moderate positive 40 - 59 Strong positive >59Performed at: [address] [id number] Director: Don Plascencia MD, Phone: [phone] at: [address] [id number] Director: Kimmy Harry MD, Phone: [phone] Memorial Hospital2019-05-31 01:12:00* Test Item Value Reference Range Interpretation Comments Rheumatoid Factor (test code = 14621-7) 10.2 0.0-13.9 [facility] HospitalCyclic Citrullinated Peptide IgG Ab 2018-07-31 01:12:00* Test Item Value Reference Range Interpretation Comments Cyclic Citrullinated Peptide IgG Ab (test code = 40471-3) 4 0-19 Negative <20 Weak positive 20 - 39 Moderate positive 40 - 59 Strong positive >59Performed at: [address] [id number] Director: Don Plascencia MD, Phone: [phone] at: [address] [id number] Director: Kimmy Harry MD, Phone: [phone] Center Hospitaleumast. joseph [facility] Rcccno7290-74-64 01:12:00* Test Item Value Reference Range Interpretation Comments Rheumatoid Factor (test code = 76692-4) 10.2 0.0-13.9 [facility] HospitalAnti-Nuclear Antibody (LAB)2018-07-30 22:12:00* Test Item Value Reference Range Interpretation Comments Anti-Nuclear Antibody (LAB) (test code = 8061-4) Positive Negat chap[place] [facility]M Sxkgyyjh4376-75-22 22:12:00* Test Item Value Reference Range Interpretation Comments SM Antibody (test code = 78590-8) 6 0-19 Negative 0 - 19 Weak positi ve 20 - 30 Moderate to strong positive >30 Actin Antibodies are found in 52-85% of patients with autoimmune hepatitis or chronic active hepatitis and in 22% of patients with primary biliary cirrhosis. [facility] HospitalAnti-Mitochondrial Qobxsoug4913-43-92 22:12:00* Test Item Value Reference Range Interpretation Comments Anti-Mitochondrial Antibody (test code = 58777-8) <20.0 0.0- 20.0 Negative 0.0 - 20.0 Equivocal 20.1 - 24.9 Positive > 24.9Mitochondrial (M2) Antibodies are found in 90-96% ofpatients with primary bi liary cirrhosis.[facility] HospitalAnti-Double Strand DNA (Crithidia)2018-07-30 22:12:00* Test Item Value Reference Range Interpretation Comments Anti-Double Strand DNA (Crithidia) (test code = 5130-0) <1 0-9 Negative <5 Equivocal 5 - 9 Positive >9CH[facility] BeevilleThyroid Peroxidase Tplvcthlwk2984-77-70 22:12:00 * Test Item Value Reference Range Interpretation Comments Thyroid Peroxidase Antibodies (test code = 8099-4) 8 0-3 4 Performed at: [facility] [address] [id number] Director: Don Plascencia MD, Phone: [phone] at: - [facility] [address] [id number] Director: Kimmy Harry MD, Ph one: [phone] Specialty and Transplant HospitalAnti-Parietal Cell Amwxswpw7449-09-97 22:12:00* Test Item Value Reference Range Interpretation Comments Anti-Parietal Cell Antibody (test code = 8087-9) 14.7 0.0-2 0.0 Negative 0.0 - 20.0 Equivocal 20.1 - 24.9 Positive > 24.9Parietal Cell Antibodies are found in 90% of patientswith pernicious anemia and 30% of first degreerelatives with pernicious anemia.[facility] HospitalAnti-Nuclear Antibody (LAB)2018-07-30 22:12:00* Test Item Value Reference Range Interpretation Comments Anti-Nuclear Antibody (LAB) (test code = 8061-4) Positive Negat chapincito [facility] Zagutacl9151-84-95 22:12:00* Test Item Value Reference Range Interpretation Comments SM Antibody (test code = 80605-8) 6 0-19 Negative 0 - 19 Weak positi ve 20 - 30 Moderate to strong positive >30 Actin Antibodies are found in 52-85% of patients with autoimmune hepatitis or chronic active hepatitis and in 22% of patients with primary biliary cirrhosis. [facility] HospitalAnti-Mitochondrial Ovlhmzpk7704-93-87 22:12:00* Test Item Value Reference Range Interpretation Comments Anti-Mitochondrial Antibody (test code = 06059-3) <20.0 0.0- 20.0 Negative 0.0 - 20.0 Equivocal 20.1 - 24.9 Positive > 24.9Mitochondrial (M2) Antibodies are found in 90-96% ofpatients with primary bi liary cirrhosis.[facility] HospitalAnti-Double Strand DNA (Crithidia)2018-07-30 22:12:00* Test Item Value Reference Range Interpretation Comments Anti-Double Strand DNA (Crithidia) (test code = 5130-0) <1 0-9 Negative <5 Equivocal 5 - 9 Positive >9[facility]Thy[facility] Perox[facility] Zswnljqbxo7893-69-79 22:12:00 * Test Item Value Reference Range Interpretation Comments Thyroid Peroxidase Antibodies (test code = 8099-4) 8 0-3 4 Performed at: HD - [facility] [address] [id number] Director: Don Plascencia MD, Phone: [phone] at: - [facility] [address] [place] [id number] Director: Kimmy Harry MD, Ph one: [phone] Specialty and Transplant HospitalAnti-Parietal Cell Lzruelcd3970-98-20 22:12:00* Test Item Value Reference Range Interpretation Comments Anti-Parietal Cell Antibody (test code = 8087-9) 14.7 0.0-2 0.0 Negative 0.0 - 20.0 Equivocal 20.1 - 24.9 Positive > 24.9Parietal Cell Antibodies are found in 90% of patientswith pernicious anemia and 30% of first degreerelatives with pernicious anemia.[facility] HospitalAnti-Nuclear Antibody (LAB)2018-07-30 22:12:00* Test Item Value Reference Range Interpretation Comments Anti-Nuclear Antibody (LAB) (test code = 8061-4) Positive Negat chapincito H [facility] Kjfusvvm9282-27-62 22:12:00* Test Item Value Reference Range Interpretation Comments SM Antibody (test code = 41875-0) 6 0-19 Negative 0 - 19 Weak positi ve 20 - 30 Moderate to strong positive >30 Actin Antibodies are found in 52-85% of patients with autoimmune hepatitis or chronic active hepatitis and in 22% of patients with primary biliary cirrhosis. [facility] HospitalAnti-Mitochondrial Fgthvuqm9978-15-60 22:12:00* Test Item Value Reference Range Interpretation Comments Anti-Mitochondrial Antibody (test code = 97957-5) <20.0 0.0- 20.0 Negative 0.0 - 20.0 Equivocal 20.1 - 24.9 Positive > 24.9Mitochondrial (M2) Antibodies are found in 90-96% ofpatients with primary bi liary cirrhosis.[facility] HospitalAnti-Double Strand DNA (Crithidia)2018-07-30 22:12:00* Test Item Value Reference Range Interpretation Comments Anti-Double Strand DNA (Crithidia) (test code = 5130-0) <1 0-9 Negative <5 Equivocal 5 - 9 Positive >9[facility]evilleThyroid Peroxidase Yokparicqm4051-80-40 22:12:00 * Test Item Value Reference Range Interpretation Comments Thyroid Peroxidase Antibodies (test code = 8099-4) 8 0-3 4 Performed at: HD - [facility] [address] [id number] Director: Don Plascencia MD, Phone: [phone] at: - [facility] [id number] [place] [address] [id number] Director: Kimmy Harry MD, Ph one: [phone] Specialty and Transplant HospitalAnti-Parietal Cell Hbmqipra1302-57-61 22:12:00* Test Item Value Reference Range Interpretation Comments Anti-Parietal Cell Antibody (test code = 8087-9) 14.7 0.0-2 0.0 Negative 0.0 - 20.0 Equivocal 20.1 - 24.9 Positive > 24.9Parietal Cell Antibodies are found in 90% of patientswith pernicious anemia and 30% of first degreerelatives with pernicious anemia.[facility] HospitalAnti-Nuclear Antibody (LAB)2018-07-30 22:12:00* Test Item Value Reference Range Interpretation Comments Anti-Nuclear Antibody (LAB) (test code = 8061-4) Positive Negat chapincito H [facility] Ndlvvfns4872-78-42 22:12:00* Test Item Value Reference Range Interpretation Comments SM Antibody (test code = 32843-0) 6 0-19 Negative 0 - 19 Weak positi ve 20 - 30 Moderate to strong positive >30 Actin Antibodies are found in 52-85% of patients with autoimmune hepatitis or chronic active hepatitis and in 22% of patients with primary biliary cirrhosis. [facility] HospitalAnti-Mitochondrial Ydmacqyq6664-38-61 22:12:00* Test Item Value Reference Range Interpretation Comments Anti-Mitochondrial Antibody (test code = 88873-6) <20.0 0.0- 20.0 Negative 0.0 - 20.0 Equivocal 20.1 - 24.9 Positive > 24.9Mitochondrial (M2) Antibodies are found in 90-96% ofpatients with primary bi liary cirrhosis.[facility] HospitalAnti-Double Strand DNA (Crithidia)2018-07-30 22:12:00* Test Item Value Reference Range Interpretation Comments Anti-Double Strand DNA (Crithidia) (test code = 5130-0) <1 0-9 Negative <5 Equivocal 5 - 9 Positive >9[facility]evilleThyroid Peroxidase Cqfkgezgdt7228-76-77 22:12:00 * Test Item Value Reference Range Interpretation Comments Thyroid Peroxidase Antibodies (test code = 8099-4) 8 0-3 4 Performed at: - [facility] [id number] Director: Don Plascencia MD, Phone: [phone] at: - [facility] [address] [place] [address] [id number] Director: Kimmy Harry MD, Ph one: [phone] Specialty and Transplant HospitalAnti-Parietal Cell Rfwwvqub0800-84-49 22:12:00* Test Item Value Reference Range Interpretation Comments Anti-Parietal Cell Antibody (test code = 8087-9) 14.7 0.0-2 0.0 Negative 0.0 - 20.0 Equivocal 20.1 - 24.9 Positive > 24.9Parietal Cell Antibodies are found in 90% of patientswith pernicious anemia and 30% of first degreerelatives with pernicious anemia.[facility] CenterS-A/Ro Giyklnpp0161-97-97 22:11:00* Test Item Value Reference Range Interpretation Comments SS-A/Ro Antibody (test code = 07398-2) <0.2 0.0-0.9 [facility] CenterS-B/La Poxtqmrb9016-96-10 22:11:00* Test Item Value Reference Range Interpretation Comments SS-B/La Antibody (test code = 55811-0) <0.2 0.0-0.9 [facility] Centerm (Pires) Rycsjicx8209-45-21 22:11:00* Test Item Value Reference Range Interpretation Comments Sm (Pires) Antibody (test code = 68440-0) <0.2 0.0-0.9 [facility] HospitalAnti-nRNP/Sm IgG Dpuopjri3856-08-59 22:11:00* Test Item Value Reference Range Interpretation Comments Anti-nRNP/Sm IgG Antibody (test code = 49497-8) <0.2 0.0-0. 9 [facility] Centercl-70 (Scleroderma) Xwhuaagz0203-37-51 22:11:00* Test Item Value Reference Range Interpretation Comments Scl-70 (Scleroderma) Antibody (test code = 11180-6) <0.2 0. 0-0.9 [facility] HospitalAnti-Striated Muscle Dwfovnsc2641-98-79 22:11:00* Test Item Value Reference Range Interpretation Comments Anti-Striated Muscle Antibody (test code = 5372-8) Negative Neg :<1:40 [facility] HospitalComplement [id number] 22:11:00* Test Item Value Reference Range Interpretation Comments Complement C4 (test code = 4498-2) [facility]S-A/Ro Tfciyfps3222-47-71 22:11:00* Test Item Value Reference Range Interpretation Comments SS-A/Ro Antibody (test code = 98122-1) <0.2 0.0-0.9 [facility] CenterS-B/La Fcudvbvb4650-17-10 22:11:00* Test Item Value Reference Range Interpretation Comments SS-B/La Antibody (test code = 56932-0) <0.2 0.0-0.9 [facility] (Pires) Mfktcxaf8685-49-88 22:11:00* Test Item Value Reference Range Interpretation Comments Sm (Pires) Antibody (test code = 62178-3) <0.2 0.0-0.9 [facility] HospitalAnti-nRNP/Sm IgG Bxjoavwo9823-37-06 22:11:00* Test Item Value Reference Range Interpretation Comments Anti-nRNP/Sm IgG Antibody (test code = 52066-0) <0.2 0.0-0. 9 [facility] Centercl-70 (Scleroderma) Ssgmxmjn2653-30-34 22:11:00* Test Item Value Reference Range Interpretation Comments Scl-70 (Scleroderma) Antibody (test code = 35079-7) <0.2 0. 0-0.9 [facility] HospitalAnti-Striated Muscle Syigyiox9173-88-57 22:11:00* Test Item Value Reference Range Interpretation Comments Anti-Striated Muscle Antibody (test code = 5372-8) Negative Neg :<1:40 [facility] HospitalComplement [id number] 22:11:00* Test Item Value Reference Range Interpretation Comments Complement C4 (test code = 4498-2) [facility]S-A/Ro Wyuvrgie6695-49-55 22:11:00* Test Item Value Reference Range Interpretation Comments SS-A/Ro Antibody (test code = 65445-4) <0.2 0.0-0.9 [facility] CenterS-B/La Qdngwchp4123-88-15 22:11:00* Test Item Value Reference Range Interpretation Comments SS-B/La Antibody (test code = 72850-4) <0.2 0.0-0.9 [facility] (Pires) Fiyqgksw5216-65-66 22:11:00* Test Item Value Reference Range Interpretation Comments Sm (Pires) Antibody (test code = 11770-5) <0.2 0.0-0.9 [facility] HospitalAnti-nRNP/Sm IgG Duhhtssc6173-97-19 22:11:00* Test Item Value Reference Range Interpretation Comments Anti-nRNP/Sm IgG Antibody (test code = 25722-7) <0.2 0.0-0. 9 [facility]cl-70 (Scleroderma) Zqqbvlou1839-68-96 22:11:00* Test Item Value Reference Range Interpretation Comments Scl-70 (Scleroderma) Antibody (test code = 56848-1) <0.2 0. 0-0.9 [facility] HospitalAnti-Striated Muscle Oukroaox2831-93-29 22:11:00* Test Item Value Reference Range Interpretation Comments Anti-Striated Muscle Antibody (test code = 5372-8) Negative Neg :<1:40 [facility] HospitalComplement [id number] 22:11:00* Test Item Value Reference Range Interpretation Comments Complement C4 (test code = 4498-2) 25 14-44 [facility] CenterS-A/Ro Xbccvbjj2738-60-03 22:11:00* Test Item Value Reference Range Interpretation Comments SS-A/Ro Antibody (test code = 27301-1) <0.2 0.0-0.9 [facility] CenterS-B/La Heheoqpx9979-22-24 22:11:00* Test Item Value Reference Range Interpretation Comments SS-B/La Antibody (test code = 58063-2) <0.2 0.0-0.9 [facility] (Pires) Asfipfok4436-18-43 22:11:00* Test Item Value Reference Range Interpretation Comments Sm (Pires) Antibody (test code = 88771-4) <0.2 0.0-0.9 [facility] HospitalAnti-nRNP/Sm IgG Lnxeegsh9494-89-80 22:11:00* Test Item Value Reference Range Interpretation Comments Anti-nRNP/Sm IgG Antibody (test code = 19847-1) <0.2 0.0-0. 9 [facility] Centercl-70 (Scleroderma) Qzdihlfz6045-34-56 22:11:00* Test Item Value Reference Range Interpretation Comments Scl-70 (Scleroderma) Antibody (test code = 79992-7) <0.2 0. 0-0.9 [facility] HospitalAnti-Striated Muscle Sjcfdevm7347-13-11 22:11:00* Test Item Value Reference Range Interpretation Comments Anti-Striated Muscle Antibody (test code = 5372-8) Negative Neg :<1:40 [facility] HospitalComplement H34003-76-29 22:11:00* Test Item Value Reference Range Interpretation Comments Complement C4 (test code = 4498-2) 25 14-44 [facility] HospitalB-Type Natriuretic Tbdwtkj1451-15-95 06:26:00* Test Item Value Reference Range Interpretation Comments B-Type Natriuretic Peptide (test code = 54783-1) 303.7 0-100 H [facility] HospitalC-Reactive Ebhsbsu6996-59-03 22:03:00* Test Item Value Reference Range Interpretation Comments C-Reactive Protein (test code = 1987-07) 6.4 0.0-4.9 H Effective August 17, 2018 the reference interval for C-Reactive Protein, Quant, will be changing to: Age Male Female 0 - 30 days Not Estab. Not Estab. 1 month - 17 years 0 - 7 0 - 9 >17 years 0 - 10 0 - 10Performed at: [facility] [id number] Director: Don Plascencia MD, Phone: [phone] Specialty and Transplant HospitalC-Reactive Jootscn2787-78-17 22:03:00* Test Item Value Reference Range Interpretation Comments C-Reactive Protein (test code = 1988-5) 6.4 0.0-4.9 H Effective August 17, 2018 the reference interval for C-Reactive Protein, Quant, will be changing to: Age Male Female 0 - 30 days Not Estab. Not Estab. 1 month - 17 years 0 - 7 0 - 9 >17 years 0 - 10 0 - 10Performed at: [facility] [address] [id number] Director: Don Plascencia MD, Phone: [phone] Specialty and Transplant HospitalC-Reactive Jnkjair1645-84-59 22:03:00* Test Item Value Reference Range Interpretation Comments C-Reactive Protein (test code = 1987-) 6.4 0.0-4.9 H Effective August 17, 2018 the reference interval for C-Reactive Protein, Quant, will be changing to: Age Male Female 0 - 30 days Not Estab. Not Estab. 1 month - 17 years 0 - 7 0 - 9 >17 years 0 - 10 0 - 10Performed at: [facility] [id number] Director: Don Plascencia MD, Phone: [phone] Specialty and Transplant HospitalC-Reactive Iawroqs0429-28-58 22:03:00* Test Item Value Reference Range Interpretation Comments C-Reactive Protein (test code = 1987-) 6.4 0.0-4.9 H Effective August 17, 2018 the reference interval for C-Reactive Protein, Quant, will be changing to: Age Male Female 0 - 30 days Not Estab. Not Estab. 1 month - 17 years 0 - 7 0 - 9 >17 years 0 - 10 0 - 10Performed at: [facility] [address] [id number] Director: Don Plascencia MD, Phone: [phone] Specialty and Transplant HospitalWhite Blood Aslhc7958-57-73 07:46:00* Test Item Value Reference Range Interpretation Comments White Blood Count (test code = 6690-2) 9.29 4.8-10.8 [facility] HospitalRed Blood Krbvx2632-93-93 07:46:00* Test Item Value Reference Range Interpretation Comments Red Blood Count (test code = 789-8) 3.82 3.6-5.1 [facility] HospitalHemoglobin2019-05-29 07:46:00* Test Item Value Reference Range Interpretation Comments Hemoglobin (test code = 16820-8) 11.0 12.0-16.0 L [facility] HospitalHematocrit2019-05-29 07:46:00* Test Item Value Reference Range Interpretation Comments Hematocrit (test code = 4544-3) 34.8 34.2-44.1 [facility] HospitalMean Corpuscular Piksjr2422-82-36 07:46:00* Test Item Value Reference Range Interpretation Comments Mean Corpuscular Volume (test code = 787-2) 91.1 81-99 [facility] HospitalMean Corpuscular Zgnnmsvxos7520-50-60 07:46:00* Test Item Value Reference Range Interpretation Comments Mean Corpuscular Hemoglobin (test code = 785-6) 28.8 28-32 [facility] HospitalMean Corpuscular Hemoglobin Concent 2018-07-29 07:46:00* Test Item Value Reference Range Interpretation Comments Mean Corpuscular Hemoglobin Concent (test code = 786-4) 31.6 31-35 [facility] HospitalRed Cell Distribution Lhzni1873-59-72 07:46:00* Test Item Value Reference Range Interpretation Comments Red Cell Distribution Width (test code = 34824-4) 15.9 11.7 -14.4 H [facility] Transplant HospitalPlatelet Vikfl7311-40-30 07:46:00* Test Item Value Reference Range Interpretation Comments Platelet Count (test code = 777-3) 357 140-360 [facility] HospitalNeutrophils (%) (Auto)2018-07-29 07:46:00 * Test Item Value Reference Range Interpretation Comments Neutrophils (%) (Auto) (test code = 73145-3) 64.6 38.7-80.0 [facility] HospitalLymphocytes (%) (Auto)2018-07-29 07:46:00 * Test Item Value Reference Range Interpretation Comments Lymphocytes (%) (Auto) (test code = 736-9) 16.8 18.0-39.1 L [facility] HospitalMonocytes (%) (Auto)2018-07-29 07:46:00* Test Item Value Reference Range Interpretation Comments Monocytes (%) (Auto) (test code = 5905-5) 13.0 4.4-11.3 H [facility] HospitalEosinophils (%) (Auto)2018-07-29 07:46:00 * Test Item Value Reference Range Interpretation Comments Eosinophils (%) (Auto) (test code = 713-8) 3.8 0.0-6.0 [facility] HospitalBasophils (%) (Auto)2018-07-29 07:46:00* Test Item Value Reference Range Interpretation Comments Basophils (%) (Auto) (test code = 706-2) 0.9 0.0-1.0 [facility] HospitalIM GRANULOCYTES %2018-07-29 07:46:00* Test Item Value Reference Range Interpretation Comments IM GRANULOCYTES % (test code = IM GRANULOCYTES %) 0.9 0.0- 1.0 [facility] HospitalNeutrophils # (Auto)2018-07-29 07:46:00* Test Item Value Reference Range Interpretation Comments Neutrophils # (Auto) (test code = 751-8) 6.0 2.1-6.9 [facility] HospitalLymphocytes # (Auto)2018-07-29 07:46:00* Test Item Value Reference Range Interpretation Comments Lymphocytes # (Auto) (test code = 64303-9) 1.6 1.0-3.2 [facility] HospitalMonocytes # (Auto)2018-07-29 07:46:00* Test Item Value Reference Range Interpretation Comments Monocytes # (Auto) (test code = 742-7) 1.2 0.2-0.8 H [facility] HospitalEosinophils # (Auto)2018-07-29 07:46:00* Test Item Value Reference Range Interpretation Comments Eosinophils # (Auto) (test code = 711-2) 0.4 0.0-0.4 [facility] HospitalBasophils # (Auto)2018-07-29 07:46:00* Test Item Value Reference Range Interpretation Comments Basophils # (Auto) (test code = 704-7) 0.1 0.0-0.1 [facility] HospitalAbsolute Immature Granulocyte (auto 2018-07-29 07:46:00* Test Item Value Reference Range Interpretation Comments Absolute Immature Granulocyte (auto (genoveva t code = Absolute Immature Granulocyte (auto) 0.08 0-0.1 [facility] HospitalCreatine Kinase [id number] 12:49:00* Test Item Value Reference Range Interpretation Comments Creatine Kinase MB (test code = 76219-8) 2.70 0-5.0 [facility] HospitalTroponin R2637-71-95 12:49:00* Test Item Value Reference Range Interpretation Comments Troponin I (test code = WXX8785) 0.020 0-0.300 [facility] HospitalCreatine Oiwnji3103-24-14 12:47:00* Test Item Value Reference Range Interpretation Comments Creatine Kinase (test code = 2157-6) 113 29-168 [facility] HospitalErythrocyte Sedimentation Rhed9433-51-83 07:36:00* Test Item Value Reference Range Interpretation Comments Erythrocyte Sedimentation Rate (test code = 4537-7) 28 0- 20 H [facility] HospitalErythrocyte Sedimentation Gkzr7579-12-21 07:36:00* Test Item Value Reference Range Interpretation Comments Erythrocyte Sedimentation Rate (test code = 4537-7) 28 0- 20 H [facility] HospitalErythrocyte Sedimentation Zqkh0999-54-70 07:36:00* Test Item Value Reference Range Interpretation Comments Erythrocyte Sedimentation Rate (test code = 4537-7) 28 0- 20 H [facility] Transplant HospitalErythrocyte Sedimentation Ogae7845-48-00 07:36:00* Test Item Value Reference Range Interpretation Comments Erythrocyte Sedimentation Rate (test code = 4537-7) 28 0- 20 H [facility] Transplant HospitalTotal Elpalfbov8057-61-28 04:26:00* Test Item Value Reference Range Interpretation Comments Total Bilirubin (test code = 1975-2) 0.5 0.2-1.2 [facility] HospitalAspartate Amino Transf (AST/SGOT) 2018-07-28 04:26:00* Test Item Value Reference Range Interpretation Comments Aspartate Amino Transf (AST/SGOT) (test code = Aspartate Amino Transf (AST/SGOT)) 27 5-34 [facility] HospitalAlanine Aminotransferase (ALT/SGPT) 2018-07-28 04:26:00* Test Item Value Reference Range Interpretation Comments Alanine Aminotransferase (ALT/SGPT) (test code = 1742-6) 17 0-55 [facility] HospitalTotal Mizyozm0617-48-90 04:26:00* Test Item Value Reference Range Interpretation Comments Total Protein (test code = 2885-2) 5.9 6.5-8.1 L [facility] HospitalAlbumin2019-05-28 04:26:00* Test Item Value Reference Range Interpretation Comments Albumin (test code = 1751-7) 3.4 3.5-5.0 L [facility] HospitalGlobulin2019-05-28 04:26:00* Test Item Value Reference Range Interpretation Comments Globulin (test code = 20582-6) 2.5 2.3-3.5 [facility] HospitalAlbumin/Globulin Jgrlp7332-37-39 04:26:00 * Test Item Value Reference Range Interpretation Comments Albumin/Globulin Ratio (test code = 1759-0) 1.4 0.8-2.0 [facility] HospitalAlkaline Ozahrzcbauq7493-37-15 04:26:00* Test Item Value Reference Range Interpretation Comments Alkaline Phosphatase (test code = 6768-6) 62 40-150 [facility] HospitalCT CHEST Z9641-49-21 21:07:00 [place] [address] Patient Name: JOSE CARLOS DIXON MR #: [id number] : 1960 Age/Sex: 58/F Req #: [id number] Adm Physician: Ordered by: DEVON IRWIN MD Report #: [id number] Location: Room/Bed: Procedure: CT/CT CHEST W Exam Date: 07/27/18 Exam Time: 2054 REPORT STATUS: Signed CT chest pulmonary embolism protocol CPT code: 83984 INDICATION: Hypoxia, shor tness of breath pe protocol [id number] TECHNIQUE: Thin c ollimation axial images obtained through the level of the pulmonary arteries w ith additional imaging through the chest following the uneventful administrati on of 100 cc of low osmolar, nonionic intravenous contrast. Images reconstruc alondra into coronal and sagittal MIPs for complete evaluation of the tortuous and overlapping pulmonary vascular structures and to reduce patient radiation dos e. RADIATION DOSE: Total DLP: 521.4 mGy*cm Estimated effecti ve dose: (DLP x 0.015 x size factor) mSv CTDIvol has been reviewed. It is below the limits set by the Radiation Protocol Committee (RPC). Dose red uction techniques used: Automated exposure control, adjustment of the mAs and/ or kVp according to patient size, standardized low-dose protocol, and/or itera tive reconstruction technique. COMPARISON: Chest x-ray 1934 hours. FIN DINGS: Pulmonary artery: No filling defects are appreciated within the main, l eft, right, lobar or visualized segmental pulmonary arteries to suggest emboli sm. The main pulmonary artery measures 3.6 cm in diameter Aorta: The tho racic aorta is not aneurysmal. No evidence for dissection. Lymph nodes: No enlarged axillary, supraclavicular lymph nodes. Right paratracheal lymph node measures 8 mm. Subcarinal lymph node measures 11 mm in short axis. No enlarged hilar lymph nodes. Thyroid: Normal in size without mass in the visualized parenchyma. Mediastinum: Circumferential pericardial effusion measures 15 mm. The mid esophagus is patulous with dependently layering fluid. No hiatal h ernia. Lungs: Right Lung: Subsegmental atelectasis in the anterior up per lobe and base of the middle and lower lobes. No discrete mass or infiltrat e. Left Lung: No discrete mass or infiltrate. Airways: Unremarkable. Pleura: Posterior layering pleural effusions, measuring 2.4 cm on the right and 1.3 cm on the left. No pleural based mass. Mild eventration of the right d iaphragm is stable. Abdomen: The gallbladder is absent. Small amount of per ihepatic ascites. The liver appears prominent with several scattered low atten uating lesions, too small to characterize. The spleen is normal in size. There is diffuse fatty atrophy of the pancreas. There are calcifications in the adr enal glands. Visualized portions of the kidneys due to straight no hydronephro sis. A low attenuating lesion in the left kidney measures 10 mm and is suggest chapincito of a cyst. Bones: No lytic or blastic lesions. Soft tissues: Unr emarkable. IMPRESSION: 1. No evidence of pulmonary embolus. Enlarged pulmonary artery consistent with pulmonary artery hypertension. 2. Pericard ial effusion and bilateral pleural effusions. 3. 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 Please correlate with history of connective tissu e disorder. 4. Prominent liver suggestive of hepatomegaly. Cirrhosis cannot be excluded. Signed by: Dr. Oswaldo Bradshaw MD on 07/27/2018 9:15 PM Dictated By: OSWALDO BRADSHAW MD 14 Transcribed By: ESTELLE on 07/27/182114 COPY TO: DEVON REYNOSO MD Urine [id number] 20:38:00* Test Item Value Reference Range Interpretation Comments Urine WBC (test code = 5821-4) NONE 0-5 [facility] [id number] 20:38:00* Test Item Value Reference Range Interpretation Comments Urine RBC (test code = 37146-0) NONE 0-5 [facility] Nujmympg3206-87-76 20:38:00* Test Item Value Reference Range Interpretation Comments Urine Bacteria (test code = 87638-5) FEW NONE [facility] Epithelial Hpbkw3932-99-24 20:38:00 * Test Item Value Reference Range Interpretation Comments Urine Epithelial Cells (test code = 35571-8) RARE NONE [facility] Renal Epithelial Zomsw2920-43-19 20:38:00* Test Item Value Reference Range Interpretation Comments Urine Renal Epithelial Cells (test code = 62856-5) FEW NON E H [facility] [id number] 20:38:00* Test Item Value Reference Range Interpretation Comments Urine WBC (test code = 5821-4) NONE 0-5 [facility] FHC2102-02-03 20:38:00* Test Item Value Reference Range Interpretation Comments Urine RBC (test code = 19973-3) NONE 0-5 [facility] Fgxydqqf6268-36-55 20:38:00* Test Item Value Reference Range Interpretation Comments Urine Bacteria (test code = 14621-4) FEW NONE [facility] Epithelial Mecuh9899-17-41 20:38:00 * Test Item Value Reference Range Interpretation Comments Urine Epithelial Cells (test code = 71910-4) RARE NONE [facility] Renal Epithelial Vnrxt0558-58-58 20:38:00* Test Item Value Reference Range Interpretation Comments Urine Renal Epithelial Cells (test code = 98435-3) FEW NON E H [facility] [id number] 20:38:00* Test Item Value Reference Range Interpretation Comments Urine WBC (test code = 5821-4) NONE 0-5 [facility] [id number] 20:38:00* Test Item Value Reference Range Interpretation Comments Urine RBC (test code = 37193-1) NONE 0-5 [facility] Wtvdavaw5705-81-74 20:38:00* Test Item Value Reference Range Interpretation Comments Urine Bacteria (test code = 11479-7) FEW NONE [facility] Epithelial Frtyw2428-75-20 20:38:00 * Test Item Value Reference Range Interpretation Comments Urine Epithelial Cells (test code = 63468-7) RARE NONE [facility] Renal Epithelial Ipblq7325-55-32 20:38:00* Test Item Value Reference Range Interpretation Comments Urine Renal Epithelial Cells (test code = 19990-1) FEW NON E H [facility] Whheo5015-29-10 20:18:00* Test Item Value Reference Range Interpretation Comments Urine Color (test code = 5778-6) YELLOW YELLOW [facility] Mwwadkh5904-22-71 20:18:00* Test Item Value Reference Range Interpretation Comments Urine Clarity (test code = 99359-4) CLEAR CLEAR [facility] Specific Paigdbw4068-38-07 20:18:00 * Test Item Value Reference Range Interpretation Comments Urine Specific Wilber (test code = 5811-5) 1.005 1.010-1.02 5 L [facility] [id number] 20:18:00* Test Item Value Reference Range Interpretation Comments Urine pH (test code = 98742-4) 6.5 5-7 [facility] Leukocyte Slkedlry0076-30-33 20:18:00* Test Item Value Reference Range Interpretation Comments Urine Leukocyte Esterase (test code = 48234-1) NEGATIVE NEGATIV E [facility] Myrumtf1618-69-32 20:18:00* Test Item Value Reference Range Interpretation Comments Urine Nitrite (test code = 66220-0) NEGATIVE NEGATIVE [facility] Rmykpas8100-68-69 20:18:00* Test Item Value Reference Range Interpretation Comments Urine Protein (test code = 01243-4) NEGATIVE NEGATIVE [facility] Glucose (UA)2018-07-27 20:18:00* Test Item Value Reference Range Interpretation Comments Urine Glucose (UA) (test code = 90387-1) 1+ NEGATIVE H [facility] Lcrusoo2500-39-55 20:18:00* Test Item Value Reference Range Interpretation Comments Urine Ketones (test code = 17134-4) NEGATIVE NEGATIVE [facility] Ghqxapknfweb6959-99-17 20:18:00* Test Item Value Reference Range Interpretation Comments Urine Urobilinogen (test code = 14175-9) 0.2 0.2-1 [facility] Bbksddykm5626-32-67 20:18:00* Test Item Value Reference Range Interpretation Comments Urine Bilirubin (test code = 1977-8) NEGATIVE NEGATIVE [facility] Plqtf3967-38-88 20:18:00* Test Item Value Reference Range Interpretation Comments Urine Blood (test code = 19503-4) NEGATIVE NEGATIVE [facility] Dvfbc5617-12-04 20:18:00* Test Item Value Reference Range Interpretation Comments Urine Color (test code = 5778-6) YELLOW YELLOW [facility] Kkgxirq8120-08-99 20:18:00* Test Item Value Reference Range Interpretation Comments Urine Clarity (test code = 56682-1) CLEAR CLEAR [facility] Specific Sxzqaeu6125-81-00 20:18:00 * Test Item Value Reference Range Interpretation Comments Urine Specific Wilber (test code = 5811-5) 1.005 1.010-1.02 5 L [facility] [id number] 20:18:00* Test Item Value Reference Range Interpretation Comments Urine pH (test code = 59828-6) 6.5 5-7 [facility] Leukocyte Vafwtrle1792-38-81 20:18:00* Test Item Value Reference Range Interpretation Comments Urine Leukocyte Esterase (test code = 36031-4) NEGATIVE NEGATIV E [facility] Dogakcg8837-46-35 20:18:00* Test Item Value Reference Range Interpretation Comments Urine Nitrite (test code = 70862-8) NEGATIVE NEGATIVE [facility] Nqmqxkr4149-63-63 20:18:00* Test Item Value Reference Range Interpretation Comments Urine Protein (test code = 56965-0) NEGATIVE NEGATIVE [facility] Glucose (UA)2018-07-27 20:18:00* Test Item Value Reference Range Interpretation Comments Urine Glucose (UA) (test code = 75848-6) 1+ NEGATIVE H [facility] Dpiigzp0685-14-00 20:18:00* Test Item Value Reference Range Interpretation Comments Urine Ketones (test code = 51050-3) NEGATIVE NEGATIVE [facility] Fkpectqgxpgs7769-86-61 20:18:00* Test Item Value Reference Range Interpretation Comments Urine Urobilinogen (test code = 77108-0) 0.2 0.2-1 [facility] Jnzwysfmr3817-10-64 20:18:00* Test Item Value Reference Range Interpretation Comments Urine Bilirubin (test code = 1977-8) NEGATIVE NEGATIVE [facility] Pzmtl0040-90-09 20:18:00* Test Item Value Reference Range Interpretation Comments Urine Blood (test code = 73351-6) NEGATIVE NEGATIVE [facility] Uimql4655-99-99 20:18:00* Test Item Value Reference Range Interpretation Comments Urine Color (test code = 5778-6) YELLOW YELLOW [facility] Jpmjxoh7254-56-59 20:18:00* Test Item Value Reference Range Interpretation Comments Urine Clarity (test code = 47654-5) CLEAR CLEAR [facility] Specific Sifmkpz2573-06-72 20:18:00 * Test Item Value Reference Range Interpretation Comments Urine Specific Wilber (test code = 5811-5) 1.005 1.010-1.02 5 L [facility] [id number] 20:18:00* Test Item Value Reference Range Interpretation Comments Urine pH (test code = 44043-1) 6.5 5-7 [facility] Leukocyte Dqpkjexa4363-16-71 20:18:00* Test Item Value Reference Range Interpretation Comments Urine Leukocyte Esterase (test code = 28593-5) NEGATIVE NEGATIV E [facility] Sbygsfs8663-25-07 20:18:00* Test Item Value Reference Range Interpretation Comments Urine Nitrite (test code = 73893-1) NEGATIVE NEGATIVE [facility] Elrwuys5059-15-10 20:18:00* Test Item Value Reference Range Interpretation Comments Urine Protein (test code = 88866-3) NEGATIVE NEGATIVE [facility] Glucose (UA)2018-07-27 20:18:00* Test Item Value Reference Range Interpretation Comments Urine Glucose (UA) (test code = 06527-0) 1+ NEGATIVE H [facility] Xjbrtsf1940-99-61 20:18:00* Test Item Value Reference Range Interpretation Comments Urine Ketones (test code = 42437-7) NEGATIVE NEGATIVE [facility] Zwxlurqqnljc9154-46-27 20:18:00* Test Item Value Reference Range Interpretation Comments Urine Urobilinogen (test code = 25792-7) 0.2 0.2-1 [facility] Bwkliwqfc6859-20-85 20:18:00* Test Item Value Reference Range Interpretation Comments Urine Bilirubin (test code = 1977-8) NEGATIVE NEGATIVE [facility] Zviiz9051-12-26 20:18:00* Test Item Value Reference Range Interpretation Comments Urine Blood (test code = 38681-1) NEGATIVE NEGATIVE [facility] HospitalD-Dimer Quantitative (PE/DVT)2018-07-27 19:54:00* Test Item Value Reference Range Interpretation Comments D-Dimer Quantitative (PE/DVT) (test code = 31708-9) 0.63 0. 00-0.45 H As with all in vitro diagnostic tests, the test results should be interpreted by the physician in conjunction with clinical findings and other test results.Test results are reported in NEW D-dimer units(ug/mLFEU).[facility] HospitalD-[facility]imer Quantitative (PE/DVT)2018-07-27 19:54:00* Test Item Value Reference Range Interpretation Comments D-Dimer Quantitative (PE/DVT) (test code = 34490-9) 0.63 0. 00-0.45 H As with all in vitro diagnostic tests, the test results should be interpreted by the physician in conjunction with clinical findings and other test results.Test results are reported in NEW D-dimer units(ug/mLFEU).[facility] HospitalD-[facility]imer Quantitative (PE/DVT)2018-07-27 19:54:00* Test Item Value Reference Range Interpretation Comments D-Dimer Quantitative (PE/DVT) (test code = 80354-9) 0.63 0. 00-0.45 H As with all in vitro diagnostic tests, the test results should be interpreted by the physician in conjunction with clinical findings and other test results.Test results are reported in NEW D-dimer units(ug/mLFEU).[facility] HospitalD-[facility]imer Quantitative (PE/DVT)2018-07-27 19:54:00* Test Item Value Reference Range Interpretation Comments D-Dimer Quantitative (PE/DVT) (test code = 24984-7) 0.63 0. 00-0.45 H As with all in vitro diagnostic tests, the test results should be interpreted by the physician in conjunction with clinical findings and other test results.Test results are reported in NEW D-dimer units(ug/mLFEU).[facility] HospitalCHEST SINGLE (PORTABLE)2018-07-27 19:52:00 [place] [address] Patient Name: JOSE CARLOS DIXON MR #: [id number] : 1960 Age/Sex: 58/F Req #: [id number] Adm Physician: Ordered by: MATHEW RAZO MD Report #: [id number] Location: ER Room/Bed: Procedure: [id number] DX /CHEST SINGLE (PORTABLE) Exam Date: 07/27/18 Exam Ti me: 8 REPORT STATUS: Signed E XAMINATION: CHEST SINGLE (PORTABLE) COMPARISON: None available IN DICATION: Hypotension, hypoglycemia, chest pain CHEST PAIN [id number] Y DISCUSSION: Frontal view of the chest obtained at 1934 hours. HEART AND MEDIASTINUM: The heart is top normal in size LINES: None. LUNGS: Low lung volumes with prominence of pulmonary vasculature. Patchy right basilar airspace opacity. No interstitial edema. PLEURA: Blunting of the right lateral costophrenic angle. Left costophrenic and sharp. No pneum othorax BONES AND SOFT TISSUES: No focal osseous lesion. The soft tissues are normal. IMPRESSION: Low lung volumes with prominence of the pulmo nary vasculature. Trace right pleural effusion and overlying airspace opacity suggestive of atelectasis. Please correlate for signs/symptoms of infection. Signed by: Dr. Oswaldo Bradshaw MD on 07/27/2018 7:54 PM Dictated By: OSWALDO BRADSHAW MD 53 Transcribed By: ESTELLE on 07/27/181953 COPY TO: MATHEW RAZO MD Prothrombin Usnu1472-77-71 19:44:00* Test Item Value Reference Range Interpretation Comments Prothrombin Time (test code = 5902-2) 14.6 11.9-14.5 H [facility] HospitalProthromb Time International Ratio 2018-07-27 19:44:00* Test Item Value Reference Range Interpretation Comments Prothromb Time International Ratio (test code = 6301-6) 1.09 Oral Anticoagulant Therapy INR Values:1. Low Intensity Therapy 1.5 - 2.02 . Moderate Intensity Therapy 2.0 - 3.03. High Intensity Therapy(1) 2.5 - 3. 54. High Intensity Therapy(2) 3.0 - 4.05. Panic Value INR > 5.0 [facility] HospitalActivated Partial Thromboplast Time 2018-07-27 19:44:00* Test Item Value Reference Range Interpretation Comments Activated Partial Thromboplast Time (test code = 56162-9) 32.4 23.8-35.5 [facility] HospitalProthrombin Vbzc4348-48-83 19:44:00* Test Item Value Reference Range Interpretation Comments Prothrombin Time (test code = 5902-2) 14.6 11.9-14.5 H [facility] HospitalProthromb Time International Ratio 2018-07-27 19:44:00* Test Item Value Reference Range Interpretation Comments Prothromb Time International Ratio (test code = 6301-6) 1.09 Oral Anticoagulant Therapy INR Values:1. Low Intensity Therapy 1.5 - 2.02 . Moderate Intensity Therapy 2.0 - 3.03. High Intensity Therapy(1) 2.5 - 3. 54. High Intensity Therapy(2) 3.0 - 4.05. Panic Value INR > 5.0 [facility] HospitalActivated Partial Thromboplast Time 2018-07-27 19:44:00* Test Item Value Reference Range Interpretation Comments Activated Partial Thromboplast Time (test code = 34770-6) 32.4 23.8-35.5 [facility] HospitalProthrombin Bdim6250-02-51 19:44:00* Test Item Value Reference Range Interpretation Comments Prothrombin Time (test code = 5902-2) 14.6 11.9-14.5 H [facility] HospitalProthromb Time International Ratio 2018-07-27 19:44:00* Test Item Value Reference Range Interpretation Comments Prothromb Time International Ratio (test code = 6301-6) 1.09 Oral Anticoagulant Therapy INR Values:1. Low Intensity Therapy 1.5 - 2.02 . Moderate Intensity Therapy 2.0 - 3.03. High Intensity Therapy(1) 2.5 - 3. 54. High Intensity Therapy(2) 3.0 - 4.05. Panic Value INR > 5.0 [facility] HospitalActivated Partial Thromboplast Time 2018-07-27 19:44:00* Test Item Value Reference Range Interpretation Comments Activated Partial Thromboplast Time (test code = 21854-8) 32.4 23.8-35.5 [facility] HospitalProthrombin Qatj3049-81-05 19:44:00* Test Item Value Reference Range Interpretation Comments Prothrombin Time (test code = 5902-2) 14.6 11.9-14.5 H [facility] HospitalProthromb Time International Ratio 2018-07-27 19:44:00* Test Item Value Reference Range Interpretation Comments Prothromb Time International Ratio (test code = 6301-6) 1.09 Oral Anticoagulant Therapy INR Values:1. Low Intensity Therapy 1.5 - 2.02 . Moderate Intensity Therapy 2.0 - 3.03. High Intensity Therapy(1) 2.5 - 3. 54. High Intensity Therapy(2) 3.0 - 4.05. Panic Value INR > 5.0 [facility] HospitalActivated Partial Thromboplast Time 2018-07-27 19:44:00* Test Item Value Reference Range Interpretation Comments Activated Partial Thromboplast Time (test code = 59195-7) 32.4 23.8-35.5 [facility] HospitalClostridium Difficile Toxin A & B 2018-02-02 14:18:00* Test Item Value Reference Range Interpretation Comments Clostridium Difficile Toxin A & B (test code = 721217627) POSI TIVE NEGATIVE H Results called to SANDY VICTORIA at 1417 on 02/02/18 by Jesus Jacob. RB OK. Results called to NELSON MULLER in infection control at 1417 on 02/02/18 by Marycarmen Jacob.Testing on stool aspirate specimens is outside pig furnace operator claims si nce specimen type not validated on this assay.[facility] HospitalClostridium Difficile Toxin A & [id number] 14:18:00* Test Item Value Reference Range Interpretation Comments Clostridium Difficile Toxin A & B (test code = 353092848) POSI TIVE NEGATIVE H Results called to SANDY VICTORIA at 1417 on 02/02/18 by Jesus Jacob. RB OK. Results called to NELSON MULLER in infection control at 1417 on 02/02/18 by Marycarmen Jacob.Testing on stool aspirate specimens is outside pig furnace operator claims si nce specimen type not validated on this assay.[facility] HospitalClostridium Difficile Toxin A & [id number] 14:18:00* Test Item Value Reference Range Interpretation Comments Clostridium Difficile Toxin A & B (test code = 890611956) POSI TIVE NEGATIVE H Results called to SANDY VICTORIA at 1417 on 02/02/18 by Jesus Jacob. RB OK. Results called to NELSON MULLER in infection control at 1417 on 02/02/18 by Marycarmen Jacob.Testing on stool aspirate specimens is outside pig furnace operator claims si nce specimen type not validated on this assay.[facility] HospitalClostridium Difficile Toxin A & [id number] 14:18:00* Test Item Value Reference Range Interpretation Comments Clostridium Difficile Toxin A & B (test code = 998308753) POSI TIVE NEGATIVE H Results called to SANDY VICTORIA at 1417 on 02/02/18 by Jesus Jacob. RB OK. Results called to NELSON MULLER in infection control at 1417 on 02/02/18 by Marycarmen Jacob.Testing on stool aspirate specimens is outside pig furnace operator claims si nce specimen type not validated on this assay.[facility] Lactoferrin (LAB)2018-02-02 13:26:00* Test Item Value Reference Range Interpretation Comments Stool Lactoferrin (LAB) (test code = 88351-8) POSITIVE NEGATIVE H Testing on stool aspirate specimens is outside pig furnace operator claims since specime n type not validated on this assay.[facility] Lactoferrin (LAB)2018-02-02 13:26:00* Test Item Value Reference Range Interpretation Comments Stool Lactoferrin (LAB) (test code = 79533-1) POSITIVE NEGATIVE H Testing on stool aspirate specimens is outside pig furnace operator claims since specime n type not validated on this assay.[facility] Lactoferrin (LAB)2018-02-02 13:26:00* Test Item Value Reference Range Interpretation Comments Stool Lactoferrin (LAB) (test code = 10905-6) POSITIVE NEGATIVE H Testing on stool aspirate specimens is outside pig furnace operator claims since specime n type not validated on this assay.[facility] Lactoferrin (LAB)2018-02-02 13:26:00* Test Item Value Reference Range Interpretation Comments Stool Lactoferrin (LAB) (test code = 52246-5) POSITIVE NEGATIVE H Testing on stool aspirate specimens is outside pig furnace operator claims since specime n type not validated on this assay.[facility] Differential Total Cells Iuanwzy5440-18-43 11:16:00* Test Item Value Reference Range Interpretation Comments Differential Total Cells Counted (test code = Differen tial Total Cells Counted) 100 [facility] HospitalNeutrophils % (Manual)2018-02-02 11:16:00 * Test Item Value Reference Range Interpretation Comments Neutrophils % (Manual) (test code = 66661-6) 58 40-74 [facility] HospitalBand Neutrophils %2018-02-02 11:16:00* Test Item Value Reference Range Interpretation Comments Band Neutrophils % (test code = 764-1) 1 [facility] HospitalLymphocytes % (Manual)2018-02-02 11:16:00 * Test Item Value Reference Range Interpretation Comments Lymphocytes % (Manual) (test code = 737-7) 14 19-48 L [facility] HospitalMonocytes % (Manual)2018-02-02 11:16:00* Test Item Value Reference Range Interpretation Comments Monocytes % (Manual) (test code = 744-3) 19 3.4-9.0 H [facility] HospitalEosinophils % (Manual)2018-02-02 11:16:00 * Test Item Value Reference Range Interpretation Comments Eosinophils % (Manual) (test code = 714-6) 6 0-7 [facility] HospitalBasophils % (Manual)2018-02-02 11:16:00* Test Item Value Reference Range Interpretation Comments Basophils % (Manual) (test code = 48013-1) 2 0-1.5 H [facility] HospitalPlatelet Qbubtlzc0894-40-01 11:16:00* Test Item Value Reference Range Interpretation Comments Platelet Estimate (test code = 48104-1) ADEQUATE [facility] HospitalPlatelet Morphology Xrpvjgq7920-19-60 11:16:00* Test Item Value Reference Range Interpretation Comments Platelet Morphology Comment (test code = 83652-3) NORMAL [facility] HospitalAnisocytosis2018-12-03 11:16:00* Test Item Value Reference Range Interpretation Comments Anisocytosis (test code = 702-1) SLIGHT [facility] HospitalHowell-[facility] Sunhxk8998-48-29 11:16:00* Test Item Value Reference Range Interpretation Comments Yee-[place] Bodies (test code = 7793-3) FEW [facility] HospitalRed Cell Morphology Elbpulx6192-15-92 11:16:00* Test Item Value Reference Range Interpretation Comments Red Cell Morphology Comment (test code = 6742-1) NORMAL [facility] HospitalDifferential Total Cells Counted 2018-02-02 11:16:00* Test Item Value Reference Range Interpretation Comments Differential Total Cells Counted (test code = Denzel vidales Total Cells Counted) 100 [facility] HospitalNeutrophils % (Manual)2018-02-02 11:16:00 * Test Item Value Reference Range Interpretation Comments Neutrophils % (Manual) (test code = 57035-2) 58 40-74 [facility] HospitalBand Neutrophils %2018-02-02 11:16:00* Test Item Value Reference Range Interpretation Comments Band Neutrophils % (test code = 764-1) 1 [facility] HospitalLymphocytes % (Manual)2018-02-02 11:16:00 * Test Item Value Reference Range Interpretation Comments Lymphocytes % (Manual) (test code = 737-7) 14 19-48 L [facility] HospitalMonocytes % (Manual)2018-02-02 11:16:00* Test Item Value Reference Range Interpretation Comments Monocytes % (Manual) (test code = 744-3) 19 3.4-9.0 H [facility] HospitalEosinophils % (Manual)2018-02-02 11:16:00 * Test Item Value Reference Range Interpretation Comments Eosinophils % (Manual) (test code = 714-6) 6 0-7 [facility] HospitalBasophils % (Manual)2018-02-02 11:16:00* Test Item Value Reference Range Interpretation Comments Basophils % (Manual) (test code = 87717-4) 2 0-1.5 H [facility] HospitalPlatelet Bmsfkalg2645-22-81 11:16:00* Test Item Value Reference Range Interpretation Comments Platelet Estimate (test code = 80171-3) ADEQUATE [facility] HospitalPlatelet Morphology Vglfiio5511-63-02 11:16:00* Test Item Value Reference Range Interpretation Comments Platelet Morphology Comment (test code = 21707-6) NORMAL [facility] HospitalAnisocytosis2018-12-03 11:16:00* Test Item Value Reference Range Interpretation Comments Anisocytosis (test code = 702-1) SLIGHT [facility] HospitalHowell-[facility]ant Cbptuk3881-75-83 11:16:00* Test Item Value Reference Range Interpretation Comments [place] Bodies (test code = 7793-3) FEW [facility] HospitalRed Cell Morphology Bijgxwx6511-12-65 11:16:00* Test Item Value Reference Range Interpretation Comments Red Cell Morphology Comment (test code = 6742-1) NORMAL [facility] HospitalDifferential Total Cells Counted 2018-02-02 11:16:00* Test Item Value Reference Range Interpretation Comments Differential Total Cells Counted (test code = Differen tial Total Cells Counted) 100 [facility] HospitalNeutrophils % (Manual)2018-02-02 11:16:00 * Test Item Value Reference Range Interpretation Comments Neutrophils % (Manual) (test code = 88324-0) 58 40-74 [facility] HospitalBand Neutrophils %2018-02-02 11:16:00* Test Item Value Reference Range Interpretation Comments Band Neutrophils % (test code = 764-1) 1 [facility] HospitalLymphocytes % (Manual)2018-02-02 11:16:00 * Test Item Value Reference Range Interpretation Comments Lymphocytes % (Manual) (test code = 737-7) 14 19-48 L [facility] HospitalMonocytes % (Manual)2018-02-02 11:16:00* Test Item Value Reference Range Interpretation Comments Monocytes % (Manual) (test code = 744-3) 19 3.4-9.0 H [facility] HospitalEosinophils % (Manual)2018-02-02 11:16:00 * Test Item Value Reference Range Interpretation Comments Eosinophils % (Manual) (test code = 714-6) 6 0-7 [facility] HospitalBasophils % (Manual)2018-02-02 11:16:00* Test Item Value Reference Range Interpretation Comments Basophils % (Manual) (test code = 59796-8) 2 0-1.5 H [facility] HospitalPlatelet Mcmeqdql3235-65-25 11:16:00* Test Item Value Reference Range Interpretation Comments Platelet Estimate (test code = 73727-6) ADEQUATE [facility] HospitalPlatelet Morphology Fmuajbq2481-95-98 11:16:00* Test Item Value Reference Range Interpretation Comments Platelet Morphology Comment (test code = 54885-0) NORMAL [facility] HospitalAnisocytosis2018-12-03 11:16:00* Test Item Value Reference Range Interpretation Comments Anisocytosis (test code = 702-1) SLIGHT [facility] HospitalHowell-Tennant Rgihnx3718-77-98 11:16:00* Test Item Value Reference Range Interpretation Comments Yee-[place] Bodies (test code = 7793-3) FEW [facility] HospitalRed Cell Morphology Wgiboyx2256-24-68 11:16:00* Test Item Value Reference Range Interpretation Comments Red Cell Morphology Comment (test code = 6742-1) NORMAL [facility] HospitalBand Neutrophils %2018-02-02 11:16:00* Test Item Value Reference Range Interpretation Comments Band Neutrophils % (test code = 764-1) 1 [facility] HospitalBasophils % (Manual)2018-02-02 11:16:00* Test Item Value Reference Range Interpretation Comments Basophils % (Manual) (test code = 76745-0) 2 0-1.5 H [facility] HospitalHowell-[place]ant Mudgjb7500-63-60 11:16:00* Test Item Value Reference Range Interpretation Comments Yee-[place] Bodies (test code = 7793-3) FEW [facility] HospitalCreatine Kinase WQ4753-10-98 09:57:00* Test Item Value Reference Range Interpretation Comments Creatine Kinase MB (test code = 37736-9) 0.60 0-5.0 [facility] HospitalTroponin [id number] 09:57:00* Test Item Value Reference Range Interpretation Comments Troponin I (test code = AIG4347) < 0.001 0-0.300 [facility] Atlva4272-51-62 09:34:00* Test Item Value Reference Range Interpretation Comments Sodium Level (test code = 2951-2) 137 136-145 [facility] HospitalPotassium Uzrtd0842-67-44 09:34:00* Test Item Value Reference Range Interpretation Comments Potassium Level (test code = 2823-3) 3.6 3.5-5.1 [facility] HospitalChloride Voqda8085-78-59 09:34:00* Test Item Value Reference Range Interpretation Comments Chloride Level (test code = 2075-0) 105 98-107 [facility] HospitalCarbon Dioxide Ckwkc8887-28-10 09:34:00* Test Item Value Reference Range Interpretation Comments Carbon Dioxide Level (test code = 2028-9) 20 22-29 L [facility] HospitalAnion Dlo5308-74-96 09:34:00* Test Item Value Reference Range Interpretation Comments Anion Gap (test code = 18420-4) 15.6 8-16 [facility] HospitalBlood Urea Yoneubju3275-36-64 09:34:00* Test Item Value Reference Range Interpretation Comments Blood Urea Nitrogen (test code = 3094-0) 10 7-26 [facility] HospitalCreatinine2018-12-03 09:34:00* Test Item Value Reference Range Interpretation Comments Creatinine (test code = 2160-0) 0.73 0.57-1.11 [facility] HospitalBUN/Creatinine Xxqxn1860-02-38 09:34:00* Test Item Value Reference Range Interpretation Comments BUN/Creatinine Ratio (test code = 3097-3) 14 6-25 [facility] HospitalEstimat Glomerular Filtration Rate 2018-02-02 09:34:00* Test Item Value Reference Range Interpretation Comments Estimat Glomerular Filtration Rate (test code = 460147132) > 60 >60 Ranges were taken from the National Kidney Disease Education Program and the [facility] Foundation literature.Reference ranges:60 or greater: Ihsqnw32-27 ( for 3 consecutive months): Chronic kidney disease 15 or less: Kidney failureMethodist Specialty and Transplant HospitalGlucose Ygfbf7008-96-73 09:34:00* Test Item Value Reference Range Interpretation Comments Glucose Level (test code = YOL4661) 172 74-118 H [facility] HospitalCalcium Hkprk7354-02-34 09:34:00* Test Item Value Reference Range Interpretation Comments Calcium Level (test code = 03134-0) 9.5 8.4-10.2 [facility] HospitalTotal Ratoshbfw9310-89-41 09:34:00* Test Item Value Reference Range Interpretation Comments Total Bilirubin (test code = 1975-2) 0.6 0.2-1.2 [facility] HospitalAspartate Amino Transf (AST/SGOT) 2018-02-02 09:34:00* Test Item Value Reference Range Interpretation Comments Aspartate Amino Transf (AST/SGOT) (test code = Aspartate Amino Transf (AST/SGOT)) 25 5-34 [facility] HospitalAlanine Aminotransferase (ALT/SGPT) 2018-02-02 09:34:00* Test Item Value Reference Range Interpretation Comments Alanine Aminotransferase (ALT/SGPT) (test code = 1742-6) 19 0-55 [facility] HospitalTotal Zmacurw6718-23-38 09:34:00* Test Item Value Reference Range Interpretation Comments Total Protein (test code = 2885-2) 6.7 6.5-8.1 [facility] HospitalAlbumin2018-12-03 09:34:00* Test Item Value Reference Range Interpretation Comments Albumin (test code = 1751-7) 3.4 3.5-5.0 L [facility] HospitalGlobulin2018-12-03 09:34:00* Test Item Value Reference Range Interpretation Comments Globulin (test code = 18215-5) 3.3 2.3-3.5 [facility] HospitalAlbumin/Globulin Mgufz6471-79-23 09:34:00 * Test Item Value Reference Range Interpretation Comments Albumin/Globulin Ratio (test code = 1759-0) 1.0 0.8-2.0 [facility] HospitalAlkaline Stqwwmzpwlc5991-23-17 09:34:00* Test Item Value Reference Range Interpretation Comments Alkaline Phosphatase (test code = 6768-6) 98 40-150 [facility] HospitalCreatine Esbarf0514-55-63 09:34:00* Test Item Value Reference Range Interpretation Comments Creatine Kinase (test code = 2157-6) 61 29-168 [facility] HospitalAmylase Eouzb4740-45-57 09:34:00* Test Item Value Reference Range Interpretation Comments Amylase Level (test code = 1798-8) 46 25-125 [facility] HospitalLipase2018-12-03 09:34:00* Test Item Value Reference Range Interpretation Comments Lipase (test code = 3040-3) 180 8-78 H [facility] HospitalAmylase Eylqx0517-08-42 09:34:00* Test Item Value Reference Range Interpretation Comments Amylase Level (test code = 1798-8) 46 25-125 [facility] HospitalLipase2018-12-03 09:34:00* Test Item Value Reference Range Interpretation Comments Lipase (test code = 3040-3) 180 8-78 H [facility] HospitalAmylase Mobos0763-69-96 09:34:00* Test Item Value Reference Range Interpretation Comments Amylase Level (test code = 1798-8) 46 25-125 [facility] HospitalLipase2018-12-03 09:34:00* Test Item Value Reference Range Interpretation Comments Lipase (test code = 3040-3) 180 8-78 H [facility] HospitalAmylase Spwnb5161-87-61 09:34:00* Test Item Value Reference Range Interpretation Comments Amylase Level (test code = 1798-8) 46 25-125 [facility] HospitalLipase2018-12-03 09:34:00* Test Item Value Reference Range Interpretation Comments Lipase (test code = 3040-3) 180 8-78 H [facility] HospitalUrine JUN1630-03-77 09:28:00* Test Item Value Reference Range Interpretation Comments Urine WBC (test code = 5821-4) 11-20 0-5 H [facility] HospitalUrine QWP8562-69-62 09:28:00* Test Item Value Reference Range Interpretation Comments Urine RBC (test code = 90687-7) NONE 0-5 [facility] HospitalUrine Kiblyrfb2661-28-29 09:28:00* Test Item Value Reference Range Interpretation Comments Urine Bacteria (test code = 64857-7) NONE NONE [facility] HospitalUrine Epithelial Mjmjs5011-81-91 09:28:00 * Test Item Value Reference Range Interpretation Comments Urine Epithelial Cells (test code = 27070-1) FEW NONE [facility] HospitalUrine Wzihp3831-60-14 09:22:00* Test Item Value Reference Range Interpretation Comments Urine Color (test code = 5778-6) ION YELLOW H [facility] HospitalUrine Wvdcvws6676-01-44 09:22:00* Test Item Value Reference Range Interpretation Comments Urine Clarity (test code = 83913-9) SL CLOUDY CLEAR [facility] Specific Upqtfci1817-46-80 09:22:00 * Test Item Value Reference Range Interpretation Comments Urine Specific Wilber (test code = 5811-5) 1.030 1.010-1.02 5 H [facility] HospitalUrine pM3905-05-37 09:22:00* Test Item Value Reference Range Interpretation Comments Urine pH (test code = 52112-7) 6 5-7 [facility] Leukocyte Jlfvpdsd1630-67-91 09:22:00* Test Item Value Reference Range Interpretation Comments Urine Leukocyte Esterase (test code = 5799-2) TRACE NEGATIVE H [facility] HospitalUrine Yjffygt4402-71-02 09:22:00* Test Item Value Reference Range Interpretation Comments Urine Nitrite (test code = 53868-5) NEGATIVE NEGATIVE [facility] HospitalUrine Mpoubbx8933-45-52 09:22:00* Test Item Value Reference Range Interpretation Comments Urine Protein (test code = 5804-0) 2+ NEGATIVE H [facility] HospitalUrine Glucose (UA)2018-02-02 09:22:00* Test Item Value Reference Range Interpretation Comments Urine Glucose (UA) (test code = 2349-9) NEGATIVE NEGATIVE [facility] HospitalUrine Etvegjz2814-20-86 09:22:00* Test Item Value Reference Range Interpretation Comments Urine Ketones (test code = 25375-4) NEGATIVE NEGATIVE [facility] Cufuevpbibpc4578-15-40 09:22:00* Test Item Value Reference Range Interpretation Comments Urine Urobilinogen (test code = 67513-8) 0.2 0.2-1 [facility] Hxtvqfmya7475-12-41 09:22:00* Test Item Value Reference Range Interpretation Comments Urine Bilirubin (test code = 1978-6) 1+ NEGATIVE H [facility] HospitalUrine Bvwjm2517-16-28 09:22:00* Test Item Value Reference Range Interpretation Comments Urine Blood (test code = 65844-2) NEGATIVE NEGATIVE [facility] HospitalWhite Blood Ixwyf1723-10-22 09:18:00* Test Item Value Reference Range Interpretation Comments White Blood Count (test code = 6690-2) 10.78 4.8-10.8 [facility] HospitalRed Blood Titie3378-00-59 09:18:00* Test Item Value Reference Range Interpretation Comments Red Blood Count (test code = 789-8) 4.60 3.6-5.1 [facility] HospitalHemoglobin2018-12-03 09:18:00* Test Item Value Reference Range Interpretation Comments Hemoglobin (test code = 14610-3) 12.1 12.0-16.0 [facility] HospitalHematocrit2018-12-03 09:18:00* Test Item Value Reference Range Interpretation Comments Hematocrit (test code = 4544-3) 40.9 34.2-44.1 [facility] HospitalMean Corpuscular Kgtlqp7016-30-06 09:18:00* Test Item Value Reference Range Interpretation Comments Mean Corpuscular Volume (test code = 787-2) 88.9 81-99 [facility] HospitalMean Corpuscular Antskhbdvc7874-81-14 09:18:00* Test Item Value Reference Range Interpretation Comments Mean Corpuscular Hemoglobin (test code = 785-6) 26.3 28-32 L [facility] HospitalMean Corpuscular Hemoglobin Concent 2018-02-02 09:18:00* Test Item Value Reference Range Interpretation Comments Mean Corpuscular Hemoglobin Concent (test code = 786-4) 29.6 31-35 L [facility] HospitalRed Cell Distribution Zqsee9230-00-10 09:18:00* Test Item Value Reference Range Interpretation Comments Red Cell Distribution Width (test code = 36272-9) 18.3 11.7 -14.4 H [facility] HospitalPlatelet Ezrry5504-56-41 09:18:00* Test Item Value Reference Range Interpretation Comments Platelet Count (test code = 777-3) 455 140-360 H [facility] HospitalNeutrophils (%) (Auto)2018-02-02 09:18:00 * Test Item Value Reference Range Interpretation Comments Neutrophils (%) (Auto) (test code = 52257-9) 58.6 38.7-80.0 [facility] HospitalLymphocytes (%) (Auto)2018-02-02 09:18:00 * Test Item Value Reference Range Interpretation Comments Lymphocytes (%) (Auto) (test code = 736-9) 16.0 18.0-39.1 L [facility] HospitalMonocytes (%) (Auto)2018-02-02 09:18:00* Test Item Value Reference Range Interpretation Comments Monocytes (%) (Auto) (test code = 5905-5) 20.4 4.4-11.3 H [facility] HospitalEosinophils (%) (Auto)2018-02-02 09:18:00 * Test Item Value Reference Range Interpretation Comments Eosinophils (%) (Auto) (test code = 713-8) 3.0 0.0-6.0 [facility] HospitalBasophils (%) (Auto)2018-02-02 09:18:00* Test Item Value Reference Range Interpretation Comments Basophils (%) (Auto) (test code = 706-2) 0.8 0.0-1.0 [facility] HospitalIM GRANULOCYTES %2018-02-02 09:18:00* Test Item Value Reference Range Interpretation Comments IM GRANULOCYTES % (test code = IM GRANULOCYTES %) 1.2 0.0- 1.0 H [facility] HospitalNeutrophils # (Auto)2018-02-02 09:18:00* Test Item Value Reference Range Interpretation Comments Neutrophils # (Auto) (test code = 751-8) 6.3 2.1-6.9 [facility] HospitalLymphocytes # (Auto)2018-02-02 09:18:00* Test Item Value Reference Range Interpretation Comments Lymphocytes # (Auto) (test code = 15183-1) 1.7 1.0-3.2 [facility] HospitalMonocytes # (Auto)2018-02-02 09:18:00* Test Item Value Reference Range Interpretation Comments Monocytes # (Auto) (test code = 742-7) 2.2 0.2-0.8 H [facility] HospitalEosinophils # (Auto)2018-02-02 09:18:00* Test Item Value Reference Range Interpretation Comments Eosinophils # (Auto) (test code = 711-2) 0.3 0.0-0.4 [facility] HospitalBasophils # (Auto)2018-02-02 09:18:00* Test Item Value Reference Range Interpretation Comments Basophils # (Auto) (test code = 704-7) 0.1 0.0-0.1 [facility] HospitalAbsolute Immature Granulocyte (auto 2018-02-02 09:18:00* Test Item Value Reference Range Interpretation Comments Absolute Immature Granulocyte (auto (genoveva t code = Absolute Immature Granulocyte (auto) 0.13 0-0.1 H [facility] HospitalDifferential Total Cells Counted 2017-02-21 10:33:00* Test Item Value Reference Range Interpretation Comments Differential Total Cells Counted (test code = Differen tial Total Cells Counted) 100 [facility] HospitalNeutrophils % (Manual)2017-02-21 10:33:00 * Test Item Value Reference Range Interpretation Comments Neutrophils % (Manual) (test code = 65854-4) 60 40-74 [facility] HospitalLymphocytes % (Manual)2017-02-21 10:33:00 * Test Item Value Reference Range Interpretation Comments Lymphocytes % (Manual) (test code = 737-7) 11 19-48 L [facility] HospitalMonocytes % (Manual)2017-02-21 10:33:00* Test Item Value Reference Range Interpretation Comments Monocytes % (Manual) (test code = 744-3) 13 3.4-9.0 H [facility] HospitalEosinophils % (Manual)2017-02-21 10:33:00 * Test Item Value Reference Range Interpretation Comments Eosinophils % (Manual) (test code = 714-6) 16 0-7 H [facility] HospitalPlatelet Ltyxmqqx2062-73-92 10:33:00* Test Item Value Reference Range Interpretation Comments Platelet Estimate (test code = 64704-4) SLIGHTLY INCREASED [facility] HospitalPlatelet Morphology Leybfty4389-93-88 10:33:00* Test Item Value Reference Range Interpretation Comments Platelet Morphology Comment (test code = 89690-0) NORMAL [facility] HospitalHypochromasia2017-12-22 10:33:00* Test Item Value Reference Range Interpretation Comments Hypochromasia (test code = 728-6) SLIGHT [facility] HospitalPoikilocytosis2017-12-22 10:33:00* Test Item Value Reference Range Interpretation Comments Poikilocytosis (test code = 779-9) SLIGHT [facility] HospitalAnisocytosis2017-12-22 10:33:00* Test Item Value Reference Range Interpretation Comments Anisocytosis (test code = 702-1) SLIGHT [facility] HospitalRed Cell Morphology Bezgmbi3564-38-75 10:33:00* Test Item Value Reference Range Interpretation Comments Red Cell Morphology Comment (test code = 6742-1) NORMAL [facility] HospitalDifferential Total Cells Counted 2017-02-21 10:33:00* Test Item Value Reference Range Interpretation Comments Differential Total Cells Counted (test code = Differmars tial Total Cells Counted) 100 [facility] HospitalNeutrophils % (Manual)2017-02-21 10:33:00 * Test Item Value Reference Range Interpretation Comments Neutrophils % (Manual) (test code = 50822-3) 60 40-74 [facility] HospitalLymphocytes % (Manual)2017-02-21 10:33:00 * Test Item Value Reference Range Interpretation Comments Lymphocytes % (Manual) (test code = 737-7) 11 19-48 L [facility] HospitalMonocytes % (Manual)2017-02-21 10:33:00* Test Item Value Reference Range Interpretation Comments Monocytes % (Manual) (test code = 744-3) 13 3.4-9.0 H [facility] HospitalEosinophils % (Manual)2017-02-21 10:33:00 * Test Item Value Reference Range Interpretation Comments Eosinophils % (Manual) (test code = 714-6) 16 0-7 H [facility] HospitalPlatelet Lqsjjhmh4318-02-36 10:33:00* Test Item Value Reference Range Interpretation Comments Platelet Estimate (test code = 71208-9) SLIGHTLY INCREASED [facility] HospitalPlatelet Morphology Lklfnhu1069-03-54 10:33:00* Test Item Value Reference Range Interpretation Comments Platelet Morphology Comment (test code = 43823-7) NORMAL [facility] HospitalHypochromasia2017-12-22 10:33:00* Test Item Value Reference Range Interpretation Comments Hypochromasia (test code = 728-6) SLIGHT [facility] HospitalPoikilocytosis2017-12-22 10:33:00* Test Item Value Reference Range Interpretation Comments Poikilocytosis (test code = 779-9) SLIGHT [facility] HospitalAnisocytosis2017-12-22 10:33:00* Test Item Value Reference Range Interpretation Comments Anisocytosis (test code = 702-1) SLIGHT [facility] HospitalRed Cell Morphology Snlgdsw3876-51-45 10:33:00* Test Item Value Reference Range Interpretation Comments Red Cell Morphology Comment (test code = 6742-1) NORMAL [facility] Qynzpzj9699-26-54 07:59:00* Test Item Value Reference Range Interpretation Comments Bedside Glucose (test code = 11454-9) 148 70-120 H Meter ID: [id number] [facility] Glucose 2017-02-21 07:59:00* Test Item Value Reference Range Interpretation Comments Bedside Glucose (test code = 99987-9) 148 70-120 H Meter ID: [id number] Health LevellandWhite Blood Count 2017-02-21 07:39:00* Test Item Value Reference Range Interpretation Comments White Blood Count (test code = 6690-2) 11.62 4.8-10.8 H [facility] HospitalRed Blood Uidqx9283-92-20 07:39:00* Test Item Value Reference Range Interpretation Comments Red Blood Count (test code = 789-8) 3.07 3.6-5.1 L [facility] HospitalHemoglobin2017-12-22 07:39:00* Test Item Value Reference Range Interpretation Comments Hemoglobin (test code = 04760-7) 8.9 12.0-16.0 L [facility] HospitalHematocrit2017-12-22 07:39:00* Test Item Value Reference Range Interpretation Comments Hematocrit (test code = 4544-3) 29.6 34.2-44.1 L [facility] HospitalMean Corpuscular Gclkuy4222-84-84 07:39:00* Test Item Value Reference Range Interpretation Comments Mean Corpuscular Volume (test code = 787-2) 96.4 81-99 [facility] HospitalMean Corpuscular Bnipekomdf7048-66-87 07:39:00* Test Item Value Reference Range Interpretation Comments Mean Corpuscular Hemoglobin (test code = 785-6) 29.0 28-32 [facility] HospitalMean Corpuscular Hemoglobin Concent 2017-02-21 07:39:00* Test Item Value Reference Range Interpretation Comments Mean Corpuscular Hemoglobin Concent (test code = 786-4) 30.1 31-35 L [facility] HospitalRed Cell Distribution Cwhbf8468-73-59 07:39:00* Test Item Value Reference Range Interpretation Comments Red Cell Distribution Width (test code = 64854-8) 18.2 11.7 -14.4 H [facility] HospitalPlatelet Lhfjf4098-06-49 07:39:00* Test Item Value Reference Range Interpretation Comments Platelet Count (test code = 777-3) 420 140-360 H [facility] HospitalNeutrophils (%) (Auto)2017-02-21 07:39:00 * Test Item Value Reference Range Interpretation Comments Neutrophils (%) (Auto) (test code = 48662-0) 57.9 38.7-80.0 [facility] HospitalLymphocytes (%) (Auto)2017-02-21 07:39:00 * Test Item Value Reference Range Interpretation Comments Lymphocytes (%) (Auto) (test code = 736-9) 16.3 18.0-39.1 L [facility] HospitalMonocytes (%) (Auto)2017-02-21 07:39:00* Test Item Value Reference Range Interpretation Comments Monocytes (%) (Auto) (test code = 5905-5) 12.7 4.4-11.3 H [facility] HospitalEosinophils (%) (Auto)2017-02-21 07:39:00 * Test Item Value Reference Range Interpretation Comments Eosinophils (%) (Auto) (test code = 713-8) 9.9 0.0-6.0 H [facility] HospitalBasophils (%) (Auto)2017-02-21 07:39:00* Test Item Value Reference Range Interpretation Comments Basophils (%) (Auto) (test code = 706-2) 0.9 0.0-1.0 [facility] HospitalIM GRANULOCYTES %2017-02-21 07:39:00* Test Item Value Reference Range Interpretation Comments IM GRANULOCYTES % (test code = IM GRANULOCYTES %) 2.3 0.0- 1.0 H [facility] HospitalNeutrophils # (Auto)2017-02-21 07:39:00* Test Item Value Reference Range Interpretation Comments Neutrophils # (Auto) (test code = 751-8) 6.7 2.1-6.9 [facility] HospitalLymphocytes # (Auto)2017-02-21 07:39:00* Test Item Value Reference Range Interpretation Comments Lymphocytes # (Auto) (test code = 95280-6) 1.9 1.0-3.2 [facility] HospitalMonocytes # (Auto)2017-02-21 07:39:00* Test Item Value Reference Range Interpretation Comments Monocytes # (Auto) (test code = 742-7) 1.5 0.2-0.8 H [facility] HospitalEosinophils # (Auto)2017-02-21 07:39:00* Test Item Value Reference Range Interpretation Comments Eosinophils # (Auto) (test code = 711-2) 1.2 0.0-0.4 H [facility] HospitalBasophils # (Auto)2017-02-21 07:39:00* Test Item Value Reference Range Interpretation Comments Basophils # (Auto) (test code = 704-7) 0.1 0.0-0.1 [facility] HospitalAbsolute Immature Granulocyte (auto 2017-02-21 07:39:00* Test Item Value Reference Range Interpretation Comments Absolute Immature Granulocyte (auto (genoveva t code = Absolute Immature Granulocyte (auto) 0.27 0-0.1 H [facility] HospitalWhite Blood Fmwlv8634-79-03 07:39:00* Test Item Value Reference Range Interpretation Comments White Blood Count (test code = 6690-2) 11.62 4.8-10.8 H [facility] HospitalRed Blood Ldgnt6974-94-36 07:39:00* Test Item Value Reference Range Interpretation Comments Red Blood Count (test code = 789-8) 3.07 3.6-5.1 L [facility] HospitalHemoglobin2017-12-22 07:39:00* Test Item Value Reference Range Interpretation Comments Hemoglobin (test code = 58562-8) 8.9 12.0-16.0 L [facility] HospitalHematocrit2017-12-22 07:39:00* Test Item Value Reference Range Interpretation Comments Hematocrit (test code = 4544-3) 29.6 34.2-44.1 L [facility] HospitalMean Corpuscular Qmmiid1901-44-22 07:39:00* Test Item Value Reference Range Interpretation Comments Mean Corpuscular Volume (test code = 787-2) 96.4 81-99 [facility] HospitalMean Corpuscular Tcsxpkgzga0821-40-38 07:39:00* Test Item Value Reference Range Interpretation Comments Mean Corpuscular Hemoglobin (test code = 785-6) 29.0 28-32 [facility] HospitalMean Corpuscular Hemoglobin Concent 2017-02-21 07:39:00* Test Item Value Reference Range Interpretation Comments Mean Corpuscular Hemoglobin Concent (test code = 786-4) 30.1 31-35 L [facility] HospitalRed Cell Distribution Xkrfn5978-70-77 07:39:00* Test Item Value Reference Range Interpretation Comments Red Cell Distribution Width (test code = 77661-5) 18.2 11.7 -14.4 H [facility] HospitalPlatelet Allne1431-55-79 07:39:00* Test Item Value Reference Range Interpretation Comments Platelet Count (test code = 777-3) 420 140-360 H [facility] HospitalNeutrophils (%) (Auto)2017-02-21 07:39:00 * Test Item Value Reference Range Interpretation Comments Neutrophils (%) (Auto) (test code = 97425-6) 57.9 38.7-80.0 [facility] HospitalLymphocytes (%) (Auto)2017-02-21 07:39:00 * Test Item Value Reference Range Interpretation Comments Lymphocytes (%) (Auto) (test code = 736-9) 16.3 18.0-39.1 L [facility] HospitalMonocytes (%) (Auto)2017-02-21 07:39:00* Test Item Value Reference Range Interpretation Comments Monocytes (%) (Auto) (test code = 5905-5) 12.7 4.4-11.3 H [facility] HospitalEosinophils (%) (Auto)2017-02-21 07:39:00 * Test Item Value Reference Range Interpretation Comments Eosinophils (%) (Auto) (test code = 713-8) 9.9 0.0-6.0 H [facility] HospitalBasophils (%) (Auto)2017-02-21 07:39:00* Test Item Value Reference Range Interpretation Comments Basophils (%) (Auto) (test code = 706-2) 0.9 0.0-1.0 [facility] HospitalIM GRANULOCYTES %2017-02-21 07:39:00* Test Item Value Reference Range Interpretation Comments IM GRANULOCYTES % (test code = IM GRANULOCYTES %) 2.3 0.0- 1.0 H [facility] HospitalNeutrophils # (Auto)2017-02-21 07:39:00* Test Item Value Reference Range Interpretation Comments Neutrophils # (Auto) (test code = 751-8) 6.7 2.1-6.9 [facility] HospitalLymphocytes # (Auto)2017-02-21 07:39:00* Test Item Value Reference Range Interpretation Comments Lymphocytes # (Auto) (test code = 25673-4) 1.9 1.0-3.2 [facility] HospitalMonocytes # (Auto)2017-02-21 07:39:00* Test Item Value Reference Range Interpretation Comments Monocytes # (Auto) (test code = 742-7) 1.5 0.2-0.8 H [facility] HospitalEosinophils # (Auto)2017-02-21 07:39:00* Test Item Value Reference Range Interpretation Comments Eosinophils # (Auto) (test code = 711-2) 1.2 0.0-0.4 H [facility] HospitalBasophils # (Auto)2017-02-21 07:39:00* Test Item Value Reference Range Interpretation Comments Basophils # (Auto) (test code = 704-7) 0.1 0.0-0.1 [facility] HospitalAbsolute Immature Granulocyte (auto 2017-02-21 07:39:00* Test Item Value Reference Range Interpretation Comments Absolute Immature Granulocyte (auto (genoveva t code = Absolute Immature Granulocyte (auto) 0.27 0-0.1 [facility]odium Ulrhs2675-33-83 07:18:00* Test Item Value Reference Range Interpretation Comments Sodium Level (test code = 2951-2) 140 136-145 [facility] HospitalPotassium Afrih1422-70-09 07:18:00* Test Item Value Reference Range Interpretation Comments Potassium Level (test code = 2823-3) 3.8 3.5-5.1 [facility] HospitalChloride Twcff3727-72-75 07:18:00* Test Item Value Reference Range Interpretation Comments Chloride Level (test code = 2075-0) 108 98-107 H [facility] HospitalCarbon Dioxide Ydbow0561-13-55 07:18:00* Test Item Value Reference Range Interpretation Comments Carbon Dioxide Level (test code = 2028-9) 23 22-29 [facility] HospitalAnion Kyw0231-41-07 07:18:00* Test Item Value Reference Range Interpretation Comments Anion Gap (test code = 51655-6) 12.8 8-16 [facility] HospitalBlood Urea Tnramiom0521-21-04 07:18:00* Test Item Value Reference Range Interpretation Comments Blood Urea Nitrogen (test code = 3094-0) 5 7-26 L [facility] HospitalCreatinine2017-12-22 07:18:00* Test Item Value Reference Range Interpretation Comments Creatinine (test code = 2160-0) 0.63 0.57-1.11 [facility] HospitalBUN/Creatinine Khudu9529-36-43 07:18:00* Test Item Value Reference Range Interpretation Comments BUN/Creatinine Ratio (test code = 3097-3) 8 6-25 [facility] HospitalEstimat Glomerular Filtration Rate 2017-02-21 07:18:00* Test Item Value Reference Range Interpretation Comments Estimat Glomerular Filtration Rate (test code = 90116-3) 60- >60 Ranges were taken from the National Kidney Disease Education Program and the [facility] Kid[facility] Foundation literature.Reference ranges:60 or greater: Zjhobr94-90 ( for 3 consecutive months): Chronic kidney disease 15 or less: Kidney failureMethodist Specialty and Transplant HospitalGlucose Dxfxl6321-80-10 07:18:00* Test Item Value Reference Range Interpretation Comments Glucose Level (test code = YUT7628) 179 74-118 H [facility] HospitalCalcium Slicr7346-08-60 07:18:00* Test Item Value Reference Range Interpretation Comments Calcium Level (test code = 72246-9) 8.7 8.4-10.2 [facility]odium Vtshi3308-08-97 07:18:00* Test Item Value Reference Range Interpretation Comments Sodium Level (test code = 2951-2) 140 136-145 [facility] HospitalPotassium Qorpa2409-10-00 07:18:00* Test Item Value Reference Range Interpretation Comments Potassium Level (test code = 2823-3) 3.8 3.5-5.1 [facility] HospitalChloride Fqdzg5992-06-36 07:18:00* Test Item Value Reference Range Interpretation Comments Chloride Level (test code = 2075-0) 108 98-107 H [facility] HospitalCarbon Dioxide Qbviv8863-16-74 07:18:00* Test Item Value Reference Range Interpretation Comments Carbon Dioxide Level (test code = 2028-9) 23 22-29 [facility] HospitalAnion Ryn9283-63-22 07:18:00* Test Item Value Reference Range Interpretation Comments Anion Gap (test code = 05094-0) 12.8 8-16 [facility] HospitalBlood Urea Jbmyqukk1829-94-43 07:18:00* Test Item Value Reference Range Interpretation Comments Blood Urea Nitrogen (test code = 3094-0) 5 7-26 L [facility] HospitalCreatinine2017-12-22 07:18:00* Test Item Value Reference Range Interpretation Comments Creatinine (test code = 2160-0) 0.63 0.57-1.11 [facility] HospitalBUN/Creatinine Autsw6118-98-53 07:18:00* Test Item Value Reference Range Interpretation Comments BUN/Creatinine Ratio (test code = 3097-3) 8 6-25 [facility] HospitalEstimat Glomerular Filtration Rate 2017-02-21 07:18:00* Test Item Value Reference Range Interpretation Comments Estimat Glomerular Filtration Rate (test code = 84549-8) 60- >60 Ranges were taken from the National Kidney Disease Education Program and the [facility] Kid[facility] Foundation literature.Reference ranges:60 or greater: Qviwqk21-27 ( for 3 consecutive months): Chronic kidney disease 15 or less: Kidney failureMethodist Specialty and Transplant HospitalGlucose Yvegb2563-46-01 07:18:00* Test Item Value Reference Range Interpretation Comments Glucose Level (test code = SMG1600) 179 74-118 H [facility] HospitalCalcium Odsyc5782-67-01 07:18:00* Test Item Value Reference Range Interpretation Comments Calcium Level (test code = 28660-4) 8.7 8.4-10.2 [facility] HospitalMetamyelocytes %2017-02-20 09:50:00* Test Item Value Reference Range Interpretation Comments Metamyelocytes % (test code = 740-1) 1 0-0 H [facility] HospitalMyelocytes %2017-02-20 09:50:00* Test Item Value Reference Range Interpretation Comments Myelocytes % (test code = 749-2) 1 0-0 H [facility] HospitalReactive Fauhskedfvs0934-24-21 09:50:00* Test Item Value Reference Range Interpretation Comments Reactive Lymphocytes (test code = 28770-8) 2 [facility] HospitalNucleated Red Blood Yiret6975-02-96 09:50:00* Test Item Value Reference Range Interpretation Comments Nucleated Red Blood Cells (test code = 01587-6) 2 [facility] HospitalMetamyelocytes %2017-02-20 09:50:00* Test Item Value Reference Range Interpretation Comments Metamyelocytes % (test code = 740-1) 1 0-0 H [facility] HospitalMyelocytes %2017-02-20 09:50:00* Test Item Value Reference Range Interpretation Comments Myelocytes % (test code = 749-2) 1 0-0 H [facility] HospitalReactive Strrwacybvc2264-44-59 09:50:00* Test Item Value Reference Range Interpretation Comments Reactive Lymphocytes (test code = 10765-2) 2 [facility] HospitalNucleated Red Blood Ydsys1259-37-49 09:50:00* Test Item Value Reference Range Interpretation Comments Nucleated Red Blood Cells (test code = 69834-1) 2 [facility] HospitalProthrombin Kace9188-89-89 07:25:00* Test Item Value Reference Range Interpretation Comments Prothrombin Time (test code = 5902-2) 14.3 11.9-14.5 [facility] HospitalProthromb Time International Ratio 2017-02-19 07:25:00* Test Item Value Reference Range Interpretation Comments Prothromb Time International Ratio (test code = 6301-6) 1.06 Oral Anticoagulant Therapy INR Values:1. Low Intensity Therapy 1.5 - 2.02 . Moderate Intensity Therapy 2.0 - 3.03. High Intensity Therapy(1) 2.5 - 3. 54. High Intensity Therapy(2) 3.0 - 4.05. Panic Value INR > 5.0 [facility] HospitalProthrombin Xqsx7573-18-24 07:25:00* Test Item Value Reference Range Interpretation Comments Prothrombin Time (test code = 5902-2) 14.3 11.9-14.5 [facility] HospitalProthromb Time International Ratio 2017-02-19 07:25:00* Test Item Value Reference Range Interpretation Comments Prothromb Time International Ratio (test code = 6301-6) 1.06 Oral Anticoagulant Therapy INR Values:1. Low Intensity Therapy 1.5 - 2.02 . Moderate Intensity Therapy 2.0 - 3.03. High Intensity Therapy(1) 2.5 - 3. 54. High Intensity Therapy(2) 3.0 - 4.05. Panic Value INR > 5.0 [facility] HospitalUrine SSH4826-74-72 18:37:00* Test Item Value Reference Range Interpretation Comments Urine WBC (test code = 5821-4) 50- 0-5 H [facility] HospitalUrine LMW5486-81-01 18:37:00* Test Item Value Reference Range Interpretation Comments Urine RBC (test code = 04156-1) 11-20 0-5 H [facility] HospitalUrine Etpsjlcu9900-83-48 18:37:00* Test Item Value Reference Range Interpretation Comments Urine Bacteria (test code = 19492-5) MODERATE NONE H [facility] HospitalUrine Epithelial Sdlrq5971-91-35 18:37:00 * Test Item Value Reference Range Interpretation Comments Urine Epithelial Cells (test code = 18458-3) FEW NONE [facility] HospitalUrine Hyaline Zdktz5457-39-17 18:37:00* Test Item Value Reference Range Interpretation Comments Urine Hyaline Casts (test code = 94338-7) 0-1 0-1 [facility] Lzzoe0617-14-69 18:37:00* Test Item Value Reference Range Interpretation Comments Urine Mucus (test code = 8247-9) FEW RARE H [facility] HospitalUrine HTU0578-05-60 18:37:00* Test Item Value Reference Range Interpretation Comments Urine WBC (test code = 5821-4) 50- 0-5 H [facility] QTK2759-68-80 18:37:00* Test Item Value Reference Range Interpretation Comments Urine RBC (test code = 95814-4) 11-20 0-5 H [facility] Wnaadrlo7235-62-37 18:37:00* Test Item Value Reference Range Interpretation Comments Urine Bacteria (test code = 01629-7) MODERATE NONE H [facility] Epithelial Heyqq0712-49-95 18:37:00 * Test Item Value Reference Range Interpretation Comments Urine Epithelial Cells (test code = 02076-5) FEW NONE [facility] HospitalUrine Hyaline Wkiur2007-46-86 18:37:00* Test Item Value Reference Range Interpretation Comments Urine Hyaline Casts (test code = 53831-0) 0-1 0-1 [facility] Xfehk2651-04-66 18:37:00* Test Item Value Reference Range Interpretation Comments Urine Mucus (test code = 8247-9) FEW RARE H [facility] Jdyph7963-03-21 17:49:00* Test Item Value Reference Range Interpretation Comments Urine Color (test code = 5778-6) YELLOW YELLOW [facility] Iaskdpm9193-72-74 17:49:00* Test Item Value Reference Range Interpretation Comments Urine Clarity (test code = 28070-6) CLEAR CLEAR [facility] HospitalUrine Specific Hecwnwm6075-06-08 17:49:00 * Test Item Value Reference Range Interpretation Comments Urine Specific Wilber (test code = 5811-5) 1.020 1.010-1.02 5 [facility] eK0360-98-88 17:49:00* Test Item Value Reference Range Interpretation Comments Urine pH (test code = 10512-3) 6 5-7 [facility] HospitalUrine Leukocyte Cikhfhrq6576-42-44 17:49:00* Test Item Value Reference Range Interpretation Comments Urine Leukocyte Esterase (test code = 5799-2) 1+ NEGATIVE H [facility] Pmwvhgh1706-87-96 17:49:00* Test Item Value Reference Range Interpretation Comments Urine Nitrite (test code = 61356-8) NEGATIVE NEGATIVE [facility] HospitalUrine Fdiknii8837-98-06 17:49:00* Test Item Value Reference Range Interpretation Comments Urine Protein (test code = 5804-0) NEGATIVE NEGATIVE [facility] Glucose (UA)2017-02-18 17:49:00* Test Item Value Reference Range Interpretation Comments Urine Glucose (UA) (test code = 2349-9) NEGATIVE NEGATIVE [facility] Wrzjpid7927-40-77 17:49:00* Test Item Value Reference Range Interpretation Comments Urine Ketones (test code = 85604-1) NEGATIVE NEGATIVE [facility] Sptuckjgxtoq9244-77-80 17:49:00* Test Item Value Reference Range Interpretation Comments Urine Urobilinogen (test code = 24605-8) 0.2 0.2-1 [facility] Ysetkgyxp0036-49-47 17:49:00* Test Item Value Reference Range Interpretation Comments Urine Bilirubin (test code = 1978-6) NEGATIVE NEGATIVE [facility] Lztgn5862-89-00 17:49:00* Test Item Value Reference Range Interpretation Comments Urine Blood (test code = 40170-9) TRACE NEGATIVE H [facility] HospitalUrine Ppiij8726-70-96 17:49:00* Test Item Value Reference Range Interpretation Comments Urine Color (test code = 5778-6) YELLOW YELLOW [facility] Izdpzqw8108-49-30 17:49:00* Test Item Value Reference Range Interpretation Comments Urine Clarity (test code = 97411-6) CLEAR CLEAR [facility] HospitalUrine Specific Ucebhgj1104-50-46 17:49:00 * Test Item Value Reference Range Interpretation Comments Urine Specific Wilber (test code = 5811-5) 1.020 1.010-1.02 5 [facility] HospitalUrine [id number] 17:49:00* Test Item Value Reference Range Interpretation Comments Urine pH (test code = 66205-0) 6 5-7 [facility] Leukocyte Kaapophv1974-07-27 17:49:00* Test Item Value Reference Range Interpretation Comments Urine Leukocyte Esterase (test code = 5799-2) 1+ NEGATIVE H [facility] Wdnykse0228-90-94 17:49:00* Test Item Value Reference Range Interpretation Comments Urine Nitrite (test code = 64478-1) NEGATIVE NEGATIVE [facility] Uqwlmsa9667-96-67 17:49:00* Test Item Value Reference Range Interpretation Comments Urine Protein (test code = 5804-0) NEGATIVE NEGATIVE [facility] Glucose (UA)2017-02-18 17:49:00* Test Item Value Reference Range Interpretation Comments Urine Glucose (UA) (test code = 2349-9) NEGATIVE NEGATIVE [facility] Qmdstpq8102-64-99 17:49:00* Test Item Value Reference Range Interpretation Comments Urine Ketones (test code = 45005-9) NEGATIVE NEGATIVE [facility] Qoqswiaomcqp3298-22-68 17:49:00* Test Item Value Reference Range Interpretation Comments Urine Urobilinogen (test code = 34461-9) 0.2 0.2-1 [facility] HospitalUrine Brjnvwobv4626-18-59 17:49:00* Test Item Value Reference Range Interpretation Comments Urine Bilirubin (test code = 1978-6) NEGATIVE NEGATIVE [facility] HospitalUrine Ehzjm8182-67-10 17:49:00* Test Item Value Reference Range Interpretation Comments Urine Blood (test code = 28557-7) TRACE NEGATIVE H [facility] HospitalCreatine Kinase MF7747-25-75 16:23:00* Test Item Value Reference Range Interpretation Comments Creatine Kinase MB (test code = 61864-5) 0.90 0.00-5.00 [facility] [id number] 16:23:00* Test Item Value Reference Range Interpretation Comments Troponin I (test code = 21861-8) 0.004 0-0.300 [facility] HospitalThyroid Stimulating Hormone (TSH) 2017-02-18 16:23:00* Test Item Value Reference Range Interpretation Comments Thyroid Stimulating Hormone (TSH) (test code = 67914-6) 2.730 0.350-4.940 [facility] HospitalCreatine Kinase [id number] 16:23:00* Test Item Value Reference Range Interpretation Comments Creatine Kinase MB (test code = 24980-4) 0.90 0.00-5.00 [facility] HospitalTrDesiree Ville [address]G7571-95-59 16:23:00* Test Item Value Reference Range Interpretation Comments Troponin I (test code = GQY9236) 0.004 0-0.300 [facility] HospitalThyroid Stimulating Hormone (TSH) 2017-02-18 16:23:00* Test Item Value Reference Range Interpretation Comments Thyroid Stimulating Hormone (TSH) (test code = 28775-9) 2.730 0.350-4.940 [facility] HospitalB-Type Natriuretic Gfhewud3867-99-27 16:18:00* Test Item Value Reference Range Interpretation Comments B-Type Natriuretic Peptide (test code = 89310-5) 13.8 0-100 [facility] HospitalB-Type Natriuretic Imjghwa9795-92-26 16:18:00* Test Item Value Reference Range Interpretation Comments B-Type Natriuretic Peptide (test code = 57271-8) 13.8 0-100 [facility] HospitalInfluenza Virus Types A,B Antigen 2017-02-18 16:10:00* Test Item Value Reference Range Interpretation Comments Influenza Virus Types A,B Antigen (test code = 99414-6) POSITIVE FLU B NEGATIVE H Results called to at 1608 on 02/18/17 by Melia Anen. [place].Results called to in infection control at 1608 on 02/18/17 by Melia Anne.[facility] HospitalInfluenza Virus Types A,B Oegkmro9222-12-68 16:10:00* Test Item Value Reference Range Interpretation Comments Influenza Virus Types A,B Antigen (test code = 17956-3) POSITIVE FLU B NEGATIVE H Results called to at 1608 on 02/18/17 by Melia Anne. [place].Results called to in infection control at 1608 on 02/18/17 by Melia Anne.[facility] Zfocmniji7209-35-57 16:02:00* Test Item Value Reference Range Interpretation Comments Total Bilirubin (test code = 1975-2) 0.3 0.2-1.2 [facility] HospitalAspartate Amino Transf (AST/SGOT) 2017-02-18 16:02:00* Test Item Value Reference Range Interpretation Comments Aspartate Amino Transf (AST/SGOT) (test code = Aspartate Amino Transf (AST/SGOT)) 14 5-34 [facility] HospitalAlanine Aminotransferase (ALT/SGPT) 2017-02-18 16:02:00* Test Item Value Reference Range Interpretation Comments Alanine Aminotransferase (ALT/SGPT) (test code = 1742-6) 13 0-55 [facility] HospitalTotal Mqfcrkb8318-15-06 16:02:00* Test Item Value Reference Range Interpretation Comments Total Protein (test code = 2885-2) 6.3 6.5-8.1 L [facility] HospitalAlbumin2017-12-19 16:02:00* Test Item Value Reference Range Interpretation Comments Albumin (test code = 1751-7) 3.4 3.5-5.0 L [facility] HospitalGlobulin2017-12-19 16:02:00* Test Item Value Reference Range Interpretation Comments Globulin (test code = 22962-4) 2.9 2.3-3.5 [facility] HospitalAlbumin/Globulin Ozlzn7031-27-04 16:02:00 * Test Item Value Reference Range Interpretation Comments Albumin/Globulin Ratio (test code = 1759-0) 1.2 0.8-2.0 [facility] HospitalAlkaline Riouavifhwq8579-78-43 16:02:00* Test Item Value Reference Range Interpretation Comments Alkaline Phosphatase (test code = 6768-6) 60 40-150 [facility] HospitalCreatine Lbxvcw8450-00-46 16:02:00* Test Item Value Reference Range Interpretation Comments Creatine Kinase (test code = 2157-6) 40 29-168 [facility] HospitalLipase2017-12-19 16:02:00* Test Item Value Reference Range Interpretation Comments Lipase (test code = 3040-3) 16 8-78 [facility] HospitalTotal Mjjzrvdib7519-29-78 16:02:00* Test Item Value Reference Range Interpretation Comments Total Bilirubin (test code = 1975-2) 0.3 0.2-1.2 [facility] HospitalAspartate Amino Transf (AST/SGOT) 2017-02-18 16:02:00* Test Item Value Reference Range Interpretation Comments Aspartate Amino Transf (AST/SGOT) (test code = Aspartate Amino Transf (AST/SGOT)) 14 5-34 [facility] HospitalAlanine Aminotransferase (ALT/SGPT) 2017-02-18 16:02:00* Test Item Value Reference Range Interpretation Comments Alanine Aminotransferase (ALT/SGPT) (test code = 1742-6) 13 0-55 [facility] Udndwmp8081-77-82 16:02:00* Test Item Value Reference Range Interpretation Comments Total Protein (test code = 2885-2) 6.3 6.5-8.1 L [facility] HospitalAlbumin2017-12-19 16:02:00* Test Item Value Reference Range Interpretation Comments Albumin (test code = 1751-7) 3.4 3.5-5.0 L [facility] HospitalGlobulin2017-12-19 16:02:00* Test Item Value Reference Range Interpretation Comments Globulin (test code = 44014-8) 2.9 2.3-3.5 [facility] HospitalAlbumin/Globulin Yzghy6762-23-70 16:02:00 * Test Item Value Reference Range Interpretation Comments Albumin/Globulin Ratio (test code = 1759-0) 1.2 0.8-2.0 [facility] HospitalAlkaline Hqtbyanlsvh7805-09-18 16:02:00* Test Item Value Reference Range Interpretation Comments Alkaline Phosphatase (test code = 6768-6) 60 40-150 [facility] HospitalCreatine Rnuaqe4414-39-62 16:02:00* Test Item Value Reference Range Interpretation Comments Creatine Kinase (test code = 2157-6) 40 29-168 [facility] HospitalLipase2017-12-19 16:02:00* Test Item Value Reference Range Interpretation Comments Lipase (test code = 3040-3) 16 8-78 [facility] HospitalActivated Partial Thromboplast Time 2017-02-18 15:56:00* Test Item Value Reference Range Interpretation Comments Activated Partial Thromboplast Time (test code = 28434-3) 37.3 23.8-35.5 H [facility] HospitalLactic Acid Rekmm1075-34-74 15:56:00* Test Item Value Reference Range Interpretation Comments Lactic Acid Level (test code = Lactic Acid Level) 22.0 4.5- 19.8 H [facility] HospitalActivated Partial Thromboplast Time 2017-02-18 15:56:00* Test Item Value Reference Range Interpretation Comments Activated Partial Thromboplast Time (test code = 64578-5) 37.3 23.8-35.5 H [facility] HospitalLactic Acid Xwvzf6571-85-90 15:56:00* Test Item Value Reference Range Interpretation Comments Lactic Acid Level (test code = Lactic Acid Level) 22.0 4.5- 19.8 H [facility] HospitalTriglycerides Xqtvt6015-36-09 07:20:00* Test Item Value Reference Range Interpretation Comments Triglycerides Level (test code = 2571-8) 253 0-149 H [facility] HospitalCholesterol Gkild1799-12-61 07:20:00* Test Item Value Reference Range Interpretation Comments Cholesterol Level (test code = 2093-3) 184 0-199 Less than 200 mg/dL Low Zebe421 - 239 mg/dL Borderline Zthp963 m g/dl and greater High Risk [facility] HospitalLDL Scbectmrkxf2430-66-80 07:20:00* Test Item Value Reference Range Interpretation Comments LDL Cholesterol (test code = 88754-3) 98 60-130 [facility] Nybhvpwcrxr0233-90-26 07:20:00* Test Item Value Reference Range Interpretation Comments HDL Cholesterol (test code = 2085-9) 35 40-60 L [facility] HospitalCholesterol/HDL Hhnsw0165-39-51 07:20:00 * Test Item Value Reference Range Interpretation Comments Cholesterol/HDL Ratio (test code = 9830-1) 5.3 3.0-3.6 H [facility] HospitalTriglycerides Pqlcx9188-69-02 07:20:00* Test Item Value Reference Range Interpretation Comments Triglycerides Level (test code = 2571-8) 253 0-149 H [facility] HospitalCholesterol Kbget5786-87-18 07:20:00* Test Item Value Reference Range Interpretation Comments Cholesterol Level (test code = 2093-3) 184 0-199 Less than 200 mg/dL Low Akid604 - 239 mg/dL Borderline Ngjj474 m g/dl and greater High Risk [facility] HospitalLDL Rbaqgpecttu3639-42-73 07:20:00* Test Item Value Reference Range Interpretation Comments LDL Cholesterol (test code = 24503-2) 98 60-130 [facility] Afldyywebzw5838-79-11 07:20:00* Test Item Value Reference Range Interpretation Comments HDL Cholesterol (test code = 2085-9) 35 40-60 L [facility] HospitalCholesterol/HDL Tvvhi9984-31-93 07:20:00 * Test Item Value Reference Range Interpretation Comments Cholesterol/HDL Ratio (test code = 9830-1) 5.3 3.0-3.6 H [facility] HospitalMagnesium Ugiqe6739-80-60 11:28:00* Test Item Value Reference Range Interpretation Comments Magnesium Level (test code = 06130-7) 1.4 1.3-2.1 [facility] HospitalMagnesium Dfogr5296-18-86 11:28:00* Test Item Value Reference Range Interpretation Comments Magnesium Level (test code = 07919-3) 1.4 1.3-2.1 [facility] HospitalRapid Plasma Nockou8776-25-63 06:07:00* Test Item Value Reference Range Interpretation Comments Rapid Plasma Reagin (test code = 13615-4) Non Reactive Non Reactive Performed at: [address] [id number] Director: Don Plascencia MD, Phone: [phone] Specialty and Transplant HospitalRapid Plasma Ayuvme8528-26-07 06:07:00* Test Item Value Reference Range Interpretation Comments Rapid Plasma Reagin (test code = 22601-2) Non Reactive Non Reactive Performed at: [address] [id number] Director: Don Plascencia MD, Phone: [phone] Specialty and Transplant HospitalErythrocyte Sedimentation Wyib1424-05-65 18:44:00* Test Item Value Reference Range Interpretation Comments Erythrocyte Sedimentation Rate (test code = 4537-7) 18 0- 20 [facility] HospitalErythrocyte Sedimentation Heki6508-75-72 18:44:00* Test Item Value Reference Range Interpretation Comments Erythrocyte Sedimentation Rate (test code = 4537-7) 18 0- 20 [facility] HospitalVitamin B12 Dldes3745-03-75 18:32:00* Test Item Value Reference Range Interpretation Comments Vitamin B12 Level (test code = 32779-4) 216 213-816 [facility] HospitalVitamin B12 Honbb4859-88-63 18:32:00* Test Item Value Reference Range Interpretation Comments Vitamin B12 Level (test code = 77476-5) 216 213-816 [facility] [address] [address] Patient Name: JOSE CARLOS DIXON MR #: [id number] : 1960 Age/Sex: 57/F Req #: [id number] Adm Physician: MAXI AMAYA MD Ordered by: SANDRA MAGALLON MD Report #: [id number] Location: [facility] Room/Bed: IMCU 180-1 Procedure: 9683-0900 N M/G I BLEED Exam Date: 02/19/17 Exam Time: 1400 REPORT STATUS: Signed Tagged-RBC GI Bleed Study Clinical information: 57-year-old female with anemia and dark stools. Discussion: The patient's o wn red blood cells were labeled with 27 mCi of technetium-99m pertechnetate us ing the in vitro method (UltraTag). Dynamic images of the abdomen were obtain ed through 60 minutes. Distribution of tracer activity appears physiologic throughout the abdomen. No abnormal accumulation of tracer is seen within the gastrointestinal lumen. Impression: No scan evidence of active gastr ointestinal bleeding at this time. Signed by: Dr. Chayito Thomas M.D. on 6:04 PM Dictated By: CHAYITO THOMAS MD 03 Transcribed By: ESTELLE on 02/19/171803 C OPY TO: SANDRA MAGALLON MD [facility] (PORTABLE) [address] [address] Patient Name: JOSE CARLOS DIXON MR #: [id number] : 1960 Age/Sex: 57/F Req #: [id number] Adm Physician: MAXI AMAYA MD Ordered by: RENAE GOULD POWER SHOVEL ENGINEER Report #: [id number] Location: [facility] Room/Bed: [facility] 180-1 Procedure: [id number] DX/CHEST SINGLE (PORTABLE) Exam Date: 02/18/17 Exam Time: 1545 REPORT STATUS: Signed PROCEDURE: A single AP view of the c hest. COMPARISON: [facility], DX, CHEST 2 VIEWS, 09/17/2011, 21:13. [facility], DX, CHEST SINGLE (PORTABLE), 12/03/2016, 1 8:44. INDICATIONS: CHEST PAIN FINDINGS: Lines/tubes: None. Lungs: The lungs are well inflated and clear. There is no evidence of pneumonia or pulmonary edema. Pleura: There is no pleural effusion or pne umothorax. Stable elevation of the right hemidiaphragm. Heart and media stinum: The heart and the mediastinum are unremarkable. Bones: No acute bony abnormality. IMPRESSION: 1. No acute cardiopulmonary abnormal ities. Carmelo Bustos M.D. Dictated by: Carmelo Bustos M.D. on 02/18/2017 at 16:48 Electronically approved by: Jerod Davila on 02/18/2017 at 16:48 Dictated By: CARMELO BUSTOS MD Elec tronically Signed By: CARMELO BUSTOS MD on 02/18/171647 Transcribed By: WILBUR on 02/18/171647 COPY TO: RENAE GOULD POWER SHOVEL ENGINEER [address] [place] [address] Patient Name : JOSE CARLOS DIXON MR #: [id number] : 1960 Age/Sex: 57/F Adm Physi chioma : MAXI AMAYA MD Admit Date : 12/03/16 Location : [facility] Room/Bed : [address] [address] REPORT: Cardiology Repor t DATE OF STUDY: December 06, 2016 TRANSESOPHAGEAL ECHOCARDIOGRAM DESCRIPTION OF PROCEDURE: After informed consent, patient was brought to the endoscopy suite. Her throat was sprayed with Cetacaine spray. She was anesthetized by the anesthesiologist. Transesophageal probe was passed wit hout any difficulty and images were obtained in the usual fashion. Patient t olerated the procedure without any complications. REPORT: 1. Left ventr icle; normal size and systolic function. 2. The overall estimated ejection fra ction is about 60% to 65%. 3. Left atrium; normal size. 4. No spontaneous ec ho contrast or thrombus seen in the left atrium or left atrial appendage. 5 . Right atrium; is of normal size. 6. Right ventricle; normal size. 7. Humberto ral valve; structurally normal intact valve excursion. Trivial mitral regurg itation is noted. No vegetation seen on mitral valve leaflets. 8. Aortic v alve; thickened with adequate valvular excursion. No vegetation is seen on t he aortic valve leaflets. No significant aortic regurgitation is noted. 9. Tricuspid valve; structurally normal, intact valve excursion. No vegetati on in tricuspid valve leaflets. Trivial tricuspid regurgitation is noted. 10. Pulmonic valve; the view as seen appears to be normal intact valvular exc ursion. No vegetation is seen in the pulmonic valve leaflets. No significan t pulmonic regurgitation is noted. 11. Aorta; no significant atherosclerotic p laquing at the aorta is noted. 12. No left or right shunt is seen on color flow and no right or left shunt is seen on contrast injection across the inte ratrial septum. 13. No pericardial effusion is noted. CONCLUSIONS: 1. Left ventricle normal size and systolic function. 2. The overall estimated ejection fraction is 60% to 65%. 3. No significant valvular regurgitant or s tenotic lesions are noted. 4. No intracardiac thrombi or vegetation noted. 5 . No left or right shunt is noted. DT : 01/08/2017 17:44 Job#: [id number] Signature Date Dict ated By: YAMILETH COURTNEY MD Transcribed By: KEITH on 01/08/17 <Electronically signed by YAMILETH COURTNEY MD><<Signature on File>>01/14/17 0716 COPY TO: MRI BRAIN WO [place] [address] Patient Name: JOSE CARLOS DIXON MR #: [id number] : 1960 Age/Sex: 56/F Req #: [id number] Adm Physician: MAXI AMAYA MD Ordered by: DVEON IRWIN MD Report #: [id number] Location: [facility] Room/Bed: [place] [address] Procedure: [id number] 0002 MRI/MRI BRAIN WO Exam Date: 12/04/16 Exam Time: 1505 REPORT STATUS: Signed History: Dysphagia Comparison studies: Head CT and brain MRI on 12/10/2015, head CT on 12/03/2016 Technique: Sag ittal T2; axial DWI, FLAIR, MPGR, T1, Coronal FLAIR. Intravenous contrast: Non e Findings: Scalp: Normal in signal . No masses . Bone marrow: Marci l in signal intensity. Extra-axial: No masses or fluid collections. Brain sulci: Appropriate for age. Ventricles: Normal in size . No hydrocephalu s . Parenchyma: A single T2 FLAIR hyperintense focus in the anterior verm is is nonspecific No masses, hemorrhage, acute or chronic cortical ischemic in sults. Suprasellar region: No abnormalities. Craniocervical junction: No abnormalities. Patent foramen magnum. No Chiari one malformation. Vessels: Normal flow-voids in the arteries and sinuses. IMPRESSION: No intracr anial abnormalities. No changes when compared to the previous studies which da te back to 12/21/1915. Signed by: Dr. Ginger Stinson M.D. on 12/04/2016 5:44 PM Dictated By: GINGER STINSON MD, MD 43 Transcribed By: ESTELLE on 12/04 COPY TO: DEVON IRWIN MD MRI BRAIN WO [place] [address] Patient Name: JOSE CARLOS DIXON MR #: [id number] : 1 03/15/1959 Age/Sex: 56/F Req #: [id number] Adm Physician: MAXI AMAYA MD Ordered by: DEVON IRWIN MD Report #: [id number] Location: [facility] Room/Bed: [address] [address] Procedure: [id number] 0013 MRI/MRI BRAIN WO Exam Date: Exam Time: REPORT STATUS: Signed History: Transient ischemic attack Comparison studies : CT head 12/03/2016 and MRI brain 12/30/2015 Technique: Sagittal T2; axi al DWI, FLAIR, MPGR, T1, Coronal FLAIR. Intravenous contrast: None Findin gs: Scalp: Normal in signal . No masses . Bone marrow: Normal in signal i ntensity. Extra-axial: No masses, no fluid collections. Brain sulci : Appropriate for age. Ventricles: Normal in size . No hydrocephalus . Pa renchyma: No abnormal signal intensities. No masses, hemorrhage, acute or ch ronic vascular insults. Suprasellar region: No abnormalities. Craniocervi serina junction: No abnormalities. Patent foramen magnum. No Chiari one malform ation. Vessels: Loss of flow-void of the right sigmoid sinus. Normal flow-void s in the arteries and remaining sinuses. Mucosal thickening at the left m astoid air cells. IMPRESSION: 1. Loss of flow-void of the left sigmoi d sinus, this could be related to slow flow or no flow, this finding was prese nt in the previous MR of the brain, recommend further evaluation with contrast MRV. Associated inflammatory changes of the left mastoid air cells, new findi ng. 2. No acute infarct or intracranial hemorrhage Signed by: DR Pia Verde M.D. on 12/05/2016 4:11 PM Dictated By: DUTCH QUINTANILLA MD 10 Transcr ibed By: ESTELLE on 12/05/161610 COPY TO: DEVON IRWIN MD CHEST SINGLE (PORTABLE) [place] [address] Patient Name: JOSE CARLOS DIXON MR #: [id number] : 1960 Age/Sex: 56/F Req #: [id number] Adm Physician: Ordered by: ANU KAPLAN MD Report #: [id number] Location: ER Room/Bed: Procedure: [id number] DX/CHEST SINGLE (PORTABLE) Exam Date: 12/03/16 Exam Time: 1849 REPORT STATUS: Signed PROCEDURE: A single AP view of the chest. COMPARISON: [facility], DX, CHEST SINGLE (PORTABLE), 12/30/2015, 10:30. INDICA TIONS: POSSIBLE STROKE, AMS FINDINGS: Lines/tubes: None. Madonna ngs: The lungs are well inflated and clear. There is no evidence of pneumoni a or pulmonary edema. Pleura: There is no pleural effusion or pneumothora x. Heart and mediastinum: The heart and the mediastinum are unremarkable. Bones: No acute bony abnormality. IMPRESSION: 1. No acute cardiopulmonary abnormalities. Carmelo Bustos M.D. Dictated by : Carmelo Bustos M.D. on 12/03/2016 at 19:09 Electronically approved by: Carmelo Bustos M.D. on 12/03/2016 at 19:09 Dictated By: CARMELO BUSTOS MD 1 909 Transcribed By: WILBUR on 12/03/16 1909 COPY TO: ANU KAPLAN MD CT BRAIN WO [place] [address] Patient Name: JOSE CARLOS DIXON MR #: [id number] : 1960 Age/Sex: 56/F Req #: [id number] Adm Physician: Ordered by: ANU KAPLAN MD Report #: [id number] Location: ER Room/Bed: Procedure: [id number] CT/CT BRAIN WO Exam Date: 12/03 Exam Time: 1838 REPORT STATUS: Signed Hi story: Aphasia. Comparison studies: MRI brain 12/30/2015 Technique: Ax ial images were obtained from the skull base to the vertex. Coronal and sagi ttal reconstructions obtained from the axial data. Findings: Scalp/sku ll: No abnormalities. No fractures, blastic or lytic lesions. Extra-axia l spaces: No masses. No fluid collections. Brain sulci: Mildly prominen t. Ventricles: Normal in size and configuration. No hydrocephalus. Parenc hyma: No abnormal densities. No masses, hemorrhage, acute or chronic corti serina vascular insults. Sellar/suprasellar region: No abnormalities Cranioc ervical junction: Patent foramen magnum. No Chiari one malformation. IMPRE SSION: No acute abnormalities . Mild volume loss, more than expected f or patient's age Signed by: DR Dutch Verde M.D. on 12/03/2016 7:0 3 PM Dictated By: DUTCH ARMENDARIZ MD 02 Transcribed By: ESTELLE on 12/03/161902 COPY TO: ANU KAPLAN MD
--- OUTSIDE RECORDS SUMMARY | 2019-10-01 02:07 | XMS REPORT | Clinical Summary ---
Author Author [facility] Organization [facility] Address Unknown Phone Unavailable Care Team Providers Care Weave Defect Charting Clerk Name Role Phone Kumar Paez MD PCP [...] Description Date Type Specialty Chase Carrion MD [address] [place] [address] 10/05/2019 Telemedicine Pulmonology Health Maintenance Due Date Last Done Comments CERVICAL CANCER SCREENING 1983 BREAST CANCER SCREENING 01/14/2012 COLONOSCOPY SCREENING 01/14/2012 SHINGLES VACCINES (#1) 01/14/2012 INFLUENZA VACCINE 10/02/2019 Results Not on fileafter 08/26/2018 Insurance Type Payer Benefit Subscriber ID Effective Phone Address Plan / Dates Group HMO CIGNA CIGNA OPEN xxxxxxxxxxx 2015-P ACCESS/NET resent WORK Advance Directives For more information, please contact: [phone] Patient Credit And Loan Collections Supervisor Explanation Type Date Recorded Advance Directives, 01/29/2017 9:51 AM Living Will and Medical Power of Optometrist Date Inactivated Comments Code Status Date Activated 01/30/2017 8:36 PM Full Code 01/29/2017 5:41 PM Code Status decision reached by: Patient
--- OUTSIDE RECORDS SUMMARY | 2019-10-01 02:08 | XMS REPORT | Continuity of Care Document ---
Author Author [facility] t Organization [facility] Address [address] [place] [address] Phone Unavailable Care Team Providers Care Inspector [employer] Detail Name Role Phone Thong AMAYA MD PCP Erich Golden MA Attphys Unavailable Ilana SINGH Attphys Unavailable Thong AMAYA Attphys Unavailable KHADAR MCKINNEY Attphys Unavailable Dori WIN Attphys Unavailable Ernesto RAZO Attphys Unavailable Thong AMAYA Admphys Unavailable KHADAR MCKINNEY Admphys Unavailable Payers Payer Name Policy Type Policy Number Effective Date Expiration Date S stephon WILLA OPEN ACCESS/NETWORKxxxxxxxxxxx2015-PresentO xxxxxxxxxxx 2015 00:00:00 Delio Mendoza o [id number] 2015 00:00:00 [facility] Medicare A & B [id number] [facility] Medicare A Only [id number] 2007 00:00:00 [facility] Problems Condition Name Condition Details Condition Category Status Onset Date Resolution Date Last Treatment Date Treating Clinician Comments Source Lower GI bleed Lower GI bleed Disease Active 2017-01-29 00:00:00 Delio Fox Anemia Anemia Disease Active 2017-01-28 00:00:00 Kebede Shinto Transient cerebral ischemia TIA (transient ischemic attack) Problem Active [facility] Tachycardia Tachycardia Problem Active [facility] Dyspnea Dyspnea Problem Active [facility] Hypoglycemia Hypoglycemia Problem Active [facility] Pericardial effusion Pericardial effusion Problem Active [facility] Pleural effusion Pleural effusion Problem Active [facility] Contusion of head Contusion of head Problem Active [facility] Occult blood in stools Occult blood in stools Problem Active [facility] Allergies, Adverse Reactions, Alerts Allergy Name Allergy Type Status Severity Reaction(s) Onset Date Inacti ve Date Treating Clinician Comments Source No Known Allergies DA Active U 2014-07-12 00:00:00 [facility] Social History Social Habit Start Date Stop Date Quantity Comments Source Sex Assigned At Bobbi merlos Shinto Exposure to SARS-CoV-2 (event) Not sure Delio [...] 00:00:00 No Chuy Montoya Do 40 Daily [facility] liraglutide (VICTOZA) 0.6 mg/0.1 mL (18 mg/3 mL) pen injecto r 2017-01-30 16:36:52 Yes .6mg QD Inject 0.6 mg under the skin every evening. Delio Fox aspirin (ECOTRIN) 81 MG enteric coated tablet 2017-01-22 00:00:0 0 Yes 81mg QD Take 81 mg by mouth daily with lunch. Delio Fox metoclopramide (REGLAN) 5 MG tablet 2017-01-22 00:00:00 Yes 5mg Q.[id number] Take 5 mg by mouth 3 (three) [...] Allopurinol 100 Mg Tablet Yes 100 Daily [facility] Atorvastatin Calcium 10 Mg Tablet Atorvastatin Calcium 10 Mg Tablet Yes 10 Today At 9:00PM [facility] Citalopram Hydrobromide (Celexa) 20 Mg Tablet Citalopr am Hydrobromide (Celexa) 20 Mg Tablet Yes 40 Daily [facility] Clopidogrel Bisulfate (Plavix) 75 Mg Tablet Clopidogre l Bisulfate (Plavix) 75 Mg Tablet Yes 75 Daily [facility] Ergocalciferol (Vitamin D2) (Vitamin D2) 50,000 Unit C apsule Ergocalciferol (Vitamin D2) (Vitamin D2) 50,000 Unit Capsule Yes 5000 0 .qweek [facility] Furosemide 40 Mg Tablet Furosemide 40 Mg Tablet Yes 40 Twice A Day [facility] Gemfibrozil (Lopid) 600 Mg Tablet Gemfibrozil (Lopid) 600 Mg Tablet Yes 600 Twice A Day [facility] Glimepiride 2 Mg Tablet Glimepiride 2 Mg Tablet Yes 2 Daily [facility] Levothyroxine Sodium (Synthroid) 25 Mcg Tablet Levothy roxine Sodium (Synthroid) 25 Mcg Tablet Yes 75 Daily [facility] Metformin Hcl (Metformin Hcl Er) 500 Mg Tab.er.24h Met formin Hcl (Metformin Hcl Er) 500 Mg Tab.er.24h Yes 500 Daily [facility] Metoclopramide Hcl (Reglan) 5 Mg Tablet Metoclopramide Hcl ( Reglan) 5 Mg Tablet Yes 10 Daily [facility] Metoprolol Succinate 25 Mg Tab.er.24h Metoprolol Succinate 25 Mg Ta b.er.24h Yes 50 Daily [facility] Pantoprazole Sodium (Protonix) 40 Mg Tablet. Pantopr azole Sodium (Protonix) 40 Mg Tablet. Yes 40 Daily [facility] Tresiba Tresiba Yes 70 Daily [facility] Allopurinol 300 Mg Tablet, Unknown Dose Oral Allopuri nol 300 Mg Tablet, Unknown Dose Oral 2019-01-16 00:00:00 No Daily [facility] Atorvastatin Calcium (Lipitor) 20 Mg Tablet, 80 Mg Ora l Atorvastatin Calcium (Lipitor) 20 Mg Tablet, 80 Mg Oral 2019-01-16 00:00:00 No 8 0 Daily [facility] Cholecalciferol (Vitamin D) 1,000 Unit Tablet, 1000 Un it Oral Cholecalciferol (Vitamin D) 1,000 Unit Tablet, 1000 Unit Oral 2019-01-16 00:00:00 No 1000 Daily [facility] Colestipol Hcl 1 Gm Tablet, 1 Gm Oral Colestipol Hcl 1 Gm Tablet , 1 Gm Oral 2018-11-23 00:00:00 No 1 Daily [facility] Loperamide Hcl (Imodium) 2 Mg Cap, 2 Mg Oral Loperamid e Hcl (Imodium) 2 Mg Cap, 2 Mg Oral 2018-11-23 00:00:00 No 2 Daily [facility] Vits #93/Iron Fum/Fa ( Formula Tablet ) 1 Each Tablet, Mg Oral Vits #93/Iron Fum/Fa ( Formula Tablet) 1 Each Tablet, Mg Oral 2018-11-23 00:00:00 No Daily [facility] Furosemide (Lasix) 40 Mg Tablet, 40 Mg Oral Furosemide (Lasix) 40 Mg Tablet, 40 Mg Oral 2018-07-31 00:00:00 No 40 As Needed [facility] Calc/D3/Mag/Zn/Gas Collection System Operator/Danny/Mohall (Calcium 6 00 Mg + Vit D Tab) 1 Each Tablet, Oral Calc/D3/Mag/Zn/Gas Collection System Operator/Danny/[place]all (Calcium 6 00 Mg + Vit D Tab) 1 Each Tablet, Oral 2018-07-27 00:00:00 No Three Times A Day [facility] Dexlansoprazole (Dexilant) 60 Mg Cap., 60 Mg Oral Dexlansoprazole (Dexilant) 60 Mg Cap., 60 Mg Oral 2018-07-27 00:00:00 No 60 Daily [facility] Lisinopril 10 Mg Tablet, 10 Mg Oral Lisinopril 10 Mg Tablet, 10 Mg Oral 2018-07-27 00:00:00 No 10 Daily [facility] Mesalamine (Asacol) 400 Mg Tablet., 400 Mg Oral Choi lazara (Asacol) 400 Mg Tablet., 400 Mg Oral 2018-07-27 00:00:00 No 400 T wice A Day [facility] Metformin Hcl (Glumetza) 500 Mg Skiebft41p, 500 Mg Ora l Metformin Hcl (Glumetza) 500 Mg Rvmbnqc54j, 500 Mg Oral 2018-07-27 00:00:00 No 5 00 Twice A Day [facility] Multivit,Ther Iron,Ca,Fa & Min (Thera-M Caplet) 1 Each Tablet, 1 Tab Oral Multivit,Ther Iron,Ca,Fa & Min (Thera-M Caplet) 1 Each Tablet, 1 Tab Oral 2018-07-27 00:00:00 No 1 Daily [facility] Potassium Chloride (Klor-Con 10) 10 Meq Tablet.sa, 10 Meq Oral Potassium Chloride (Klor-Con 10) 10 Meq Tablet.sa, 10 Meq Oral 2018-07-27 00: 00:00 No 10 As Needed [facility] Mycophenolate Mofetil (Cellcept) 500 Mg Tablet, 500 Mg Oral Mycophenolate Mofetil (Cellcept) 500 Mg Tablet, 500 Mg Oral 2017-02-21 00:00:00 No 500 Daily [facility] Nitrofurantoin Monohyd/M-Cryst (Macrobid 100 Mg Capsule) 100 Mg Capsule, 100 Mg Oral Nitrofurantoin Monohyd/M-Cryst (Macrobid 100 Mg Capsule) 100 Mg Capsule, 100 Mg Oral 2017-02-21 00:00:00 No 100 Twice A Day [facility] Risedronate Sodium (Atelvia) 35 Mg Tablet., 35 Mg Or al Risedronate Sodium (Atelvia) 35 Mg Tablet., 35 Mg Oral 2017-02-21 00:00:00 No 35 Week [facility] Rivaroxaban (Xarelto) 20 Mg Tablet, 20 Mg Oral Rivarox aban (Xarelto) 20 Mg Tablet, 20 Mg Oral 2017-02-21 00:00:00 No 20 Daily [facility] Cefepime Hcl/D5w (Cefepime-Dextrose 1 Gm /50 Ml) 1 Gm/50 Ml Piggyback, 1 Gm Intraven Cefepime Hcl/D5w (Cefepime-Dextrose 1 Gm /50 Ml) 1 Gm/50 Ml Piggyback, 1 Gm Intraven 2015-12-30 00:00:00 No 1 Every 12 Bobbi rs [facility] Clindamycin Hcl/Dextrose (Cleocin 900 Mg -K8r-Qzpnkf) 900 Mg/50 Ml Piggyback, 900 Mg Intraven Clindamycin Hcl/Dextrose (Cleocin 900 Mg -O6f-Lyzsle) 900 Mg/50 Ml Piggyback, 900 Mg Intraven 2015-12-30 00:00:00 No 900 Every 8 Hours [facility] Vancomycin Hcl 1 Gm Vial, 1 Gm Intraven Vancomycin Hcl 1 Gm Vial, 1 Gm Intraven 2015-12-30 00:00:00 No 1 Daily [facility] Warfarin Sodium (Coumadin) 3 Mg Tablet, 3 Mg Oral Warf siria Sodium (Coumadin) 3 Mg Tablet, 3 Mg Oral 2015-12-30 00:00:00 No 3 Fri Thru Friday [facility] Warfarin Sodium (Coumadin) 4 Mg Tablet, 4 Mg Oral Warf siria Sodium (Coumadin) 4 Mg Tablet, 4 Mg Oral 2015-12-30 00:00:00 No 4 Sat And Friday [facility] Procedures Procedure Date / Time Performed Performing Clinician [facility] e X-ray of chest, two views 2019-01-19 00:00:00 MAXI AMAYA [facility] Computed tomography of brain without radiopaque contrast 201 11-11-14 00:00:00 DEVON IRWIN [facility] Computed tomography of cervical spine without contrast 01-15 00:00:00 DEVON IRWIN [facility] Computed tomography of brain without radiopaque contrast 201 11-09-24 00:00:00 GORDO BOSE [facility] X-ray of chest, single view 2018-09-21 00:00:00 BEATRIZ WIN [facility] Computed tomography of chest with contrast 2018-07-27 00:00: 00 DEVON IRWIN [facility] Plan of Care Planned Activity Planned Date Details Comments Source Future Scheduled Test 2019-10-02 00:00:00 INFLUENZA VACCINE [code = INFLUENZA VACCINE] [facility] Scheduled Test 2012-01-14 00:00:00 BREAST CANCER SCRE ENING [code = BREAST CANCER SCREENING] [facility] Future Scheduled Test 2012-01-14 00:00:00 COLONOSCOPY SCREEN ING [code = COLONOSCOPY SCREENING] [facility] Scheduled Test 2012-01-14 00:00:00 SHINGLES VACCINES (#1) [code = SHINGLES VACCINES (#1)] [facility] Scheduled Test 1983 00:00:00 Screening for giovanny gnant neoplasm of cervix (procedure) [code = 376656103] [facility] Encounters Start Date/Time End Date/Time Encounter Type Admission Type [facility] Care Department Encounter ID Source 2019-01-17 07:44:00 2019-01-22 12:26:00 Discharged Inpatient [address] [facility] [id number] [facility] 2018-11-24 17:01:00 2018-11-26 10:29:00 Discharged Inpatient (obs) [address] [facility] [id number] [facility] 2018-09-21 14:40:00 2018-09-22 00:11:00 Departed Emergency Room [address] [facility] [id number] [facility] 2018-07-27 21:36:00 2018-07-31 15:24:00 Discharged Inpatient [address] [facility] [id number] [facility] 2018-02-02 08:36:00 2018-02-02 18:07:[address] [facility] [id number] [facility] 2017-10-01 16:37:00 2017-10-01 17:43:[address] [facility] [id number] [facility] 2017-04-21 19:46:00 2017-04-21 19:53:[address] [facility] [id number] [facility] 2017-02-18 18:47:00 2017-02-21 09:06:00 Discharged Inpatient (obs) ER CINDY AMAYAAHAM [facility] [id number] [facility] 2016-12-03 20:19:00 2016-12-06 18:50:00 [id number] [facility] Results Test Description Test Time Test Comments Results Result Comments Source CHEST 2 VIEWS 2019-09-22 14:51:00 [place] [address] Patient Name: JOSE CARLOS DIXON MR #: [id number] : 1960 Age/Sex: 59/F Req #: [id number] Adm Physician: Ordered by: MAGY SINGH MD Report #: [id number] Location: OR Room/Bed: Procedure: [id number] DX/CHEST 2 VIEWS Exam Date: 09/22/19 Exam [...] MD VQ SCAN PERFUSION ONLY 2019-08-31 19:26:00 [place] [address] Patient Name: JOSE CARLOS DIXON MR #: [id number] : 1960 Age/Sex: 59/F Req #: [id number] Adm Physician: MAXI AMAYA MD Ordered by: MAXI AMAYA MD Report #: [id number] Location: MED/SURG2 Room/Bed: [facility] Procedure: [id number] NM/VQ SCAN PERFUSION ONLY Exam Date: Exam [...] AMAYA MD CHEST SINGLE (PORTABLE) 2019-08-27 20:46:00 [place] [address] Patient Name: JOSE CARLOS DIXON MR #: [id number] : 1960 Age/Sex: 59/F Req #: [id number] Adm Physician: Ordered by: BEATRIZ WIN MD Report #: [id number] Location: ER Room/Bed: Procedure: [id number] DX/CHEST SINGLE (PORTABLE) Exam Date: 08/27/19 Exam [...] on 08/27/192046 COPY TO: BEATRIZ WIN MD [facility] 2019-07-16 16:42:00 RUN DATE: 07/16/19 [facility] PAGE 1 RUN TIME: 1642 Specimen Inquiry RUN USER: INTERFACE PATIENT: JOSE CARLOS DIXON LOC: [facility] U #: [id number] AGE/SX: 59/F ROOM: RE07/14/19REG DR: Darron Bob MD : 64 BED: DIS: STATUS: [facility] TLOC: SPEC #: [id number] RECD: 07/14/19 STATUS: NOA RE #: [id number] CORIN: 07/14/19- [facility] DR: Darron Bob MD ENTERED: 07/14/19 SP TYPE: STOMACH OTHR DR: Self Referred Maxi Amaya MDORDERED: GROSS COPIES TO: Self Referred Darron Bob MD [address] [facility] [place] [address] Maxi Amaya MD [address] [facility] [address] [place] [address] PROCEDURES: GROSS (07/15/19-1146) TISSUES: 1. DUODENUM, NOS - BX 2. ANTRUM - BX CLINICAL HISTORY COLLECTION DATE: 07/14/19 ANEMIA, GI BLEED, CHRONIC MELENA, REQUEST FOR HELICOBACTER PYLORI ON ANTRUM BIOPSY FINAL DIAGNOSIS Antrum, biopsy: REACTIVE GASTROPATHY NO INTESTINAL METAPLASIA SEEN NEGATIVE FOR MALIGNANCY Duodenum, biopsy: SMALL INTESTINAL MUCOSA, NO PATHOLOGIC ALTERATION DMW/sm D [id number] CONTINUED ON NEXT PAGE RUN DATE: 07/16/19 [place] [employer] [facility] PAGE 2 RUN TIME: 1642 Specimen Inquiry RUN USER: INTERFACE SPEC #: [id number] PATIENT: JOSE CARLOS DIXON #[id number] (Continued) MACROSCOPIC The first specimen is received in formalin, labeled with the patient's name, and identified as "antrum", and consists of light pink biopsy tissue measuring 0.25 cm, submitted as (1). The second specimen is received in formalin, labeled with the patient's name, and identified as "duodenum", and consists of pink biopsy tissue measuring 0.25 cm, submitted as (2). GROSS PERFORMED AT [facility] [address] [place] [address] (p)[phone] MICROSCOPIC All of the stains, including any controls performed, stain appropriately. MICROSCOPIC PERFORMED AT [facility] [address] [place] [address] (p)[phone] PERFORMING SITE Diagnosis performed at: [facility], [address] [place] [address] Signed SIGNATURE ON FILE Leonarda Zhang MD 07/16/19 1642 END OF REPORT GLUBED 2019-07-14 09:30:00 Test Item GLUBED (test code = GLUBED) 71 mg/dL 74-106 L Performed by certified brake drum lathe operator at [facility] Novel Coronavirus 2019 [id number] 16:00:00* Test Item Value Reference Range Interpretation Comments Novel Coronavirus 2019 Inhouse (test code = COVNONPUI) Negative Negative Testing Criteria: Preprocedure ScreeningComments: 07/14/19Novel Coronavirus 2019 [id number] 15:59:00* Test Item Value Reference Range Interpretation [...] = MDIFF) NO, ONLY SCAN NEEDED DIFFERENTIAL [id number] 18:19:00* Test Item Value Reference Range Interpretation Comments STAIN ACCEPTABILITY (test code = STN ACCEPTABLE) STAIN ACCEPTABLE POLYCHROMASIA (test code = POLC) 2+ ANISOCYTOSIS (test code = ANISO) 1+ MACROCYTOSIS (test code = MACR) 1+ PLATELET ESTIMATE (test code = PLTEST) ADEQUATE PLATELET MORPHOLOGY (test code = PLTMORPH) NORMAL CBC W/AUTO [id number] 17:33:00* Test Item Value Reference Range Interpretation [...] = MDIFF) NO, ONLY SCAN NEEDED DIFFERENTIAL [id number] 17:33:00* Test Item Value Reference Range Interpretation Comments STAIN ACCEPTABILITY (test code = STN ACCEPTABLE) CABOT RINGS (test code = CAB) MORPHOLOGY COMMENT (test code = MOC) PLATELET ESTIMATE (test code = PLTEST) PLATELET MORPHOLOGY (test code = PLTMORPH) CBC W/AUTO [id number] 17:33:00* Test Item Value Reference Range Interpretation [...] = MDIFF) NO, ONLY SCAN NEEDED DIFFERENTIAL [id number] 17:33:00* Test Item Value Reference Range Interpretation Comments STAIN ACCEPTABILITY (test code = STN ACCEPTABLE) CABOT RINGS (test code = CAB) MORPHOLOGY COMMENT (test code = MOC) PLATELET ESTIMATE (test code = PLTEST) PLATELET MORPHOLOGY (test code = PLTMORPH) CBC W/AUTO [id number] 17:33:00* Test Item Value Reference Range Interpretation [...] = MDIFF) NO, ONLY SCAN NEEDED DIFFERENTIAL [id number] 17:33:00* Test Item Value Reference Range Interpretation Comments STAIN ACCEPTABILITY (test code = STN ACCEPTABLE) MORPHOLOGY COMMENT (test code = MOC) PLATELET ESTIMATE (test code = PLTEST) PLATELET MORPHOLOGY (test code = PLTMORPH) CBC W/AUTO [id number] 17:33:00* Test Item Value Reference Range Interpretation [...] = MDIFF) NO, ONLY SCAN NEEDED DIFFERENTIAL [id number] 17:33:00* Test Item Value Reference Range Interpretation Comments STAIN ACCEPTABILITY (test code = STN ACCEPTABLE) CABOT RINGS (test code = CAB) MORPHOLOGY COMMENT (test code = MOC) PLATELET ESTIMATE (test code = PLTEST) PLATELET MORPHOLOGY (test code = PLTMORPH) BASIC METABOLIC [id number] 17:27:00* Test Item Value Reference Range Interpretation [...] CA) 8.7 mg/dL 8.5-10.1 N BASIC METABOLIC [id number] 17:23:00* Test Item Value Reference Range Interpretation [...] code = CA) mg/dL 8.5-10.1 CBC W/MANUAL [id number] 18:08:00* Test Item Value Reference Range Interpretation [...] = PLTEST) Adequate THOUSAND ADEQUATE CBC W/MANUAL [id number] 16:57:00* Test Item Value Reference Range Interpretation [...] code = PLTEST) THOUSAND ADEQUATE CBC W/AUTO [id number] 18:18:00* Test Item Value Reference Range Interpretation [...] DIFF REQUIRED (test code = MDIFF) NO FAX:[phone]:[phone] [id number] 18:18:00* Test Item Value Reference Range Interpretation Comments POLYCHROMASIA (test code = POLC) 2+ HYPOCHROMIA (test code = HYPO) 1+ ANISOCYTOSIS (test code = ANISO) 2+ MICROCYTOSIS (test code = MICR) 1+ MACROCYTOSIS (test code = MACR) 1+ FAX:[phone]:[phone] W/AUTO [id number] 17:08:00* Test Item Value Reference Range Interpretation [...] DIFF REQUIRED (test code = MDIFF) NO FAX:[phone]:[phone] [id number] 17:08:00* Test Item Value Reference Range Interpretation Comments ANISOCYTOSIS (test code = ANISO) FAX:[phone]:[phone] W/AUTO [id number] 17:08:00* Test Item Value Reference Range Interpretation [...] DIFF REQUIRED (test code = MDIFF) NO FAX:[phone]:[phone] [id number] 17:08:00* Test Item Value Reference Range Interpretation Comments ANISOCYTOSIS (test code = ANISO) FAX:[phone]:[phone] [id number] 12:07:00* Test Item Value Reference Range Interpretation Comments Bedside Glucose (test code = 73153-1) 152 70-120 H Meter ID: [id number] [facility] Centerodium Level 2019-01-22 06:18:00* Test Item Value Reference Range Interpretation Comments Sodium Level (test code = 2951-2) 144 136-145 [facility] [id number] 06:18:00* Test Item Value Reference Range Interpretation Comments Potassium Level (test code = 2823-3) 3.2 3.5-5.1 L [facility] SpringsChloride [id number] 06:18:00* Test Item Value Reference Range Interpretation Comments Chloride Level (test code = 2075-0) 96 98-107 L [facility] SpringsCarbon Dioxide [id number] 06:18:00* Test Item Value Reference Range Interpretation Comments Carbon Dioxide Level (test code = 2028-9) 35 22-29 H [facility] SpringsAnion [id number] 06:18:00* Test Item Value Reference Range Interpretation Comments Anion Gap (test code = 24004-9) 16.2 8-16 H [facility] SpringsBlood Urea [id number] 06:18:00* Test Item Value Reference Range Interpretation Comments Blood Urea Nitrogen (test code = 3094-0) 15 7-26 [facility] SpringsCreatinine2019-11-22 06:18:00* Test Item Value Reference Range Interpretation Comments Creatinine (test code = 2160-0) 0.85 0.57-1.11 [facility] SpringsBUN/Creatinine [id number] 06:18:00* Test Item Value Reference Range Interpretation Comments BUN/Creatinine Ratio (test code = 3097-3) 18 6-25 [facility] SpringsEstimat Glomerular Filtration Rate 2019-01-22 06:18:00* Test Item Value Reference Range Interpretation Comments Estimat Glomerular Filtration Rate (test code = 623681131) > 60 >60 Ranges were taken from the National Kidney Disease Education Program and the [facility] Kid[facility] Foundation literature.Reference ranges:60 or greater: Zpnhhj91-88 ( for 3 consecutive months): Chronic kidney disease 15 or less: Kidney failureCHRISTUS [facility] – Sul[facility] SpringsGlucose [id number] 06:18:00* Test Item Value Reference Range Interpretation Comments Glucose Level (test code = LBJ0023) 115 74-118 [facility] SpringsCalcium [id number] 06:18:00* Test Item Value Reference Range Interpretation Comments Calcium Level (test code = 72349-5) 9.3 8.4-10.2 [facility] SpringsWhite Blood [id number] 06:00:00* Test Item Value Reference Range Interpretation Comments White Blood Count (test code = 6690-2) 9.01 4.8-10.8 [facility] SpringsRed Blood [id number] 06:00:00* Test Item Value Reference Range Interpretation Comments Red Blood Count (test code = 789-8) 4.06 3.6-5.1 [facility] SpringsHemoglobin2019-11-22 06:00:00* Test Item Value Reference Range Interpretation Comments Hemoglobin (test code = 78892-5) 9.3 12.0-16.0 L [facility] SpringsHematocrit2019-11-22 06:00:00* Test Item Value Reference Range Interpretation Comments Hematocrit (test code = 4544-3) 34.8 34.2-44.1 [facility] SpringsMean Corpuscular [id number] 06:00:00* Test Item Value Reference Range Interpretation Comments Mean Corpuscular Volume (test code = 787-2) 85.7 81-99 [facility] SpringsMean Corpuscular [id number] 06:00:00* Test Item Value Reference Range Interpretation Comments Mean Corpuscular Hemoglobin (test code = 785-6) 22.9 28-32 L [facility] [facility] SpringsMean Corpuscular Hemoglobin Concent 2019-01-22 06:00:00* Test Item Value Reference Range Interpretation Comments Mean Corpuscular Hemoglobin Concent (test code = 786-4) 26.7 31-35 L [facility] SpringsRed Cell Distribution Ztgcy0436-95-37 06:00:00* Test Item Value Reference Range Interpretation Comments Red Cell Distribution Width (test code = 64396-4) 25.2 11.7 -14.4 H [facility] SpringsPlatelet Ycwym1610-80-29 06:00:00* Test Item Value Reference Range Interpretation Comments Platelet Count (test code = 777-3) 455 140-360 H [facility] SpringsNeutrophils (%) (Auto)2019-01-22 06:00:00 * Test Item Value Reference Range Interpretation Comments Neutrophils (%) (Auto) (test code = 71765-9) 62.7 38.7-80.0 [facility] SpringsLymphocytes (%) (Auto)2019-01-22 06:00:00 * Test Item Value Reference Range Interpretation Comments Lymphocytes (%) (Auto) (test code = 736-9) 15.1 18.0-39.1 L [facility] SpringsMonocytes (%) (Auto)2019-01-22 06:00:00* Test Item Value Reference Range Interpretation Comments Monocytes (%) (Auto) (test code = 5905-5) 13.7 4.4-11.3 H [facility] SpringsEosinophils (%) (Auto)2019-01-22 06:00:00 * Test Item Value Reference Range Interpretation Comments Eosinophils (%) (Auto) (test code = 713-8) 6.5 0.0-6.0 H [facility] SpringsBasophils (%) (Auto)2019-01-22 06:00:00* Test Item Value Reference Range Interpretation Comments Basophils (%) (Auto) (test code = 706-2) 0.8 0.0-1.0 [facility] SpringsIM GRANULOCYTES %2019-01-22 06:00:00* Test Item Value Reference Range Interpretation Comments IM GRANULOCYTES % (test code = IM GRANULOCYTES %) 1.2 0.0- 1.0 H [facility] SpringsNeutrophils # (Auto)2019-01-22 06:00:00* Test Item Value Reference Range Interpretation Comments Neutrophils # (Auto) (test code = 751-8) 5.7 2.1-6.9 [facility] SpringsLymphocytes # (Auto)2019-01-22 06:00:00* Test Item Value Reference Range Interpretation Comments Lymphocytes # (Auto) (test code = 48863-1) 1.4 1.0-3.2 [facility] SpringsMonocytes # (Auto)2019-01-22 06:00:00* Test Item Value Reference Range Interpretation Comments Monocytes # (Auto) (test code = 742-7) 1.2 0.2-0.8 H [facility] SpringsEosinophils # (Auto)2019-01-22 06:00:00* Test Item Value Reference Range Interpretation Comments Eosinophils # (Auto) (test code = 711-2) 0.6 0.0-0.4 H [facility] SpringsBasophils # (Auto)2019-01-22 06:00:00* Test Item Value Reference Range Interpretation Comments Basophils # (Auto) (test code = 704-7) 0.1 0.0-0.1 [facility] SpringsAbsolute Immature Granulocyte (auto 2019-01-22 06:00:00* Test Item Value Reference Range Interpretation Comments Absolute Immature Granulocyte (auto (genoveva t code = Absolute Immature Granulocyte (auto) 0.11 0-0.1 H [facility] SpringsHypochromasia2019-11-19 12:42:00* Test Item Value Reference Range Interpretation Comments Hypochromasia (test code = 728-6) MODERATE [facility] SpringsRed Cell Morphology Weeedtt2835-54-32 12:42:00* Test Item Value Reference Range Interpretation Comments Red Cell Morphology Comment (test code = 6742-1) ABNORMAL [facility] SpringsCHEST 2 NEAVL8769-22-04 10:12:00 [place] [address] Patient Name: JOSE CARLOS DIXON MR #: [id number] : 1960 Age/Sex: 59/F Req #: [id number] Adm Physician: MAXI AMAYA MD Ordered by: MAXI AMAYA MD Report #: [id number] Location: MED/SURG3 Room/Bed: [facility] Procedure: 2761-4886 D X/CHEST 2 VIEWS Exam Date: 01/19/19 [...] (test code = 2498-4) 12 50-170 L [facility] SpringsTotal Iron Binding Nwnkoxqp2082-86-74 07:52:00* Test Item Value Reference Range Interpretation Comments Total Iron Binding Capacity (test code = 2500-7) 468 261-4 78 [facility] SpringsPercent Iron Efsxstvshm1782-52-66 07:52:00* Test Item Value Reference Range Interpretation Comments Percent Iron Saturation (test code = 2502-3) 3 15-50 L [facility] SpringsTransferrin2019-11-16 07:52:00* Test Item Value Reference Range Interpretation Comments Transferrin (test code = 3034-6) 334 180-382 [facility] SpringsCHEST SINGLE (PORTABLE)2019-01-16 00:51:00 [place] [address] Patient Name: JOSE CARLOS DIXON MR #: [id number] : 1960 Age/Sex: 59/F Req #: [id number] Adm Physician: Ordered by: DEVON IRWIN MD Report #: [id number] Location: ER Room/Bed: Procedure: 04 DX/CHEST SINGLE (PORTABLE) Exam Date: 01/16/19 Ex am Time: 0030 REPORT STATUS: Signed EXAMINATION: CHEST SINGLE (PORTABLE) COMPARISON: Chest x-ray 2018 INDICATION: SOB [id number] Y DISCUSSION: Fro ntal view of [...] 01/16 COPY TO: DEVON IRWIN MD Urine OXQ8610-86-19 00:22:00* Test Item Value Reference Range Interpretation Comments Urine WBC (test code = 5821-4) >50 0-5 H [facility] SpringsUrine XTQ3142-22-52 00:22:00* Test Item Value Reference Range Interpretation Comments Urine RBC (test code = 95180-2) 0-5 0-5 [facility] SpringsUrine Axnevbyd3771-03-43 00:22:00* Test Item Value Reference Range Interpretation Comments Urine Bacteria (test code = 04040-0) FEW NONE [facility] SpringsUrine Epithelial Jbcxx5829-16-65 00:22:00 * Test Item Value Reference Range Interpretation Comments Urine Epithelial Cells (test code = 54857-4) MODERATE NONE [facility] SpringsUrine Renal Epithelial Tgjfl2793-58-15 00:22:00* Test Item Value Reference Range Interpretation Comments Urine Renal Epithelial Cells (test code = 36135-6) FEW NON E H [facility] SpringsCreatine Kdrlob3534-03-29 00:16:00* Test Item Value Reference Range Interpretation Comments Creatine Kinase (test code = 2157-6) 33 29-168 [facility] SpringsCT CERVICAL SPINE GH4277-86-52 23:58:00 [facility] [address] [address] Patient Name: JOSE CARLOS DIXON MR #: [id number] : 1960 Age/Sex: 59/F Req #: [id number] Adm Physician: Ordered by: DEVON IRWIN MD Report #: [id number] Location: ER Room/Bed: Procedure: 111 [address] CT/CT [...] 0005 COPY TO: DEVON IRWIN MD Urine Bkzob4699-37-27 23:57:00* Test Item Value Reference Range Interpretation Comments Urine Color (test code = 5778-6) YELLOW YELLOW [facility] SpringsUrine Wtqxdza8134-87-68 23:57:00* Test Item Value Reference Range Interpretation Comments Urine Clarity (test code = 21000-1) CLEAR CLEAR [facility] SpringsUrine Specific Buujxpn4568-46-31 23:57:00 * Test Item Value Reference Range Interpretation Comments Urine Specific [place] (test code = 5811-5) 1.010 1.010-1.02 5 [facility] SpringsUrine gG6972-83-83 23:57:00* Test Item Value Reference Range Interpretation Comments Urine pH (test code = 38586-3) 6 5-7 [facility] SpringsUrine Leukocyte Sxiacrvq5943-46-42 23:57:00* Test Item Value Reference Range Interpretation Comments Urine Leukocyte Esterase (test code = 91707-7) SMALL NEGATIV E [facility] SpringsUrine Crryfic1631-55-01 23:57:00* Test Item Value Reference Range Interpretation Comments Urine Nitrite (test code = 39473-9) NEGATIVE NEGATIVE [facility] SpringsUrine Hxpwcvs4891-22-07 23:57:00* Test Item Value Reference Range Interpretation Comments Urine Protein (test code = 21435-2) NEGATIVE NEGATIVE [facility] SpringsUrine Glucose (UA)2019-01-15 23:57:00* Test Item Value Reference Range Interpretation Comments Urine Glucose (UA) (test code = 72847-8) NEGATIVE NEGATIVE [facility] SpringsUrine Dhzmglu3059-88-74 23:57:00* Test Item Value Reference Range Interpretation Comments Urine Ketones (test code = 97763-4) NEGATIVE NEGATIVE [facility] SpringsUrine Gjkmqusdfjly6493-93-61 23:57:00* Test Item Value Reference Range Interpretation Comments Urine Urobilinogen (test code = 15257-9) 0.2 0.2-1 [facility] SpringsUrine Vooxwohtx5690-41-02 23:57:00* Test Item Value Reference Range Interpretation Comments Urine Bilirubin (test code = 1977-8) NEGATIVE NEGATIVE [facility] SpringsUrine Hvxss1570-62-40 23:57:00* Test Item Value Reference Range Interpretation Comments Urine Blood (test code = 62874-0) NEGATIVE NEGATIVE [facility] SpringsTotal Xniimguca3076-49-63 23:56:00* Test Item Value Reference Range Interpretation Comments Total Bilirubin (test code = 1974-2) 0.4 0.2-1.2 [facility] SpringsAspartate Amino Transf (AST/SGOT) 2019-01-15 23:56:00* Test Item Value Reference Range Interpretation Comments Aspartate Amino Transf (AST/SGOT) (test code = Aspartate Amino Transf (AST/SGOT)) 16 5-34 [facility] SpringsAlanine Aminotransferase (ALT/SGPT) 2019-01-15 23:56:00* Test Item Value Reference Range Interpretation Comments Alanine Aminotransferase (ALT/SGPT) (test code = 1742-6) 15 0-55 [facility] SpringsTotal Mtxjxlf7862-11-98 23:56:00* Test Item Value Reference Range Interpretation Comments Total Protein (test code = 2885-2) 6.0 6.5-8.1 L [facility] SpringsAlbumin2019-11-15 23:56:00* Test Item Value Reference Range Interpretation Comments Albumin (test code = 1751-7) 3.5 3.5-5.0 [facility] SpringsGlobulin2019-11-15 23:56:00* Test Item Value Reference Range Interpretation Comments Globulin (test code = 92568-0) 2.5 2.3-3.5 [facility] SpringsAlbumin/Globulin Ogybd7888-13-25 23:56:00 * Test Item Value Reference Range Interpretation Comments Albumin/Globulin Ratio (test code = 1759-0) 1.4 0.8-2.0 [facility] SpringsAlkaline Tobjpeuafac8628-15-56 23:56:00* Test Item Value Reference Range Interpretation Comments Alkaline Phosphatase (test code = 6768-6) 73 40-150 [facility] SpringsCreatine Kinase JM7428-16-65 23:56:00* Test Item Value Reference Range Interpretation Comments Creatine Kinase MB (test code = 28427-5) 1.10 0-4.3 [facility] SpringsTroponin X4067-53-08 23:56:00* Test Item Value Reference Range Interpretation Comments Troponin I (test code = 03378-4) < 0.05 0.0-0.40 [facility] SpringsCT BRAIN XJ3842-78-89 23:54:00 [facility] [address] [place] [address] Patient Name: JOSE CARLOS DIXON MR #: [id number] : 1960 Age/Sex: 59/[id number] Req #: [id number] Adm Physician: Ordered by: DEVON IRWIN MD Report #: [id number] Location: ER Room/Bed: Procedure: CT/CT BRAIN WO [...] 11:58 PM Dictated By: VAHID BURKETT MD 7284 Transcribed By: ESTELLE on 01/15/19 5464 COPY TO: DEVON IRWIN MD CT BRAIN DF0135-55-30 15:52:00 [place] [address] Patient Name: JOSE CARLOS DIXON MR #: [id number] : 1960 Age/Sex: 58/F Req #: [id number] Adm Physician: KHADAR MCKINNEY MD Ordered by: GORDO BOSE M.D. Report #: [id number] Location: ICU Room/Bed: ICU [facility] Procedure: CT/CT BRAIN WO Exam Date: 11/25/18 [...] 11/25/181557 COPY TO: GORDO BOSE MD Bedside Bptzvfa7718-84-24 22:52:00* Test Item Value Reference Range Interpretation Comments Bedside Glucose (test code = 24501-0) 189 70-120 H Meter ID: [id number] [facility] SpringsTotal Bilirubin 2018-11-24 21:40:00* Test Item Value Reference Range Interpretation Comments Total Bilirubin (test code = 1975-2) 0.9 0.2-1.2 [facility] SpringsDirect Tfrnpvbji9933-70-49 21:40:00* Test Item Value Reference Range Interpretation Comments Direct Bilirubin (test code = 55498-6) 0.4 0.0-0.5 [facility] SpringsAspartate Amino Transf (AST/SGOT) 2018-11-24 21:40:00* Test Item Value Reference Range Interpretation Comments Aspartate Amino Transf (AST/SGOT) (test code = Aspartate Amino Transf (AST/SGOT)) 45 5-34 H [facility] SpringsAlanine Aminotransferase (ALT/SGPT) 2018-11-24 21:40:00* Test Item Value Reference Range Interpretation Comments Alanine Aminotransferase (ALT/SGPT) (test code = 1742-6) 18 0-55 [facility] SpringsTotal Hqcvjrr3442-04-53 21:40:00* Test Item Value Reference Range Interpretation Comments Total Protein (test code = 2885-2) 6.2 6.5-8.1 L [facility] SpringsAlbumin2019-09-24 21:40:00* Test Item Value Reference Range Interpretation Comments Albumin (test code = 1751-7) 3.2 3.5-5.0 L [facility] SpringsAlkaline Flmdwuopmrb1409-39-92 21:40:00* Test Item Value Reference Range Interpretation Comments Alkaline Phosphatase (test code = 6768-6) 82 40-150 [facility] SpringsDirect Enstdfblu7964-13-41 21:40:00* Test Item Value Reference Range Interpretation Comments Direct Bilirubin (test code = 45127-0) 0.4 0.0-0.5 [facility] SpringsDifferential Total Cells Counted 2018-11-23 12:28:00* Test Item Value Reference Range Interpretation Comments Differential Total Cells Counted (test code = Differen tial Total Cells Counted) 100 [facility] SpringsNeutrophils % (Manual)2018-11-23 12:28:00 * Test Item Value Reference Range Interpretation Comments Neutrophils % (Manual) (test code = 36859-0) 53 40-74 [facility] SpringsLymphocytes % (Manual)2018-11-23 12:28:00 * Test Item Value Reference Range Interpretation Comments Lymphocytes % (Manual) (test code = 737-7) 17 19-48 L [facility] SpringsMonocytes % (Manual)2018-11-23 12:28:00* Test Item Value Reference Range Interpretation Comments Monocytes % (Manual) (test code = 744-3) 18 3.4-9.0 H [facility] SpringsEosinophils % (Manual)2018-11-23 12:28:00 * Test Item Value Reference Range Interpretation Comments Eosinophils % (Manual) (test code = 714-6) 8 0-7 H [facility] SpringsReactive Bgfoaktidhd8337-03-76 12:28:00* Test Item Value Reference Range Interpretation Comments Reactive Lymphocytes (test code = 42752-6) 4 [facility] SpringsPlatelet Qqdwimep6586-08-11 12:28:00* Test Item Value Reference Range Interpretation Comments Platelet Estimate (test code = 05522-5) MODERATELY INCREASED [facility] SpringsPlatelet Morphology Zodudtk1872-10-79 12:28:00* Test Item Value Reference Range Interpretation Comments Platelet Morphology Comment (test code = 03289-9) NORMAL [facility] SpringsPolychromasia2019-09-23 12:28:00* Test Item Value Reference Range Interpretation Comments Polychromasia (test code = 21170-6) FEW [facility] SpringsPoikilocytosis2019-09-23 12:28:00* Test Item Value Reference Range Interpretation Comments Poikilocytosis (test code = 779-9) SLIGHT [facility] SpringsAnisocytosis2019-09-23 12:28:00* Test Item Value Reference Range Interpretation Comments Anisocytosis (test code = 702-1) SLIGHT [facility] SpringsRed Cell Morphology Qvljfii0463-92-63 12:28:00* Test Item Value Reference Range Interpretation Comments Red Cell Morphology Comment (test code = 6742-1) ABNORMAL [facility] SpringsDifferential Total Cells Counted 2018-11-23 12:28:00* Test Item Value Reference Range Interpretation Comments Differential Total Cells Counted (test code = Differen tial Total Cells Counted) 100 [facility] SpringsNeutrophils % (Manual)2018-11-23 12:28:00 * Test Item Value Reference Range Interpretation Comments Neutrophils % (Manual) (test code = 86270-6) 53 40-74 [facility] SpringsLymphocytes % (Manual)2018-11-23 12:28:00 * Test Item Value Reference Range Interpretation Comments Lymphocytes % (Manual) (test code = 737-7) 17 19-48 L [facility] SpringsMonocytes % (Manual)2018-11-23 12:28:00* Test Item Value Reference Range Interpretation Comments Monocytes % (Manual) (test code = 744-3) 18 3.4-9.0 H [facility] SpringsEosinophils % (Manual)2018-11-23 12:28:00 * Test Item Value Reference Range Interpretation Comments Eosinophils % (Manual) (test code = 714-6) 8 0-7 H [facility] SpringsReactive Vwfsotkyesx3952-10-31 12:28:00* Test Item Value Reference Range Interpretation Comments Reactive Lymphocytes (test code = 23293-9) 4 [facility] SpringsPlatelet Bgkhfhyd7108-68-28 12:28:00* Test Item Value Reference Range Interpretation Comments Platelet Estimate (test code = 49790-2) MODERATELY INCREASED [facility] SpringsPlatelet Morphology Iqgpese0862-92-06 12:28:00* Test Item Value Reference Range Interpretation Comments Platelet Morphology Comment (test code = 17223-7) NORMAL [facility] SpringsPolychromasia2019-09-23 12:28:00* Test Item Value Reference Range Interpretation Comments Polychromasia (test code = 04167-0) FEW [facility] SpringsPoikilocytosis2019-09-23 12:28:00* Test Item Value Reference Range Interpretation Comments Poikilocytosis (test code = 779-9) SLIGHT [facility] SpringsAnisocytosis2019-09-23 12:28:00* Test Item Value Reference Range Interpretation Comments Anisocytosis (test code = 702-1) SLIGHT [facility] Centerodium Ivqrm5688-24-47 11:16:00* Test Item Value Reference Range Interpretation Comments Sodium Level (test code = 2951-2) 139 136-145 [facility] SpringsPotassium Xbwfz4398-38-59 11:16:00* Test Item Value Reference Range Interpretation Comments Potassium Level (test code = 2823-3) 3.8 3.5-5.1 [facility] SpringsChloride Aejoj1542-30-11 11:16:00* Test Item Value Reference Range Interpretation Comments Chloride Level (test code = 2075-0) 96 98-107 L [facility] SpringsCarbon Dioxide Qakqp9100-00-81 11:16:00* Test Item Value Reference Range Interpretation Comments Carbon Dioxide Level (test code = 2028-9) 33 22-29 H [facility] SpringsAnion Ipx0797-07-37 11:16:00* Test Item Value Reference Range Interpretation Comments Anion Gap (test code = 10703-1) 13.8 8-16 [facility] SpringsBlood Urea Srgkpppn2393-99-81 11:16:00* Test Item Value Reference Range Interpretation Comments Blood Urea Nitrogen (test code = 3094-0) 9 - [facility] SpringsCreatinine2019-09-23 11:16:00* Test Item Value Reference Range Interpretation Comments Creatinine (test code = 2160-0) 0.81 0.57-1.11 [facility] SpringsBUN/Creatinine Mptey5087-58-16 11:16:00* Test Item Value Reference Range Interpretation Comments BUN/Creatinine Ratio (test code = 3097-3) 11 08-25 [facility] SpringsEstimat Glomerular Filtration Rate 2018-11-23 11:16:00* Test Item Value Reference Range Interpretation Comments Estimat Glomerular Filtration Rate (test code = 707060792) > 60 >60 Ranges were taken from the National Kidney Disease Education Program and the [facility] literature.Reference ranges:60 or greater: Meshgl10-42 ( for 3 consecutive months): Chronic kidney disease 15 or less: Kidney failureCHRISTUS Mother [facility] – Sulphur SpringsGlucose Timso0560-52-60 11:16:00* Test Item Value Reference Range Interpretation Comments Glucose Level (test code = FVR8747) 180 74-118 H [facility] SpringsCalcium Xmqbk5108-37-43 11:16:00* Test Item Value Reference Range Interpretation Comments Calcium Level (test code = 64324-0) 9.4 8.4-10.2 [facility] SpringsGlobulin2019-09-23 11:16:00* Test Item Value Reference Range Interpretation Comments Globulin (test code = 48580-7) 3.3 2.3-3.5 [facility] SpringsAlbumin/Globulin Wnscr0388-80-02 11:16:00 * Test Item Value Reference Range Interpretation Comments Albumin/Globulin Ratio (test code = 1759-0) 1.1 0.8-2.0 [facility] SpringsWhite Blood Vjzum5358-24-60 11:06:00* Test Item Value Reference Range Interpretation Comments White Blood Count (test code = 6690-2) 14.50 4.8-10.8 H [facility] SpringsRed Blood Dblxr3513-99-52 11:06:00* Test Item Value Reference Range Interpretation Comments Red Blood Count (test code = 789-8) 4.10 3.6-5.1 [facility] SpringsHemoglobin2019-09-23 11:06:00* Test Item Value Reference Range Interpretation Comments Hemoglobin (test code = 47768-3) 10.3 12.0-16.0 L [facility] SpringsHematocrit2019-09-23 11:06:00* Test Item Value Reference Range Interpretation Comments Hematocrit (test code = 4544-3) 34.3 34.2-44.1 [facility] SpringsMean Corpuscular Zvhqvg8724-49-32 11:06:00* Test Item Value Reference Range Interpretation Comments Mean Corpuscular Volume (test code = 787-2) 83.7 81-99 [facility] SpringsMean Corpuscular Ilyvpztexg6638-28-82 11:06:00* Test Item Value Reference Range Interpretation Comments Mean Corpuscular Hemoglobin (test code = 785-6) 25.1 28-32 L [facility] SpringsMean Corpuscular Hemoglobin Concent 2018-11-23 11:06:00* Test Item Value Reference Range Interpretation Comments Mean Corpuscular Hemoglobin Concent (test code = 786-4) 30.0 31-35 L [facility] SpringsRed Cell Distribution Fnrbx9685-67-86 11:06:00* Test Item Value Reference Range Interpretation Comments Red Cell Distribution Width (test code = 26855-7) 20.0 11.7 -14.4 H [facility] SpringsPlatelet Wlelt1756-82-90 11:06:00* Test Item Value Reference Range Interpretation Comments Platelet Count (test code = 777-3) 426 140-360 H [facility] SpringsNeutrophils (%) (Auto)2018-11-23 11:06:00 * Test Item Value Reference Range Interpretation Comments Neutrophils (%) (Auto) (test code = 49256-9) 63.6 38.7-80.0 [facility] SpringsLymphocytes (%) (Auto)2018-11-23 11:06:00 * Test Item Value Reference Range Interpretation Comments Lymphocytes (%) (Auto) (test code = 736-9) 15.2 18.0-39.1 L [facility] SpringsMonocytes (%) (Auto)2018-11-23 11:06:00* Test Item Value Reference Range Interpretation Comments Monocytes (%) (Auto) (test code = 5905-5) 12.2 4.4-11.3 H [facility] SpringsEosinophils (%) (Auto)2018-11-23 11:06:00 * Test Item Value Reference Range Interpretation Comments Eosinophils (%) (Auto) (test code = 713-8) 7.6 0.0-6.0 H [facility] SpringsBasophils (%) (Auto)2018-11-23 11:06:00* Test Item Value Reference Range Interpretation Comments Basophils (%) (Auto) (test code = 706-2) 0.6 0.0-1.0 [facility] SpringsIM GRANULOCYTES %2018-11-23 11:06:00* Test Item Value Reference Range Interpretation Comments IM GRANULOCYTES % (test code = IM GRANULOCYTES %) 0.8 0.0- 1.0 [facility] [facility] SpringsNeutrophils # (Auto)2018-11-23 11:06:00* Test Item Value Reference Range Interpretation Comments Neutrophils # (Auto) (test code = 751-8) 9.2 2.1-6.9 H [facility] SpringsLymphocytes # (Auto)2018-11-23 11:06:00* Test Item Value Reference Range Interpretation Comments Lymphocytes # (Auto) (test code = 02119-5) 2.2 1.0-3.2 [facility] SpringsMonocytes # (Auto)2018-11-23 11:06:00* Test Item Value Reference Range Interpretation Comments Monocytes # (Auto) (test code = 742-7) 1.8 0.2-0.8 H [facility] SpringsEosinophils # (Auto)2018-11-23 11:06:00* Test Item Value Reference Range Interpretation Comments Eosinophils # (Auto) (test code = 711-2) 1.1 0.0-0.4 H [facility] SpringsBasophils # (Auto)2018-11-23 11:06:00* Test Item Value Reference Range Interpretation Comments Basophils # (Auto) (test code = 704-7) 0.1 0.0-0.1 [facility] SpringsAbsolute Immature Granulocyte (auto 2018-11-23 11:06:00* Test Item Value Reference Range Interpretation Comments Absolute Immature Granulocyte (auto (genoveva t code = Absolute Immature Granulocyte (auto) 0.11 0-0.1 H [facility] SpringsB-Type Natriuretic Ybwwedg9654-48-82 20:08:00* Test Item Value Reference Range Interpretation Comments B-Type Natriuretic Peptide (test code = 78291-3) 191.3 0-100 H [facility] SpringsB-Type Natriuretic Dsntffr6517-25-51 20:08:00* Test Item Value Reference Range Interpretation Comments B-Type Natriuretic Peptide (test code = 54004-8) 191.3 0-100 H [facility] SpringsB-Type Natriuretic Mntmeve8786-28-02 20:08:00* Test Item Value Reference Range Interpretation Comments B-Type Natriuretic Peptide (test code = 16455-6) 191.3 0-100 H [facility] SpringsCreatine Kinase [id number] 18:14:00* Test Item Value Reference Range Interpretation Comments Creatine Kinase MB (test code = 95660-8) 1.80 0-5.0 [facility] SpringsTroponin [id number] 18:14:00* Test Item Value Reference Range Interpretation Comments Troponin I (test code = VCU7272) < 0.001 0-0.300 [facility] SpringsCreatine Kinase [id number] 18:14:00* Test Item Value Reference Range Interpretation Comments Creatine Kinase MB (test code = 53364-2) 1.80 0-5.0 [facility] SpringsTrPeter [place] 17364B6303-48-29 18:14:00* Test Item Value Reference Range Interpretation Comments Troponin I (test code = YSC1076) < 0.001 0-0.300 [facility] Centerodium Msefn9096-11-61 18:09:00* Test Item Value Reference Range Interpretation Comments Sodium Level (test code = 2951-2) 139 136-145 [facility] SpringsPotassium Rajnm6292-74-00 18:09:00* Test Item Value Reference Range Interpretation Comments Potassium Level (test code = 2823-3) 4.0 3.5-5.1 [facility] SpringsChloride Ejblq5972-50-08 18:09:00* Test Item Value Reference Range Interpretation Comments Chloride Level (test code = 2075-0) 102 98-107 [facility] SpringsCarbon Dioxide Gnabi7230-98-35 18:09:00* Test Item Value Reference Range Interpretation Comments Carbon Dioxide Level (test code = 2028-9) 24 22-29 [facility] SpringsAnion Nje4233-43-09 18:09:00* Test Item Value Reference Range Interpretation Comments Anion Gap (test code = 42732-7) 17.0 8-16 H [facility] SpringsBlood Urea Srvmmuak2276-41-21 18:09:00* Test Item Value Reference Range Interpretation Comments Blood Urea Nitrogen (test code = 3094-0) 10 7-26 [facility] SpringsCreatinine2019-07-22 18:09:00* Test Item Value Reference Range Interpretation Comments Creatinine (test code = 2160-0) 0.73 0.57-1.11 [facility] SpringsBUN/Creatinine Vteom8810-66-43 18:09:00* Test Item Value Reference Range Interpretation Comments BUN/Creatinine Ratio (test code = 3097-3) 14 6-25 [facility] SpringsEstimat Glomerular Filtration Rate 2018-09-21 18:09:00* Test Item Value Reference Range Interpretation Comments Estimat Glomerular Filtration Rate (test code = 714268768) > 60 >60 Ranges were taken from the National Kidney Disease Education Program and the [facility] Kid[facility] Foundation literature.Reference ranges:60 or greater: Pppzvh66-07 ( for 3 consecutive months): Chronic kidney disease 15 or less: Kidney failureCHRISTUS Mother [facility] – [facility] SpringsGlucose Zekgq9421-82-29 18:09:00* Test Item Value Reference Range Interpretation Comments Glucose Level (test code = OBT9171) 164 74-118 H [facility] SpringsCalcium Jnimt1257-65-09 18:09:00* Test Item Value Reference Range Interpretation Comments Calcium Level (test code = 71832-9) 9.9 8.4-10.2 [facility] SpringsTotal Bvidxfkyz2216-72-99 18:09:00* Test Item Value Reference Range Interpretation Comments Total Bilirubin (test code = 1975-2) 0.7 0.2-1.2 [facility] SpringsAspartate Amino Transf (AST/SGOT) 2018-09-21 18:09:00* Test Item Value Reference Range Interpretation Comments Aspartate Amino Transf (AST/SGOT) (test code = Aspartate Amino Transf (AST/SGOT)) 44 5-34 H [facility] SpringsAlanine Aminotransferase (ALT/SGPT) 2018-09-21 18:09:00* Test Item Value Reference Range Interpretation Comments Alanine Aminotransferase (ALT/SGPT) (test code = 1742-6) 31 0-55 [facility] SpringsTotal Vikcsne5034-01-34 18:09:00* Test Item Value Reference Range Interpretation Comments Total Protein (test code = 2885-2) 7.1 6.5-8.1 [facility] SpringsAlbumin2019-07-22 18:09:00* Test Item Value Reference Range Interpretation Comments Albumin (test code = 1751-7) 3.8 3.5-5.0 [facility] SpringsGlobulin2019-07-22 18:09:00* Test Item Value Reference Range Interpretation Comments Globulin (test code = 42881-0) 3.3 2.3-3.5 [facility] SpringsAlbumin/Globulin Jiyxu8083-38-12 18:09:00 * Test Item Value Reference Range Interpretation Comments Albumin/Globulin Ratio (test code = 1759-0) 1.2 0.8-2.0 [facility] SpringsAlkaline Nvprafpjnah6463-96-01 18:09:00* Test Item Value Reference Range Interpretation Comments Alkaline Phosphatase (test code = 6768-6) 89 40-150 [facility] SpringsCreatine Bqzmuw1284-41-98 18:09:00* Test Item Value Reference Range Interpretation Comments Creatine Kinase (test code = 2157-6) 108 29-168 [facility] SpringsCreatine Unccqp2787-69-58 18:09:00* Test Item Value Reference Range Interpretation Comments Creatine Kinase (test code = 2157-6) 108 29-168 [facility] SpringsWhite Blood Zcctw4415-89-08 17:54:00* Test Item Value Reference Range Interpretation Comments White Blood Count (test code = 6690-2) 13.87 4.8-10.8 H [facility] SpringsRed Blood Ubrip3254-80-96 17:54:00* Test Item Value Reference Range Interpretation Comments Red Blood Count (test code = 789-8) 3.82 3.6-5.1 [facility] SpringsHemoglobin2019-07-22 17:54:00* Test Item Value Reference Range Interpretation Comments Hemoglobin (test code = 12555-0) 10.2 12.0-16.0 L [facility] SpringsHematocrit2019-07-22 17:54:00* Test Item Value Reference Range Interpretation Comments Hematocrit (test code = 4544-3) 33.7 34.2-44.1 L [facility] SpringsMean Corpuscular Ltxcol5613-69-22 17:54:00* Test Item Value Reference Range Interpretation Comments Mean Corpuscular Volume (test code = 787-2) 88.2 81-99 [facility] SpringsMean Corpuscular Sbpnfynips1723-51-63 17:54:00* Test Item Value Reference Range Interpretation Comments Mean Corpuscular Hemoglobin (test code = 785-6) 26.7 28-32 L [facility] SpringsMean Corpuscular Hemoglobin Concent 2018-09-21 17:54:00* Test Item Value Reference Range Interpretation Comments Mean Corpuscular Hemoglobin Concent (test code = 786-4) 30.3 31-35 L [facility] SpringsRed Cell Distribution Irlxd1214-38-26 17:54:00* Test Item Value Reference Range Interpretation Comments Red Cell Distribution Width (test code = 89078-0) 18.4 11.7 -14.4 H [facility] SpringsPlatelet Bxyfs2637-96-77 17:54:00* Test Item Value Reference Range Interpretation Comments Platelet Count (test code = 777-3) 388 140-360 H [facility] SpringsNeutrophils (%) (Auto)2018-09-21 17:54:00 * Test Item Value Reference Range Interpretation Comments Neutrophils (%) (Auto) (test code = 26064-1) 72.9 38.7-80.0 [facility] SpringsLymphocytes (%) (Auto)2018-09-21 17:54:00 * Test Item Value Reference Range Interpretation Comments Lymphocytes (%) (Auto) (test code = 736-9) 13.5 18.0-39.1 L [facility] SpringsMonocytes (%) (Auto)2018-09-21 17:54:00* Test Item Value Reference Range Interpretation Comments Monocytes (%) (Auto) (test code = 5905-5) 9.4 4.4-11.3 [facility] SpringsEosinophils (%) (Auto)2018-09-21 17:54:00 * Test Item Value Reference Range Interpretation Comments Eosinophils (%) (Auto) (test code = 713-8) 2.2 0.0-6.0 [facility] SpringsBasophils (%) (Auto)2018-09-21 17:54:00* Test Item Value Reference Range Interpretation Comments Basophils (%) (Auto) (test code = 706-2) 0.6 0.0-1.0 [facility] SpringsIM GRANULOCYTES %2018-09-21 17:54:00* Test Item Value Reference Range Interpretation Comments IM GRANULOCYTES % (test code = IM GRANULOCYTES %) 1.4 0.0- 1.0 H [facility] SpringsNeutrophils # (Auto)2018-09-21 17:54:00* Test Item Value Reference Range Interpretation Comments Neutrophils # (Auto) (test code = 751-8) 10.1 2.1-6.9 H [facility] SpringsLymphocytes # (Auto)2018-09-21 17:54:00* Test Item Value Reference Range Interpretation Comments Lymphocytes # (Auto) (test code = 69771-7) 1.9 1.0-3.2 [facility] SpringsMonocytes # (Auto)2018-09-21 17:54:00* Test Item Value Reference Range Interpretation Comments Monocytes # (Auto) (test code = 742-7) 1.3 0.2-0.8 H [facility] SpringsEosinophils # (Auto)2018-09-21 17:54:00* Test Item Value Reference Range Interpretation Comments Eosinophils # (Auto) (test code = 711-2) 0.3 0.0-0.4 [facility] SpringsBasophils # (Auto)2018-09-21 17:54:00* Test Item Value Reference Range Interpretation Comments Basophils # (Auto) (test code = 704-7) 0.1 0.0-0.1 [facility] SpringsAbsolute Immature Granulocyte (auto 2018-09-21 17:54:00* Test Item Value Reference Range Interpretation Comments Absolute Immature Granulocyte (auto (genoveva t code = Absolute Immature Granulocyte (auto) 0.20 0-0.1 H [facility] SpringsCHEST SINGLE (NOT PORTABLE)2018-09-21 16:34:00 [place] [address] Patient Name: JOSE CARLOS DIXON MR #: [id number] : 1960 Age/Sex: 58/F Req #: [id number] Adm Physician: Ordered by: BEATRIZ WIN MD Report #: [id number] Location: ER Room/Bed: Procedure: [id number] DX/C HEST SINGLE (NOT PORTABLE) Exam Date: [...] 1636 COPY TO: BEATRIZ WIN MD p-ANCA Pmdtl0374-56-40 13:29:00* Test Item Value Reference Range Interpretation Comments p-ANCA Titer (test code = 90048-7) <1:20 Neg:<1:20 The presence of positive fluorescence exhibiting P-ANCA orC-ANCA patterns alone is not specific for the diagnosis ofWegener's Granulomatosis (WG) or microscopic polyangiitis.Decisions about treatment should not be based solely onANCA IFA re sults. The International ANCA Group Consensusrecommends follow up testing of po sitive sera with both TX-3 and MPO-ANCA enzyme immunoassays. As many as 5% serum samples are positive only by EIA. Ref. AM J Clin Imeptl1379;111:507-513.[facility] Springsc-ANCA Usbcs3809-79-78 13:29:00* Test Item Value Reference Range Interpretation Comments c-ANCA Titer (test code = 93601-6) <1:20 Neg:<1:20 [facility] SpringsAtypical l-[id number] 13:29:00* Test Item Value Reference Range Interpretation Comments Atypical p-ANCA (test code = 47646-6) <1:20 Neg:<1:20 The atypical pANCA pattern has been observed in asignificant percentage of patie nts with ulcerative colitis,primary sclerosing cholangitis and autoimmune hepati tis.Performed at: [facility] [place] [id number] Director: Kimmy Harry MD, Phone: [phone] [facility] Springsp-ANCA Uqswr1100-39-65 13:29:00* Test Item Value Reference Range Interpretation Comments p-ANCA Titer (test code = 33027-3) <1:20 Neg:<1:20 The presence of positive fluorescence exhibiting P-ANCA orC-ANCA patterns alone is not specific for the diagnosis ofWegener's Granulomatosis (WG) or microscopic polyangiitis.Decisions about treatment should not be based solely onANCA IFA re sults. The International ANCA Group Consensusrecommends follow up testing of po sitive sera with both TX-3 and MPO-ANCA enzyme immunoassays. As many as 5% serum samples are positive only by EIA. Ref. AM J Clin Wvboqv0096;111:507-513.[facility] Springsc-ANCA Tsbuq3837-11-52 13:29:00* Test Item Value Reference Range Interpretation Comments c-ANCA Titer (test code = 57042-2) <1:20 Neg:<1:20 [facility] SpringsAtypical g-[id number] 13:29:00* Test Item Value Reference Range Interpretation Comments Atypical p-ANCA (test code = 26916-6) <1:20 Neg:<1:20 The atypical pANCA pattern has been observed in asignificant percentage of patie nts with ulcerative colitis,primary sclerosing cholangitis and autoimmune hepati tis.Performed at: [facility] [address] [address]Xab Director: Kimmy Harry MD, Phone: [phone] [facility] Springsp-ANCA Wdgzz6805-29-11 13:29:00* Test Item Value Reference Range Interpretation Comments p-ANCA Titer (test code = 43819-9) <1:20 Neg:<1:20 The presence of positive fluorescence exhibiting P-ANCA orC-ANCA patterns alone is not specific for the diagnosis ofWegener's Granulomatosis (WG) or microscopic polyangiitis.Decisions about treatment should not be based solely onANCA IFA re sults. The [employer] ANCA Group Consensusrecommends follow up testing of po sitive sera with both TX-3 and MPO-ANCA enzyme immunoassays. As many as 5% serum samples are positive only by EIA. Ref. AM J Clin Gqprcq8348;111:507-513.[facility] Springsc-ANCA Dmtrc9639-74-61 13:29:00* Test Item Value Reference Range Interpretation Comments c-ANCA Titer (test code = 95684-0) <1:20 Neg:<1:20 [facility] SpringsAtypical r-[id number] 13:29:00* Test Item Value Reference Range Interpretation Comments Atypical p-ANCA (test code = 82365-0) <1:20 Neg:<1:20 The atypical pANCA pattern has been observed in asignificant percentage of patie nts with ulcerative colitis,primary sclerosing cholangitis and autoimmune hepati tis.Performed at: [place] [address]Lab Director: Kimmy Harry MD, Phone: [phone] Scott & White [facility] Ayfgcwi4087-26-80 14:24:00* Test Item Value Reference Range Interpretation Comments Bedside Glucose (test code = 28152-0) 226 70-120 H Meter ID: [id number] [facility] Glucose 2018-07-31 14:24:00* Test Item Value Reference Range Interpretation Comments Bedside Glucose (test code = 75948-3) 226 70-120 H Meter ID: [id number] Hermann Southwest Hospitalodium Level 2018-07-31 07:22:00* Test Item Value Reference Range Interpretation Comments Sodium Level (test code = 2951-2) 138 136-145 [facility] SpringsPotassium Iypxz7017-42-28 07:22:00* Test Item Value Reference Range Interpretation Comments Potassium Level (test code = 2823-3) 3.3 3.5-5.1 L [facility] SpringsChloride Ggtrv0045-43-41 07:22:00* Test Item Value Reference Range Interpretation Comments Chloride Level (test code = 2075-0) 94 98-107 L [facility] SpringsCarbon Dioxide Stnrg8409-38-69 07:22:00* Test Item Value Reference Range Interpretation Comments Carbon Dioxide Level (test code = 2028-9) 31 22-29 H [facility] SpringsAnion Uve1376-06-07 07:22:00* Test Item Value Reference Range Interpretation Comments Anion Gap (test code = 84743-4) 16.3 8-16 H [facility] SpringsBlood Urea Govadzfe0823-78-66 07:22:00* Test Item Value Reference Range Interpretation Comments Blood Urea Nitrogen (test code = 3094-0) 21 7-26 [facility] SpringsCreatinine2019-05-31 07:22:00* Test Item Value Reference Range Interpretation Comments Creatinine (test code = 2160-0) 0.89 0.57-1.11 [facility] SpringsBUN/Creatinine Tndcq2485-11-94 07:22:00* Test Item Value Reference Range Interpretation Comments BUN/Creatinine Ratio (test code = 3097-3) 24 6-25 [facility] SpringsEstimat Glomerular Filtration Rate 2018-07-31 07:22:00* Test Item Value Reference Range Interpretation Comments Estimat Glomerular Filtration Rate (test code = 231330161) > 60 >60 Ranges were taken from the National Kidney Disease Education Program and the [facility] Kid[facility] Foundation literature.Reference ranges:60 or greater: Kidvrt43-73 ( for 3 consecutive months): Chronic kidney disease 15 or less: Kidney failureCHRISTUS Mother [facility] – [facility] SpringsGlucose Zpurj3816-78-10 07:22:00* Test Item Value Reference Range Interpretation Comments Glucose Level (test code = YYJ3691) 139 74-118 H [facility] SpringsCalcium Kixjg5211-14-29 07:22:00* Test Item Value Reference Range Interpretation Comments Calcium Level (test code = 95741-0) 9.5 8.4-10.2 [facility] SpringsCyclic Citrullinated Peptide IgG Ab 2018-07-31 01:12:00* Test Item Value Reference Range Interpretation Comments Cyclic Citrullinated Peptide IgG Ab (test code = 62771-3) 4 0-19 Negative <20 Weak positive 20 - 39 Moderate positive 40 - 59 Strong positive >59Performed at: [employer] [facility] [id number] Director: Don Plascencia MD, Phone: [phone] at: [employer] [id number] Director: Kimmy Harry MD, Phone: [phone] Regional Hospital2019-05-31 01:12:00* Test Item Value Reference Range Interpretation Comments Rheumatoid Factor (test code = 44473-9) 10.2 0.0-13.9 [facility] Citrullinated Peptide IgG Ab 2018-07-31 01:12:00* Test Item Value Reference Range Interpretation Comments Cyclic Citrullinated Peptide IgG Ab (test code = 57603-8) 4 0-19 Negative <20 Weak positive 20 - 39 Moderate positive 40 - 59 Strong positive >59Performed at: [facility] [address] [id number] Director: Don Plascencia MD, Phone: [phone] at: [employer] [id number] Director: Kimmy Harry MD, Phone: [phone] Regional Hospital2019-05-31 01:12:00* Test Item Value Reference Range Interpretation Comments Rheumatoid Factor (test code = 17311-6) 10.2 0.0-13.9 [facility] Citrullinated Peptide IgG Ab 2018-07-31 01:12:00* Test Item Value Reference Range Interpretation Comments Cyclic Citrullinated Peptide IgG Ab (test code = 07452-5) 4 0-19 Negative <20 Weak positive 20 - 39 Moderate positive 40 - 59 Strong positive >59Performed at: [address] [id number] Director: Don Plascencia MD, Phone: [phone] at: [address] [id number] Director: Kimmy Harry MD, Phone: [phone] Regional Hospital2019-05-31 01:12:00* Test Item Value Reference Range Interpretation Comments Rheumatoid Factor (test code = 60038-8) 10.2 0.0-13.9 [facility] SpringsCyclic Citrullinated Peptide IgG Ab 2018-07-31 01:12:00* Test Item Value Reference Range Interpretation Comments Cyclic Citrullinated Peptide IgG Ab (test code = 61562-6) 4 0-19 Negative <20 Weak positive 20 - 39 Moderate positive 40 - 59 Strong positive >59Performed at: [address] [id number] Director: Don Plascencia MD, Phone: [phone] at: [address] [id number] Director: Kimmy Harry MD, Phone: [phone] Regional Healthcare Systemeumahendricks regional health Ipjzny6984-23-55 01:12:00* Test Item Value Reference Range Interpretation Comments Rheumatoid Factor (test code = 95773-1) 10.2 0.0-13.9 [facility] SpringsAnti-Nuclear Antibody (LAB)2018-07-30 22:12:00* Test Item Value Reference Range Interpretation Comments Anti-Nuclear Antibody (LAB) (test code = 8061-4) Positive Negat chapincito H [facility] CenterM Yxezpbxw3531-13-07 22:12:00* Test Item Value Reference Range Interpretation Comments SM Antibody (test code = 94771-1) 6 0-19 Negative 0 - 19 Weak positi ve 20 - 30 Moderate to strong positive >30 Actin Antibodies are found in 52-85% of patients with autoimmune hepatitis or chronic active hepatitis and in 22% of patients with primary biliary cirrhosis. [facility] SpringsAnti-Mitochondrial Xkmpjefk4967-14-02 22:12:00* Test Item Value Reference Range Interpretation Comments Anti-Mitochondrial Antibody (test code = 05402-0) <20.0 0.0- 20.0 Negative 0.0 - 20.0 Equivocal 20.1 - 24.9 Positive > 24.9Mitochondrial (M2) Antibodies are found in 90-96% ofpatients with primary bi liary cirrhosis.[facility] SpringsAnti-Double Strand DNA (Crithidia)2018-07-30 22:12:00* Test Item Value Reference Range Interpretation Comments Anti-Double Strand DNA (Crithidia) (test code = 5130-0) <1 0-9 Negative <5 Equivocal 5 - 9 Positive >9[facility] CenterThyroid Peroxidase Mvzpdbevmw8190-53-73 22:12:00 * Test Item Value Reference Range Interpretation Comments Thyroid Peroxidase Antibodies (test code = 8099-4) 8 0-3 4 Performed at: [facility] [address] [id number] Director: Don Plascencia MD, Phone: [phone] at: - [facility] [address] [id number] Director: Kimmy Harry MD, Ph one: [phone] [facility] SpringsAnti-Parietal Cell Mbqcwzgi0834-29-18 22:12:00* Test Item Value Reference Range Interpretation Comments Anti-Parietal Cell Antibody (test code = 8087-9) 14.7 0.0-2 0.0 Negative 0.0 - 20.0 Equivocal 20.1 - 24.9 Positive > 24.9Parietal Cell Antibodies are found in 90% of patientswith pernicious anemia and 30% of first degreerelatives with pernicious anemia.[facility] SpringsAnti-Nuclear Antibody (LAB)2018-07-30 22:12:00* Test Item Value Reference Range Interpretation Comments Anti-Nuclear Antibody (LAB) (test code = 8061-4) Positive Negat chapincito H [facility] CenterM Rrdhhpse6545-15-20 22:12:00* Test Item Value Reference Range Interpretation Comments SM Antibody (test code = 79812-1) 6 0-19 Negative 0 - 19 Weak positi ve 20 - 30 Moderate to strong positive >30 Actin Antibodies are found in 52-85% of patients with autoimmune hepatitis or chronic active hepatitis and in 22% of patients with primary biliary cirrhosis. [facility] SpringsAnti-Mitochondrial Yujvnrqj6449-14-23 22:12:00* Test Item Value Reference Range Interpretation Comments Anti-Mitochondrial Antibody (test code = 63525-9) <20.0 0.0- 20.0 Negative 0.0 - 20.0 Equivocal 20.1 - 24.9 Positive > 24.9Mitochondrial (M2) Antibodies are found in 90-96% ofpatients with primary bi liary cirrhosis.[facility] SpringsAnti-Double Strand DNA (Crithidia)2018-07-30 22:12:00* Test Item Value Reference Range Interpretation Comments Anti-Double Strand DNA (Crithidia) (test code = 5130-0) <1 0-9 Negative <5 Equivocal 5 - 9 Positive >9[facility] CenterThy[facility]oxidase Afrjycgfjm9150-40-28 22:12:00 * Test Item Value Reference Range Interpretation Comments Thyroid Peroxidase Antibodies (test code = 8099-4) 8 0-3 4 Performed at: HD - [facility] [address] [id number] Director: Don Plascencia MD, Phone: [phone] at: - [facility] [id number] [place] [address] [id number] Director: Kimmy Harry MD, Ph one: [phone] SpringsAnti-Parietal Cell Yzruuqck2166-56-69 22:12:00* Test Item Value Reference Range Interpretation Comments Anti-Parietal Cell Antibody (test code = 8087-9) 14.7 0.0-2 0.0 Negative 0.0 - 20.0 Equivocal 20.1 - 24.9 Positive > 24.9Parietal Cell Antibodies are found in 90% of patientswith pernicious anemia and 30% of first degreerelatives with pernicious anemia.[facility] SpringsAnti-Nuclear Antibody (LAB)2018-07-30 22:12:00* Test Item Value Reference Range Interpretation Comments Anti-Nuclear Antibody (LAB) (test code = 8061-4) Positive Negat chapincito H [facility] CenterM Eztblgpu5454-01-29 22:12:00* Test Item Value Reference Range Interpretation Comments SM Antibody (test code = 07683-9) 6 0-19 Negative 0 - 19 Weak positi ve 20 - 30 Moderate to strong positive >30 Actin Antibodies are found in 52-85% of patients with autoimmune hepatitis or chronic active hepatitis and in 22% of patients with primary biliary cirrhosis. [facility] SpringsAnti-Mitochondrial Xhtukibu3662-83-34 22:12:00* Test Item Value Reference Range Interpretation Comments Anti-Mitochondrial Antibody (test code = 80582-9) <20.0 0.0- 20.0 Negative 0.0 - 20.0 Equivocal 20.1 - 24.9 Positive > 24.9Mitochondrial (M2) Antibodies are found in 90-96% ofpatients with primary bi liary cirrhosis.[facility] SpringsAnti-Double Strand DNA (Crithidia)2018-07-30 22:12:00* Test Item Value Reference Range Interpretation Comments Anti-Double Strand DNA (Crithidia) (test code = 5130-0) <1 0-9 Negative <5 Equivocal 5 - 9 Positive >9[facility] CenterThyroid Peroxidase Oqulenwoji6133-51-32 22:12:00 * Test Item Value Reference Range Interpretation Comments Thyroid Peroxidase Antibodies (test code = 8099-4) 8 0-3 4 Performed at: HD - [facility] [address] [id number] Director: Don Plascencia MD, Phone: [phone] at: - [facility] [id number] [place] [address] [id number] Director: Kimmy Harry MD, Ph one: [phone] SpringsAnti-Parietal Cell Bwhtbftr4974-19-93 22:12:00* Test Item Value Reference Range Interpretation Comments Anti-Parietal Cell Antibody (test code = 8087-9) 14.7 0.0-2 0.0 Negative 0.0 - 20.0 Equivocal 20.1 - 24.9 Positive > 24.9Parietal Cell Antibodies are found in 90% of patientswith pernicious anemia and 30% of first degreerelatives with pernicious anemia.[facility] SpringsAnti-Nuclear Antibody (LAB)2018-07-30 22:12:00* Test Item Value Reference Range Interpretation Comments Anti-Nuclear Antibody (LAB) (test code = 8061-4) Positive Negat chapincito H [facility] CenterM Knjteexd7145-10-19 22:12:00* Test Item Value Reference Range Interpretation Comments SM Antibody (test code = 42286-9) 6 0-19 Negative 0 - 19 Weak positi ve 20 - 30 Moderate to strong positive >30 Actin Antibodies are found in 52-85% of patients with autoimmune hepatitis or chronic active hepatitis and in 22% of patients with primary biliary cirrhosis. [facility] SpringsAnti-Mitochondrial Vxdqwvig9427-24-15 22:12:00* Test Item Value Reference Range Interpretation Comments Anti-Mitochondrial Antibody (test code = 97407-3) <20.0 0.0- 20.0 Negative 0.0 - 20.0 Equivocal 20.1 - 24.9 Positive > 24.9Mitochondrial (M2) Antibodies are found in 90-96% ofpatients with primary bi liary cirrhosis.[facility] SpringsAnti-Double Strand DNA (Crithidia)2018-07-30 22:12:00* Test Item Value Reference Range Interpretation Comments Anti-Double Strand DNA (Crithidia) (test code = 5130-0) <1 0-9 Negative <5 Equivocal 5 - 9 Positive >9[facility] CenterThyroid Peroxidase Gbpihkkatn2898-40-65 22:12:00 * Test Item Value Reference Range Interpretation Comments Thyroid Peroxidase Antibodies (test code = 8099-4) 8 0-3 4 Performed at: - [facility] [id number] Director: Don Plascencia MD, Phone: [phone] at: - [facility] [id number] [place] [address] [id number] Director: Kimmy Harry MD, Ph one: [phone] SpringsAnti-Parietal Cell Ysdfypzi5814-42-08 22:12:00* Test Item Value Reference Range Interpretation Comments Anti-Parietal Cell Antibody (test code = 8087-9) 14.7 0.0-2 0.0 Negative 0.0 - 20.0 Equivocal 20.1 - 24.9 Positive > 24.9Parietal Cell Antibodies are found in 90% of patientswith pernicious anemia and 30% of first degreerelatives with pernicious anemia.[facility] CenterS-A/Ro Hhstsfwr7239-45-62 22:11:00* Test Item Value Reference Range Interpretation Comments SS-A/Ro Antibody (test code = 02807-8) <0.2 0.0-0.9 [facility] CenterS-B/La Iygrzhbj5462-91-81 22:11:00* Test Item Value Reference Range Interpretation Comments SS-B/La Antibody (test code = 50848-9) <0.2 0.0-0.9 [facility] Centerm (Pires) Ojfvxdzp7679-27-74 22:11:00* Test Item Value Reference Range Interpretation Comments Sm (Pires) Antibody (test code = 17039-0) <0.2 0.0-0.9 [facility] SpringsAnti-nRNP/Sm IgG Vrfjersa0917-35-39 22:11:00* Test Item Value Reference Range Interpretation Comments Anti-nRNP/Sm IgG Antibody (test code = 08516-9) <0.2 0.0-0. 9 [facility] Centercl-70 (Scleroderma) Txfvbzks1696-63-65 22:11:00* Test Item Value Reference Range Interpretation Comments Scl-70 (Scleroderma) Antibody (test code = 14478-5) <0.2 0. 0-0.9 [facility] SpringsAnti-Striated Muscle Xmbtyjco6507-65-45 22:11:00* Test Item Value Reference Range Interpretation Comments Anti-Striated Muscle Antibody (test code = 5372-8) Negative Neg :<1:40 [facility] SpringsComplement [id number] 22:11:00* Test Item Value Reference Range Interpretation Comments Complement C4 (test code = 4498-2) [facility] CenterS-A/Ro Udyzubff5134-11-84 22:11:00* Test Item Value Reference Range Interpretation Comments SS-A/Ro Antibody (test code = 08563-6) <0.2 0.0-0.9 [facility] CenterS-B/La Yyqjbngk6877-28-89 22:11:00* Test Item Value Reference Range Interpretation Comments SS-B/La Antibody (test code = 39085-4) <0.2 0.0-0.9 [facility] Cent[facility] (Pires) Zzgfzcoq3867-99-88 22:11:00* Test Item Value Reference Range Interpretation Comments Sm (Pires) Antibody (test code = 92230-7) <0.2 0.0-0.9 [facility] SpringsAnti-nRNP/Sm IgG Xdkcljzm3107-64-30 22:11:00* Test Item Value Reference Range Interpretation Comments Anti-nRNP/Sm IgG Antibody (test code = 10529-4) <0.2 0.0-0. 9 [facility] Centercl-70 (Scleroderma) Wjbwyqcj7158-37-32 22:11:00* Test Item Value Reference Range Interpretation Comments Scl-70 (Scleroderma) Antibody (test code = 20688-1) <0.2 0. 0-0.9 [facility] SpringsAnti-Striated Muscle Knnntrla6392-45-57 22:11:00* Test Item Value Reference Range Interpretation Comments Anti-Striated Muscle Antibody (test code = 5372-8) Negative Neg :<1:40 [facility] SpringsComplement [id number] 22:11:00* Test Item Value Reference Range Interpretation Comments Complement C4 (test code = 4498-2) [facility] CenterS-A/Ro Xpuznuch2963-03-19 22:11:00* Test Item Value Reference Range Interpretation Comments SS-A/Ro Antibody (test code = 17980-3) <0.2 0.0-0.9 [facility] CenterS-B/La Wbtwmdev3572-48-66 22:11:00* Test Item Value Reference Range Interpretation Comments SS-B/La Antibody (test code = 78530-3) <0.2 0.0-0.9 [facility] (Pires) Lscyzgjy1072-84-71 22:11:00* Test Item Value Reference Range Interpretation Comments Sm (Pires) Antibody (test code = 92739-0) <0.2 0.0-0.9 [facility] SpringsAnti-nRNP/Sm IgG Umlgtkal1660-31-99 22:11:00* Test Item Value Reference Range Interpretation Comments Anti-nRNP/Sm IgG Antibody (test code = 03453-8) <0.2 0.0-0. 9 [facility] Centercl-70 (Scleroderma) Gvrpkejr3396-80-61 22:11:00* Test Item Value Reference Range Interpretation Comments Scl-70 (Scleroderma) Antibody (test code = 20008-5) <0.2 0. 0-0.9 [facility] SpringsAnti-Striated Muscle Nzgkzveo9492-72-56 22:11:00* Test Item Value Reference Range Interpretation Comments Anti-Striated Muscle Antibody (test code = 5372-8) Negative Neg :<1:40 [facility] SpringsComplement [id number] 22:11:00* Test Item Value Reference Range Interpretation Comments Complement C4 (test code = 4498-2) 25 14-44 [facility] CenterS-A/Ro Rldrwxbk7783-81-38 22:11:00* Test Item Value Reference Range Interpretation Comments SS-A/Ro Antibody (test code = 72278-9) <0.2 0.0-0.9 [facility] CenterS-B/La Emdwzxlc9353-47-90 22:11:00* Test Item Value Reference Range Interpretation Comments SS-B/La Antibody (test code = 64724-8) <0.2 0.0-0.9 [facility] (Pires) Kcpywikx6551-88-96 22:11:00* Test Item Value Reference Range Interpretation Comments Sm (Pires) Antibody (test code = 22125-8) <0.2 0.0-0.9 [facility] SpringsAnti-nRNP/Sm IgG Mqaqokmh6163-89-92 22:11:00* Test Item Value Reference Range Interpretation Comments Anti-nRNP/Sm IgG Antibody (test code = 25758-7) <0.2 0.0-0. 9 [facility] Centercl-70 (Scleroderma) Lsanhxog6293-50-66 22:11:00* Test Item Value Reference Range Interpretation Comments Scl-70 (Scleroderma) Antibody (test code = 49913-1) <0.2 0. 0-0.9 [facility] SpringsAnti-Striated Muscle Pcfamlnm9066-65-77 22:11:00* Test Item Value Reference Range Interpretation Comments Anti-Striated Muscle Antibody (test code = 5372-8) Negative Neg :<1:40 [facility] SpringsComplement [id number] 22:11:00* Test Item Value Reference Range Interpretation Comments Complement C4 (test code = 4498-2) 25 14-44 [facility] SpringsB-Type Natriuretic Foclnmv1219-81-04 06:26:00* Test Item Value Reference Range Interpretation Comments B-Type Natriuretic Peptide (test code = 33983-7) 303.7 0-100 H [facility] SpringsC-Reactive Wirzvnt0801-57-98 22:03:00* Test Item Value Reference Range Interpretation Comments C-Reactive Protein (test code = 1987-07) 6.4 0.0-4.9 H Effective August 17, 2018 the reference interval for C-Reactive Protein, Quant, will be changing to: Age Male Female 0 - 30 days Not Estab. Not Estab. 1 month - 17 years 0 - 7 0 - 9 >17 years 0 - 10 0 - 10Performed at: [facility] [id number] Director: Don Plascencia MD, Phone: [phone] [facility] – Sulph[facility] SpringsC-Reactive Bxtruus2364-37-32 22:03:00* Test Item Value Reference Range Interpretation Comments C-Reactive Protein (test code = 1988-5) 6.4 0.0-4.9 H Effective August 17, 2018 the reference interval for C-Reactive Protein, Quant, will be changing to: Age Male Female 0 - 30 days Not Estab. Not Estab. 1 month - 17 years 0 - 7 0 - 9 >17 years 0 - 10 0 - 10Performed at: [facility] [id number] Director: Don Plascencia MD, Phone: [phone] [facility] SpringsC-Reactive Fbabphs8776-68-80 22:03:00* Test Item Value Reference Range Interpretation Comments C-Reactive Protein (test code = 1987-) 6.4 0.0-4.9 H Effective August 17, 2018 the reference interval for C-Reactive Protein, Quant, will be changing to: Age Male Female 0 - 30 days Not Estab. Not Estab. 1 month - 17 years 0 - 7 0 - 9 >17 years 0 - 10 0 - 10Performed at: [facility] [id number] Director: Don Plascencia MD, Phone: [phone] SpringsC-Reactive Vizxtwd0268-63-08 22:03:00* Test Item Value Reference Range Interpretation Comments C-Reactive Protein (test code = 1987-) 6.4 0.0-4.9 H Effective August 17, 2018 the reference interval for C-Reactive Protein, Quant, will be changing to: Age Male Female 0 - 30 days Not Estab. Not Estab. 1 month - 17 years 0 - 7 0 - 9 >17 years 0 - 10 0 - 10Performed at: [facility] [address] [id number] Director: Don Plascencia MD, Phone: [phone] SpringsWhite Blood Optrk5679-29-23 07:46:00* Test Item Value Reference Range Interpretation Comments White Blood Count (test code = 6690-2) 9.29 4.8-10.8 [facility] SpringsRed Blood Melmv4078-35-41 07:46:00* Test Item Value Reference Range Interpretation Comments Red Blood Count (test code = 789-8) 3.82 3.6-5.1 [facility] SpringsHemoglobin2019-05-29 07:46:00* Test Item Value Reference Range Interpretation Comments Hemoglobin (test code = 92278-8) 11.0 12.0-16.0 L [facility] SpringsHematocrit2019-05-29 07:46:00* Test Item Value Reference Range Interpretation Comments Hematocrit (test code = 4544-3) 34.8 34.2-44.1 [facility] SpringsMean Corpuscular Dbdkek7474-82-08 07:46:00* Test Item Value Reference Range Interpretation Comments Mean Corpuscular Volume (test code = 787-2) 91.1 81-99 [facility] SpringsMean Corpuscular Lbrwgiffgf9882-30-87 07:46:00* Test Item Value Reference Range Interpretation Comments Mean Corpuscular Hemoglobin (test code = 785-6) 28.8 28-32 [facility] SpringsMean Corpuscular Hemoglobin Concent 2018-07-29 07:46:00* Test Item Value Reference Range Interpretation Comments Mean Corpuscular Hemoglobin Concent (test code = 786-4) 31.6 31-35 [facility] SpringsRed Cell Distribution Juech7036-26-19 07:46:00* Test Item Value Reference Range Interpretation Comments Red Cell Distribution Width (test code = 71336-1) 15.9 11.7 -14.4 H [facility] SpringsPlatelet Rfluf0946-80-92 07:46:00* Test Item Value Reference Range Interpretation Comments Platelet Count (test code = 777-3) 357 140-360 [facility] SpringsNeutrophils (%) (Auto)2018-07-29 07:46:00 * Test Item Value Reference Range Interpretation Comments Neutrophils (%) (Auto) (test code = 69505-4) 64.6 38.7-80.0 [facility] SpringsLymphocytes (%) (Auto)2018-07-29 07:46:00 * Test Item Value Reference Range Interpretation Comments Lymphocytes (%) (Auto) (test code = 736-9) 16.8 18.0-39.1 L [facility] SpringsMonocytes (%) (Auto)2018-07-29 07:46:00* Test Item Value Reference Range Interpretation Comments Monocytes (%) (Auto) (test code = 5905-5) 13.0 4.4-11.3 H [facility] SpringsEosinophils (%) (Auto)2018-07-29 07:46:00 * Test Item Value Reference Range Interpretation Comments Eosinophils (%) (Auto) (test code = 713-8) 3.8 0.0-6.0 [facility] SpringsBasophils (%) (Auto)2018-07-29 07:46:00* Test Item Value Reference Range Interpretation Comments Basophils (%) (Auto) (test code = 706-2) 0.9 0.0-1.0 [facility] SpringsIM GRANULOCYTES %2018-07-29 07:46:00* Test Item Value Reference Range Interpretation Comments IM GRANULOCYTES % (test code = IM GRANULOCYTES %) 0.9 0.0- 1.0 [facility] SpringsNeutrophils # (Auto)2018-07-29 07:46:00* Test Item Value Reference Range Interpretation Comments Neutrophils # (Auto) (test code = 751-8) 6.0 2.1-6.9 [facility] SpringsLymphocytes # (Auto)2018-07-29 07:46:00* Test Item Value Reference Range Interpretation Comments Lymphocytes # (Auto) (test code = 25644-1) 1.6 1.0-3.2 [facility] SpringsMonocytes # (Auto)2018-07-29 07:46:00* Test Item Value Reference Range Interpretation Comments Monocytes # (Auto) (test code = 742-7) 1.2 0.2-0.8 H [facility] SpringsEosinophils # (Auto)2018-07-29 07:46:00* Test Item Value Reference Range Interpretation Comments Eosinophils # (Auto) (test code = 711-2) 0.4 0.0-0.4 [facility] SpringsBasophils # (Auto)2018-07-29 07:46:00* Test Item Value Reference Range Interpretation Comments Basophils # (Auto) (test code = 704-7) 0.1 0.0-0.1 [facility] SpringsAbsolute Immature Granulocyte (auto 2018-07-29 07:46:00* Test Item Value Reference Range Interpretation Comments Absolute Immature Granulocyte (auto (genoveva t code = Absolute Immature Granulocyte (auto) 0.08 0-0.1 [facility] SpringsCreatine Kinase [id number] 12:49:00* Test Item Value Reference Range Interpretation Comments Creatine Kinase MB (test code = 66098-7) 2.70 0-5.0 [facility] SpringsTroponin [id number] 12:49:00* Test Item Value Reference Range Interpretation Comments Troponin I (test code = LYF7046) 0.020 0-0.300 [facility] SpringsCreatine Hqzlrq2599-17-32 12:47:00* Test Item Value Reference Range Interpretation Comments Creatine Kinase (test code = 2157-6) 113 29-168 [facility] SpringsErythrocyte Sedimentation Ibts9925-39-98 07:36:00* Test Item Value Reference Range Interpretation Comments Erythrocyte Sedimentation Rate (test code = 4537-7) 28 0- 20 H [facility] SpringsErythrocyte Sedimentation Bfej7949-59-22 07:36:00* Test Item Value Reference Range Interpretation Comments Erythrocyte Sedimentation Rate (test code = 4537-7) 28 0- 20 H [facility] SpringsErythrocyte Sedimentation Zdjb6770-35-01 07:36:00* Test Item Value Reference Range Interpretation Comments Erythrocyte Sedimentation Rate (test code = 4537-7) 28 0- 20 H [facility] SpringsErythrocyte Sedimentation Qenf9889-18-79 07:36:00* Test Item Value Reference Range Interpretation Comments Erythrocyte Sedimentation Rate (test code = 4537-7) 28 0- 20 H [facility] SpringsTotal Udpnxykbc7765-84-23 04:26:00* Test Item Value Reference Range Interpretation Comments Total Bilirubin (test code = 1975-2) 0.5 0.2-1.2 [facility] SpringsAspartate Amino Transf (AST/SGOT) 2018-07-28 04:26:00* Test Item Value Reference Range Interpretation Comments Aspartate Amino Transf (AST/SGOT) (test code = Aspartate Amino Transf (AST/SGOT)) 27 5-34 [facility] SpringsAlanine Aminotransferase (ALT/SGPT) 2018-07-28 04:26:00* Test Item Value Reference Range Interpretation Comments Alanine Aminotransferase (ALT/SGPT) (test code = 1742-6) 17 0-55 [facility] SpringsTotal Thakcde4211-01-66 04:26:00* Test Item Value Reference Range Interpretation Comments Total Protein (test code = 2885-2) 5.9 6.5-8.1 L [facility] SpringsAlbumin2019-05-28 04:26:00* Test Item Value Reference Range Interpretation Comments Albumin (test code = 1751-7) 3.4 3.5-5.0 L [facility] SpringsGlobulin2019-05-28 04:26:00* Test Item Value Reference Range Interpretation Comments Globulin (test code = 72383-7) 2.5 2.3-3.5 [facility] SpringsAlbumin/Globulin Tjinv1013-61-28 04:26:00 * Test Item Value Reference Range Interpretation Comments Albumin/Globulin Ratio (test code = 1759-0) 1.4 0.8-2.0 [facility] SpringsAlkaline Kahieunkewn7801-00-98 04:26:00* Test Item Value Reference Range Interpretation Comments Alkaline Phosphatase (test code = 6768-6) 62 40-150 [facility] SpringsCT CHEST [id number] 21:07:00 [place] [address] Patient Name: JOSE CARLOS DIXON MR #: [id number] : 1960 Age/Sex: 58/F Req #: [id number] Adm Physician: Ordered by: DEVON IRWIN MD Report #: [id number] Location: Room/Bed: Procedure: CT/CT CHEST W Exam Date: 07/27/18 Exam Time: 2054 REPORT STATUS: Signed CT chest pulmonary embolism protocol CPT code: 17581 INDICATION: Hypoxia, shor tness of breath pe [...] 07/27/182114 COPY TO: DEVON REYNOSO MD Urine [id number] 20:38:00* Test Item Value Reference Range Interpretation Comments Urine WBC (test code = 5821-4) NONE 0-5 [facility] SpringsUrine [id number] 20:38:00* Test Item Value Reference Range Interpretation Comments Urine RBC (test code = 47428-6) NONE 0-5 [facility] SpringsUrine Jnwcgmua3809-82-11 20:38:00* Test Item Value Reference Range Interpretation Comments Urine Bacteria (test code = 22520-3) FEW NONE [facility] SpringsUrine Epithelial Ucuuw7120-06-98 20:38:00 * Test Item Value Reference Range Interpretation Comments Urine Epithelial Cells (test code = 43480-1) RARE NONE [facility] SpringsUrine Renal Epithelial Uprzm6270-29-64 20:38:00* Test Item Value Reference Range Interpretation Comments Urine Renal Epithelial Cells (test code = 53555-0) FEW NON E H [facility] [id number] 20:38:00* Test Item Value Reference Range Interpretation Comments Urine WBC (test code = 5821-4) NONE 0-5 [facility] DFL0663-22-04 20:38:00* Test Item Value Reference Range Interpretation Comments Urine RBC (test code = 83497-3) NONE 0-5 [facility] Fevjbong6892-82-98 20:38:00* Test Item Value Reference Range Interpretation Comments Urine Bacteria (test code = 62032-0) FEW NONE [facility] SpringsUrine Epithelial Auzot8766-05-56 20:38:00 * Test Item Value Reference Range Interpretation Comments Urine Epithelial Cells (test code = 19690-2) RARE NONE [facility] SpringsUrine Renal Epithelial Oliev1154-49-56 20:38:00* Test Item Value Reference Range Interpretation Comments Urine Renal Epithelial Cells (test code = 21931-7) FEW NON E H [facility] SpringsUrine [id number] 20:38:00* Test Item Value Reference Range Interpretation Comments Urine WBC (test code = 5821-4) NONE 0-5 [facility] SpringsUrine [id number] 20:38:00* Test Item Value Reference Range Interpretation Comments Urine RBC (test code = 96589-3) NONE 0-5 [facility] Hfslnmhl0756-05-88 20:38:00* Test Item Value Reference Range Interpretation Comments Urine Bacteria (test code = 49040-7) FEW NONE [facility] SpringsUrine Epithelial Vtqvy2254-30-13 20:38:00 * Test Item Value Reference Range Interpretation Comments Urine Epithelial Cells (test code = 15567-9) RARE NONE [facility] Springs[facility] Renal Epithelial Iodst5740-47-47 20:38:00* Test Item Value Reference Range Interpretation Comments Urine Renal Epithelial Cells (test code = 88283-9) FEW NON E H [facility] SpringsU[facility] Ullwr6521-04-46 20:18:00* Test Item Value Reference Range Interpretation Comments Urine Color (test code = 5778-6) YELLOW YELLOW [facility] SpringsU[facility] Cufukkx8823-10-16 20:18:00* Test Item Value Reference Range Interpretation Comments Urine Clarity (test code = 84031-0) CLEAR CLEAR [facility] Specific Tnxyeba7986-05-28 20:18:00 * Test Item Value Reference Range Interpretation Comments Urine Specific [place] (test code = 5811-5) 1.005 1.010-1.02 5 L [facility] Springs[facility] [id number] 20:18:00* Test Item Value Reference Range Interpretation Comments Urine pH (test code = 79596-0) 6.5 5-7 [facility] Leukocyte Hklhevvv1056-17-68 20:18:00* Test Item Value Reference Range Interpretation Comments Urine Leukocyte Esterase (test code = 68443-0) NEGATIVE NEGATIV E [facility] Vnycrla0486-15-66 20:18:00* Test Item Value Reference Range Interpretation Comments Urine Nitrite (test code = 35402-0) NEGATIVE NEGATIVE [facility] Kamsuln5874-20-22 20:18:00* Test Item Value Reference Range Interpretation Comments Urine Protein (test code = 25815-7) NEGATIVE NEGATIVE [facility] Glucose (UA)2018-07-27 20:18:00* Test Item Value Reference Range Interpretation Comments Urine Glucose (UA) (test code = 23867-1) 1+ NEGATIVE H [facility] Cywrbpx2305-88-73 20:18:00* Test Item Value Reference Range Interpretation Comments Urine Ketones (test code = 80324-8) NEGATIVE NEGATIVE [facility] Ryczsmlheppq0838-40-12 20:18:00* Test Item Value Reference Range Interpretation Comments Urine Urobilinogen (test code = 18850-1) 0.2 0.2-1 [facility] Ttejckwrt0581-42-74 20:18:00* Test Item Value Reference Range Interpretation Comments Urine Bilirubin (test code = 1977-8) NEGATIVE NEGATIVE [facility] Dwxdt6895-58-88 20:18:00* Test Item Value Reference Range Interpretation Comments Urine Blood (test code = 42227-0) NEGATIVE NEGATIVE [facility] Inetf0276-58-45 20:18:00* Test Item Value Reference Range Interpretation Comments Urine Color (test code = 5778-6) YELLOW YELLOW [facility] Vqoakhq3591-88-98 20:18:00* Test Item Value Reference Range Interpretation Comments Urine Clarity (test code = 43777-0) CLEAR CLEAR [facility] Specific Ebvgpzx8939-72-10 20:18:00 * Test Item Value Reference Range Interpretation Comments Urine Specific [place] (test code = 5811-5) 1.005 1.010-1.02 5 L [facility] [id number] 20:18:00* Test Item Value Reference Range Interpretation Comments Urine pH (test code = 18257-6) 6.5 5-7 [facility] Leukocyte Pxulmtzt8656-22-03 20:18:00* Test Item Value Reference Range Interpretation Comments Urine Leukocyte Esterase (test code = 81787-7) NEGATIVE NEGATIV E [facility] Zycqabh9550-37-23 20:18:00* Test Item Value Reference Range Interpretation Comments Urine Nitrite (test code = 12128-3) NEGATIVE NEGATIVE [facility] Wkmnrnq2659-83-18 20:18:00* Test Item Value Reference Range Interpretation Comments Urine Protein (test code = 40752-6) NEGATIVE NEGATIVE [facility] Glucose (UA)2018-07-27 20:18:00* Test Item Value Reference Range Interpretation Comments Urine Glucose (UA) (test code = 30183-0) 1+ NEGATIVE H [facility] Pqfzcpd4850-19-22 20:18:00* Test Item Value Reference Range Interpretation Comments Urine Ketones (test code = 86983-0) NEGATIVE NEGATIVE [facility] Ntpjwmkxdiea4738-70-97 20:18:00* Test Item Value Reference Range Interpretation Comments Urine Urobilinogen (test code = 77986-0) 0.2 0.2-1 [facility] Mmvkfkine4018-98-00 20:18:00* Test Item Value Reference Range Interpretation Comments Urine Bilirubin (test code = 1977-8) NEGATIVE NEGATIVE [facility] Jqxaf5674-88-52 20:18:00* Test Item Value Reference Range Interpretation Comments Urine Blood (test code = 82781-3) NEGATIVE NEGATIVE [facility] Abrux3762-09-85 20:18:00* Test Item Value Reference Range Interpretation Comments Urine Color (test code = 5778-6) YELLOW YELLOW [facility] Adrlhhj7443-34-81 20:18:00* Test Item Value Reference Range Interpretation Comments Urine Clarity (test code = 06637-6) CLEAR CLEAR [facility] Specific Ftbxlpj5463-42-65 20:18:00 * Test Item Value Reference Range Interpretation Comments Urine Specific [place] (test code = 5811-5) 1.005 1.010-1.02 5 L [facility] bH4106-21-93 20:18:00* Test Item Value Reference Range Interpretation Comments Urine pH (test code = 67647-2) 6.5 5-7 [facility] Leukocyte Kfpanhmv6086-41-36 20:18:00* Test Item Value Reference Range Interpretation Comments Urine Leukocyte Esterase (test code = 92227-3) NEGATIVE NEGATIV E [facility] Jzfpoji4551-17-55 20:18:00* Test Item Value Reference Range Interpretation Comments Urine Nitrite (test code = 79204-9) NEGATIVE NEGATIVE [facility] Ynjbfjf0081-07-54 20:18:00* Test Item Value Reference Range Interpretation Comments Urine Protein (test code = 26427-0) NEGATIVE NEGATIVE [facility] Springs[facility] Glucose (UA)2018-07-27 20:18:00* Test Item Value Reference Range Interpretation Comments Urine Glucose (UA) (test code = 86284-4) 1+ NEGATIVE H [facility] Pdbpnrx1362-50-24 20:18:00* Test Item Value Reference Range Interpretation Comments Urine Ketones (test code = 47009-3) NEGATIVE NEGATIVE [facility] Xilgviehdmhb4441-06-07 20:18:00* Test Item Value Reference Range Interpretation Comments Urine Urobilinogen (test code = 43416-6) 0.2 0.2-1 [facility] Madthsdzb5373-59-43 20:18:00* Test Item Value Reference Range Interpretation Comments Urine Bilirubin (test code = 1977-8) NEGATIVE NEGATIVE [facility] Fokni4319-93-27 20:18:00* Test Item Value Reference Range Interpretation Comments Urine Blood (test code = 77466-6) NEGATIVE NEGATIVE [facility] SpringsD-Dimer Quantitative (PE/DVT)2018-07-27 19:54:00* Test Item Value Reference Range Interpretation Comments D-Dimer Quantitative (PE/DVT) (test code = 46809-4) 0.63 0. 00-0.45 H As with all in vitro diagnostic tests, the test results should be interpreted by the physician in conjunction with clinical findings and other test results.Test results are reported in NEW D-dimer units(ug/mLFEU).[facility] SpringsD-Dimer Quantitative (PE/DVT)2018-07-27 19:54:00* Test Item Value Reference Range Interpretation Comments D-Dimer Quantitative (PE/DVT) (test code = 01450-1) 0.63 0. 00-0.45 H As with all in vitro diagnostic tests, the test results should be interpreted by the physician in conjunction with clinical findings and other test results.Test results are reported in NEW D-dimer units(ug/mLFEU).[facility] SpringsD-Dimer Quantitative (PE/DVT)2018-07-27 19:54:00* Test Item Value Reference Range Interpretation Comments D-Dimer Quantitative (PE/DVT) (test code = 61630-9) 0.63 0. 00-0.45 H As with all in vitro diagnostic tests, the test results should be interpreted by the physician in conjunction with clinical findings and other test results.Test results are reported in NEW D-dimer units(ug/mLFEU).[facility] SpringsD-Dimer Quantitative (PE/DVT)2018-07-27 19:54:00* Test Item Value Reference Range Interpretation Comments D-Dimer Quantitative (PE/DVT) (test code = 96314-0) 0.63 0. 00-0.45 H As with all in vitro diagnostic tests, the test results should be interpreted by the physician in conjunction with clinical findings and other test results.Test results are reported in NEW D-dimer units(ug/mLFEU).[facility] SpringsCHEST SINGLE (PORTABLE)2018-07-27 19:52:00 [place] [address] Patient Name: JOSE CARLOS DIXON MR #: [id number] : 1960 Age/Sex: 58/F Req #: [id number] Adm Physician: Ordered by: MATHEW RAZO MD Report #: [id number] Location: ER Room/Bed: Procedure: [id number] DX /CHEST SINGLE (PORTABLE) Exam Date: 07/27/18 [...] 07/27/181953 COPY TO: MATHEW RAZO MD Prothrombin Asrz2624-81-42 19:44:00* Test Item Value Reference Range Interpretation Comments Prothrombin Time (test code = 5902-2) 14.6 11.9-14.5 H [facility] SpringsProthromb Time International Ratio 2018-07-27 19:44:00* Test Item Value Reference Range Interpretation Comments Prothromb Time International Ratio (test code = 6301-6) 1.09 Oral Anticoagulant Therapy INR Values:1. Low Intensity Therapy 1.5 - 2.02 . Moderate Intensity Therapy 2.0 - 3.03. High Intensity Therapy(1) 2.5 - 3. 54. High Intensity Therapy(2) 3.0 - 4.05. Panic Value INR > 5.0 [facility] SpringsActivated Partial Thromboplast Time 2018-07-27 19:44:00* Test Item Value Reference Range Interpretation Comments Activated Partial Thromboplast Time (test code = 97551-5) 32.4 23.8-35.5 [facility] SpringsProthrombin Eilj6027-96-13 19:44:00* Test Item Value Reference Range Interpretation Comments Prothrombin Time (test code = 5902-2) 14.6 11.9-14.5 H [facility] SpringsProthromb Time International Ratio 2018-07-27 19:44:00* Test Item Value Reference Range Interpretation Comments Prothromb Time International Ratio (test code = 6301-6) 1.09 Oral Anticoagulant Therapy INR Values:1. Low Intensity Therapy 1.5 - 2.02 . Moderate Intensity Therapy 2.0 - 3.03. High Intensity Therapy(1) 2.5 - 3. 54. High Intensity Therapy(2) 3.0 - 4.05. Panic Value INR > 5.0 [facility] SpringsActivated Partial Thromboplast Time 2018-07-27 19:44:00* Test Item Value Reference Range Interpretation Comments Activated Partial Thromboplast Time (test code = 88579-5) 32.4 23.8-35.5 [facility] SpringsProthrombin Ejyv9778-89-36 19:44:00* Test Item Value Reference Range Interpretation Comments Prothrombin Time (test code = 5902-2) 14.6 11.9-14.5 H [facility] SpringsProthromb Time International Ratio 2018-07-27 19:44:00* Test Item Value Reference Range Interpretation Comments Prothromb Time International Ratio (test code = 6301-6) 1.09 Oral Anticoagulant Therapy INR Values:1. Low Intensity Therapy 1.5 - 2.02 . Moderate Intensity Therapy 2.0 - 3.03. High Intensity Therapy(1) 2.5 - 3. 54. High Intensity Therapy(2) 3.0 - 4.05. Panic Value INR > 5.0 [facility] SpringsActivated Partial Thromboplast Time 2018-07-27 19:44:00* Test Item Value Reference Range Interpretation Comments Activated Partial Thromboplast Time (test code = 88588-8) 32.4 23.8-35.5 [facility] SpringsProthrombin Vufl3931-71-99 19:44:00* Test Item Value Reference Range Interpretation Comments Prothrombin Time (test code = 5902-2) 14.6 11.9-14.5 H [facility] SpringsProthromb Time International Ratio 2018-07-27 19:44:00* Test Item Value Reference Range Interpretation Comments Prothromb Time International Ratio (test code = 6301-6) 1.09 Oral Anticoagulant Therapy INR Values:1. Low Intensity Therapy 1.5 - 2.02 . Moderate Intensity Therapy 2.0 - 3.03. High Intensity Therapy(1) 2.5 - 3. 54. High Intensity Therapy(2) 3.0 - 4.05. Panic Value INR > 5.0 [facility] SpringsActivated Partial Thromboplast Time 2018-07-27 19:44:00* Test Item Value Reference Range Interpretation Comments Activated Partial Thromboplast Time (test code = 81174-2) 32.4 23.8-35.5 [facility] SpringsClostridium Difficile Toxin A & B 2018-02-02 14:18:00* Test Item Value Reference Range Interpretation Comments Clostridium Difficile Toxin A & B (test code = 451139703) POSI TIVE NEGATIVE H Results called to SANDY VICTORIA at 1417 on 02/02/18 by Jesus Jacob. RB [place]. Results called to NELSON MULLER in infection control at 1417 on 02/02/18 by Marycarmen Jacob.Testing on stool aspirate specimens is outside hr internship claims si nce specimen type not validated on this assay.[facility] SpringsClostridium Difficile Toxin A & [id number] 14:18:00* Test Item Value Reference Range Interpretation Comments Clostridium Difficile Toxin A & B (test code = 474550946) POSI TIVE NEGATIVE H Results called to SANDY VICTORIA at 1417 on 02/02/18 by Jesus Jacob. RB [place]. Results called to NELSON MULLER in infection control at 1417 on 02/02/18 by Marycarmen Jacob.Testing on stool aspirate specimens is outside hr internship claims si nce specimen type not validated on this assay.[facility] SpringsClostridium Difficile Toxin A & [id number] 14:18:00* Test Item Value Reference Range Interpretation Comments Clostridium Difficile Toxin A & B (test code = 148614983) POSI TIVE NEGATIVE H Results called to SANDY VICTORIA at 1417 on 02/02/18 by Jesus Jacob. RB [place]. Results called to NELSON MULLER in infection control at 1417 on 02/02/18 by Marycarmen Jacob.Testing on stool aspirate specimens is outside hr internship claims si nce specimen type not validated on this assay.[facility] SpringsClostridium Difficile Toxin A & [id number] 14:18:00* Test Item Value Reference Range Interpretation Comments Clostridium Difficile Toxin A & B (test code = 469525282) POSI TIVE NEGATIVE H Results called to SANDY VICTORIA at 1417 on 02/02/18 by Jesus Jacob. RB [place]. Results called to NELSON MULLER in infection control at 1417 on 02/02/18 by Marycarmen Jacob.Testing on stool aspirate specimens is outside hr internship claims si nce specimen type not validated on this assay.[facility] Lactoferrin (LAB)2018-02-02 13:26:00* Test Item Value Reference Range Interpretation Comments Stool Lactoferrin (LAB) (test code = 47189-2) POSITIVE NEGATIVE H Testing on stool aspirate specimens is outside hr internship claims since specime n type not validated on this assay.[facility] Lactoferrin (LAB)2018-02-02 13:26:00* Test Item Value Reference Range Interpretation Comments Stool Lactoferrin (LAB) (test code = 07058-5) POSITIVE NEGATIVE H Testing on stool aspirate specimens is outside hr internship claims since specime n type not validated on this assay.[facility] Lactoferrin (LAB)2018-02-02 13:26:00* Test Item Value Reference Range Interpretation Comments Stool Lactoferrin (LAB) (test code = 33211-1) POSITIVE NEGATIVE H Testing on stool aspirate specimens is outside hr internship claims since specime n type not validated on this assay.[facility] Lactoferrin (LAB)2018-02-02 13:26:00* Test Item Value Reference Range Interpretation Comments Stool Lactoferrin (LAB) (test code = 06727-6) POSITIVE NEGATIVE H Testing on stool aspirate specimens is outside hr internship claims since specime n type not validated on this assay.[facility] Differential Total Cells Rcspqkb9465-65-59 11:16:00* Test Item Value Reference Range Interpretation Comments Differential Total Cells Counted (test code = Differen tial Total Cells Counted) 100 [facility] SpringsNeutrophils % (Manual)2018-02-02 11:16:00 * Test Item Value Reference Range Interpretation Comments Neutrophils % (Manual) (test code = 14389-2) 58 40-74 [facility] SpringsBand Neutrophils %2018-02-02 11:16:00* Test Item Value Reference Range Interpretation Comments Band Neutrophils % (test code = 764-1) 1 [facility] SpringsLymphocytes % (Manual)2018-02-02 11:16:00 * Test Item Value Reference Range Interpretation Comments Lymphocytes % (Manual) (test code = 737-7) 14 19-48 L [facility] SpringsMonocytes % (Manual)2018-02-02 11:16:00* Test Item Value Reference Range Interpretation Comments Monocytes % (Manual) (test code = 744-3) 19 3.4-9.0 H [facility] SpringsEosinophils % (Manual)2018-02-02 11:16:00 * Test Item Value Reference Range Interpretation Comments Eosinophils % (Manual) (test code = 714-6) 6 0-7 [facility] SpringsBasophils % (Manual)2018-02-02 11:16:00* Test Item Value Reference Range Interpretation Comments Basophils % (Manual) (test code = 02550-0) 2 0-1.5 H [facility] SpringsPlatelet Kehloiap5226-48-02 11:16:00* Test Item Value Reference Range Interpretation Comments Platelet Estimate (test code = 07015-7) ADEQUATE [facility] SpringsPlatelet Morphology Gouwrad8754-80-26 11:16:00* Test Item Value Reference Range Interpretation Comments Platelet Morphology Comment (test code = 27204-7) NORMAL [facility] SpringsAnisocytosis2018-12-03 11:16:00* Test Item Value Reference Range Interpretation Comments Anisocytosis (test code = 702-1) SLIGHT [facility] SpringsHow[facility] Bnqplu4243-95-24 11:16:00* Test Item Value Reference Range Interpretation Comments [place] Bodies (test code = 7793-3) FEW [facility] SpringsRed Cell Morphology Dkzhnjg6976-03-10 11:16:00* Test Item Value Reference Range Interpretation Comments Red Cell Morphology Comment (test code = 6742-1) NORMAL [facility] SpringsDifferential Total Cells Counted 2018-02-02 11:16:00* Test Item Value Reference Range Interpretation Comments Differential Total Cells Counted (test code = Denzel vidales Total Cells Counted) 100 [facility] SpringsNeutrophils % (Manual)2018-02-02 11:16:00 * Test Item Value Reference Range Interpretation Comments Neutrophils % (Manual) (test code = 63216-6) 58 40-74 [facility] SpringsBand Neutrophils %2018-02-02 11:16:00* Test Item Value Reference Range Interpretation Comments Band Neutrophils % (test code = 764-1) 1 [facility] SpringsLymphocytes % (Manual)2018-02-02 11:16:00 * Test Item Value Reference Range Interpretation Comments Lymphocytes % (Manual) (test code = 737-7) 14 19-48 L [facility] SpringsMonocytes % (Manual)2018-02-02 11:16:00* Test Item Value Reference Range Interpretation Comments Monocytes % (Manual) (test code = 744-3) 19 3.4-9.0 H [facility]Eosinophils % (Manual)2018-02-02 11:16:00 * Test Item Value Reference Range Interpretation Comments Eosinophils % (Manual) (test code = 714-6) 6 0-7 [facility] SpringsBasophils % (Manual)2018-02-02 11:16:00* Test Item Value Reference Range Interpretation Comments Basophils % (Manual) (test code = 61683-3) 2 0-1.5 H [facility] SpringsPlatelet Bphkpgsh6016-47-03 11:16:00* Test Item Value Reference Range Interpretation Comments Platelet Estimate (test code = 64235-2) ADEQUATE [facility] SpringsPlatelet Morphology Xsjjxpy9548-34-89 11:16:00* Test Item Value Reference Range Interpretation Comments Platelet Morphology Comment (test code = 53072-9) NORMAL [facility] SpringsAnisocytosis2018-12-03 11:16:00* Test Item Value Reference Range Interpretation Comments Anisocytosis (test code = 702-1) SLIGHT [facility] SpringsHow[facility] Lxivba4180-95-66 11:16:00* Test Item Value Reference Range Interpretation Comments [place] Bodies (test code = 7793-3) FEW [facility] SpringsRed Cell Morphology Wqglqfi7763-67-62 11:16:00* Test Item Value Reference Range Interpretation Comments Red Cell Morphology Comment (test code = 6742-1) NORMAL [facility] SpringsDifferential Total Cells Counted 2018-02-02 11:16:00* Test Item Value Reference Range Interpretation Comments Differential Total Cells Counted (test code = Differen tial Total Cells Counted) 100 [facility] SpringsNeutrophils % (Manual)2018-02-02 11:16:00 * Test Item Value Reference Range Interpretation Comments Neutrophils % (Manual) (test code = 51042-3) 58 40-74 [facility] SpringsBand Neutrophils %2018-02-02 11:16:00* Test Item Value Reference Range Interpretation Comments Band Neutrophils % (test code = 764-1) 1 [facility] SpringsLymphocytes % (Manual)2018-02-02 11:16:00 * Test Item Value Reference Range Interpretation Comments Lymphocytes % (Manual) (test code = 737-7) 14 19-48 L [facility] SpringsMonocytes % (Manual)2018-02-02 11:16:00* Test Item Value Reference Range Interpretation Comments Monocytes % (Manual) (test code = 744-3) 19 3.4-9.0 H [facility] SpringsEosinophils % (Manual)2018-02-02 11:16:00 * Test Item Value Reference Range Interpretation Comments Eosinophils % (Manual) (test code = 714-6) 6 0-7 [facility] SpringsBasophils % (Manual)2018-02-02 11:16:00* Test Item Value Reference Range Interpretation Comments Basophils % (Manual) (test code = 45504-1) 2 0-1.5 H [facility] SpringsPlatelet Qyvrgpuz6040-92-53 11:16:00* Test Item Value Reference Range Interpretation Comments Platelet Estimate (test code = 89394-5) ADEQUATE [facility] SpringsPlatelet Morphology Kkkqhww3522-67-35 11:16:00* Test Item Value Reference Range Interpretation Comments Platelet Morphology Comment (test code = 31155-3) NORMAL [facility] SpringsAnisocytosis2018-12-03 11:16:00* Test Item Value Reference Range Interpretation Comments Anisocytosis (test code = 702-1) SLIGHT [facility] SpringsHow[facility] Unbezs4672-34-91 11:16:00* Test Item Value Reference Range Interpretation Comments [place] Bodies (test code = 7793-3) FEW [facility] SpringsRed Cell Morphology Gjueitv6826-95-50 11:16:00* Test Item Value Reference Range Interpretation Comments Red Cell Morphology Comment (test code = 6742-1) NORMAL [facility] SpringsBand Neutrophils %2018-02-02 11:16:00* Test Item Value Reference Range Interpretation Comments Band Neutrophils % (test code = 764-1) 1 [facility] SpringsBasophils % (Manual)2018-02-02 11:16:00* Test Item Value Reference Range Interpretation Comments Basophils % (Manual) (test code = 69038-3) 2 0-1.5 H [facility] SpringsHow[facility] Ybawpe0589-23-40 11:16:00* Test Item Value Reference Range Interpretation Comments [place] Bodies (test code = 7793-3) FEW [facility] [facility] SpringsCreatine Kinase [id number] 09:57:00* Test Item Value Reference Range Interpretation Comments Creatine Kinase MB (test code = 50025-6) 0.60 0-5.0 [facility] SpringsTroponin [id number] 09:57:00* Test Item Value Reference Range Interpretation Comments Troponin I (test code = AXJ5551) < 0.001 0-0.300 [facility] Centerodium Aqqqp2133-28-96 09:34:00* Test Item Value Reference Range Interpretation Comments Sodium Level (test code = 2951-2) 137 136-145 [facility] SpringsPotassium Kpirg8659-23-24 09:34:00* Test Item Value Reference Range Interpretation Comments Potassium Level (test code = 2823-3) 3.6 3.5-5.1 [facility] SpringsChloride Tootd6524-22-75 09:34:00* Test Item Value Reference Range Interpretation Comments Chloride Level (test code = 2075-0) 105 98-107 [facility] SpringsCarbon Dioxide Ygmnc4997-66-64 09:34:00* Test Item Value Reference Range Interpretation Comments Carbon Dioxide Level (test code = 2028-9) 20 22-29 L [facility] SpringsAnion [id number] 09:34:00* Test Item Value Reference Range Interpretation Comments Anion Gap (test code = 95722-0) 15.6 8-16 [facility] SpringsBlood Urea Depewghs2583-91-28 09:34:00* Test Item Value Reference Range Interpretation Comments Blood Urea Nitrogen (test code = 3094-0) 10 7-26 [facility] SpringsCreatinine2018-12-03 09:34:00* Test Item Value Reference Range Interpretation Comments Creatinine (test code = 2160-0) 0.73 0.57-1.11 [facility] SpringsBUN/Creatinine Ssqud9423-06-29 09:34:00* Test Item Value Reference Range Interpretation Comments BUN/Creatinine Ratio (test code = 3097-3) 14 6-25 [facility] SpringsEstimat Glomerular Filtration Rate 2018-02-02 09:34:00* Test Item Value Reference Range Interpretation Comments Estimat Glomerular Filtration Rate (test code = 139075600) > 60 >60 Ranges were taken from the National Kidney Disease Education Program and the [facility] Foundation literature.Reference ranges:60 or greater: [id number] ( for 3 consecutive months): Chronic kidney disease 15 or less: Kidney failureCHRISTUS [facility] – [facility] SpringsGlucose Ozfjr6618-13-17 09:34:00* Test Item Value Reference Range Interpretation Comments Glucose Level (test code = PNQ3408) 172 74-118 H [facility] SpringsCalcium Tejno8334-49-15 09:34:00* Test Item Value Reference Range Interpretation Comments Calcium Level (test code = 77209-4) 9.5 8.4-10.2 [facility] SpringsTotal Gyzubirvi5161-66-40 09:34:00* Test Item Value Reference Range Interpretation Comments Total Bilirubin (test code = 1975-2) 0.6 0.2-1.2 [facility] SpringsAspartate Amino Transf (AST/SGOT) 2018-02-02 09:34:00* Test Item Value Reference Range Interpretation Comments Aspartate Amino Transf (AST/SGOT) (test code = Aspartate Amino Transf (AST/SGOT)) 25 5-34 [facility] SpringsAlanine Aminotransferase (ALT/SGPT) 2018-02-02 09:34:00* Test Item Value Reference Range Interpretation Comments Alanine Aminotransferase (ALT/SGPT) (test code = 1742-6) 19 0-55 [facility] SpringsTotal Mpdlicl5867-13-44 09:34:00* Test Item Value Reference Range Interpretation Comments Total Protein (test code = 2885-2) 6.7 6.5-8.1 [facility] SpringsAlbumin2018-12-03 09:34:00* Test Item Value Reference Range Interpretation Comments Albumin (test code = 1751-7) 3.4 3.5-5.0 L [facility] SpringsGlobulin2018-12-03 09:34:00* Test Item Value Reference Range Interpretation Comments Globulin (test code = 80493-2) 3.3 2.3-3.5 [facility] SpringsAlbumin/Globulin Azaha0749-93-66 09:34:00 * Test Item Value Reference Range Interpretation Comments Albumin/Globulin Ratio (test code = 1759-0) 1.0 0.8-2.0 [facility] SpringsAlkaline Cotqunuqpus4120-15-02 09:34:00* Test Item Value Reference Range Interpretation Comments Alkaline Phosphatase (test code = 6768-6) 98 40-150 [facility] SpringsCreatine Sokumm4694-89-32 09:34:00* Test Item Value Reference Range Interpretation Comments Creatine Kinase (test code = 2157-6) 61 29-168 [facility] SpringsAmylase Cfybl9341-15-59 09:34:00* Test Item Value Reference Range Interpretation Comments Amylase Level (test code = 1798-8) 46 25-125 [facility] SpringsLipase2018-12-03 09:34:00* Test Item Value Reference Range Interpretation Comments Lipase (test code = 3040-3) 180 8-78 H [facility] SpringsAmylase Wgfux8057-54-42 09:34:00* Test Item Value Reference Range Interpretation Comments Amylase Level (test code = 1798-8) 46 25-125 [facility] SpringsLipase2018-12-03 09:34:00* Test Item Value Reference Range Interpretation Comments Lipase (test code = 3040-3) 180 8-78 H [facility] SpringsAmylase Igjrr9986-24-15 09:34:00* Test Item Value Reference Range Interpretation Comments Amylase Level (test code = 1798-8) 46 25-125 [facility] SpringsLipase2018-12-03 09:34:00* Test Item Value Reference Range Interpretation Comments Lipase (test code = 3040-3) 180 8-78 H [facility] SpringsAmylase Yqdgl2038-64-15 09:34:00* Test Item Value Reference Range Interpretation Comments Amylase Level (test code = 1798-8) 46 25-125 [facility] SpringsLipase2018-12-03 09:34:00* Test Item Value Reference Range Interpretation Comments Lipase (test code = 3040-3) 180 8-78 H [facility] SpringsUrine [id number] 09:28:00* Test Item Value Reference Range Interpretation Comments Urine WBC (test code = 5821-4) 11-20 0-5 H [facility] SpringsUrine [id number] 09:28:00* Test Item Value Reference Range Interpretation Comments Urine RBC (test code = 56093-1) NONE 0-5 [facility] SpringsUrine Jhcxfczx4512-26-63 09:28:00* Test Item Value Reference Range Interpretation Comments Urine Bacteria (test code = 66750-9) NONE NONE [facility] SpringsUrine Epithelial Eoqmu3242-87-42 09:28:00 * Test Item Value Reference Range Interpretation Comments Urine Epithelial Cells (test code = 51479-9) FEW NONE [facility] SpringsUrine Bcepz8731-43-59 09:22:00* Test Item Value Reference Range Interpretation Comments Urine Color (test code = 5778-6) ION YELLOW H [facility] SpringsUrine Xtkmwss4348-17-36 09:22:00* Test Item Value Reference Range Interpretation Comments Urine Clarity (test code = 48640-1) SL CLOUDY CLEAR [facility] Specific Sslanji1662-34-44 09:22:00 * Test Item Value Reference Range Interpretation Comments Urine Specific [place] (test code = 5811-5) 1.030 1.010-1.02 5 H [facility] SpringsUrine pP6403-18-33 09:22:00* Test Item Value Reference Range Interpretation Comments Urine pH (test code = 24079-3) 6 5-7 [facility] Leukocyte Ewslymle1359-47-77 09:22:00* Test Item Value Reference Range Interpretation Comments Urine Leukocyte Esterase (test code = 5799-2) TRACE NEGATIVE H [facility] SpringsUrine Aekyjfh6126-49-93 09:22:00* Test Item Value Reference Range Interpretation Comments Urine Nitrite (test code = 14079-3) NEGATIVE NEGATIVE [facility] SpringsUrine Dussfej4299-15-16 09:22:00* Test Item Value Reference Range Interpretation Comments Urine Protein (test code = 5804-0) 2+ NEGATIVE H [facility] SpringsUrine Glucose (UA)2018-02-02 09:22:00* Test Item Value Reference Range Interpretation Comments Urine Glucose (UA) (test code = 2349-9) NEGATIVE NEGATIVE [facility] SpringsUrine Nbtlsnw3419-58-01 09:22:00* Test Item Value Reference Range Interpretation Comments Urine Ketones (test code = 87956-4) NEGATIVE NEGATIVE [facility] Chshwnrgtrdd3654-76-97 09:22:00* Test Item Value Reference Range Interpretation Comments Urine Urobilinogen (test code = 03260-0) 0.2 0.2-1 [facility] Gwyesrjfa5356-16-86 09:22:00* Test Item Value Reference Range Interpretation Comments Urine Bilirubin (test code = 1978-6) 1+ NEGATIVE H [facility] SpringsUrine Mpaue6749-65-25 09:22:00* Test Item Value Reference Range Interpretation Comments Urine Blood (test code = 88495-1) NEGATIVE NEGATIVE [facility] SpringsWhite Blood Brdmk6102-66-96 09:18:00* Test Item Value Reference Range Interpretation Comments White Blood Count (test code = 6690-2) 10.78 4.8-10.8 [facility] SpringsRed Blood Uboty7470-43-46 09:18:00* Test Item Value Reference Range Interpretation Comments Red Blood Count (test code = 789-8) 4.60 3.6-5.1 [facility] SpringsHemoglobin2018-12-03 09:18:00* Test Item Value Reference Range Interpretation Comments Hemoglobin (test code = 08874-2) 12.1 12.0-16.0 [facility] SpringsHematocrit2018-12-03 09:18:00* Test Item Value Reference Range Interpretation Comments Hematocrit (test code = 4544-3) 40.9 34.2-44.1 [facility] SpringsMean Corpuscular Stfxfs8745-19-70 09:18:00* Test Item Value Reference Range Interpretation Comments Mean Corpuscular Volume (test code = 787-2) 88.9 81-99 [facility] SpringsMean Corpuscular Fcordutvao0334-93-45 09:18:00* Test Item Value Reference Range Interpretation Comments Mean Corpuscular Hemoglobin (test code = 785-6) 26.3 28-32 L [facility] SpringsMean Corpuscular Hemoglobin Concent 2018-02-02 09:18:00* Test Item Value Reference Range Interpretation Comments Mean Corpuscular Hemoglobin Concent (test code = 786-4) 29.6 31-35 L [facility] SpringsRed Cell Distribution Orfhl9795-86-26 09:18:00* Test Item Value Reference Range Interpretation Comments Red Cell Distribution Width (test code = 80170-2) 18.3 11.7 -14.4 H [facility] SpringsPlatelet Ozpwx7089-57-36 09:18:00* Test Item Value Reference Range Interpretation Comments Platelet Count (test code = 777-3) 455 140-360 H [facility] SpringsNeutrophils (%) (Auto)2018-02-02 09:18:00 * Test Item Value Reference Range Interpretation Comments Neutrophils (%) (Auto) (test code = 71919-8) 58.6 38.7-80.0 [facility] SpringsLymphocytes (%) (Auto)2018-02-02 09:18:00 * Test Item Value Reference Range Interpretation Comments Lymphocytes (%) (Auto) (test code = 736-9) 16.0 18.0-39.1 L [facility] SpringsMonocytes (%) (Auto)2018-02-02 09:18:00* Test Item Value Reference Range Interpretation Comments Monocytes (%) (Auto) (test code = 5905-5) 20.4 4.4-11.3 H [facility] SpringsEosinophils (%) (Auto)2018-02-02 09:18:00 * Test Item Value Reference Range Interpretation Comments Eosinophils (%) (Auto) (test code = 713-8) 3.0 0.0-6.0 [facility] SpringsBasophils (%) (Auto)2018-02-02 09:18:00* Test Item Value Reference Range Interpretation Comments Basophils (%) (Auto) (test code = 706-2) 0.8 0.0-1.0 [facility] SpringsIM GRANULOCYTES %2018-02-02 09:18:00* Test Item Value Reference Range Interpretation Comments IM GRANULOCYTES % (test code = IM GRANULOCYTES %) 1.2 0.0- 1.0 H [facility] SpringsNeutrophils # (Auto)2018-02-02 09:18:00* Test Item Value Reference Range Interpretation Comments Neutrophils # (Auto) (test code = 751-8) 6.3 2.1-6.9 [facility] SpringsLymphocytes # (Auto)2018-02-02 09:18:00* Test Item Value Reference Range Interpretation Comments Lymphocytes # (Auto) (test code = 60345-8) 1.7 1.0-3.2 [facility] SpringsMonocytes # (Auto)2018-02-02 09:18:00* Test Item Value Reference Range Interpretation Comments Monocytes # (Auto) (test code = 742-7) 2.2 0.2-0.8 H [facility] SpringsEosinophils # (Auto)2018-02-02 09:18:00* Test Item Value Reference Range Interpretation Comments Eosinophils # (Auto) (test code = 711-2) 0.3 0.0-0.4 [facility] SpringsBasophils # (Auto)2018-02-02 09:18:00* Test Item Value Reference Range Interpretation Comments Basophils # (Auto) (test code = 704-7) 0.1 0.0-0.1 [facility] SpringsAbsolute Immature Granulocyte (auto 2018-02-02 09:18:00* Test Item Value Reference Range Interpretation Comments Absolute Immature Granulocyte (auto (genoveva t code = Absolute Immature Granulocyte (auto) 0.13 0-0.1 H [facility] SpringsDifferential Total Cells Counted 2017-02-21 10:33:00* Test Item Value Reference Range Interpretation Comments Differential Total Cells Counted (test code = Differen tial Total Cells Counted) 100 [facility] SpringsNeutrophils % (Manual)2017-02-21 10:33:00 * Test Item Value Reference Range Interpretation Comments Neutrophils % (Manual) (test code = 55501-9) 60 40-74 [facility] SpringsLymphocytes % (Manual)2017-02-21 10:33:00 * Test Item Value Reference Range Interpretation Comments Lymphocytes % (Manual) (test code = 737-7) 11 19-48 L [facility] SpringsMonocytes % (Manual)2017-02-21 10:33:00* Test Item Value Reference Range Interpretation Comments Monocytes % (Manual) (test code = 744-3) 13 3.4-9.0 H [facility] SpringsEosinophils % (Manual)2017-02-21 10:33:00 * Test Item Value Reference Range Interpretation Comments Eosinophils % (Manual) (test code = 714-6) 16 0-7 H [facility] SpringsPlatelet Dngjvsza8294-47-72 10:33:00* Test Item Value Reference Range Interpretation Comments Platelet Estimate (test code = 96718-1) SLIGHTLY INCREASED [facility] SpringsPlatelet Morphology Dqwlpia2846-39-06 10:33:00* Test Item Value Reference Range Interpretation Comments Platelet Morphology Comment (test code = 38872-5) NORMAL [facility] SpringsHypochromasia2017-12-22 10:33:00* Test Item Value Reference Range Interpretation Comments Hypochromasia (test code = 728-6) SLIGHT [facility] SpringsPoikilocytosis2017-12-22 10:33:00* Test Item Value Reference Range Interpretation Comments Poikilocytosis (test code = 779-9) SLIGHT [facility] SpringsAnisocytosis2017-12-22 10:33:00* Test Item Value Reference Range Interpretation Comments Anisocytosis (test code = 702-1) SLIGHT [facility] SpringsRed Cell Morphology Xqjhdes6391-58-45 10:33:00* Test Item Value Reference Range Interpretation Comments Red Cell Morphology Comment (test code = 6742-1) NORMAL [facility] SpringsDifferential Total Cells Counted 2017-02-21 10:33:00* Test Item Value Reference Range Interpretation Comments Differential Total Cells Counted (test code = Differmars tial Total Cells Counted) 100 [facility] SpringsNeutrophils % (Manual)2017-02-21 10:33:00 * Test Item Value Reference Range Interpretation Comments Neutrophils % (Manual) (test code = 60349-9) 60 40-74 [facility] SpringsLymphocytes % (Manual)2017-02-21 10:33:00 * Test Item Value Reference Range Interpretation Comments Lymphocytes % (Manual) (test code = 737-7) 11 19-48 L [facility] SpringsMonocytes % (Manual)2017-02-21 10:33:00* Test Item Value Reference Range Interpretation Comments Monocytes % (Manual) (test code = 744-3) 13 3.4-9.0 H [facility] SpringsEosinophils % (Manual)2017-02-21 10:33:00 * Test Item Value Reference Range Interpretation Comments Eosinophils % (Manual) (test code = 714-6) 16 0-7 H [facility] SpringsPlatelet Xyybtrah2892-62-24 10:33:00* Test Item Value Reference Range Interpretation Comments Platelet Estimate (test code = 29113-6) SLIGHTLY INCREASED [facility] SpringsPlatelet Morphology Erueirw6280-64-76 10:33:00* Test Item Value Reference Range Interpretation Comments Platelet Morphology Comment (test code = 84070-9) NORMAL [facility] SpringsHypochromasia2017-12-22 10:33:00* Test Item Value Reference Range Interpretation Comments Hypochromasia (test code = 728-6) SLIGHT [facility] SpringsPoikilocytosis2017-12-22 10:33:00* Test Item Value Reference Range Interpretation Comments Poikilocytosis (test code = 779-9) SLIGHT [facility] SpringsAnisocytosis2017-12-22 10:33:00* Test Item Value Reference Range Interpretation Comments Anisocytosis (test code = 702-1) SLIGHT [facility] SpringsRed Cell Morphology Wuwhzil0275-85-43 10:33:00* Test Item Value Reference Range Interpretation Comments Red Cell Morphology Comment (test code = 6742-1) NORMAL [facility] Rpyqcyg0487-82-43 07:59:00* Test Item Value Reference Range Interpretation Comments Bedside Glucose (test code = 89148-7) 148 70-120 H Meter ID: [id number] Glucose 2017-02-21 07:59:00* Test Item Value Reference Range Interpretation Comments Bedside Glucose (test code = 64220-6) 148 70-120 H Meter ID: [id number] [facility]White Blood Count 2017-02-21 07:39:00* Test Item Value Reference Range Interpretation Comments White Blood Count (test code = 6690-2) 11.62 4.8-10.8 H [facility] SpringsRed Blood Hpntq3060-43-45 07:39:00* Test Item Value Reference Range Interpretation Comments Red Blood Count (test code = 789-8) 3.07 3.6-5.1 L [facility] SpringsHemoglobin2017-12-22 07:39:00* Test Item Value Reference Range Interpretation Comments Hemoglobin (test code = 95868-2) 8.9 12.0-16.0 L [facility] SpringsHematocrit2017-12-22 07:39:00* Test Item Value Reference Range Interpretation Comments Hematocrit (test code = 4544-3) 29.6 34.2-44.1 L [facility] SpringsMean Corpuscular Fsgznn0635-44-16 07:39:00* Test Item Value Reference Range Interpretation Comments Mean Corpuscular Volume (test code = 787-2) 96.4 81-99 [facility] SpringsMean Corpuscular Toktyqowga1819-41-09 07:39:00* Test Item Value Reference Range Interpretation Comments Mean Corpuscular Hemoglobin (test code = 785-6) 29.0 28-32 [facility] SpringsMean Corpuscular Hemoglobin Concent 2017-02-21 07:39:00* Test Item Value Reference Range Interpretation Comments Mean Corpuscular Hemoglobin Concent (test code = 786-4) 30.1 31-35 L [facility] SpringsRed Cell Distribution Kmkjl6897-99-96 07:39:00* Test Item Value Reference Range Interpretation Comments Red Cell Distribution Width (test code = 66278-4) 18.2 11.7 -14.4 H [facility] SpringsPlatelet Reudk5307-41-10 07:39:00* Test Item Value Reference Range Interpretation Comments Platelet Count (test code = 777-3) 420 140-360 H [facility] SpringsNeutrophils (%) (Auto)2017-02-21 07:39:00 * Test Item Value Reference Range Interpretation Comments Neutrophils (%) (Auto) (test code = 48977-9) 57.9 38.7-80.0 [facility] SpringsLymphocytes (%) (Auto)2017-02-21 07:39:00 * Test Item Value Reference Range Interpretation Comments Lymphocytes (%) (Auto) (test code = 736-9) 16.3 18.0-39.1 L [facility] SpringsMonocytes (%) (Auto)2017-02-21 07:39:00* Test Item Value Reference Range Interpretation Comments Monocytes (%) (Auto) (test code = 5905-5) 12.7 4.4-11.3 H [facility] SpringsEosinophils (%) (Auto)2017-02-21 07:39:00 * Test Item Value Reference Range Interpretation Comments Eosinophils (%) (Auto) (test code = 713-8) 9.9 0.0-6.0 H [facility] SpringsBasophils (%) (Auto)2017-02-21 07:39:00* Test Item Value Reference Range Interpretation Comments Basophils (%) (Auto) (test code = 706-2) 0.9 0.0-1.0 [facility] SpringsIM GRANULOCYTES %2017-02-21 07:39:00* Test Item Value Reference Range Interpretation Comments IM GRANULOCYTES % (test code = IM GRANULOCYTES %) 2.3 0.0- 1.0 H [facility] SpringsNeutrophils # (Auto)2017-02-21 07:39:00* Test Item Value Reference Range Interpretation Comments Neutrophils # (Auto) (test code = 751-8) 6.7 2.1-6.9 [facility] SpringsLymphocytes # (Auto)2017-02-21 07:39:00* Test Item Value Reference Range Interpretation Comments Lymphocytes # (Auto) (test code = 05888-7) 1.9 1.0-3.2 [facility] SpringsMonocytes # (Auto)2017-02-21 07:39:00* Test Item Value Reference Range Interpretation Comments Monocytes # (Auto) (test code = 742-7) 1.5 0.2-0.8 H [facility] SpringsEosinophils # (Auto)2017-02-21 07:39:00* Test Item Value Reference Range Interpretation Comments Eosinophils # (Auto) (test code = 711-2) 1.2 0.0-0.4 H [facility] SpringsBasophils # (Auto)2017-02-21 07:39:00* Test Item Value Reference Range Interpretation Comments Basophils # (Auto) (test code = 704-7) 0.1 0.0-0.1 [facility] SpringsAbsolute Immature Granulocyte (auto 2017-02-21 07:39:00* Test Item Value Reference Range Interpretation Comments Absolute Immature Granulocyte (auto (genoveva t code = Absolute Immature Granulocyte (auto) 0.27 0-0.1 H [facility] SpringsWhite Blood Wztwv6870-74-37 07:39:00* Test Item Value Reference Range Interpretation Comments White Blood Count (test code = 6690-2) 11.62 4.8-10.8 H [facility] SpringsRed Blood Wdlrq6214-41-82 07:39:00* Test Item Value Reference Range Interpretation Comments Red Blood Count (test code = 789-8) 3.07 3.6-5.1 L [facility] SpringsHemoglobin2017-12-22 07:39:00* Test Item Value Reference Range Interpretation Comments Hemoglobin (test code = 63685-4) 8.9 12.0-16.0 L [facility] SpringsHematocrit2017-12-22 07:39:00* Test Item Value Reference Range Interpretation Comments Hematocrit (test code = 4544-3) 29.6 34.2-44.1 L [facility] SpringsMean Corpuscular Iitkey7911-02-40 07:39:00* Test Item Value Reference Range Interpretation Comments Mean Corpuscular Volume (test code = 787-2) 96.4 81-99 [facility] SpringsMean Corpuscular Hihghkdxcl2761-67-35 07:39:00* Test Item Value Reference Range Interpretation Comments Mean Corpuscular Hemoglobin (test code = 785-6) 29.0 28-32 [facility] SpringsMean Corpuscular Hemoglobin Concent 2017-02-21 07:39:00* Test Item Value Reference Range Interpretation Comments Mean Corpuscular Hemoglobin Concent (test code = 786-4) 30.1 31-35 L [facility] SpringsRed Cell Distribution Fsqul1710-28-70 07:39:00* Test Item Value Reference Range Interpretation Comments Red Cell Distribution Width (test code = 22614-2) 18.2 11.7 -14.4 [facility] SpringsPlatelet Nrrkg1187-97-90 07:39:00* Test Item Value Reference Range Interpretation Comments Platelet Count (test code = 777-3) 420 140-360 H [facility] SpringsNeutrophils (%) (Auto)2017-02-21 07:39:00 * Test Item Value Reference Range Interpretation Comments Neutrophils (%) (Auto) (test code = 88705-2) 57.9 38.7-80.0 [facility] SpringsLymphocytes (%) (Auto)2017-02-21 07:39:00 * Test Item Value Reference Range Interpretation Comments Lymphocytes (%) (Auto) (test code = 736-9) 16.3 18.0-39.1 L [facility] SpringsMonocytes (%) (Auto)2017-02-21 07:39:00* Test Item Value Reference Range Interpretation Comments Monocytes (%) (Auto) (test code = 5905-5) 12.7 4.4-11.3 H [facility] SpringsEosinophils (%) (Auto)2017-02-21 07:39:00 * Test Item Value Reference Range Interpretation Comments Eosinophils (%) (Auto) (test code = 713-8) 9.9 0.0-6.0 H [facility] SpringsBasophils (%) (Auto)2017-02-21 07:39:00* Test Item Value Reference Range Interpretation Comments Basophils (%) (Auto) (test code = 706-2) 0.9 0.0-1.0 [facility] SpringsIM GRANULOCYTES %2017-02-21 07:39:00* Test Item Value Reference Range Interpretation Comments IM GRANULOCYTES % (test code = IM GRANULOCYTES %) 2.3 0.0- 1.0 H [facility] SpringsNeutrophils # (Auto)2017-02-21 07:39:00* Test Item Value Reference Range Interpretation Comments Neutrophils # (Auto) (test code = 751-8) 6.7 2.1-6.9 [facility] SpringsLymphocytes # (Auto)2017-02-21 07:39:00* Test Item Value Reference Range Interpretation Comments Lymphocytes # (Auto) (test code = 54572-1) 1.9 1.0-3.2 [facility] SpringsMonocytes # (Auto)2017-02-21 07:39:00* Test Item Value Reference Range Interpretation Comments Monocytes # (Auto) (test code = 742-7) 1.5 0.2-0.8 H [facility] SpringsEosinophils # (Auto)2017-02-21 07:39:00* Test Item Value Reference Range Interpretation Comments Eosinophils # (Auto) (test code = 711-2) 1.2 0.0-0.4 H [facility] SpringsBasophils # (Auto)2017-02-21 07:39:00* Test Item Value Reference Range Interpretation Comments Basophils # (Auto) (test code = 704-7) 0.1 0.0-0.1 [facility] SpringsAbsolute Immature Granulocyte (auto 2017-02-21 07:39:00* Test Item Value Reference Range Interpretation Comments Absolute Immature Granulocyte (auto (genoveva t code = Absolute Immature Granulocyte (auto) 0.27 0-0.1 H [facility] Centerodium Zghyy1443-67-14 07:18:00* Test Item Value Reference Range Interpretation Comments Sodium Level (test code = 2951-2) 140 136-145 [facility] SpringsPotassium Yabip8582-98-69 07:18:00* Test Item Value Reference Range Interpretation Comments Potassium Level (test code = 2823-3) 3.8 3.5-5.1 [facility] SpringsChloride Ujvzd6746-87-19 07:18:00* Test Item Value Reference Range Interpretation Comments Chloride Level (test code = 2075-0) 108 98-107 H [facility] SpringsCarbon Dioxide Umukr6699-90-59 07:18:00* Test Item Value Reference Range Interpretation Comments Carbon Dioxide Level (test code = 2028-9) 23 22-29 [facility] SpringsAnion [id number] 07:18:00* Test Item Value Reference Range Interpretation Comments Anion Gap (test code = 34593-9) 12.8 8-16 [facility] SpringsBlood Urea Iobkpdve0502-40-27 07:18:00* Test Item Value Reference Range Interpretation Comments Blood Urea Nitrogen (test code = 3094-0) 5 7-26 L [facility] SpringsCreatinine2017-12-22 07:18:00* Test Item Value Reference Range Interpretation Comments Creatinine (test code = 2160-0) 0.63 0.57-1.11 [facility] SpringsBUN/Creatinine Krtpx7296-91-07 07:18:00* Test Item Value Reference Range Interpretation Comments BUN/Creatinine Ratio (test code = 3097-3) 8 6-25 [facility] SpringsEstimat Glomerular Filtration Rate 2017-02-21 07:18:00* Test Item Value Reference Range Interpretation Comments Estimat Glomerular Filtration Rate (test code = 59190-7) 60- >60 Ranges were taken from the National Kidney Disease Education Program and the [facility] Kid[facility] Foundation literature.Reference ranges:60 or greater: [id number] ( for 3 consecutive months): Chronic kidney disease 15 or less: Kidney failureCHRISTUS [facility] – [facility] SpringsGlucose Cednm4852-70-23 07:18:00* Test Item Value Reference Range Interpretation Comments Glucose Level (test code = VAA9623) 179 74-118 H [facility] SpringsCalcium Yhmup9054-92-53 07:18:00* Test Item Value Reference Range Interpretation Comments Calcium Level (test code = 84402-2) 8.7 8.4-10.2 [facility] Centerodium Fibhs0768-64-08 07:18:00* Test Item Value Reference Range Interpretation Comments Sodium Level (test code = 2951-2) 140 136-145 [facility] SpringsPotassium Qgjpb6849-07-80 07:18:00* Test Item Value Reference Range Interpretation Comments Potassium Level (test code = 2823-3) 3.8 3.5-5.1 [facility] SpringsChloride Ltntb0809-43-22 07:18:00* Test Item Value Reference Range Interpretation Comments Chloride Level (test code = 2075-0) 108 98-107 H [facility] SpringsCarbon Dioxide Jehkb7535-76-40 07:18:00* Test Item Value Reference Range Interpretation Comments Carbon Dioxide Level (test code = 2028-9) 23 22-29 [facility] SpringsAnion Sgw7264-56-98 07:18:00* Test Item Value Reference Range Interpretation Comments Anion Gap (test code = 95606-1) 12.8 8-16 [facility] SpringsBlood Urea Cpjlxqwn3162-72-78 07:18:00* Test Item Value Reference Range Interpretation Comments Blood Urea Nitrogen (test code = 3094-0) 5 7-26 L [facility] SpringsCreatinine2017-12-22 07:18:00* Test Item Value Reference Range Interpretation Comments Creatinine (test code = 2160-0) 0.63 0.57-1.11 [facility] SpringsBUN/Creatinine Insvw7580-11-89 07:18:00* Test Item Value Reference Range Interpretation Comments BUN/Creatinine Ratio (test code = 3097-3) 8 6-25 [facility] SpringsEstimat Glomerular Filtration Rate 2017-02-21 07:18:00* Test Item Value Reference Range Interpretation Comments Estimat Glomerular Filtration Rate (test code = 34900-2) 60- >60 Ranges were taken from the National Kidney Disease Education Program and the [facility] Kid[facility] Foundation literature.Reference ranges:60 or greater: Pucvky93-37 ( for 3 consecutive months): Chronic kidney disease 15 or less: Kidney failureCHRISTUS [facility] – [facility] SpringsGlucose Jqxjj2230-68-37 07:18:00* Test Item Value Reference Range Interpretation Comments Glucose Level (test code = GRC9987) 179 74-118 H [facility] SpringsCalcium Shhqt6902-59-17 07:18:00* Test Item Value Reference Range Interpretation Comments Calcium Level (test code = 81814-5) 8.7 8.4-10.2 [facility] SpringsMetamyelocytes %2017-02-20 09:50:00* Test Item Value Reference Range Interpretation Comments Metamyelocytes % (test code = 740-1) 1 0-0 H [facility] SpringsMyelocytes %2017-02-20 09:50:00* Test Item Value Reference Range Interpretation Comments Myelocytes % (test code = 749-2) 1 0-0 H [facility] SpringsReactive Ehydamhjjit5744-99-59 09:50:00* Test Item Value Reference Range Interpretation Comments Reactive Lymphocytes (test code = 81626-3) 2 [facility] SpringsNucleated Red Blood Qrmgq1493-59-16 09:50:00* Test Item Value Reference Range Interpretation Comments Nucleated Red Blood Cells (test code = 36491-4) 2 [facility] SpringsMetamyelocytes %2017-02-20 09:50:00* Test Item Value Reference Range Interpretation Comments Metamyelocytes % (test code = 740-1) 1 0-0 H [facility] SpringsMyelocytes %2017-02-20 09:50:00* Test Item Value Reference Range Interpretation Comments Myelocytes % (test code = 749-2) 1 0-0 H [facility] SpringsReactive Kgdzrobmrxn1284-44-06 09:50:00* Test Item Value Reference Range Interpretation Comments Reactive Lymphocytes (test code = 79931-1) 2 [facility] SpringsNucleated Red Blood Tlemp2066-46-33 09:50:00* Test Item Value Reference Range Interpretation Comments Nucleated Red Blood Cells (test code = 10959-3) 2 [facility] SpringsProthrombin Vjab6558-21-77 07:25:00* Test Item Value Reference Range Interpretation Comments Prothrombin Time (test code = 5902-2) 14.3 11.9-14.5 [facility] SpringsProthromb Time International Ratio 2017-02-19 07:25:00* Test Item Value Reference Range Interpretation Comments Prothromb Time International Ratio (test code = 6301-6) 1.06 Oral Anticoagulant Therapy INR Values:1. Low Intensity Therapy 1.5 - 2.02 . Moderate Intensity Therapy 2.0 - 3.03. High Intensity Therapy(1) 2.5 - 3. 54. High Intensity Therapy(2) 3.0 - 4.05. Panic Value INR > 5.0 [facility] SpringsProthrombin Mpja3318-34-79 07:25:00* Test Item Value Reference Range Interpretation Comments Prothrombin Time (test code = 5902-2) 14.3 11.9-14.5 [facility] SpringsProthromb Time International Ratio 2017-02-19 07:25:00* Test Item Value Reference Range Interpretation Comments Prothromb Time International Ratio (test code = 6301-6) 1.06 Oral Anticoagulant Therapy INR Values:1. Low Intensity Therapy 1.5 - 2.02 . Moderate Intensity Therapy 2.0 - 3.03. High Intensity Therapy(1) 2.5 - 3. 54. High Intensity Therapy(2) 3.0 - 4.05. Panic Value INR > 5.0 [facility] SpringsUrine [id number] 18:37:00* Test Item Value Reference Range Interpretation Comments Urine WBC (test code = 5821-4) 50- 0-5 H [facility] SpringsUrine [id number] 18:37:00* Test Item Value Reference Range Interpretation Comments Urine RBC (test code = 37192-4) 11-20 0-5 H [facility] SpringsUrine Pnvndqze2415-76-26 18:37:00* Test Item Value Reference Range Interpretation Comments Urine Bacteria (test code = 96439-8) MODERATE NONE H [facility] SpringsUrine Epithelial Bqepc8290-90-23 18:37:00 * Test Item Value Reference Range Interpretation Comments Urine Epithelial Cells (test code = 03000-9) FEW NONE [facility] SpringsUrine Hyaline Aiqtr4426-69-31 18:37:00* Test Item Value Reference Range Interpretation Comments Urine Hyaline Casts (test code = 43136-4) 0-1 0-1 [facility] Lqvck7510-43-48 18:37:00* Test Item Value Reference Range Interpretation Comments Urine Mucus (test code = 8247-9) FEW RARE H [facility] SpringsUrine [id number] 18:37:00* Test Item Value Reference Range Interpretation Comments Urine WBC (test code = 5821-4) 50- 0-5 H [facility] [id number] 18:37:00* Test Item Value Reference Range Interpretation Comments Urine RBC (test code = 39413-3) 11-20 0-5 H [facility] Fprdkgsw9099-90-59 18:37:00* Test Item Value Reference Range Interpretation Comments Urine Bacteria (test code = 89212-3) MODERATE NONE H [facility] Epithelial Szfph5018-84-46 18:37:00 * Test Item Value Reference Range Interpretation Comments Urine Epithelial Cells (test code = 44315-1) FEW NONE [facility] SpringsUrine Hyaline Kgwsz3559-96-51 18:37:00* Test Item Value Reference Range Interpretation Comments Urine Hyaline Casts (test code = 78416-6) 0-1 0-1 [facility] Xmclz8606-35-60 18:37:00* Test Item Value Reference Range Interpretation Comments Urine Mucus (test code = 8247-9) FEW RARE H [facility] Fmgwh9547-41-75 17:49:00* Test Item Value Reference Range Interpretation Comments Urine Color (test code = 5778-6) YELLOW YELLOW [facility] Vdatbxv0913-14-22 17:49:00* Test Item Value Reference Range Interpretation Comments Urine Clarity (test code = 04252-9) CLEAR CLEAR [facility] SpringsUrine Specific Khsuxpu0258-60-55 17:49:00 * Test Item Value Reference Range Interpretation Comments Urine Specific [place] (test code = 5811-5) 1.020 1.010-1.02 5 [facility] [id number] 17:49:00* Test Item Value Reference Range Interpretation Comments Urine pH (test code = 71583-3) 6 5-7 [facility] SpringsUrine Leukocyte Rgcjrpsq8421-15-35 17:49:00* Test Item Value Reference Range Interpretation Comments Urine Leukocyte Esterase (test code = 5799-2) 1+ NEGATIVE H [facility] Coqinhp9995-96-30 17:49:00* Test Item Value Reference Range Interpretation Comments Urine Nitrite (test code = 12730-3) NEGATIVE NEGATIVE [facility] SpringsUrine Bnkbwhx2736-35-28 17:49:00* Test Item Value Reference Range Interpretation Comments Urine Protein (test code = 5804-0) NEGATIVE NEGATIVE [facility] Glucose (UA)2017-02-18 17:49:00* Test Item Value Reference Range Interpretation Comments Urine Glucose (UA) (test code = 2349-9) NEGATIVE NEGATIVE [facility] Urhuptr8444-02-51 17:49:00* Test Item Value Reference Range Interpretation Comments Urine Ketones (test code = 60174-5) NEGATIVE NEGATIVE [facility] Qadvrhzyxqmy2874-00-28 17:49:00* Test Item Value Reference Range Interpretation Comments Urine Urobilinogen (test code = 37926-7) 0.2 0.2-1 [facility] Tqorzlvpq5928-73-25 17:49:00* Test Item Value Reference Range Interpretation Comments Urine Bilirubin (test code = 1978-6) NEGATIVE NEGATIVE [facility] Zsivp3276-75-03 17:49:00* Test Item Value Reference Range Interpretation Comments Urine Blood (test code = 83099-1) TRACE NEGATIVE H [facility] SpringsUrine Qvcje4381-33-66 17:49:00* Test Item Value Reference Range Interpretation Comments Urine Color (test code = 5778-6) YELLOW YELLOW [facility] Mgvekzc7417-63-12 17:49:00* Test Item Value Reference Range Interpretation Comments Urine Clarity (test code = 04686-5) CLEAR CLEAR [facility] SpringsUrine Specific Vfuywho8275-08-74 17:49:00 * Test Item Value Reference Range Interpretation Comments Urine Specific [place] (test code = 5811-5) 1.020 1.010-1.02 5 [facility] SpringsUrine [id number] 17:49:00* Test Item Value Reference Range Interpretation Comments Urine pH (test code = 86442-7) 6 5-7 [facility] Leukocyte Txulusre4312-09-26 17:49:00* Test Item Value Reference Range Interpretation Comments Urine Leukocyte Esterase (test code = 5799-2) 1+ NEGATIVE H [facility] Lsyixxy5868-51-27 17:49:00* Test Item Value Reference Range Interpretation Comments Urine Nitrite (test code = 01534-6) NEGATIVE NEGATIVE [facility] Nuiiruf7928-74-34 17:49:00* Test Item Value Reference Range Interpretation Comments Urine Protein (test code = 5804-0) NEGATIVE NEGATIVE [facility] Glucose (UA)2017-02-18 17:49:00* Test Item Value Reference Range Interpretation Comments Urine Glucose (UA) (test code = 2349-9) NEGATIVE NEGATIVE [facility] Dwqcpef2924-12-94 17:49:00* Test Item Value Reference Range Interpretation Comments Urine Ketones (test code = 83506-5) NEGATIVE NEGATIVE [facility] Dqgrdxyephor0147-91-15 17:49:00* Test Item Value Reference Range Interpretation Comments Urine Urobilinogen (test code = 27183-4) 0.2 0.2-1 [facility] SpringsUrine Xuxywytgt0137-97-82 17:49:00* Test Item Value Reference Range Interpretation Comments Urine Bilirubin (test code = 1978-6) NEGATIVE NEGATIVE [facility] SpringsUrine Yrxbx4437-59-01 17:49:00* Test Item Value Reference Range Interpretation Comments Urine Blood (test code = 29322-4) TRACE NEGATIVE H [facility] SpringsCreatine Kinase [id number] 16:23:00* Test Item Value Reference Range Interpretation Comments Creatine Kinase MB (test code = 20024-5) 0.90 0.00-5.00 [facility] SpringsTrtr[facility] [id number] 16:23:00* Test Item Value Reference Range Interpretation Comments Troponin I (test code = 14972-7) 0.004 0-0.300 [facility] SpringsThyroid Stimulating Hormone (TSH) 2017-02-18 16:23:00* Test Item Value Reference Range Interpretation Comments Thyroid Stimulating Hormone (TSH) (test code = 31533-7) 2.730 0.350-4.940 [facility] SpringsCreatine Kinase [id number] 16:23:00* Test Item Value Reference Range Interpretation Comments Creatine Kinase MB (test code = 43509-4) 0.90 0.00-5.00 [facility] SpringsTrPeter [place]ille [address]364K5526-51-39 16:23:00* Test Item Value Reference Range Interpretation Comments Troponin I (test code = ZAO2122) 0.004 0-0.300 [facility] SpringsThyroid Stimulating Hormone (TSH) 2017-02-18 16:23:00* Test Item Value Reference Range Interpretation Comments Thyroid Stimulating Hormone (TSH) (test code = 35443-7) 2.730 0.350-4.940 [facility] SpringsB-Type Natriuretic Dftcyrc9439-40-14 16:18:00* Test Item Value Reference Range Interpretation Comments B-Type Natriuretic Peptide (test code = 37390-3) 13.8 0-100 [facility] SpringsB-Type Natriuretic Rwyyqmt4304-83-59 16:18:00* Test Item Value Reference Range Interpretation Comments B-Type Natriuretic Peptide (test code = 41436-6) 13.8 0-100 [facility] SpringsInfluenza Virus Types A,B Antigen 2017-02-18 16:10:00* Test Item Value Reference Range Interpretation Comments Influenza Virus Types A,B Antigen (test code = 66713-4) POSITIVE FLU B NEGATIVE H Results called to at 1608 on 02/18/17 by Melia Anne. RB [place].Results called to in infection control at 1608 on 02/18/17 by Melia Anne.[facility] SpringsInfluenza Virus Types A,B Ohwxkac7425-59-67 16:10:00* Test Item Value Reference Range Interpretation Comments Influenza Virus Types A,B Antigen (test code = 91570-0) POSITIVE FLU B NEGATIVE H Results called to at 1608 on 02/18/17 by Melia Anne. RB [place].Results called to in infection control at 1608 on 02/18/17 by Melia Anne.[facility]To[facility] Wlaqlkvon8067-57-69 16:02:00* Test Item Value Reference Range Interpretation Comments Total Bilirubin (test code = 1975-2) 0.3 0.2-1.2 [facility] SpringsAspartate Amino Transf (AST/SGOT) 2017-02-18 16:02:00* Test Item Value Reference Range Interpretation Comments Aspartate Amino Transf (AST/SGOT) (test code = Aspartate Amino Transf (AST/SGOT)) 14 5-34 [facility] SpringsAlanine Aminotransferase (ALT/SGPT) 2017-02-18 16:02:00* Test Item Value Reference Range Interpretation Comments Alanine Aminotransferase (ALT/SGPT) (test code = 1742-6) 13 0-55 [facility] SpringsTotal Blexsne5993-01-95 16:02:00* Test Item Value Reference Range Interpretation Comments Total Protein (test code = 2885-2) 6.3 6.5-8.1 L [facility] SpringsAlbumin2017-12-19 16:02:00* Test Item Value Reference Range Interpretation Comments Albumin (test code = 1751-7) 3.4 3.5-5.0 L [facility] SpringsGlobulin2017-12-19 16:02:00* Test Item Value Reference Range Interpretation Comments Globulin (test code = 29624-3) 2.9 2.3-3.5 [facility] SpringsAlbumin/Globulin Xtgkv2417-76-42 16:02:00 * Test Item Value Reference Range Interpretation Comments Albumin/Globulin Ratio (test code = 1759-0) 1.2 0.8-2.0 [facility] SpringsAlkaline Plztkmxdtuw7262-10-15 16:02:00* Test Item Value Reference Range Interpretation Comments Alkaline Phosphatase (test code = 6768-6) 60 40-150 [facility] SpringsCreatine Oapnob0144-62-14 16:02:00* Test Item Value Reference Range Interpretation Comments Creatine Kinase (test code = 2157-6) 40 29-168 [facility] SpringsLipase2017-12-19 16:02:00* Test Item Value Reference Range Interpretation Comments Lipase (test code = 3040-3) 16 8-78 [facility] SpringsTotal Oooluerhq2575-24-93 16:02:00* Test Item Value Reference Range Interpretation Comments Total Bilirubin (test code = 1975-2) 0.3 0.2-1.2 [facility] SpringsAspartate Amino Transf (AST/SGOT) 2017-02-18 16:02:00* Test Item Value Reference Range Interpretation Comments Aspartate Amino Transf (AST/SGOT) (test code = Aspartate Amino Transf (AST/SGOT)) 14 5-34 [facility] SpringsAlanine Aminotransferase (ALT/SGPT) 2017-02-18 16:02:00* Test Item Value Reference Range Interpretation Comments Alanine Aminotransferase (ALT/SGPT) (test code = 1742-6) 13 0-55 [facility] Lilfhmi3797-44-11 16:02:00* Test Item Value Reference Range Interpretation Comments Total Protein (test code = 2885-2) 6.3 6.5-8.1 L [facility] SpringsAlbumin2017-12-19 16:02:00* Test Item Value Reference Range Interpretation Comments Albumin (test code = 1751-7) 3.4 3.5-5.0 L [facility] SpringsGlobulin2017-12-19 16:02:00* Test Item Value Reference Range Interpretation Comments Globulin (test code = 85745-4) 2.9 2.3-3.5 [facility] SpringsAlbumin/Globulin Ndffm6391-36-68 16:02:00 * Test Item Value Reference Range Interpretation Comments Albumin/Globulin Ratio (test code = 1759-0) 1.2 0.8-2.0 [facility] SpringsAlkaline Expkacocvfz4390-24-77 16:02:00* Test Item Value Reference Range Interpretation Comments Alkaline Phosphatase (test code = 6768-6) 60 40-150 [facility] SpringsCreatine Gzvupi8751-60-58 16:02:00* Test Item Value Reference Range Interpretation Comments Creatine Kinase (test code = 2157-6) 40 29-168 [facility] SpringsLipase2017-12-19 16:02:00* Test Item Value Reference Range Interpretation Comments Lipase (test code = 3040-3) 16 8-78 [facility] SpringsActivated Partial Thromboplast Time 2017-02-18 15:56:00* Test Item Value Reference Range Interpretation Comments Activated Partial Thromboplast Time (test code = 15540-1) 37.3 23.8-35.5 H [facility] SpringsLactic Acid Oufkb8971-21-65 15:56:00* Test Item Value Reference Range Interpretation Comments Lactic Acid Level (test code = Lactic Acid Level) 22.0 4.5- 19.8 H [facility] SpringsActivated Partial Thromboplast Time 2017-02-18 15:56:00* Test Item Value Reference Range Interpretation Comments Activated Partial Thromboplast Time (test code = 65697-7) 37.3 23.8-35.5 H [facility] SpringsLactic Acid Ldvvo0768-86-51 15:56:00* Test Item Value Reference Range Interpretation Comments Lactic Acid Level (test code = Lactic Acid Level) 22.0 4.5- 19.8 [facility] SpringsTriglycerides Uslsm1471-56-75 07:20:00* Test Item Value Reference Range Interpretation Comments Triglycerides Level (test code = 2571-8) 253 0-149 [facility] Haokz2171-79-88 07:20:00* Test Item Value Reference Range Interpretation Comments Cholesterol Level (test code = 2093-3) 184 0-199 Less than 200 mg/dL Low Amrz071 - 239 mg/dL Borderline Qrnh223 m g/dl and greater High Risk [facility] SpringsLDL Jekjhliqibz1224-26-24 07:20:00* Test Item Value Reference Range Interpretation Comments LDL Cholesterol (test code = 76197-8) 98 60-130 [facility] Zpokqyjmhrj0410-37-28 07:20:00* Test Item Value Reference Range Interpretation Comments HDL Cholesterol (test code = 2085-9) 35 40-60 L [facility]Cholesterol/HDL Qanet8663-63-33 07:20:00 * Test Item Value Reference Range Interpretation Comments Cholesterol/HDL Ratio (test code = 9830-1) 5.3 3.0-3.6 [facility]Triglycerides Ktrij6497-21-93 07:20:00* Test Item Value Reference Range Interpretation Comments Triglycerides Level (test code = 2571-8) 253 0-149 [facility] Xznfn3372-93-97 07:20:00* Test Item Value Reference Range Interpretation Comments Cholesterol Level (test code = 2093-3) 184 0-199 Less than 200 mg/dL Low Efxd412 - 239 mg/dL Borderline Psbb411 m g/dl and greater High Risk [facility]LDL Gmprsxilazk5566-93-88 07:20:00* Test Item Value Reference Range Interpretation Comments LDL Cholesterol (test code = 10371-6) 98 60-130 [facility] Jkrovcgyzhg6986-60-42 07:20:00* Test Item Value Reference Range Interpretation Comments HDL Cholesterol (test code = 2085-9) 35 40-60 L [facility]Cholesterol/HDL Jedsl9565-23-54 07:20:00 * Test Item Value Reference Range Interpretation Comments Cholesterol/HDL Ratio (test code = 9830-1) 5.3 3.0-3.6 H [facility] SpringsMagnesium Jydmc1010-18-39 11:28:00* Test Item Value Reference Range Interpretation Comments Magnesium Level (test code = 39232-8) 1.4 1.3-2.1 [facility] SpringsMagnesium Njdsy9356-40-76 11:28:00* Test Item Value Reference Range Interpretation Comments Magnesium Level (test code = 56746-3) 1.4 1.3-2.1 [facility] SpringsRapid Plasma Ifripk4706-56-87 06:07:00* Test Item Value Reference Range Interpretation Comments Rapid Plasma Reagin (test code = 85979-9) Non Reactive Non Reactive Performed at: [address] [id number] Director: Don Plascencia MD, Phone: [phone] [facility] SpringsRapid Plasma Svwqqd8745-48-56 06:07:00* Test Item Value Reference Range Interpretation Comments Rapid Plasma Reagin (test code = 16203-0) Non Reactive Non Reactive Performed at: [address] [id number] Director: Don Plascencia MD, Phone: [phone] [facility] SpringsErythrocyte Sedimentation Gpjk4037-03-50 18:44:00* Test Item Value Reference Range Interpretation Comments Erythrocyte Sedimentation Rate (test code = 4537-7) 18 0- 20 [facility] SpringsErythrocyte Sedimentation Zgvg7411-14-79 18:44:00* Test Item Value Reference Range Interpretation Comments Erythrocyte Sedimentation Rate (test code = 4537-7) 18 0- 20 [facility] SpringsVitamin B12 Songn1888-97-83 18:32:00* Test Item Value Reference Range Interpretation Comments Vitamin B12 Level (test code = 86918-6) 216 213-816 [facility] SpringsVitamin B12 Ftwrf6107-85-78 18:32:00* Test Item Value Reference Range Interpretation Comments Vitamin B12 Level (test code = 97527-4) 216 213-816 [facility] SpringsG I BLEED [facility] [address] [address] Patient Name: JOSE CARLOS DIXON MR #: [id number] : 1960 Age/Sex: 57/F Req #: [id number] Adm Physician: MAXI AMAYA MD Ordered by: SANDRA MAGALLON MD Report #: [id number] Location: [facility] Room/Bed: IMCU 180-1 Procedure: 4500-0078 N M/G I BLEED Exam Date: 02/19/17 [...] 02/19/171803 C OPY TO: SANDRA MAGALLON MD [facility] (PORTABLE) [place] [address] Patient Name: JOSE CARLOS DIXON MR #: [id number] : 1960 Age/Sex: 57/F Req #: [id number] Adm Physician: MAXI AMAYA MD Ordered by: RENAE GOULD [employer]ET[employer] FINANCE MANAGER Report #: [id number] Location: [facility] Room/Bed: [facility] 180-1 Procedure: 6831-6664 DX/CHEST SINGLE (PORTABLE) Exam Date: 02/18/17 Exam Time: 1545 REPORT STATUS: Signed PROCEDURE: A single AP view of the c hest. COMPARISON: [facility], DX, CHEST 2 VIEWS, 09/17/2011, 21:13. [facility], DX, CHEST SINGLE (PORTABLE), 12/03/2016, 1 8:44. [...] WILBUR on 02/18/171647 COPY TO: RENAE [employer] MANAGER [address] [place] [address] Patient Name : JOSE CARLOS DIXON MR #: [id number] : 1960 Age/Sex: 57/F Adm Physi chioma : MAXI AMAYA MD Admit Date : 12/03/16 Location : [facility] Room/Bed : [place] [address] REPORT: Cardiology Repor t DATE OF STUDY: [...] size. 6. Right ventricle; normal size. 7. Humbreto ral valve; structurally normal intact valve excursion. [...] is noted. DT : 01/08/2017 17:44 Job#: [id number] Signature Date Dict ated By: YAMILETH COURTNEY MD Transcribed By: KEITH on 01/08/17 <Electronically signed by YAMILETH COURTNEY MD><<Signature on File>>01/14/17 0716 COPY TO: MRI BRAIN WO [place] [address] Patient Name: JOSE CARLOS DIXON MR #: [id number] : 1960 Age/Sex: 56/F Req #: [id number] Adm Physician: MAXI AMAYA MD Ordered by: DEVON IRWIN MD Report #: [id number] Location: [facility] Room/Bed: [place] [address] Procedure: 1004- 0002 MRI/MRI BRAIN WO Exam [...] TO: DEVON IRWIN MD MRI BRAIN WO [place] [address] Patient Name: JOSE CARLOS DIXON MR #: [id number] : 1 03/15/1959 Age/Sex: 56/F Req #: [id number] Adm Physician: MAXI AMAYA MD Ordered by: DEVON IRWIN MD Report #: [id number] Location: [facility] Room/Bed: [place] [address] Procedure: 1004- 0013 MRI/MRI BRAIN WO Exam [...] TO: DEVON IRWIN MD CHEST SINGLE (PORTABLE) [place] [address] Patient Name: JOSE CARLOS DIXON MR #: [id number] : 1960 Age/Sex: 56/F Req #: [id number] Adm Physician: Ordered by: ANU KAPLAN MD Report #: [id number] Location: ER Room/Bed: Procedure: 7053-8652 DX/CHEST SINGLE (PORTABLE) Exam Date: 12/03/16 Exam Time: 1849 REPORT STATUS: Signed PROCEDURE: A single AP view of the chest. COMPARISON: [facility], DX, CHEST SINGLE (PORTABLE), 12/30/2015, 10:30. [facility] [...] TO: ANU KAPLAN MD CT BRAIN WO [place] [address] Patient Name: JOSE CARLOS DIXON MR #: [id number] : 1960 Age/Sex: 56/F Req #: [id number] Adm Physician: Ordered by: ANU KAPLAN MD Report #: [id number] Location: ER Room/Bed: Procedure: 1371-5106 CT/CT BRAIN WO Exam Date: 12/03 Exam [...]
--- NOTE | 2019-10-03 20:04 | Discharge Summary ---
HOSPITAL COURSE: The patient came in with shortness of breath. The patient has history of pulmonary hypertension, history of acute on chronic hypoxia secondary to pulmonary hypertension. No CHF. Echocardiogram showed an EF of 65%. The patient had no diastolic dysfunction. The patient currently was given albuterol, Atrovent treatment. The patient continued to do well with the treatments and the patient had diuresis because of some pericardial effusion. In general, the patient felt better. Pulmonary consult was done. IV antibiotics were not given. The patient was continued on her diabetic medications and hyperlipidemic agents. Once the patient's electrolytes were normalized and diuresis adequately maintained to get the pericardial effusion the patient was discharged home. FINAL DIAGNOSES: 1. Pulmonary hypertension. 2. Pericardial effusion. 3. History of coronary artery disease. 4. History of hyperlipidemia. 5. History of diabetes mellitus. 6. 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 7. Additional diagnosis of anxiety. For further information, look in the chart. MD VALERIE Anand/MODL /[id number]
== END 2019-09-01 18:02 | disposition home or self-care (01) | DRG 293 ==
LOC: ER 17:45 → ERHOLD 21:11 → MED/SURG2 22:18 → OBSVTOIN 08-30 09:20
PROVIDERS: ADMIT Family Medicine; ATTEND Family Medicine
DX: I11.0 Hypertensive heart disease with heart failure (principal); I50.9 Heart failure, unspecified; I27.20 Pulmonary hypertension, unspecified; E78.5 Hyperlipidemia, unspecified; E11.9 Type 2 diabetes mellitus without complications; I25.10 Atherosclerotic heart disease of native coronary artery without angina pectoris; Z95.5 Presence of coronary angioplasty implant and graft; Z11.59 Encounter for screening for other viral diseases
CPT/HCPCS: 36415; 71045; 78597; 80048; 80053; 82550; 82553; 82948; 83735; 83880; 84484; 85025; 85610; 85730; 87040; 93005; 93306; 96372; 99284; A9540; G0378; J1940; J1956; J2060; J2930; J3475; J7030; J7050; U0002

== ENCOUNTER → 2019-09-14 | Outpatient (CLI) | payer OTHER ==
[~2019-09-14] MED LIST changes: +ASPIRIN81 MG PO; +CALCITONIN; +DILT-XR180 MG
--- NOTE | 2019-09-20 13:09 | Pulmonary Function Test ---
DATE OF STUDY: REFERRING PHYSICIAN: NAME OF STUDY: Spirometry report. The patient Dr. Kumar Paez and Dr. Teixeira, and Dr. Jerod Fragoso. FINDINGS: Restrictive spirometry. Forced vital capacity 1.53 L, 41% of predicted. FEV1 1.12 L, 38%. FEV1/ FVC ratio 73%. Restrictive pattern severe deficit. Diffusion capacity is severely reduced 4.89 L, 21% of predicted. IMPRESSION: Severe restrictive pulmonary disease. Clinical correlation required. Trenton Chowdary MD DS/MODL /[id number]
== END ==
LOC: RESP 13:58
PROVIDERS: ATTEND Internal Medicine Pulmonary Disease
DX: J44.9 Chronic obstructive pulmonary disease, unspecified (principal)

== ENCOUNTER → 2019-09-27 | Day surgery (SDC) | payer OTHER ==
[2019-09-22 14:26] LABS: BASOPHILS # (AUTO) 0.1 (0.0-0.1); BASOPHILS % 0.6 % (0.0-1.0); EOSINOPHILS # (AUTO) 0.9 (0.0-0.4); EOSINOPHILS % 7.9 % (0.0-6.0); HEMATOCRIT 37.4 % (34.2-44.1); HEMOGLOBIN 10.8 g/dL (12.0-16.0); LYMPHOCYTES # (AUTO) 1.2 (1.0-3.2); LYMPHOCYTES % 10.6 % (18.0-39.1); MEAN CORPUSCULAR HEMOGLOBIN 26.1 pg (28-32); MEAN CORPUSCULAR HGB CONC 28.9 g/dL (31-35); MEAN CORPUSCULAR VOLUME 90.3 fL (81-99); MONOCYTES % 8.5 % (4.4-11.3); NEUTROPHILS # (AUTO) 7.9 (2.1-6.9); NEUTROPHILS % 70.8 % (38.7-80.0); PLATELET COUNT 434 x10e3/uL (140-360); RED BLOOD COUNT 4.14 x10e6/uL (3.6-5.1); RED CELL DISTRIBUTION WIDTH 19.6 % (11.7-14.4)
[2019-09-22 14:50] LABS: ALBUMIN 3.7 g/dL (3.5-5.0); ALBUMIN/GLOBULIN RATIO 1.1 (0.8-2.0); ANION GAP 19.9 mmol/L (8-16); CREATININE, SERUM 1.02 mg/dL (0.57-1.11)
--- NOTE | 2019-09-22 14:55 | Diagnostic Imaging Report ---
EXAMINATION: CHEST 2 VIEWS INDICATION: Pre-operative COMPARISON: Chest radiograph of 08/27/2019 FINDINGS: LINES/TUBES:Left chest loop recorder device. LUNGS:The lungs are well-inflated. No focal consolidation or pulmonary edema. PLEURA:No pleural effusion or pneumothorax. MEDIASTINUM:The cardiomediastinal silhouette appears normal in size and shape. Atherosclerotic calcifications of the thoracic aorta. BONES/SOFT TISSUES:No acute osseous injury. ABDOMEN:No free air under the diaphragm. IMPRESSION: No focal pneumonia or pulmonary edema. Signed by: Toma Woods MD on 09/22/2019 2:52 PM
[2019-09-22 14:57] LABS: POTASSIUM 2.9 mmol/L (3.5-5.1)
[~2019-09-27] MED LIST changes: +BUPIVACAINE 0.25%/EPI 30ML SDV INJ ONE; +ETOMIDATE 2 MG/ML 10 ML INJ IV ONE; +FENTANYL CITRATE/PF 100MCG/2 ML INJ ONE; +INSULIN REGULAR, HUMAN 100 UNIT/1 ML 3ML VIAL ONE; +LIDOCAINE HCL 1% LOCAL INJ 20 ML VIAL ONE; +LIDOCAINE HCL 2% LOCAL INJ 5 ML SDV VIAL INJ ONE; +MIDAZOLAM HCL 2 MG/2 ML VIAL ONE; +ONDANSETRON HCL INJ 2MG/ML 2ML 2 MG/ML VIAL ONE; +PROPOFOL IV EMULSION 10 MG/ML 20 ML VIAL ONE
[2019-09-27 10:55] VITALS: BP 104/88
--- NOTE | 2019-09-27 11:32 | Operative Report ---
DATE OF PROCEDURE: 09/27/2019 SURGEON: Srinivas Colbert MD PREOPERATIVE DIAGNOSIS: Large calcified mass of the left lumbar region. POSTOPERATIVE DIAGNOSIS: Large calcified mass of the left lumbar region. OPERATION PERFORMED: Wide excision of large mass of the left lumbar region. ANESTHESIA: Local 1% Xylocaine and 0.25% Marcaine and MAC. COMPLICATIONS: None. ESTIMATED BLOOD LOSS: Minimal. DESCRIPTION OF PROCEDURE: With the patient lying in bed in the lateral position under good IV sedation, the lower back and lumbar region and left hip were prepped with Betadine solution and draped in the usual manner. There was a large hard mass in the left lumbar region, that had some ulcerations to the skin. The whole area was then infiltrated with 0.25% Marcaine and 1% lidocaine and an elliptical incision was made to include all of the ulcerated part of the skin. An incision that was roughly about 8 inches was made to be able to get around the entire lesion. These flaps were then developed in all directions and the mass is slowly and carefully from all the surrounding tissues. The mass was stuck to the fascia in its deepest aspect and was totally and completely mobilized and removed, and sent for pathological examination. After this was done, hemostasis was ascertained. The subcutaneous tissue was then reapproximated in layers using interrupted sutures of 2-0 and 3-0 Vicryl, and the skin was closed with interrupted vertical mattress sutures of 3-0 silk. A dressing was applied. The sponge, lap, and needle counts were correct. The patient tolerated the procedure well and returned to the recovery room in stable condition. Srinivas Colbert MD JLR/MODL /[id number]
== END | disposition home or self-care (01) ==
LOC: OR 06:28
PROVIDERS: ATTEND Surgery
DX: R22.2 Localized swelling, mass and lump, trunk (principal); I27.20 Pulmonary hypertension, unspecified; J44.9 Chronic obstructive pulmonary disease, unspecified; I25.10 Atherosclerotic heart disease of native coronary artery without angina pectoris; I11.0 Hypertensive heart disease with heart failure; I50.9 Heart failure, unspecified; E11.9 Type 2 diabetes mellitus without complications; Z01.810 Encounter for preprocedural cardiovascular examination; Z01.812 Encounter for preprocedural laboratory examination; Z01.818 Encounter for other preprocedural examination; Z11.59 Encounter for screening for other viral diseases; Z99.81 Dependence on supplemental oxygen; Z95.5 Presence of coronary angioplasty implant and graft; Z95.818 Presence of other cardiac implants and grafts; Z87.891 Personal history of nicotine dependence
CPT/HCPCS: 21933; 36415 ×2; 71046; 80053; 82948; 84132; 85025; 88305; 88311; 93005; J2001 ×2; J2250; J2405; J2704; J3010; U0002; 88304; J1817